=== PATIENT | female | born 1950 | race African-American/Black ===

== ENCOUNTER 2016-12-17 20:24 | Inpatient (IN) | payer OTHER ==
[~2016-12-17] VITALS: Ht 170.2 cm; Wt 88.1 kg
[~2016-12-17 20:24] MED LIST: AMIO200T PO; AMLO10 PO; CLON.2 PO; DILT120T PO; FURO1TAB60 PO; FURO40TA PO; IMDU60TA PO; LISI-515 PO; POTA-243 PO; PRIN20TA2 PO; SIMV40TA PO; XARE15TA PO
[2016-12-17 20:27] VITALS: BP 221/142; PULSE 130; RESP 42; TEMP 97.9; O2SAT 98
[2016-12-17 20:30] VITALS: O2SAT 89
[2016-12-17] MEDS ORDERED: RESP: ALBUTEROL 2.5 MG/IPRATROPIUM 0.5 MG NEB (SCH) INH (20:30)
[2016-12-17] MEDS ORDERED: methylPREDNISolone SOD SUCC 125 MG/2 ML VIAL IVP ONE (20:30)
[2016-12-17] MEDS ORDERED: FUROSEMIDE 40 MG/4 ML VIAL IV PUSH ONE (20:45)
[2016-12-17] MEDS ORDERED: NITROGLYCERIN 2% OINT 1 GM PACKET TOP ONE (20:45)
[2016-12-17] MEDS: SODIUM CHLORIDE 0.9% FLUSH 5 ML FLUSH IVF PRN ×2 (20:47→21:05)
--- NOTE | 2016-12-17 20:48 | PD ---
HPI Chief Complaint: Respiratory Symptoms Time Seen by Provider: 20:28 Travel History International Travel<30 days: No Contact w/Intl Traveler<30days: No Traveled to known affect area: No History of Present Illness HPI This report is in ERROR Please disregard this report and all prior copies ! This report is in ERROR Please disregard this report and all prior copies ! This report is in ERROR Please disregard this report and all prior copies ! History Past Medical History Tetanus Vaccination: Unknown Menopausal: Yes : 4 Para: 3 Social History Alcohol Use: No Tobacco Use: Yes (3 cigarettes a day) Allergies-Medications (Allergen,Severity, Reaction): Coded Allergies: No Known Allergies (Unverified , 12/17/16) Reported Meds & Prescriptions Reported Meds & Active Scripts Active Lasix (Furosemide) 40 Mg Tab 40 Mg PO DAILY Xarelto (Rivaroxaban) 15 Mg Tab 15 Mg PO DAILY 30 Days Klor-Con 10 (Potassium Chloride) 10 Meq Tab 10 Meq PO DAILY 30 Days Lisinopril 20 Mg Tab 40 Mg PO DAILY 30 Days Imdur (Isosorbide Mononitrate) 60 Mg Tab 60 Mg PO DAILY@07 30 Days Simvastatin 40 Mg Tab 40 Mg PO HS Norvasc (Amlodipine Besylate) 10 Mg Tab 10 Mg PO DAILY 30 Days Amiodarone (Amiodarone HCl) 200 Mg Tab 400 Mg PO DIRECTED 30 Days Pt to take amiodarone 400mg po q12 until 09/28/16 pm then take 200mg po daily starting 09/29/16 Reported Klor-Con 10 (Potassium Chloride) 10 Meq Tab 10 Meq PO DAILY Catapres (Clonidine) 0.2 Mg Tab 0.2 Mg PO BID Furosemide 40 Mg Tab 40 Mg PO DAILY Imdur (Isosorbide Mononitrate) 60 Mg Tab 60 Mg PO DAILY Prinivil (Lisinopril) 20 Mg Tab 20 Mg PO DAILY Diltiazem (Diltiazem HCl) 120 Mg Tab 120 Mg PO QID Xarelto (Rivaroxaban) 15 Mg Tab 15 Mg PO DAILY Physical Exam Narrative This report is in ERROR Please disregard this report and all prior copies ! This report is in ERROR Please disregard this report and all prior copies ! This report is in ERROR Please disregard this report and all prior copies ! Data Data Last Documented VS Vital Signs Date Time Temp Pulse Resp B/P Pulse Ox O2 Delivery O2 Flow Rate FiO2 12/17/16 20:27 97.9 130 42 221/142 98 Orders Complete Blood Count With Diff (12/17/16 20:28) Basic Metabolic Panel (Bmp) (12/17/16 20:28) B-Type Natriuretic Peptide (12/17/16 20:28) Act Partial Throm Time (Ptt) (12/17/16 20:28) Prothrombin Time / Inr (Pt) (12/17/16 20:28) Magnesium (Mg) (12/17/16 20:28) Troponin I (12/17/16 20:28) Iv Access Insert/Monitor (12/17/16 20:28) Electrocardiogram (12/17/16 20:28) Ecg Monitoring (12/17/16 20:28) Oximetry (12/17/16 20:28) Oxygen Administration (12/17/16 20:28) Chest, Single Ap (12/17/16 20:28) Sodium Chloride 0.9% Flush (Ns Flush) (12/17/16 20:30) Methylprednisolone So Succ Inj (Solumedr (12/17/16 20:30) Albuterol-Ipratropium Neb (Duoneb Neb) (12/17/16 20:30) Furosemide Inj (Lasix Inj) (12/17/16 20:45) Urinary Catheter Insert/Apply (12/17/16 20:42) Nitroglycerin 2% Oint (Nitroglycerin 2% (12/17/16 20:45) MDM Medical Decision Making Medical Screen Exam Complete: Yes Emergency Medical Condition: Yes Differential Diagnosis This report is in ERROR Please disregard this report and all prior copies ! This report is in ERROR Please disregard this report and all prior copies ! This report is in ERROR Please disregard this report and all prior copies ! Narrative Course This report is in ERROR Please disregard this report and all prior copies ! This report is in ERROR Please disregard this report and all prior copies ! This report is in ERROR Please disregard this report and all prior copies ! Vitor Wong MD Dec 17, 2016 20:48
--- NOTE | 2016-12-17 20:48 | PD ---
HPI Chief Complaint: Respiratory Symptoms Time Seen by Provider: 20:28 Travel History International Travel<30 days: No Contact w/Intl Traveler<30days: No Traveled to known affect area: No History of Present Illness HPI 66-year-old female arrives from home via EMS. She has a history of coronary artery disease, CHF, atrial fibrillation with AICD, hypertension and asthma arrives with shortness of breath. She reports noncompliance with all of her medications including Lasix and Xarelto for 3 weeks or so due to difficulty making her appointments via public transportation. She denies chest pain she has had a cough with white productive phlegm. EMS gave breathing treatments en route which seemed to help. no fever. PFSH Past Medical History Hx Anticoagulant Therapy: Yes Arthritis: Yes (r ankle) Asthma: Yes Blood Disorders: No Anxiety: No Depression: No Heart Rhythm Problems: Yes Cancer: No Cardiovascular Problems: Yes High Cholesterol: No Chemotherapy: No Chest Pain: No Congestive Heart Failure: No COPD: No Cerebrovascular Accident: Yes Coronary Artery Disease: Yes Diabetes: No Diminished Hearing: No Endocrine: No Genitourinary: No Headaches: Yes Hypertension: Yes Immune Disorder: No Kidney Stones: No Musculoskeletal: Yes Neurologic: Yes (stroke) Psychiatric: No Reproductive: No Respiratory: Yes Immunizations Current: Yes Migraines: No Radiation Therapy: No Renal Failure: No Seizures: No Sleep Apnea: No Thyroid Disease: No Ulcer: No Tetanus Vaccination: Unknown Menopausal: Yes : 4 Para: 3 Miscarriage: 1 Tubal Ligation: Yes Past Surgical History Abdominal Surgery: No AICD: No Arteriovenous Shunt: No Cardiac Surgery: No Ear Surgery: No Endocrine Surgery: No Eye Surgery: No Insulin Pump: No Joint Replacement: No Oral Surgery: No Pacemaker: Yes (with defibrillator ) Thoracic Surgery: No Other Surgery: Yes (R ankle surgery, tubal ligation, pacemaker placement) Social History Alcohol Use: No Tobacco Use: Yes (3 cigarettes a day) Substance Use: No Allergies-Medications (Allergen,Severity, Reaction): Coded Allergies: No Known Allergies (Unverified , 12/17/16) Reported Meds & Prescriptions Reported Meds & Active Scripts Active Lasix (Furosemide) 40 Mg Tab 40 Mg PO DAILY Klor-Con 10 (Potassium Chloride) 10 Meq Tab 10 Meq PO DAILY 30 Days Lisinopril 20 Mg Tab 40 Mg PO DAILY 30 Days Simvastatin 40 Mg Tab 40 Mg PO HS Norvasc (Amlodipine Besylate) 10 Mg Tab 10 Mg PO DAILY 30 Days Amiodarone (Amiodarone HCl) 200 Mg Tab 400 Mg PO DIRECTED 30 Days Pt to take amiodarone 400mg po q12 until 09/28/16 pm then take 200mg po daily starting 09/29/16 Reported Isosorbide Mononitrate ER (Isosorbide Mononitrate) 60 Mg Tab 60 Mg PO DAILY Klor-Con 10 (Potassium Chloride) 10 Meq Tab 10 Meq PO DAILY Catapres (Clonidine) 0.2 Mg Tab 0.2 Mg PO BID Furosemide 40 Mg Tab 40 Mg PO DAILY Prinivil (Lisinopril) 20 Mg Tab 20 Mg PO DAILY Diltiazem (Diltiazem HCl) 120 Mg Tab 120 Mg PO QID Xarelto (Rivaroxaban) 15 Mg Tab 15 Mg PO DAILY Review of Systems Except as stated in HPI: all other systems reviewed are Neg Physical Exam Narrative GENERAL: 66-year-old female pleasant, speaks 2-3 word sentences 2/2 dyspnea SKIN: Warm and dry. HEAD: Atraumatic. Normocephalic. EYES: Pupils equal and round. No scleral icterus. No injection or drainage. ENT: No nasal bleeding or discharge. Mucous membranes pink and moist. NECK: Trachea midline. No JVD. CARDIOVASCULAR: Tachycardia. Regular rhythm. RESPIRATORY: Rales. Tachypnea. GASTROINTESTINAL: Abdomen soft, non-tender, nondistended. Hepatic and splenic margins not palpable. MUSCULOSKELETAL: No edema. No gross deformity otherwise. NEUROLOGICAL: Awake and alert. No obvious cranial nerve deficits. Motor grossly within normal limits. Five out of 5 muscle strength in the arms and legs. Normal speech. PSYCHIATRIC: Appropriate mood and affect; insight and judgment normal. Data Data Last Documented VS Vital Signs Date Time Temp Pulse Resp B/P Pulse Ox O2 Delivery O2 Flow Rate FiO2 12/17/16 20:31 95 Nasal Cannula 4 12/17/16 20:27 97.9 130 42 221/142 Orders Complete Blood Count With Diff (12/17/16 20:28) Basic Metabolic Panel (Bmp) (12/17/16 20:28) B-Type Natriuretic Peptide (12/17/16 20:28) Act Partial Throm Time (Ptt) (12/17/16 20:28) Prothrombin Time / Inr (Pt) (12/17/16 20:28) Magnesium (Mg) (12/17/16 20:28) Troponin I (12/17/16 20:28) Iv Access Insert/Monitor (12/17/16 20:28) Electrocardiogram (12/17/16 20:28) Ecg Monitoring (12/17/16 20:28) Oximetry (12/17/16 20:28) Oxygen Administration (12/17/16 20:28) Chest, Single Ap (12/17/16 20:28) Sodium Chloride 0.9% Flush (Ns Flush) (12/17/16 20:30) Methylprednisolone So Succ Inj (Solumedr (12/17/16 20:30) Albuterol-Ipratropium Neb (Duoneb Neb) (12/17/16 20:30) Furosemide Inj (Lasix Inj) (12/17/16 20:45) Urinary Catheter Insert/Apply (12/17/16 20:42) Nitroglycerin 2% Oint (Nitroglycerin 2% (12/17/16 20:45) Admit Order (Ed Use Only) (12/17/16 22:33) Labs Laboratory Tests Test 12/17/16 20:40 White Blood Count 9.7 TH/MM3 Red Blood Count 4.33 MIL/MM3 Hemoglobin 11.5 GM/DL Hematocrit 34.7 % Mean Corpuscular Volume 80.3 FL Mean Corpuscular Hemoglobin 26.6 PG Mean Corpuscular Hemoglobin 33.2 % Concent Red Cell Distribution Width 16.0 % Platelet Count 338 TH/MM3 Mean Platelet Volume 10.3 FL Neutrophils (%) (Auto) 77.3 % Lymphocytes (%) (Auto) 15.1 % Monocytes (%) (Auto) 3.9 % Eosinophils (%) (Auto) 2.8 % Basophils (%) (Auto) 0.9 % Neutrophils # (Auto) 7.5 TH/MM3 Lymphocytes # (Auto) 1.5 TH/MM3 Monocytes # (Auto) 0.4 TH/MM3 Eosinophils # (Auto) 0.3 TH/MM3 Basophils # (Auto) 0.1 TH/MM3 CBC Comment DIFF FINAL Differential Comment Prothrombin Time 11.5 SEC Prothromb Time International 1.0 RATIO Ratio Activated Partial 29.8 SEC Thromboplast Time Sodium Level 136 MEQ/L Potassium Level 3.5 MEQ/L Chloride Level 102 MEQ/L Carbon Dioxide Level 21.1 MEQ/L Anion Gap 13 MEQ/L Blood Urea Nitrogen 17 MG/DL Creatinine 1.46 MG/DL Estimat Glomerular Filtration 44 ML/MIN Rate Random Glucose 133 MG/DL Calcium Level 8.6 MG/DL Magnesium Level 1.9 MG/DL Troponin I 0.43 NG/ML B-Type Natriuretic Peptide 1650 PG/ML MDM Medical Decision Making Medical Screen Exam Complete: Yes Emergency Medical Condition: Yes Medical Record Reviewed: Yes Differential Diagnosis CHF, anemia, pneumonia, COPD/asthma, flash pulmonary edema Narrative Course CBC & BMP Diagram 12/17/16 20:40 BNP 1650 Tn 0.43 Coags 11.5 / 1.0 / 29.8 CXR: Pulm edema Patient has received Nitropaste and Lasix. She's produced about 800 cc of urine. She reports feeling much better upon reassessment at 10:36 PM. Hypertension about 206/100 observed. Heart rate about 110. O2 sat 95% on NC. Admission for CHF exacerbation. Discussed with Dr. Presley. Diagnosis Primary Impression: Acute on chronic systolic CHF (congestive heart failure) Additional Impressions: Hypertension Qualified Code: I15.9 - Secondary hypertension Tachycardia Admitting Information Admitting Physician Requests: Admit Vitor Wong MD Dec 17, 2016 20:48
[2016-12-17] MEDS ORDERED: ISOS60TA PO (20:52)
[2016-12-17 21:14] LABS: AUTOMATED NEUTROPHIL # 7.5 TH/MM3 (1.8-7.7); BASOPHIL # 0.1 TH/MM3 (0-0.2); BASOPHIL % 0.9 % (0.0-2.0); EOSINOPHIL # 0.3 TH/MM3 (0-0.4); EOSINOPHIL % 2.8 % (0.0-4.0); HEMATOCRIT 34.7 % (35.0-46.0); HEMO FLAGS DIFF FINAL; LYMPH % 15.1 % (9.0-44.0); LYMPHOCYTE # 1.5 TH/MM3 (1.0-4.8); MEAN CELL VOLUME 80.3 FL (80.0-100.0); MEAN CORPUSCULAR HEMOGLOBIN 26.6 PG (27.0-34.0); MEAN CORPUSCULAR HGB CONC 33.2 % (32.0-36.0); MONO % 3.9 % (0.0-8.0); NEUT % 77.3 % (16.0-70.0); PLATELET COUNT 338 TH/MM3 (150-450); RED BLOOD COUNT 4.33 MIL/MM3 (4.00-5.30); WHITE BLOOD COUNT 9.7 TH/MM3 (4.0-11.0)
[2016-12-17 21:25] LABS: APTT (PATIENT) 29.8 SEC (24.3-30.1); PROTHROMBIN TIME - PATIENT 11.5 SEC (9.8-11.6)
[2016-12-17 21:42] LABS: BICARBONATE 21.1 MEQ/L (21.0-32.0); MAGNESIUM 1.9 MG/DL (1.5-2.5)
[2016-12-17 21:47] LABS: POTASSIUM 3.5 MEQ/L (3.5-5.1)
--- NOTE | 2016-12-17 22:39 | RADRPT ---
EXAM DATE/TIME: 12/17/2016 20:43 [facility] COMPARISON: CHEST SINGLE AP, September 23, 2016, 19:35. INDICATIONS : Short of breath. MEDICAL HISTORY : Hypertension. Cardiovascular disease. SURGICAL HISTORY : Pacemaker. ENCOUNTER: Initial ACUITY: 1 day PAIN SCORE: 0/10 LOCATION: Bilateral chest FINDINGS: A single view of the chest demonstrates cardiomegaly. Pacer lead overlies right ventricle. Bilateral airspace consolidation and an effusion. No pneumothorax. CONCLUSION: 1. Development of bilateral airspace disease most characteristic of mild pulmonary edema. Cardiomegal y. No pneumothorax. Odilon Lechuga MD on December 17, 2016 at 22:36 Board Certified Radiologist. This report was verified electronically.
[2016-12-17 23:30] VITALS: BP 205/113; PULSE 109; RESP 22
[2016-12-17] MEDS ORDERED: SODIUM CHLORIDE 0.9% FLUSH 5 ML FLUSH FLUSH PRN (23:30)
[2016-12-17] MEDS ORDERED: POTASSIUM CHLORIDE 25 MEQ EFFERVESCENT TAB PO ONE (23:30)
[2016-12-17] MEDS ORDERED: MORPHINE SULFATE 4 MG/ML INJ IV PRN (23:30)
[2016-12-17] MEDS ORDERED: ACETAMINOPHEN 325 MG TAB PO PRN (23:30)
[2016-12-17] MEDS ORDERED: SENNOSIDES 8.6 MG TAB PO PRN (23:30)
--- NOTE | 2016-12-17 23:40 | HHI.HP ---
[facility] Service [facility] Primary Care Physician Unknown Admission Diagnosis CHF exacerbation, Dyspnea, HTN Diagnoses: Chief Complaint: Lethargy Travel History International Travel<30 Days: No Contact w/Intl Traveler <30 Da: No Traveled to Known Affected Are: No Sepsis Criteria SIRS Criteria (2 or more): Heart rate over 90, RR > 20 or PaCO2 < 32 Criteria Outcome: Meets SIRS criteria History of Present Illness The patient is a 66-year-old female with a past medical history of cardiomyopathy status post AICD placement who is presenting to the hospital and found to be in respiratory distress. The patient says she is always short of breath. She says she is not on oxygen at home. She says she was in the hospital a few months ago for a similar presentation. She says she stopped taking her blood pressure medications a couple of days ago out of laziness. She says she has been drowsy recently. She says her blood pressure has been high. She says she lives alone but it is starting to get difficult to take care of herself. The emergency department she was found to be very hypertensive and with pulmonary edema. She was given a nitroglycerin patch and was diuresed with IV Lasix. The patient's blood pressure is still quite elevated but she feels better from a respiratory standpoint. She denies any chest pain. She says she follows up with several cardiologists but is not sure which ones. She is not sure which medication she actually takes on a regular basis. Review of Systems ROS Limitations: Poor Historian Respiratory: COMPLAINS OF: Shortness of breath Cardiovascular: COMPLAINS OF: Dyspnea on Exertion, DENIES: Chest pain Integumentary: COMPLAINS OF: Abnormal pigmentation Psychiatric: COMPLAINS OF: Confusion Past Family Social History Past Medical History Hypertension History of A fib/ A flutter Nonischemic cardiomyopathystatus post AICD CVA COPD Chronic kidney disease Past Surgical History ICD implantation Tubal ligation Right ankle with pin placement Allergies: Coded Allergies: No Known Allergies (Unverified , 12/17/16) Active Ordered Medications Current Medications Medications (Trade) Dose Ordered Sig/Dajuan Route Start Time Stop Time Status Last Admin (NS Flush) 2 ml UNSCH PRN IVF 12/17/16 20:30 12/17/16 21:05 (Cordarone) 200 mg DAILY PO 12/18/16 09:00 (Norvasc) 10 mg DAILY PO 12/18/16 09:00 (Catapres) 0.2 mg BID PO 12/18/16 09:00 (Imdur) 60 mg DAILY@07 PO 12/18/16 07:00 (Prinivil) 40 mg DAILY PO 12/17/16 23:00 Pravastatin Sodium 80 mg 80 mg HS PO 12/18/16 21:00 Nicardipine HCl 25 mg/Sodium Chloride 260 ml @ 0 mls/hr TITRATE IV 12/17/16 23:30 UNV (Heparin-D5W Inj) 250 ml @ 0 mls/hr TITRATE IV 12/17/16 23:30 UNV (NS Flush) 2 ml UNSCH PRN FLUSH 12/17/16 23:30 UNV (NS Flush) 2 ml BID FLUSH 12/18/16 09:00 UNV (Tylenol) 650 mg Q4H PRN PO 12/17/16 23:30 UNV (Colace) 100 mg Q12H PO 12/17/16 23:30 UNV (Senokot) 17.2 mg Q12H PRN PO 12/17/16 23:30 UNV (Tylenol) 650 mg Q6H PRN PO 12/17/16 23:30 UNV (Morphine Inj) 2 mg Q3H PRN IV 12/17/16 23:30 UNV Family History She says her father at home. Social History The patient smokes 4 cigarettes daily. She does not drink alcohol. Physical Exam Vital Signs Vital Signs Date Time Temp Pulse Resp B/P Pulse Ox O2 Delivery O2 Flow Rate FiO2 12/17/16 20:31 95 Nasal Cannula 4 12/17/16 20:30 89 Room Air 12/17/16 20:27 97.9 130 42 221/142 98 Physical Exam GENERAL: No apparent distress. SKIN: Warm and dry. HEAD: Atraumatic. Normocephalic. EYES: Pupils equal and round. No scleral icterus. No injection or drainage. ENT: No nasal bleeding or discharge. Mucous membranes pink and moist. NECK: Trachea midline. No JVD. CARDIOVASCULAR: Tachycardic. No murmur appreciated. RESPIRATORY: Rales and mild wheezing noted. GASTROINTESTINAL: Abdomen soft, non-tender, nondistended. Hepatic and splenic margins not palpable. MUSCULOSKELETAL: No edema. No gross deformity otherwise. NEUROLOGICAL: Awake and alert. No obvious cranial nerve deficits. Motor grossly within normal limits. Five out of 5 muscle strength in the arms and legs. Normal speech. PSYCHIATRIC: Appropriate mood and affect. Laboratory Laboratory Tests Test 12/17/16 20:40 White Blood Count 9.7 Red Blood Count 4.33 Hemoglobin 11.5 Hematocrit 34.7 Mean Corpuscular Volume 80.3 Mean Corpuscular Hemoglobin 26.6 Mean Corpuscular Hemoglobin 33.2 Concent Red Cell Distribution Width 16.0 Platelet Count 338 Mean Platelet Volume 10.3 Neutrophils (%) (Auto) 77.3 Lymphocytes (%) (Auto) 15.1 Monocytes (%) (Auto) 3.9 Eosinophils (%) (Auto) 2.8 Basophils (%) (Auto) 0.9 Neutrophils # (Auto) 7.5 Lymphocytes # (Auto) 1.5 Monocytes # (Auto) 0.4 Eosinophils # (Auto) 0.3 Basophils # (Auto) 0.1 CBC Comment DIFF FINAL Differential Comment Prothrombin Time 11.5 Prothromb Time International 1.0 Ratio Activated Partial 29.8 Thromboplast Time Sodium Level 136 Potassium Level 3.5 Chloride Level 102 Carbon Dioxide Level 21.1 Anion Gap 13 Blood Urea Nitrogen 17 Creatinine 1.46 Estimat Glomerular Filtration 44 Rate Random Glucose 133 Calcium Level 8.6 Magnesium Level 1.9 Troponin I 0.43 B-Type Natriuretic Peptide 1650 Result Diagram: 12/17/16203912/17/162039 Imaging Last Impressions Chest X-Ray 12/17/162027 Signed Impressions: Service Date/Time: Saturday, December 17, 2016 20:43 - CONCLUSION: 1. Development of bilateral airspace disease most characteristic of mild pulmonary edema. Cardiomegaly. No pneumothorax. Odilon Lechuga MD Assessment and Plan Assessment and Plan Acute on chronic heart failure exacerbation The patient has a history of cardiomyopathy. Chest x-ray consistent with pulmonary edema. Her BNP was 1650. Her symptoms improved with IV Lasix. - Continue diuresis with Lasix 40 mg IV twice a day. - Follow I's and O's. - Continue cardiac regimen. - Monitor on telemetry. NSTEMI Initial troponin was 0.43. She denies any chest pain. EKG with tachycardia but no obvious ischemia. Likely demand ischemia from CHF exacerbation and hypertensive emergency. - Controlled blood pressure. - Start a heparin drip. - Continue cardiac regimen. - Monitor on telemetry. - Cardiology consult pending. Hypertensive emergency The patient has not been taking her blood pressure medications for the past couple of days. She does endorse noncompliance in general. Systolic blood pressure well over 200 in the emergency department. - Start a Cardene drip. - Resume home anti-hypertensive regimen. - Cardiology consult. Atrial fibrillation The patient has a history of atrial fibrillation/flutter. Rate is elevated in the emergency department. - Continue home amiodarone. Unsure if she has been taking it on a regular basis. - Telemetry. - Heparin drip. Chronic kidney disease Creatinine is similar to baseline. - Monitor BMP while patient is being diuresed. - Avoid nephrotoxic agents. Lethargy The patient endorses drowsiness and laziness. She is noncompliant with her medications. She lives alone and says it is getting more difficult to take care of herself. - PT/OT. - Case management consult for potential placement. - Treat underlying conditions as above. PPx: Heparin. Code Status Full. Discussed Condition With Dr. Wong, pt. Physician Certification 2 Midnight Certification Type: Admission for Inpatient Services Order for Inpatient Services The services are ordered in accordance with Medicare regulations or non- Medicare payer requirements, as applicable. In the case of services not specified as inpatient-only, they are appropriately provided as inpatient services in accordance with the 2-midnight benchmark. Estimated LOS (days): 2 days is the estimated time the patient will need to remain in the hospital, assuming treatment plan goals are met and no additional complications. Post-Hospital Plan: Not yet determined Dwayne Presley DO Dec 17, 2016 23:39
[2016-12-17] MEDS: LISINOPRIL 20 MG TAB PO SCH (23:42)
[2016-12-17 23:59] LABS: APTT (PATIENT) 27.1 SEC (24.3-30.1)
[2016-12-18] VITALS (13 sets, daily range): BP systolic 125–184; BP diastolic 65–101; PULSE 80–106; RESP 16–26; TEMP 97.9; O2SAT 93–99
[2016-12-18] MEDS: HEPARIN-D5W INJ 250 ML IV SCH ×2 (00:04→21:15)
[2016-12-18] MEDS: niCARdipine INJ 25 MG in SODIUM CHLOR 0.9% 250 ML INJ 250 ML IV SCH ×3 (00:23→21:15)
[2016-12-18] MEDS: DOCUSATE SODIUM 100 MG CAP PO SCH ×2 (00:57→13:47)
[2016-12-18 05:35] LABS: AUTOMATED NEUTROPHIL # 5.4 TH/MM3 (1.8-7.7); BASOPHIL % 0.2 % (0.0-2.0); EOSINOPHIL % 0.1 % (0.0-4.0); HEMATOCRIT 33.7 % (35.0-46.0); HEMO FLAGS DIFF FINAL; LYMPH % 9.2 % (9.0-44.0); LYMPHOCYTE # 0.6 TH/MM3 (1.0-4.8); MEAN CELL VOLUME 80.2 FL (80.0-100.0); MEAN CORPUSCULAR HEMOGLOBIN 27.1 PG (27.0-34.0); MEAN CORPUSCULAR HGB CONC 33.8 % (32.0-36.0); MONO % 1.1 % (0.0-8.0); NEUT % 89.4 % (16.0-70.0); PLATELET COUNT 308 TH/MM3 (150-450); RED CELL DISTRIBUTION WIDTH 16.2 % (11.6-17.2)
--- NOTE | 2016-12-18 05:49 | RADRPT ---
EXAM DATE/TIME: 12/18/2016 05:17 [facility] COMPARISON: CHEST SINGLE AP, December 17, 2016, 20:43. INDICATIONS : Short of breath. MEDICAL HISTORY : Hypertension. Cardiovascular disease. SURGICAL HISTORY : Pacemaker. ENCOUNTER: Subsequent ACUITY: 2 days PAIN SCORE: Non-responsive. LOCATION: Bilateral chest FINDINGS: There continues to be bilateral interstitial infiltrates without significant change compared to the p rior exam. The heart size is enlarged but stable. No pleural effusions. No evidence of pneumothorax. Bony structures are stable. CONCLUSION: No significant interval change with bilateral interstitial pulmonary infiltrates. Tyson Bustamante MD on December 18, 2016 at 5:47 Board Certified Radiologist. This report was verified electronically.
[2016-12-18 06:20] LABS: BICARBONATE 23.3 MEQ/L (21.0-32.0); POTASSIUM 3.5 MEQ/L (3.5-5.1)
[2016-12-18] MEDS: SODIUM CHLORIDE 0.9% FLUSH 5 ML FLUSH FLUSH SCH ×2 (11:13→21:00)
[2016-12-18] MEDS: FUROSEMIDE 40 MG/4 ML VIAL IV PUSH SCH (11:13)
[2016-12-18] MEDS: cloNIDine HCL 0.2 MG TAB PO SCH ×2 (11:14→21:16)
[2016-12-18] MEDS: LISINOPRIL 20 MG TAB PO SCH (11:14)
[2016-12-18] MEDS: AMIODARONE 200 MG TAB PO SCH (11:14)
--- NOTE | 2016-12-18 12:37 | MB ---
cc: IZAIAH ARREDONDO DATE OF CONSULTATION 12/18/2016 DATE OF 1950 REASON FOR CONSULTATION Heart failure, elevated troponins. HISTORY OF PRESENT ILLNESS 66-year-old female with past medical history significant for nonischemic cardiomyopathy status post AICD, hypertension, COPD, chronic kidney disease and atrial fibrillation who presented to the emergency department because of respiratory distress. She stated that she stopped her home medications for a couple of days because she did not have any refills and the shortness of breath has progressed significantly over the last days. She denies fevers, chills, palpitations, chest pains, syncope, nausea, vomiting, or diarrhea. In the emergency department, she was found to have high blood pressure with sysytolic 200's and diastolic above 100 and with pulmonary edema. She was started on nitro, as well as on IV Lasix with resolution of symptoms. Blood work in the emergency department shows troponin marker trending up from 0.43-0.79, BNP of 1615. Cardiology has been consulted for further recommendations. REVIEW OF SYSTEMS Negative except for what is mentioned in the HPI. PAST MEDICAL HISTORY 1. Hypertension 2. A. Fib/A. Flutter 3. Nonischemic cardiomyopathy status post AICD 4. CVA 5. COPD 6. Chronic kidney disease PAST SURGICAL HISTORY 1. ICD implantation 2. Tubal ligation 3. Right ankle with pin placement ALLERGIES NO KNOWN DRUG ALLERGIES. HOME MEDICATIONS 1. Amiodarone 200 mg b.i.d. 2. Norvasc 10 mg p.o. daily 3. Clonidine 0.2 mg p.o. b.i.d. 4. Diltiazem 120 mg p.o. q.i.d. 5. Lasix 40 mg p.o. daily 6. Imdur 60 mg p.o. daily 7. Lisinopril 20 mg p.o. daily 8. Potassium chloride 10 mEq p.o. daily 9. Izaguirre 15 mg p.o. daily 10. Simvastatin 40 mg p.o. q.h.s. FAMILY HISTORY Noncontributory SOCIAL HISTORY The patient is a smoker. She smokes four cigarettes daily. No illicit drug use. No alcohol. PHYSICAL EXAMINATION VITAL SIGNS: Temperature 97.9, respiratory rate 18, heart rate 90, blood pressure on arrival 221/142, this morning is 154/91, O2 sats 99% into two liters nasal cannula. GENERAL: She is awake, alert, and oriented x3 in no acute distress. NECK: No JVD, no carotid bruits. HEART: Tachycardia. No murmurs, rubs or gallops appreciated. LUNGS: There are rales at the bases. No rhonchi or wheezes. ABDOMEN: Obese. Positive bowel sounds, soft, nontender, nondistended. EXTREMITIES: No cyanosis or edema. LABORATORY DATA CBC hemoglobin 11, hematocrit 33, platelets 308, INR 1. Chemistries sodium 139, potassium 3.5, BUN 17, creatinine 1.3, troponin 0.43 and 0.79. She had an echocardiogram done last year showing an EF of 30-35%. Left heart catheterization at that time revealed normal coronaries. She has a AICD. EKG shows sinus tachycardia with an interventricular conduction delay and nonspecific ST changes. ASSESSMENT/PLAN 66-year-old female with known nonischemic cardiomyopathy, EF of 30%, status post AICD, hypertension and active smoker who presents with acute onset of shortness of breath in the setting of noncompliance with medications and HTN urgency. She was found to be in hypertension urgency in the emergency department which resolved with medications. Currently she remains hemodynamically stable, denies shortness of breath, chest pain, palpitations, more compensated from heart failure standpoint. Troponins elevated however, last year [facility] shows normal coronaries. I think troponin elevation most likely it is due to the hypertensive urgency, as well as her chronic kidney disease. At this point, I would not pursue any invasive cardiac workup, rather would recommend to optimize her blood pressure medications, as well as IV diuresis for heart failure. The patient should have strict in and outputs recorded, weigh daily and low salt intake. Smoking cessation is advised. She should follow up with a primary software test developer when discharged from the hospital. Thank you for the opportunity to take part in the care of this patient. MD TWIN Olvera/TEDDY /9:19 AM /12:21 PM [place]
[2016-12-18] MEDS: ISOSORBIDE MONONITRATE 60 MG TAB PO SCH (13:47)
--- NOTE | 2016-12-18 15:59 | EKG ---
Date Performed: 12/18/2016 Time Performed: 12:14:26 PTAGE: 66 years EKG: Sinus rhythm POSSIBLE LEFT ATRIAL ENLARGEMENT LEFT VENTRICULAR HYPERTROPHY AND ST-T CHANGE ABNORMAL ECG COMPARED TO PRIOR ELECTROCARDIOGRAM, Rate has slowed and T-wave changes are slightly worse. PREVIOUS TRACING : 12/17/2016 20.34 DOCTOR: Harish Fowler Interpretating Date/Time 12/18/2016 15:58:13
--- NOTE | 2016-12-18 18:57 | HHI.PR ---
Subjective Remarks sob improving as per patient denies cp denies fevers/chills Objective Vitals Vital Signs Date Time Temp Pulse Resp B/P Pulse Ox O2 Delivery O2 Flow Rate FiO2 12/18/16 13:47 86 19 125/67 97 Nasal Cannula 3 12/18/16 11:00 96 26 146/75 99 Nasal Cannula 2 12/18/16 06:27 90 18 154/91 99 Nasal Cannula 2 12/18/16 04:46 90 18 142/86 99 Room Air 12/18/16 02:13 100 16 159/95 99 Nasal Cannula 2 12/18/16 01:11 101 18 184/81 95 Nasal Cannula 2 12/18/16 01:00 106 24 176/98 94 Nasal Cannula 3 12/18/16 00:50 96 24 181/101 93 Nasal Cannula 3 12/17/16 23:30 109 22 205/113 4 12/17/16 20:31 95 Nasal Cannula 4 12/17/16 20:30 89 Room Air 12/17/16 20:27 97.9 130 42 221/142 98 I/O 12/17/16 12/17/16 12/17/16 12/18/16 12/18/16 12/18/16 07:00 15:00 23:00 07:00 15:00 23:00 Output Total 1400 ml Balance -1400 ml Output Urine Total 1400 ml Result Diagram: 12/18/16 0455 12/18/16 0455 Imaging Last Impressions Chest X-Ray 12/18/16 0600 Signed Impressions: Service Date/Time: Sunday, December 18, 2016 05:17 - CONCLUSION: No significant interval change with bilateral interstitial pulmonary infiltrates. Tyson Bustamante MD Objective Remarks GENERAL: No apparent distress. SKIN: Warm and dry. HEAD: Atraumatic. Normocephalic. EYES: Pupils equal and round. No scleral icterus. No injection or drainage. ENT: No nasal bleeding or discharge. Mucous membranes pink and moist. NECK: Trachea midline. No JVD. CARDIOVASCULAR: Tachycardic. No murmur appreciated. RESPIRATORY: decreased air entry bilaterally with diffuse billateral expiratory wheezing GASTROINTESTINAL: Abdomen soft, non-tender, nondistended. Hepatic and splenic margins not palpable. MUSCULOSKELETAL: No edema. No gross deformity otherwise. NEUROLOGICAL: Awake and alert. No obvious cranial nerve deficits. Motor grossly within normal limits. Five out of 5 muscle strength in the arms and legs. Normal speech. PSYCHIATRIC: Appropriate mood and affect. Medications and IVs Current Medications Medications (Trade) Dose Ordered Sig/Dajuan Route Start Time Stop Time Status Last Admin (NS Flush) 2 ml UNSCH PRN IVF 12/17/16 20:30 12/17/16 21:05 (Cordarone) 200 mg DAILY PO 12/18/16 09:00 12/18/16 11:14 (Norvasc) 10 mg DAILY PO 12/18/16 09:00 12/18/16 11:14 (Catapres) 0.2 mg BID PO 12/18/16 09:00 12/18/16 21:16 (Imdur) 60 mg DAILY@07 PO 12/18/16 07:00 12/18/16 13:47 (Prinivil) 40 mg DAILY PO 12/17/16 23:00 12/18/16 11:14 Pravastatin Sodium 80 mg 80 mg HS PO 12/18/16 21:00 12/18/16 21:16 Nicardipine HCl 25 mg/Sodium Chloride 260 ml @ 0 mls/hr TITRATE IV 12/17/16 23:30 12/18/16 21:15 (Heparin-D5W Inj) 250 ml @ 0 mls/hr TITRATE IV 12/17/16 23:30 12/18/16 21:15 (NS Flush) 2 ml UNSCH PRN FLUSH 12/17/16 23:30 (NS Flush) 2 ml BID FLUSH 12/18/16 09:00 12/18/16 11:13 (Tylenol) 650 mg Q4H PRN PO 12/17/16 23:30 (Colace) 100 mg Q12H PO 12/17/16 23:30 12/18/16 13:47 (Senokot) 17.2 mg Q12H PRN PO 12/17/16 23:30 (Tylenol) 650 mg Q6H PRN PO 12/17/16 23:30 (Morphine Inj) 2 mg Q3H PRN IV 12/17/16 23:30 (Roxicodone) 5 mg Q4H PRN PO 12/17/16 23:30 (Lasix Inj) 40 mg BID@,18 IV PUSH 12/18/16 09:00 12/18/16 11:13 Methylprednisolone Sodium Succinate 40 mg 40 mg Q6HR IV PUSH 12/19/16 00:00 (Levaquin 750 Mg Premix Inj) 150 ml @ 100 mls/hr Q48H IV 12/18/16 21:00 12/18/16 21:16 Urinary Catheter: No Vascular Central Line Catheter: No A/P Assessment and Plan Acute on chronic heart failure exacerbation The patient has a history of cardiomyopathy. Chest x-ray consistent with pulmonary edema. Her BNP was 1650. Her symptoms improved with IV Lasix. - Continue diuresis with Lasix 40 mg IV twice a day. - Follow I's and O's. - Continue cardiac regimen. - Monitor on telemetry. Elevated cardiac enzymes Initial troponin was 0.43 and repeat higher. She denies any chest pain. EKG with tachycardia but no obvious ischemia. Likely demand ischemia from CHF exacerbation and hypertensive emergency. - Control blood pressure - Monitor on telemetry. - Cardiology recommendations appreciated. Hypertensive emergency The patient has not been taking her blood pressure medications for the past couple of days. She does endorse noncompliance in general. Systolic blood pressure well over 200 in the emergency department. - Continue Cardene drip. - Resume home anti-hypertensive regimen. Atrial fibrillation The patient has a history of atrial fibrillation/flutter. Rate is elevated in the emergency department. - Continue home amiodarone. Unsure if she has been taking it on a regular basis. - Telemetry. - Heparin drip. Chronic kidney disease Creatinine is similar to baseline. - Monitor BMP while patient is being diuresed. - Avoid nephrotoxic agents. Lethargy The patient endorses drowsiness and laziness. She is noncompliant with her medications. She lives alone and says it is getting more difficult to take care of herself. - PT/OT. - Case management consult for potential placement. - Treat underlying conditions as above. COPD Exacerbation Start patient on IV solumedrol, IV levaquin and bronchodilators. PPx: Heparin. Gideon Hill MD Dec 18, 2016 18:57 Gideon Hill MD Dec 18, 2016 18:57
[2016-12-18] MEDS ORDERED: methylPREDNISolone SOD SUCC 125 MG/2 ML VIAL IV PUSH ONE (20:15)
[2016-12-18] MEDS ORDERED: RESP: IPRATROPIUM 0.5 MG/2.5 ML NEB NEB PRN (20:15)
[2016-12-18] MEDS: LEVOFLOXACIN 750 MG PREMIX INJ 150 ML IV SCH (21:16)
[2016-12-18] MEDS: PRAVASTATIN SOD 80 MG TAB PO SCH (21:16)
[2016-12-18] MEDS: RESP: IPRATROPIUM 0.5 MG/2.5 ML NEB NEB SCH (23:59)
[2016-12-19] VITALS (13 sets, daily range): BP systolic 120–152; BP diastolic 62–91; PULSE 62–88; RESP 15–26; TEMP 97.8–98.6; O2SAT 98–100
[2016-12-19] MEDS: methylPREDNISolone SOD SUCC 40 MG/1 ML VIAL IV PUSH SCH ×5 (00:07→22:56)
[2016-12-19] MEDS: DOCUSATE SODIUM 100 MG CAP PO SCH ×3 (00:07→22:56)
[2016-12-19] MEDS ORDERED: CHLORHEXIDINE GLUCONATE 2 % 1 PACK (2 CLOTHS)(extra cloths) TOP PRN (00:30)
[2016-12-19] MEDS: RESP: IPRATROPIUM 0.5 MG/2.5 ML NEB NEB SCH ×6 (03:22→23:32)
[2016-12-19] MEDS: CHLORHEXIDINE GLUCONATE 2 % 1 PACK (2 CLOTHS)(taper/protocol) TOP SCH (04:00)
[2016-12-19 05:28] LABS: AUTOMATED NEUTROPHIL # 8.4 TH/MM3 (1.8-7.7); BASOPHIL % 0.2 % (0.0-2.0); EOSINOPHIL % 0.3 % (0.0-4.0); HEMO FLAGS DIFF FINAL; LYMPH % 4.4 % (9.0-44.0); LYMPHOCYTE # 0.4 TH/MM3 (1.0-4.8); MEAN CELL VOLUME 81.4 FL (80.0-100.0); MEAN CORPUSCULAR HEMOGLOBIN 27.1 PG (27.0-34.0); MEAN CORPUSCULAR HGB CONC 33.4 % (32.0-36.0); MONO % 1.8 % (0.0-8.0); NEUT % 93.3 % (16.0-70.0); PLATELET COUNT 310 TH/MM3 (150-450); RED CELL DISTRIBUTION WIDTH 16.1 % (11.6-17.2)
[2016-12-19 05:33] LABS: APTT (PATIENT) 32.2 SEC (24.3-30.1)
--- NOTE | 2016-12-19 05:50 | EKG ---
Date Performed: 12/17/2016 Time Performed: 20:34:22 PTAGE: 66 years EKG: BASELINE ARTIFACT PRESENT. Probable sinus tachycardia with premature atrial contractions IN TRAVENTRICULAR CONDUCTION DELAY LEFT ventricular hypertrophy with repolarization abnormalities ABNORM AL ECG COMPARED TO PRIOR ELECTROCARDIOGRAM, Rate has increased. PREVIOUS TRACING : 09/24/2016 02.33 DOCTOR: Harish Fowler Interpretating Date/Time 12/19/2016 05:48:34
[2016-12-19 05:55] LABS: ALKALINE PHOSPHATASE 86 U/L (45-117); ALT (GPT) 12 U/L (10-53); ANION GAP 11 MEQ/L (5-15); AST (GOT) 20 U/L (15-37); BICARBONATE 23.8 MEQ/L (21.0-32.0); BLOOD UREA NITROGEN 22 MG/DL (7-18); CHLORIDE 101 MEQ/L (98-107); GLOMERULAR FILTRATION RATE 44 ML/MIN (>89); MAGNESIUM 1.9 MG/DL (1.5-2.5); POTASSIUM 4.5 MEQ/L (3.5-5.1); SODIUM (NA) 136 MEQ/L (136-145); TOTAL BILIRUBIN ADULT 0.2 MG/DL (0.2-1.0)
[2016-12-19] MEDS: ISOSORBIDE MONONITRATE 60 MG TAB PO SCH (06:08)
[2016-12-19] MEDS: cloNIDine HCL 0.2 MG TAB PO SCH (09:18)
[2016-12-19] MEDS: LISINOPRIL 20 MG TAB PO SCH (09:19)
[2016-12-19] MEDS: AMIODARONE 200 MG TAB PO SCH (09:19)
[2016-12-19] MEDS: FUROSEMIDE 40 MG/4 ML VIAL IV PUSH SCH (09:38)
[2016-12-19] MEDS: SODIUM CHLORIDE 0.9% FLUSH 5 ML FLUSH FLUSH SCH ×2 (09:38→21:00)
--- NOTE | 2016-12-19 13:01 | PD.CARD.PN ---
Subjective Subjective Remarks no complaints " I feel better" Objective Medications Current Medications Medications (Trade) Dose Ordered Sig/Dajuan Route Start Time Stop Time Status Last Admin (NS Flush) 2 ml UNSCH PRN IVF 12/17/16 20:30 12/17/16 21:05 (Cordarone) 200 mg DAILY PO 12/18/16 09:00 12/19/16 09:19 (Norvasc) 10 mg DAILY PO 12/18/16 09:00 12/19/16 09:19 (Catapres) 0.2 mg BID PO 12/18/16 09:00 12/19/16 09:18 (Imdur) 60 mg DAILY@07 PO 12/18/16 07:00 12/19/16 06:08 (Prinivil) 40 mg DAILY PO 12/17/16 23:00 12/19/16 09:19 Pravastatin Sodium 80 mg 80 mg HS PO 12/18/16 21:00 12/18/16 21:16 Nicardipine HCl 25 mg/Sodium Chloride 260 ml @ 0 mls/hr TITRATE IV 12/17/16 23:30 12/18/16 21:15 (Heparin-D5W Inj) 250 ml @ 0 mls/hr TITRATE IV 12/17/16 23:30 12/18/16 21:15 (NS Flush) 2 ml UNSCH PRN FLUSH 12/17/16 23:30 (NS Flush) 2 ml BID FLUSH 12/18/16 09:00 12/19/16 09:38 (Tylenol) 650 mg Q4H PRN PO 12/17/16 23:30 (Colace) 100 mg Q12H PO 12/17/16 23:30 12/19/16 00:07 (Senokot) 17.2 mg Q12H PRN PO 12/17/16 23:30 (Tylenol) 650 mg Q6H PRN PO 12/17/16 23:30 (Morphine Inj) 2 mg Q3H PRN IV 12/17/16 23:30 (Roxicodone) 5 mg Q4H PRN PO 12/17/16 23:30 (Lasix Inj) 40 mg BID@09,18 IV PUSH 12/18/16 09:00 12/19/16 09:38 Methylprednisolone Sodium Succinate 40 mg 40 mg Q6HR IV PUSH 12/19/16 00:00 12/19/16 06:09 (Levaquin 750 Mg Premix Inj) 150 ml @ 100 mls/hr Q48H IV 12/18/16 21:00 12/18/16 21:16 Miscellaneous Information Patient in critical care unit? Ass... Q361D XX 12/19/16 00:30 12/19/16 00:30 (Chlorhexidine 2% Cloth) 3 pack DAILY@04 TOP 12/19/16 04:00 12/23/16 04:01 12/19/16 04:00 (Chlorhexidine 2% Cloth) 3 pack UNSCH PRN TOP 12/19/16 00:30 12/24/16 00:19 Vital Signs / I&O Vital Signs Date Time Temp Pulse Resp B/P Pulse Ox O2 Delivery O2 Flow Rate FiO2 12/19/16 10:00 66 12/19/16 08:00 97.8 84 26 152/83 100 12/19/16 08:00 84 12/19/16 07:30 98 Nasal Cannula 3.00 12/19/16 06:00 78 12/19/16 04:00 98.4 79 16 125/71 99 12/19/16 04:00 79 12/19/16 00:00 88 12/19/16 00:00 98.6 84 15 134/84 99 12/18/16 22:00 80 12/18/16 20:46 97.9 91 20 136/70 98 12/18/16 20:40 92 12/18/16 19:58 94 20 128/65 96 3 12/18/16 13:47 86 19 125/67 97 Nasal Cannula 3 12/18/16 13:47 97 Nasal Cannula 3.00 I/O 12/18/16 12/18/16 12/18/16 12/19/16 12/19/16 12/19/16 07:00 15:00 23:00 07:00 15:00 23:00 Intake Total 634 ml 650 ml Output Total 1400 ml 800 ml 700 ml Balance -1400 ml -166 ml -50 ml Intake Oral 240 ml 480 ml IV Total 394 ml 170 ml Output Urine Total 1400 ml 800 ml 700 ml # Bowel Movements 0 0 Physical Exam GENERAL: Well-nourished, well-developed patient. SKIN: Warm and dry. HEAD: Normocephalic. EYES: No scleral icterus. No injection or drainage. NECK: Supple, trachea midline. No JVD or lymphadenopathy. CARDIOVASCULAR: Regular rate and rhythm without murmurs, gallops, or rubs. RESPIRATORY: Bilateral rales. GASTROINTESTINAL: Abdomen soft, non-tender, nondistended. EXTREMITIES: No cyanosis, or edema. NEUROLOGICAL: Awake, alert, and oriented x 3. Non-focal. Laboratory Laboratory Tests Test 12/18/16 12/18/16 12/18/16 12/19/16 14:40 21:00 22:36 05:09 Activated Partial 35.0 SEC 29.0 SEC 32.2 SEC Thromboplast Time Nasal Screen MRSA (PCR) NEGATIVE White Blood Count 9.0 TH/MM3 Red Blood Count 3.80 MIL/MM3 Hemoglobin 10.3 GM/DL Hematocrit 31.0 % Mean Corpuscular Volume 81.4 FL Mean Corpuscular Hemoglobin 27.1 PG Mean Corpuscular Hemoglobin 33.4 % Concent Red Cell Distribution Width 16.1 % Platelet Count 310 TH/MM3 Mean Platelet Volume 9.9 FL Neutrophils (%) (Auto) 93.3 % Lymphocytes (%) (Auto) 4.4 % Monocytes (%) (Auto) 1.8 % Eosinophils (%) (Auto) 0.3 % Basophils (%) (Auto) 0.2 % Neutrophils # (Auto) 8.4 TH/MM3 Lymphocytes # (Auto) 0.4 TH/MM3 Monocytes # (Auto) 0.2 TH/MM3 Eosinophils # (Auto) 0.0 TH/MM3 Basophils # (Auto) 0.0 TH/MM3 CBC Comment DIFF FINAL Differential Comment Sodium Level 136 MEQ/L Potassium Level 4.5 MEQ/L Chloride Level 101 MEQ/L Carbon Dioxide Level 23.8 MEQ/L Anion Gap 11 MEQ/L Blood Urea Nitrogen 22 MG/DL Creatinine 1.46 MG/DL Estimat Glomerular Filtration 44 ML/MIN Rate Random Glucose 152 MG/DL Calcium Level 8.8 MG/DL Phosphorus Level 2.7 MG/DL Magnesium Level 1.9 MG/DL Total Bilirubin 0.2 MG/DL Aspartate Amino Transf 20 U/L (AST/SGOT) Alanine Aminotransferase 12 U/L (ALT/SGPT) Alkaline Phosphatase 86 U/L Total Protein 7.1 GM/DL Albumin 2.6 GM/DL Imaging Last Impressions Chest X-Ray 12/18/16 0600 Signed Impressions: Service Date/Time: Sunday, December 18, 2016 05:17 - CONCLUSION: No significant interval change with bilateral interstitial pulmonary infiltrates. Tyson Bustamante MD Assessment and Plan Problem List: (1) Acute on chronic systolic CHF (congestive heart failure) Assessment and Plan: Afebrile and hemodynamically stable, still with signs of CHF Cont IV diuresis D/C clonidine Start Coreg 3.125mg PO BID D/C heparin drip Strict I&O Daily weight (2) HTN (hypertension) (3) Cardiomyopathy (4) Atrial flutter Problem Qualifiers (1) HTN (hypertension): Qualified Code: I10 - Essential hypertension (2) Cardiomyopathy: Qualified Code: I42.0 - Dilated cardiomyopathy (3) Atrial flutter: Qualified Code: I48.92 - Atrial flutter, unspecified type Deacon Mills MD Dec 19, 2016 13:01
[2016-12-19 13:04] LABS: APTT (PATIENT) 40.2 SEC (24.3-30.1)
--- NOTE | 2016-12-19 13:56 | HHI.PR ---
Subjective Remarks patient states cough and sob is better denies cp/sob bp noted to be elevated Objective Vitals Vital Signs Date Time Temp Pulse Resp B/P Pulse Ox O2 Delivery O2 Flow Rate FiO2 12/19/16 12:00 62 12/19/16 12:00 98.0 62 17 120/62 100 12/19/16 10:00 66 12/19/16 08:00 97.8 84 26 152/83 100 12/19/16 08:00 84 12/19/16 07:30 98 Nasal Cannula 3.00 12/19/16 06:00 78 12/19/16 04:00 98.4 79 16 125/71 99 12/19/16 04:00 79 12/19/16 00:00 88 12/19/16 00:00 98.6 84 15 134/84 99 12/18/16 22:00 80 12/18/16 20:46 97.9 91 20 136/70 98 12/18/16 20:40 92 12/18/16 19:58 94 20 128/65 96 3 I/O 12/18/16 12/18/16 12/18/16 12/19/16 12/19/16 12/19/16 07:00 15:00 23:00 07:00 15:00 23:00 Intake Total 634 ml 650 ml Output Total 1400 ml 800 ml 700 ml Balance -1400 ml -166 ml -50 ml Intake Oral 240 ml 480 ml IV Total 394 ml 170 ml Output Urine Total 1400 ml 800 ml 700 ml # Bowel Movements 0 0 Result Diagram: 12/19/16 0509 12/19/16 0509 Imaging Last Impressions Chest X-Ray 12/18/16 0600 Signed Impressions: Service Date/Time: Sunday, December 18, 2016 05:17 - CONCLUSION: No significant interval change with bilateral interstitial pulmonary infiltrates. Tyson Bustamante MD Objective Remarks GENERAL: No apparent distress. SKIN: Warm and dry. HEAD: Atraumatic. Normocephalic. EYES: Pupils equal and round. No scleral icterus. No injection or drainage. ENT: No nasal bleeding or discharge. Mucous membranes pink and moist. NECK: Trachea midline. No JVD. CARDIOVASCULAR: Tachycardic. No murmur appreciated. RESPIRATORY: decreased air entry bilaterally with diffuse billateral expiratory wheezing GASTROINTESTINAL: Abdomen soft, non-tender, nondistended. Hepatic and splenic margins not palpable. MUSCULOSKELETAL: No edema. No gross deformity otherwise. NEUROLOGICAL: Awake and alert. No obvious cranial nerve deficits. Motor grossly within normal limits. Five out of 5 muscle strength in the arms and legs. Normal speech. PSYCHIATRIC: Appropriate mood and affect. Medications and IVs Current Medications Medications (Trade) Dose Ordered Sig/Dajuan Route Start Time Stop Time Status Last Admin (Cordarone) 200 mg DAILY PO 12/18/16 09:00 12/19/16 09:19 (Norvasc) 10 mg DAILY PO 12/18/16 09:00 12/19/16 09:19 (Imdur) 60 mg DAILY@07 PO 12/18/16 07:00 12/19/16 06:08 (Prinivil) 40 mg DAILY PO 12/17/16 23:00 12/19/16 09:19 (Pravachol) 80 mg HS PO 12/18/16 21:00 12/19/16 21:29 (NS Flush) 2 ml UNSCH PRN FLUSH 12/17/16 23:30 (NS Flush) 2 ml BID FLUSH 12/18/16 09:00 12/19/16 09:38 (Tylenol) 650 mg Q4H PRN PO 12/17/16 23:30 (Colace) 100 mg Q12H PO 12/17/16 23:30 12/19/16 22:56 (Senokot) 17.2 mg Q12H PRN PO 12/17/16 23:30 (Tylenol) 650 mg Q6H PRN PO 12/17/16 23:30 (Morphine Inj) 2 mg Q3H PRN IV 12/17/16 23:30 (Roxicodone) 5 mg Q4H PRN PO 12/17/16 23:30 Methylprednisolone Sodium Succinate 40 mg 40 mg Q6HR IV PUSH 12/19/16 00:00 12/19/16 22:56 (Levaquin 750 Mg Premix Inj) 150 ml @ 100 mls/hr Q48H IV 12/18/16 21:00 12/18/16 21:16 Miscellaneous Information Patient in critical care unit? Ass... Q361D XX 12/19/16 00:30 12/19/16 00:30 (Chlorhexidine 2% Cloth) 3 pack DAILY@04 TOP 12/19/16 04:00 12/23/16 04:01 12/19/16 04:00 (Chlorhexidine 2% Cloth) 3 pack UNSCH PRN TOP 12/19/16 00:30 12/24/16 00:19 (Coreg) 3.125 mg Q12HR PO 12/19/16 21:00 12/19/16 21:29 (Xarelto) 15 mg DAILY PO 12/20/16 09:00 (Lasix) 40 mg BID@09,18 PO 12/19/16 18:00 12/19/16 18:02 A/P Problem List: (1) Acute on chronic systolic CHF (congestive heart failure) ICD Code: I50.23 Status: Resolved (2) Cardiomyopathy ICD Code: I42.9 Status: Chronic (3) Atrial flutter ICD Code: I48.92 Status: Acute (4) Hypertensive emergency ICD Code: I16.1 Status: Resolved (5) COPD exacerbation ICD Code: J44.1 Status: Acute (6) Encephalopathy acute ICD Code: G93.40 Status: Resolved Assessment and Plan Acute on chronic heart failure exacerbation The patient has a history of cardiomyopathy. Chest x-ray consistent with pulmonary edema. Her BNP was 1650. Her symptoms improved with IV Lasix. - Change lasix to oral 40 mg po BID - Follow I's and O's. - Continue cardiac regimen. - Monitor on telemetry. Elevated cardiac enzymes Initial troponin was 0.43 and repeat higher. She denies any chest pain. EKG with tachycardia but no obvious ischemia. Likely demand ischemia from CHF exacerbation and hypertensive emergency. - Control blood pressure - Monitor on telemetry. - Cardiology recommendations appreciated. Hypertensive emergency The patient has not been taking her blood pressure medications for the past couple of days. She does endorse noncompliance in general. Systolic blood pressure well over 200 in the emergency department. - Initially treated with Cardizem drip. - Clonidine discontinued by Cardiology and started on beta gypsy. Atrial fibrillation The patient has a history of atrial fibrillation/flutter. Rate was elevated in the ED. Now controlled. - Continue home amiodarone. Unsure if she has been taking it on a regular basis. - Telemetry. Chronic kidney disease Creatinine is similar to baseline. - Monitor BMP while patient is being diuresed. - Avoid nephrotoxic agents. Encephalopathy The patient endorses drowsiness and laziness. She is noncompliant with her medications. She lives alone and says it is getting more difficult to take care of herself. - PT/OT. - Case management consult for potential placement. - Treat underlying conditions as above. COPD Exacerbation Continue patient on IV solumedrol, IV levaquin and bronchodilators. - start tapering steroids. Problem Qualifiers (1) Cardiomyopathy: Qualified Code: I42.0 - Dilated cardiomyopathy (2) Atrial flutter: Qualified Code: I48.92 - Atrial flutter, unspecified type Gideon Hill MD Dec 19, 2016 13:56
[2016-12-19] MEDS: FUROSEMIDE 40 MG TAB PO SCH (18:02)
[2016-12-19] MEDS: CARVEDILOL 3.125 MG TAB PO SCH (21:29)
[2016-12-19] MEDS: PRAVASTATIN SOD 80 MG TAB PO SCH (21:29)
[2016-12-20] VITALS (14 sets, daily range): BP systolic 113–167; BP diastolic 63–98; PULSE 54–77; RESP 18–22; TEMP 96.8–98.4; O2SAT 93–100
[2016-12-20] MEDS: RESP: IPRATROPIUM 0.5 MG/2.5 ML NEB NEB SCH ×6 (03:41→23:58)
[2016-12-20] MEDS: CHLORHEXIDINE GLUCONATE 2 % 1 PACK (2 CLOTHS)(taper/protocol) TOP SCH (04:00)
[2016-12-20] MEDS: methylPREDNISolone SOD SUCC 40 MG/1 ML VIAL IV PUSH SCH ×2 (06:00→17:48)
[2016-12-20] MEDS: ISOSORBIDE MONONITRATE 60 MG TAB PO SCH (06:41)
[2016-12-20] MEDS: FUROSEMIDE 40 MG TAB PO SCH ×2 (08:51→17:49)
[2016-12-20] MEDS: CARVEDILOL 3.125 MG TAB PO SCH ×2 (08:51→21:36)
[2016-12-20] MEDS: AMIODARONE 200 MG TAB PO SCH (08:51)
[2016-12-20] MEDS: LISINOPRIL 20 MG TAB PO SCH (08:52)
[2016-12-20] MEDS: RIVAROXABAN 15 MG TAB PO SCH (08:52)
[2016-12-20] MEDS ORDERED: FUROSEMIDE 40 MG TAB PO SCH (09:00)
--- NOTE | 2016-12-20 11:32 | HHI.PR ---
Subjective Remarks Patient feels better still has some cough denies cp/sob denies fevers/chills stable vital signs As per RN patient was having visual hallucinations Objective Vitals Vital Signs Date Time Temp Pulse Resp B/P Pulse Ox O2 Delivery O2 Flow Rate FiO2 12/20/16 08:00 97.7 54 22 134/98 100 12/20/16 08:00 54 12/20/16 07:33 99 Nasal Cannula 2.00 12/20/16 06:00 55 12/20/16 04:00 98.3 56 20 144/76 100 12/20/16 04:00 56 12/20/16 02:00 56 12/20/16 00:00 98.4 68 20 146/77 100 12/20/16 00:00 68 12/19/16 22:00 64 12/19/16 20:00 65 12/19/16 19:56 100 Nasal Cannula 3.00 12/19/16 18:00 80 12/19/16 16:00 98.0 75 26 128/91 100 12/19/16 16:00 78 12/19/16 14:00 79 12/19/16 12:00 62 12/19/16 12:00 98.0 62 17 120/62 100 I/O 12/19/16 12/19/16 12/19/16 12/20/16 12/20/16 12/20/16 07:00 15:00 23:00 07:00 15:00 23:00 Intake Total 650 ml 810 ml 240 ml 0 ml Output Total 700 ml 800 ml 400 ml 600 ml Balance -50 ml 10 ml -160 ml -600 ml Intake Oral 480 ml 700 ml 240 ml 0 ml IV Total 170 ml 110 ml Output Urine Total 700 ml 800 ml 400 ml 600 ml Stool Total 0 ml 0 ml 0 ml # Bowel Movements 0 0 Result Diagram: 12/19/16 0509 12/19/16 0509 Imaging Last Impressions Chest X-Ray 12/18/16 0600 Signed Impressions: Service Date/Time: Sunday, December 18, 2016 05:17 - CONCLUSION: No significant interval change with bilateral interstitial pulmonary infiltrates. Tyson Bustamante MD Objective Remarks GENERAL: No apparent distress. SKIN: Warm and dry. HEAD: Atraumatic. Normocephalic. EYES: Pupils equal and round. No scleral icterus. No injection or drainage. ENT: No nasal bleeding or discharge. Mucous membranes pink and moist. NECK: Trachea midline. No JVD. CARDIOVASCULAR: Tachycardic. No murmur appreciated. RESPIRATORY: Improved air entry in bilateral lungs, bilateral crackles, mild diffuse wheezing BL. GASTROINTESTINAL: Abdomen soft, non-tender, nondistended. Hepatic and splenic margins not palpable. MUSCULOSKELETAL: No edema. No gross deformity otherwise. NEUROLOGICAL: Awake and alert. No obvious cranial nerve deficits. Motor grossly within normal limits. Five out of 5 muscle strength in the arms and legs. Normal speech. PSYCHIATRIC: Appropriate mood and affect. Medications and IVs Current Medications Medications (Trade) Dose Ordered Sig/Dajuan Route Start Time Stop Time Status Last Admin (Cordarone) 200 mg DAILY PO 12/18/16 09:00 12/20/16 08:51 (Norvasc) 10 mg DAILY PO 12/18/16 09:00 12/20/16 08:51 (Imdur) 60 mg DAILY@07 PO 12/18/16 07:00 12/20/16 06:41 (Prinivil) 40 mg DAILY PO 12/17/16 23:00 12/20/16 08:52 (Pravachol) 80 mg HS PO 12/18/16 21:00 12/19/16 21:29 (NS Flush) 2 ml UNSCH PRN FLUSH 12/17/16 23:30 (NS Flush) 2 ml BID FLUSH 12/18/16 09:00 12/19/16 09:38 (Tylenol) 650 mg Q4H PRN PO 12/17/16 23:30 (Colace) 100 mg Q12H PO 12/17/16 23:30 12/19/16 22:56 (Senokot) 17.2 mg Q12H PRN PO 12/17/16 23:30 (Tylenol) 650 mg Q6H PRN PO 12/17/16 23:30 (Morphine Inj) 2 mg Q3H PRN IV 12/17/16 23:30 (Roxicodone) 5 mg Q4H PRN PO 12/17/16 23:30 Methylprednisolone Sodium Succinate 40 mg 40 mg Q6HR IV PUSH 12/19/16 00:00 12/20/16 06:00 (Levaquin 750 Mg Premix Inj) 150 ml @ 100 mls/hr Q48H IV 12/18/16 21:00 12/18/16 21:16 Miscellaneous Information Patient in critical care unit? Ass... Q361D XX 12/19/16 00:30 12/19/16 00:30 (Chlorhexidine 2% Cloth) 3 pack DAILY@04 TOP 12/19/16 04:00 12/23/16 04:01 12/19/16 04:00 (Chlorhexidine 2% Cloth) 3 pack UNSCH PRN TOP 12/19/16 00:30 12/24/16 00:19 (Coreg) 3.125 mg Q12HR PO 12/19/16 21:00 12/20/16 08:51 (Xarelto) 15 mg DAILY PO 12/20/16 09:00 12/20/16 08:52 (Lasix) 40 mg BID@09,18 PO 12/19/16 18:00 12/20/16 08:51 Urinary Catheter: Yes Assessment to: Continue Currie insert reason: Measure Accurate Output Vascular Central Line Catheter: No A/P Problem List: (1) Acute on chronic systolic CHF (congestive heart failure) ICD Code: I50.23 Status: Resolved (2) Cardiomyopathy ICD Code: I42.9 Status: Chronic (3) Atrial flutter ICD Code: I48.92 Status: Acute (4) Hypertensive emergency ICD Code: I16.1 Status: Resolved (5) COPD exacerbation ICD Code: J44.1 Status: Acute (6) Encephalopathy acute ICD Code: G93.40 Status: Resolved Assessment and Plan Acute on chronic heart failure exacerbation The patient has a history of cardiomyopathy. Chest x-ray consistent with pulmonary edema. Her BNP was 1650. Her symptoms improved with IV Lasix. - Continue lasix to oral 40 mg po BID - Follow I's and O's. - Continue cardiac regimen. - Monitor on telemetry. - repeat cxr on 12/18 did not show any significant interval bilateral interstitial change with infiltrates. Elevated cardiac enzymes Initial troponin was 0.43 and repeat higher. She denies any chest pain. EKG with tachycardia but no obvious ischemia. Likely demand ischemia from CHF exacerbation and hypertensive emergency. - Control blood pressure - Monitor on telemetry. - Cardiology recommendations appreciated. Hypertensive emergency The patient has not been taking her blood pressure medications for the past couple of days. She does endorse noncompliance in general. Systolic blood pressure well over 200 in the emergency department. - Initially treated with Cardizem drip. - Clonidine discontinued by Cardiology and started on beta gypsy. - Bp now stable. Atrial fibrillation The patient has a history of atrial fibrillation/flutter. Rate was elevated in the ED. Now controlled. - Continue home amiodarone. Unsure if she has been taking it on a regular basis. - Telemetry. Chronic kidney disease Creatinine is similar to baseline. - Monitor BMP while patient is being diuresed. - Avoid nephrotoxic agents. Encephalopathy The patient endorses drowsiness and laziness. She is noncompliant with her medications. She lives alone and says it is getting more difficult to take care of herself. - PT/OT. - Case management consult for potential placement. - Treat underlying conditions as above. - Encephalopathy resolved. COPD Exacerbation Continue patient on IV solumedrol, IV levaquin and bronchodilators. - Taper Solumedrol to 40 mg IV Q 12 hours. Discharge Planning Ok to tranfer to medical telemetry floor. Dc pending clearance by cardiology. Problem Qualifiers (1) Cardiomyopathy: Qualified Code: I42.0 - Dilated cardiomyopathy (2) Atrial flutter: Qualified Code: I48.92 - Atrial flutter, unspecified type Gideon Hill MD Dec 20, 2016 11:32
[2016-12-20] MEDS: DOCUSATE SODIUM 100 MG CAP PO SCH ×2 (11:40→21:45)
[2016-12-20] MEDS: SODIUM CHLORIDE 0.9% FLUSH 5 ML FLUSH FLUSH SCH ×2 (11:40→21:00)
[2016-12-20] MEDS: LEVOFLOXACIN 750 MG PREMIX INJ 150 ML IV SCH (21:36)
[2016-12-20] MEDS: PRAVASTATIN SOD 80 MG TAB PO SCH (21:36)
[2016-12-21] VITALS (9 sets, daily range): BP systolic 150–172; BP diastolic 88–99; PULSE 82–105; RESP 18–20; TEMP 97.2–98; O2SAT 92–96
[2016-12-21] MEDS: CHLORHEXIDINE GLUCONATE 2 % 1 PACK (2 CLOTHS)(taper/protocol) TOP SCH (04:00)
[2016-12-21] MEDS: RESP: IPRATROPIUM 0.5 MG/2.5 ML NEB NEB SCH ×6 (04:15→23:46)
[2016-12-21] MEDS: ISOSORBIDE MONONITRATE 60 MG TAB PO SCH (06:09)
[2016-12-21] MEDS: methylPREDNISolone SOD SUCC 40 MG/1 ML VIAL IV PUSH SCH (06:09)
[2016-12-21 08:02] LABS: AUTOMATED NEUTROPHIL # 4.4 TH/MM3 (1.8-7.7); BASOPHIL % 0.2 % (0.0-2.0); EOSINOPHIL # 0.1 TH/MM3 (0-0.4); EOSINOPHIL % 1.6 % (0.0-4.0); HEMATOCRIT 37.3 % (35.0-46.0); HEMO FLAGS DIFF FINAL; LYMPH % 30.7 % (9.0-44.0); LYMPHOCYTE # 2.2 TH/MM3 (1.0-4.8); MEAN CELL VOLUME 82.3 FL (80.0-100.0); MEAN CORPUSCULAR HEMOGLOBIN 27.1 PG (27.0-34.0); MEAN CORPUSCULAR HGB CONC 32.9 % (32.0-36.0); MONO % 7.2 % (0.0-8.0); NEUT % 60.3 % (16.0-70.0); PLATELET COUNT 283 TH/MM3 (150-450); RED BLOOD COUNT 4.53 MIL/MM3 (4.00-5.30); RED CELL DISTRIBUTION WIDTH 16.4 % (11.6-17.2); WHITE BLOOD COUNT 7.2 TH/MM3 (4.0-11.0)
[2016-12-21 08:28] LABS: ANION GAP 11 MEQ/L (5-15); BICARBONATE 25.4 MEQ/L (21.0-32.0); BLOOD UREA NITROGEN 24 MG/DL (7-18); CHLORIDE 103 MEQ/L (98-107); POTASSIUM 3.8 MEQ/L (3.5-5.1); SODIUM (NA) 139 MEQ/L (136-145)
[2016-12-21] MEDS: LISINOPRIL 20 MG TAB PO SCH (08:28)
[2016-12-21] MEDS: CARVEDILOL 3.125 MG TAB PO SCH (08:28)
[2016-12-21] MEDS: RIVAROXABAN 15 MG TAB PO SCH (08:28)
[2016-12-21] MEDS: AMIODARONE 200 MG TAB PO SCH (08:28)
[2016-12-21] MEDS: SODIUM CHLORIDE 0.9% FLUSH 5 ML FLUSH FLUSH SCH ×2 (08:29→20:17)
[2016-12-21] MEDS: FUROSEMIDE 40 MG TAB PO SCH (08:29)
[2016-12-21 08:32] LABS: ALKALINE PHOSPHATASE 72 U/L (45-117); ALT (GPT) 11 U/L (10-53); AST (GOT) 12 U/L (15-37); GLOMERULAR FILTRATION RATE 45 ML/MIN (>89); TOTAL BILIRUBIN ADULT 0.2 MG/DL (0.2-1.0)
[2016-12-21] MEDS: DOCUSATE SODIUM 100 MG CAP PO SCH ×2 (11:30→22:52)
--- NOTE | 2016-12-21 16:19 | HHI.PR ---
Subjective Remarks Patient is confused today. elevated bp no fevers patient denies cp/sob denies cough Objective Vitals Vital Signs Date Time Temp Pulse Resp B/P Pulse Ox O2 Delivery O2 Flow Rate FiO2 12/21/16 12:00 97.4 92 20 150/88 95 12/21/16 08:13 95 12/21/16 08:00 97.3 94 20 169/97 95 12/21/16 08:00 95 Nasal Cannula 1.00 12/21/16 08:00 105 12/21/16 05:20 97.5 88 18 172/99 95 12/20/16 23:20 97.9 74 18 167/88 93 12/20/16 21:00 94 12/20/16 20:30 Nasal Cannula 1.00 12/20/16 20:15 98.0 70 18 141/85 94 12/20/16 19:57 76 12/20/16 16:58 98.0 60 20 113/63 94 I/O 12/20/16 12/20/16 12/20/16 12/21/16 12/21/16 12/21/16 07:00 15:00 23:00 07:00 15:00 23:00 Intake Total 0 ml 240 ml 240 ml Output Total 600 ml 1000 ml 300 ml 350 ml Balance -600 ml -1000 ml -60 ml -110 ml Intake Oral 0 ml 240 ml 240 ml Output Urine Total 600 ml 1000 ml 300 ml 350 ml Stool Total 0 ml # Bowel Movements 0 0 Result Diagram: 12/21/16 0607 12/21/16 0657 Imaging Last Impressions Chest X-Ray 12/18/16 0600 Signed Impressions: Service Date/Time: Sunday, December 18, 2016 05:17 - CONCLUSION: No significant interval change with bilateral interstitial pulmonary infiltrates. Tyson Bustamante MD Objective Remarks GENERAL: No apparent distress. SKIN: Warm and dry. HEAD: Atraumatic. Normocephalic. EYES: Pupils equal and round. No scleral icterus. No injection or drainage. ENT: No nasal bleeding or discharge. Mucous membranes pink and moist. NECK: Trachea midline. No JVD. CARDIOVASCULAR: Tachycardic. No murmur appreciated. RESPIRATORY: Improved air entry in bilateral lungs, bilateral crackles, mild diffuse wheezing BL. GASTROINTESTINAL: Abdomen soft, non-tender, nondistended. Hepatic and splenic margins not palpable. MUSCULOSKELETAL: No edema. No gross deformity otherwise. NEUROLOGICAL: Awake and alert but seems confused. No obvious cranial nerve deficits. Motor grossly within normal limits. Five out of 5 muscle strength in the arms and legs. Normal speech. PSYCHIATRIC: Appropriate mood and affect. Medications and IVs Current Medications Medications (Trade) Dose Ordered Sig/Dajuan Route Start Time Stop Time Status Last Admin (Cordarone) 200 mg DAILY PO 12/18/16 09:00 12/21/16 08:28 (Norvasc) 10 mg DAILY PO 12/18/16 09:00 12/21/16 08:28 (Imdur) 60 mg DAILY@07 PO 12/18/16 07:00 12/21/16 06:09 (Prinivil) 40 mg DAILY PO 12/17/16 23:00 12/21/16 08:28 (Pravachol) 80 mg HS PO 12/18/16 21:00 12/20/16 21:36 (NS Flush) 2 ml UNSCH PRN FLUSH 12/17/16 23:30 (NS Flush) 2 ml BID FLUSH 12/18/16 09:00 12/21/16 08:29 (Tylenol) 650 mg Q4H PRN PO 12/17/16 23:30 (Colace) 100 mg Q12H PO 12/17/16 23:30 12/21/16 11:30 (Senokot) 17.2 mg Q12H PRN PO 12/17/16 23:30 (Tylenol) 650 mg Q6H PRN PO 12/17/16 23:30 (Morphine Inj) 2 mg Q3H PRN IV 12/17/16 23:30 (Roxicodone) 5 mg Q4H PRN PO 12/17/16 23:30 Miscellaneous Information Patient in critical care unit? Ass... Q361D XX 12/19/16 00:30 12/19/16 00:30 (Chlorhexidine 2% Cloth) 3 pack DAILY@04 TOP 12/19/16 04:00 12/23/16 04:01 12/21/16 04:00 (Chlorhexidine 2% Cloth) 3 pack UNSCH PRN TOP 12/19/16 00:30 12/24/16 00:19 (Coreg) 3.125 mg Q12HR PO 12/19/16 21:00 12/21/16 08:28 (Xarelto) 15 mg DAILY PO 12/20/16 09:00 12/21/16 08:28 (Lasix) 40 mg BID@09,18 PO 12/19/16 18:00 12/21/16 08:29 (Deltasone) 20 mg DAILY PO 12/22/16 09:00 UNV Urinary Catheter: No Vascular Central Line Catheter: No A/P Problem List: (1) Acute on chronic systolic CHF (congestive heart failure) ICD Code: I50.23 Status: Resolved (2) Cardiomyopathy ICD Code: I42.9 Status: Chronic (3) Atrial flutter ICD Code: I48.92 Status: Acute (4) Hypertensive emergency ICD Code: I16.1 Status: Resolved (5) COPD exacerbation ICD Code: J44.1 Status: Resolved (6) Encephalopathy acute ICD Code: G93.40 Status: Acute Assessment and Plan Acute on chronic heart failure exacerbation The patient has a history of cardiomyopathy. Chest x-ray consistent with pulmonary edema. Her BNP was 1650. Her symptoms improved with IV Lasix. - Change lasix to once a day - 40 mg po daily - Follow I's and O's. - Continue cardiac regimen. - Monitor on telemetry. - repeat cxr on 12/18 did not show any significant interval bilateral interstitial change with infiltrates. Elevated cardiac enzymes Initial troponin was 0.43 and repeat higher. She denies any chest pain. EKG with tachycardia but no obvious ischemia. Likely demand ischemia from CHF exacerbation and hypertensive emergency. - Control blood pressure - Monitor on telemetry. - Cardiology recommendations appreciated. - BP still uncontrolled - increase Carvedilol to 6.25 BID. Hypertensive emergency The patient has not been taking her blood pressure medications for the past couple of days. She does endorse noncompliance in general. Systolic blood pressure well over 200 in the emergency department. - Initially treated with Cardizem drip. - Clonidine discontinued by Cardiology and started on beta gypsy. - Bp now stable. Atrial fibrillation The patient has a history of atrial fibrillation/flutter. Rate was elevated in the ED. Now controlled. - Continue home amiodarone. Unsure if she has been taking it on a regular basis. - Telemetry. Chronic kidney disease Creatinine is similar to baseline. - Monitor BMP while patient is being diuresed. - Avoid nephrotoxic agents. Encephalopathy Patient confused today 12/21. Could be steroid induced or due to levaquin. I will DC levaquin and start Ceftin orally. DC IV Solumedrol and Start oral prednisone 20 mg daily. COPD Exacerbation Continue patient on IV solumedrol, IV levaquin and bronchodilators. - Dc IV solumedrol, start po prednisone Problem Qualifiers (1) Cardiomyopathy: Qualified Code: I42.0 - Dilated cardiomyopathy (2) Atrial flutter: Qualified Code: I48.92 - Atrial flutter, unspecified type Gideon Hill MD Dec 21, 2016 16:19
[2016-12-21] MEDS: ACETAMINOPHEN 325 MG TAB PO PRN ×2 (16:21→22:53)
[2016-12-21] MEDS: PRAVASTATIN SOD 80 MG TAB PO SCH (20:19)
[2016-12-21] MEDS: CEFUROXIME AXETIL 500 MG TAB PO SCH (20:19)
[2016-12-21] MEDS: CARVEDILOL 6.25 MG TAB PO SCH (20:19)
[2016-12-22] VITALS (9 sets, daily range): BP systolic 0–186; BP diastolic 60–112; PULSE 79–95; RESP 16–20; TEMP 97.3–98.4; O2SAT 91–95
[2016-12-22] MEDS: RESP: IPRATROPIUM 0.5 MG/2.5 ML NEB NEB SCH ×5 (03:35→19:55)
[2016-12-22] MEDS: CHLORHEXIDINE GLUCONATE 2 % 1 PACK (2 CLOTHS)(taper/protocol) TOP SCH (03:42)
[2016-12-22] MEDS ORDERED: hydrALAZINE HCL 10 MG TAB PO ONE (05:30)
[2016-12-22] MEDS: ISOSORBIDE MONONITRATE 60 MG TAB PO SCH (05:44)
[2016-12-22] MEDS: SODIUM CHLORIDE 0.9% FLUSH 5 ML FLUSH FLUSH SCH ×2 (08:21→21:00)
[2016-12-22] MEDS: RIVAROXABAN 15 MG TAB PO SCH (08:23)
[2016-12-22] MEDS: FUROSEMIDE 40 MG TAB PO SCH (08:23)
[2016-12-22] MEDS: predniSONE 20 MG TAB PO SCH (08:23)
[2016-12-22] MEDS: CARVEDILOL 6.25 MG TAB PO SCH ×2 (08:24→22:18)
[2016-12-22] MEDS: AMIODARONE 200 MG TAB PO SCH (08:24)
[2016-12-22] MEDS: CEFUROXIME AXETIL 500 MG TAB PO SCH ×2 (08:24→22:18)
[2016-12-22] MEDS: LISINOPRIL 20 MG TAB PO SCH (08:24)
[2016-12-22] MEDS: DOXAZOSIN MESYLATE 2 MG TAB PO SCH (11:29)
[2016-12-22] MEDS: DOCUSATE SODIUM 100 MG CAP PO SCH ×2 (11:29→22:18)
--- NOTE | 2016-12-22 14:06 | HHI.PR ---
Subjective Remarks Patient denies cp/sob denies fevers/chills stable vital signs seems more alert no diarrhea Objective Vitals Vital Signs Date Time Temp Pulse Resp B/P Pulse Ox O2 Delivery O2 Flow Rate FiO2 12/22/16 12:00 98.1 95 17 128/60 92 12/22/16 08:20 Room Air 12/22/16 08:07 89 12/22/16 08:00 98.4 79 20 155/84 93 12/22/16 07:28 91 21 12/22/16 04:27 98.1 82 16 186/106 94 12/22/16 04:27 0/ 184/112 12/21/16 23:25 98.0 82 18 169/92 95 12/21/16 20:35 92 12/21/16 20:33 87 12/21/16 20:00 Nasal Cannula 1.00 12/21/16 19:45 98.0 92 18 150/96 96 12/21/16 16:00 97.2 98 20 153/92 95 I/O 12/21/16 12/21/16 12/21/16 12/22/16 12/22/16 12/22/16 07:00 15:00 23:00 07:00 15:00 23:00 Intake Total 240 ml 380 ml 720 ml 0 ml Output Total 350 ml 700 ml 350 ml 800 ml Balance -110 ml -320 ml 370 ml -800 ml Intake Oral 240 ml 380 ml 720 ml 0 ml Output Urine Total 350 ml 700 ml 350 ml 800 ml # Bowel Movements 0 0 0 Result Diagram: 12/21/16 0607 12/21/16 0657 Imaging Last Impressions Chest X-Ray 12/18/16 0600 Signed Impressions: Service Date/Time: Sunday, December 18, 2016 05:17 - CONCLUSION: No significant interval change with bilateral interstitial pulmonary infiltrates. Tyson Bustamante MD Objective Remarks GENERAL: No apparent distress. SKIN: Warm and dry. HEAD: Atraumatic. Normocephalic. EYES: Pupils equal and round. No scleral icterus. No injection or drainage. ENT: No nasal bleeding or discharge. Mucous membranes pink and moist. NECK: Trachea midline. No JVD. CARDIOVASCULAR: Tachycardic. No murmur appreciated. RESPIRATORY: Improved air entry in bilateral lungs, bilateral crackles, mild diffuse wheezing BL. GASTROINTESTINAL: Abdomen soft, non-tender, nondistended. Hepatic and splenic margins not palpable. MUSCULOSKELETAL: No edema. No gross deformity otherwise. NEUROLOGICAL: AAOx3. No obvious cranial nerve deficits. Motor grossly within normal limits. Five out of 5 muscle strength in the arms and legs. Normal speech. PSYCHIATRIC: Appropriate mood and affect. Medications and IVs Current Medications Medications (Trade) Dose Ordered Sig/Dajuan Route Start Time Stop Time Status Last Admin (Cordarone) 200 mg DAILY PO 12/18/16 09:00 12/22/16 08:24 (Norvasc) 10 mg DAILY PO 12/18/16 09:00 12/22/16 08:24 (Imdur) 60 mg DAILY@07 PO 12/18/16 07:00 12/22/16 05:44 (Prinivil) 40 mg DAILY PO 12/17/16 23:00 12/22/16 08:24 (Pravachol) 80 mg HS PO 12/18/16 21:00 12/21/16 20:19 (NS Flush) 2 ml UNSCH PRN FLUSH 12/17/16 23:30 (NS Flush) 2 ml BID FLUSH 12/18/16 09:00 12/21/16 08:29 (Tylenol) 650 mg Q4H PRN PO 12/17/16 23:30 (Colace) 100 mg Q12H PO 12/17/16 23:30 12/22/16 11:29 (Senokot) 17.2 mg Q12H PRN PO 12/17/16 23:30 (Tylenol) 650 mg Q6H PRN PO 12/17/16 23:30 12/21/16 22:53 (Morphine Inj) 2 mg Q3H PRN IV 12/17/16 23:30 (Roxicodone) 5 mg Q4H PRN PO 12/17/16 23:30 Miscellaneous Information Patient in critical care unit? Ass... Q361D XX 12/19/16 00:30 12/19/16 00:30 (Chlorhexidine 2% Cloth) 3 pack DAILY@04 TOP 12/19/16 04:00 12/23/16 04:01 12/21/16 04:00 (Chlorhexidine 2% Cloth) 3 pack UNSCH PRN TOP 12/19/16 00:30 12/24/16 00:19 (Xarelto) 15 mg DAILY PO 12/20/16 09:00 12/22/16 08:23 (Deltasone) 20 mg DAILY PO 12/22/16 09:00 12/22/16 08:23 (Lasix) 40 mg DAILY PO 12/22/16 09:00 12/22/16 08:23 (Ceftin) 500 mg Q12HR PO 12/21/16 21:00 12/22/16 08:24 (Coreg) 6.25 mg Q12HR PO 12/21/16 21:00 12/22/16 08:24 (Cardura) 2 mg DAILY PO 12/22/16 11:00 12/22/16 11:29 Urinary Catheter: Yes Assessment to: Remove Vascular Central Line Catheter: No A/P Problem List: (1) Acute on chronic systolic CHF (congestive heart failure) ICD Code: I50.23 Status: Resolved (2) Cardiomyopathy ICD Code: I42.9 Status: Chronic (3) Atrial flutter ICD Code: I48.92 Status: Acute (4) Hypertensive emergency ICD Code: I16.1 Status: Resolved (5) COPD exacerbation ICD Code: J44.1 Status: Resolved (6) Encephalopathy acute ICD Code: G93.40 Status: Acute Assessment and Plan Acute on chronic heart failure exacerbation The patient has a history of cardiomyopathy. Chest x-ray consistent with pulmonary edema. Her BNP was 1650. Her symptoms improved with IV Lasix. - Continue lasix 40 mg po daily seems stable - Follow I's and O's. - Continue cardiac regimen. - Monitor on telemetry. - repeat cxr on 12/18 did not show any significant interval bilateral interstitial change with infiltrates. Elevated cardiac enzymes Initial troponin was 0.43 and repeat higher. She denies any chest pain. EKG with tachycardia but no obvious ischemia. Likely demand ischemia from CHF exacerbation. Cardiolgy consulted. hypertensive emergency. - Control blood pressure - Monitor on telemetry. - Cardiology recommendations appreciated. 12/21 BP still uncontrolled Dose of Carvedilol increased to 6.25 BID. Continue Amlodipine 10 mg po daily and lisinopril 40 mg po daily. Add cardura 2 mg po daily. Hypertensive emergency The patient has not been taking her blood pressure medications for the past couple of days. She does endorse noncompliance in general. Systolic blood pressure well over 200 in the emergency department. - Initially treated with Cardizem drip. - Clonidine discontinued by Cardiology and started on beta gypsy. 12/20 Increase carvedilol dose to 6.25 mg bid 12/21 BP still uncontrolled - I will Rx Cardura 2 mg po daily. Atrial fibrillation The patient has a history of atrial fibrillation/flutter. Rate was elevated in the ED. Now controlled. - Continue home amiodarone. Unsure if she has been taking it on a regular basis. - Telemetry. Chronic kidney disease Creatinine is similar to baseline. - Monitor BMP while patient is being diuresed. - Avoid nephrotoxic agents. Encephalopathy Patient confused today 12/21. Could be steroid induced or due to levaquin. I will DC levaquin and start Ceftin orally. DC IV Solumedrol and Start oral prednisone 20 mg daily. 12/21 Patient still has meyers catheter. remove. Encephalopathy improved. Check urinalysis r/o uti and metabolic encephalopathy. Continue prednisone taper. COPD Exacerbation Continue patient on IV solumedrol, IV levaquin and bronchodilators. - Dc IV solumedrol, start po prednisone - check oxygen walk test to determine if patient needs home oxygen. 12/21 Continue prednisone taper. Discharge Planning Patient agreed to be discharged to rehab once ready. Poss dc tomorrow pending urinalysis and improvement of bp. Problem Qualifiers (1) Cardiomyopathy: Qualified Code: I42.0 - Dilated cardiomyopathy (2) Atrial flutter: Qualified Code: I48.92 - Atrial flutter, unspecified type Gideon Hill MD Dec 22, 2016 14:05
[2016-12-22 16:48] LABS: BACTERIA, URINE RARE /hpf; BLOOD, URINE SMALL (NEG); GLUCOSE,URINE NEG (NEG); KETONE, URINE NEG (NEG); MUCUS URINE FEW /lpf (OCC); NITRITE,URINE NEG (NEG); PH, URINE 5.5 (5.0-8.5); SQUAMOUS EPITHELIAL CELL URINE <1 /hpf (0-5); URINE COLOR YELLOW (YELLW/STRAW)
[2016-12-22 16:53] LABS: COMMENT (UR) CATH-CULT NOT IND; CULTURE IF INDICATED CATH CULTURE NOT IND
[2016-12-22] MEDS: PRAVASTATIN SOD 80 MG TAB PO SCH (22:18)
[2016-12-23] VITALS (9 sets, daily range): BP systolic 123–168; BP diastolic 58–88; PULSE 75–90; RESP 16–20; TEMP 97.2–98.2; O2SAT 92–96
[2016-12-23] MEDS: RESP: IPRATROPIUM 0.5 MG/2.5 ML NEB NEB SCH ×7 (00:19→23:10)
[2016-12-23] MEDS: CHLORHEXIDINE GLUCONATE 2 % 1 PACK (2 CLOTHS)(taper/protocol) TOP SCH (04:00)
[2016-12-23] MEDS: ISOSORBIDE MONONITRATE 60 MG TAB PO SCH (06:08)
[2016-12-23 06:57] LABS: AUTOMATED NEUTROPHIL # 4.9 TH/MM3 (1.8-7.7); BASOPHIL % 0.3 % (0.0-2.0); EOSINOPHIL # 0.2 TH/MM3 (0-0.4); EOSINOPHIL % 2.3 % (0.0-4.0); HEMATOCRIT 34.5 % (35.0-46.0); HEMO FLAGS DIFF FINAL; LYMPH % 32.1 % (9.0-44.0); LYMPHOCYTE # 2.7 TH/MM3 (1.0-4.8); MEAN CELL VOLUME 81.3 FL (80.0-100.0); MEAN CORPUSCULAR HEMOGLOBIN 26.6 PG (27.0-34.0); MEAN CORPUSCULAR HGB CONC 32.7 % (32.0-36.0); MONO % 7.6 % (0.0-8.0); NEUT % 57.7 % (16.0-70.0); PLATELET COUNT 300 TH/MM3 (150-450); RED BLOOD COUNT 4.25 MIL/MM3 (4.00-5.30); RED CELL DISTRIBUTION WIDTH 16.3 % (11.6-17.2); WHITE BLOOD COUNT 8.6 TH/MM3 (4.0-11.0)
[2016-12-23 07:02] LABS: ALT (GPT) 13 U/L (10-53); ANION GAP 8 MEQ/L (5-15); AST (GOT) 10 U/L (15-37); BLOOD UREA NITROGEN 17 MG/DL (7-18); CHLORIDE 105 MEQ/L (98-107); GLOMERULAR FILTRATION RATE 50 ML/MIN (>89); POTASSIUM 3.5 MEQ/L (3.5-5.1); SODIUM (NA) 141 MEQ/L (136-145)
[2016-12-23 07:04] LABS: ALKALINE PHOSPHATASE 62 U/L (45-117); TOTAL BILIRUBIN ADULT 0.2 MG/DL (0.2-1.0)
[2016-12-23] MEDS: CEFUROXIME AXETIL 500 MG TAB PO SCH ×2 (08:50→21:27)
[2016-12-23] MEDS: LISINOPRIL 20 MG TAB PO SCH (08:51)
[2016-12-23] MEDS: FUROSEMIDE 40 MG TAB PO SCH (08:51)
[2016-12-23] MEDS: predniSONE 20 MG TAB PO SCH (08:51)
[2016-12-23] MEDS: RIVAROXABAN 15 MG TAB PO SCH (08:51)
[2016-12-23] MEDS: DOXAZOSIN MESYLATE 2 MG TAB PO SCH (08:52)
[2016-12-23] MEDS: AMIODARONE 200 MG TAB PO SCH (08:52)
[2016-12-23] MEDS: CARVEDILOL 6.25 MG TAB PO SCH ×2 (08:52→21:27)
[2016-12-23] MEDS: SODIUM CHLORIDE 0.9% FLUSH 5 ML FLUSH FLUSH SCH ×3 (08:53→21:00)
[2016-12-23] MEDS: DOCUSATE SODIUM 100 MG CAP PO SCH ×2 (08:59→21:27)
--- NOTE | 2016-12-23 18:28 | HHI.PR ---
Subjective Remarks that she is feeling well. Denies any chest pain or shortness of breath. Objective Vital Signs Date Time Temp Pulse Resp B/P Pulse Ox O2 Delivery O2 Flow Rate FiO2 12/23/16 16:00 97.2 77 20 149/74 96 12/23/16 12:55 85 12/23/16 12:00 97.4 84 16 123/72 95 12/23/16 09:01 Room Air 12/23/16 08:00 97.9 83 20 124/58 94 124/58 12/23/16 07:13 92 21 12/23/16 04:00 98.2 75 16 168/83 93 12/23/16 00:00 98.2 86 18 164/88 93 12/22/16 21:01 Room Air 12/22/16 20:00 98.4 87 18 129/75 94 12/22/16 19:57 90 12/22/16 19:55 93 I/O 12/22/16 12/22/16 12/22/16 12/23/16 12/23/16 12/23/16 07:00 15:00 23:00 07:00 15:00 23:00 Intake Total 0 ml 840 ml 120 ml 480 ml 320 ml Output Total 800 ml 1000 ml 650 ml Balance -800 ml -160 ml 120 ml 480 ml -330 ml Intake Oral 0 ml 840 ml 120 ml 480 ml 320 ml IV Total 0 ml Output Urine Total 800 ml 1000 ml 650 ml # Voids 1 2 # Bowel Movements 0 0 0 0 1 Result Diagram: 12/23/16 0540 12/23/16 0540 Objective Remarks GENERAL: sitting up in bed. Appears Toprol. Alert and oriented 3. SKIN: Warm and dry. HEAD: Normocephalic. EYES: No scleral icterus. No injection or drainage. NECK: Supple, trachea midline. No JVD. CARDIOVASCULAR: Regular rate and rhythm without murmurs, gallops, or rubs. RESPIRATORY: Breath sounds equal bilaterally. No accessory muscle use. GASTROINTESTINAL: Abdomen soft, non-tender, nondistended. MUSCULOSKELETAL: No cyanosis, or edema. BACK: Nontender without obvious deformity. No CVA tenderness. A/P Assessment and Plan //Acute on chronic heart failure exacerbation The patient has a history of cardiomyopathy. Chest x-ray consistent with pulmonary edema. Her BNP was 1650. Her symptoms improved with IV Lasix. - Continue lasix 40 mg po daily seems stable - Follow I's and O's. - Continue cardiac regimen. - Monitor on telemetry. - repeat cxr on 12/18 did not show any significant interval bilateral interstitial change with infiltrates. -12/23. Vital signs appear stable. Patient appears euvolemic. //Elevated cardiac enzymes Initial troponin was 0.43 and repeat higher. She denies any chest pain. EKG with tachycardia but no obvious ischemia. Likely demand ischemia from CHF exacerbation. Cardiolgy consulted. //Hypertensive emergency The patient has not been taking her blood pressure medications for the past couple of days. She does endorse noncompliance in general. Systolic blood pressure well over 200 in the emergency department. - Initially treated with Cardizem drip. - Clonidine discontinued by Cardiology and started on beta gypsy. 12/20 Increase carvedilol dose to 6.25 mg bid 12/21 BP still uncontrolled - I will Rx Cardura 2 mg po daily. -12/23. Blood pressure stable. Continue to monitor. //Atrial fibrillation The patient has a history of atrial fibrillation/flutter. Rate was elevated in the ED. Now controlled. - Continue home amiodarone. Unsure if she has been taking it on a regular basis. - Telemetry. //Chronic kidney disease Creatinine is similar to baseline. - Monitor BMP while patient is being diuresed. - Avoid nephrotoxic agents. //Encephalopathy Patient confused today 12/21. Could be steroid induced or due to levaquin. I will DC levaquin and start Ceftin orally. DC IV Solumedrol and Start oral prednisone 20 mg daily. 12/21 Patient still has meyers catheter. remove. Encephalopathy improved. Check urinalysis r/o uti and metabolic encephalopathy. Continue prednisone taper. //COPD Exacerbation Continue patient on IV solumedrol, IV levaquin and bronchodilators. - Dc IV solumedrol, start po prednisone - check oxygen walk test to determine if patient needs home oxygen. 12/21 Continue prednisone taper. -12/23. Continue prednisone 20 mg daily. Discharge Planning likely discharged tomorrow when facility available. Appreciate case management assistance. Tj Nicole MD Dec 23, 2016 18:28
[2016-12-23] MEDS: PRAVASTATIN SOD 80 MG TAB PO SCH (21:27)
[2016-12-24] VITALS: BP 145/73; PULSE 80; RESP 18; TEMP 98.1; O2SAT 97
[2016-12-24] MEDS: RESP: IPRATROPIUM 0.5 MG/2.5 ML NEB NEB SCH ×2 (03:52→07:48)
[2016-12-24 04:00] VITALS: BP 160/85; PULSE 76; RESP 18; TEMP 98.3; O2SAT 96
[2016-12-24] MEDS: ISOSORBIDE MONONITRATE 60 MG TAB PO SCH (06:29)
[2016-12-24 06:43] LABS: BASOPHIL % 0.3 % (0.0-2.0); EOSINOPHIL # 0.2 TH/MM3 (0-0.4); EOSINOPHIL % 2.2 % (0.0-4.0); HEMATOCRIT 34.1 % (35.0-46.0); HEMO FLAGS DIFF FINAL; LYMPH % 27.5 % (9.0-44.0); LYMPHOCYTE # 2.6 TH/MM3 (1.0-4.8); MEAN CELL VOLUME 80.6 FL (80.0-100.0); MEAN CORPUSCULAR HEMOGLOBIN 27.3 PG (27.0-34.0); MEAN CORPUSCULAR HGB CONC 33.8 % (32.0-36.0); MONO % 7.8 % (0.0-8.0); NEUT % 62.2 % (16.0-70.0); PLATELET COUNT 280 TH/MM3 (150-450); RED BLOOD COUNT 4.22 MIL/MM3 (4.00-5.30); RED CELL DISTRIBUTION WIDTH 16.2 % (11.6-17.2); WHITE BLOOD COUNT 9.6 TH/MM3 (4.0-11.0)
[2016-12-24 06:55] LABS: BICARBONATE 27.6 MEQ/L (21.0-32.0); POTASSIUM 3.6 MEQ/L (3.5-5.1)
[2016-12-24 07:49] VITALS: O2SAT 94
[2016-12-24 08:00] VITALS: BP 185/101; PULSE 78; PULSE 84; RESP 20; TEMP 98; O2SAT 95
[2016-12-24] MEDS: predniSONE 20 MG TAB PO SCH (08:29)
[2016-12-24] MEDS: FUROSEMIDE 40 MG TAB PO SCH (08:29)
[2016-12-24] MEDS: CEFUROXIME AXETIL 500 MG TAB PO SCH (08:29)
[2016-12-24] MEDS: LISINOPRIL 20 MG TAB PO SCH (08:29)
[2016-12-24] MEDS: CARVEDILOL 6.25 MG TAB PO SCH (08:29)
[2016-12-24] MEDS: AMIODARONE 200 MG TAB PO SCH (08:29)
[2016-12-24] MEDS: DOXAZOSIN MESYLATE 2 MG TAB PO SCH (08:29)
[2016-12-24] MEDS: SODIUM CHLORIDE 0.9% FLUSH 5 ML FLUSH FLUSH SCH (08:30)
[2016-12-24] MEDS: RIVAROXABAN 15 MG TAB PO SCH (08:30)
--- NOTE | 2016-12-24 10:50 | HHI.FF ---
Face to Face Verification Diagnosis: (1) COPD exacerbation (2) HTN (hypertension) (3) Cardiomyopathy (4) Physical deconditioning (5) Hypertensive emergency Physical Therapy Order: Evaluate and Treat Home Health Nursing Order: Medical education Signs/symptoms of disease process CHF education Nursing assessment with vital signs Instructions: home health nurse for med mgt. Book Publisher Order: To Evaluate: Living conditions/environment I have seen patient Mai Farmer on 12/24/16. My clinical findings support the need for the requested home health care services because: Deconditioned w/ increased weakness I certify that my clinical findings support that this patient is homebound because: Unsafe to leave home unassisted Tj Nicole MD Dec 24, 2016 10:50
[2016-12-24] MEDS ORDERED: CARV12.5 PO (10:59)
[2016-12-24] MEDS ORDERED: AMIO200T PO (10:59)
[2016-12-24] MEDS ORDERED: CARVEDILOL 6.25 MG TAB PO ONE (11:00)
[2016-12-24] MEDS ORDERED: MISC-274 (11:01)
[2016-12-24] MEDS ORDERED: CANEMIS18 (11:01)
[2016-12-24] MEDS: DOCUSATE SODIUM 100 MG CAP PO SCH (11:10)
[2016-12-24 12:00] VITALS: BP_SYST 143; BP_SYST 165; BP_DIAS 100; BP_DIAS 69; PULSE 75; PULSE 88; RESP 18; TEMP 97.7; TEMP 98; O2SAT 94; O2SAT 97
[2016-12-24] MEDS ORDERED: CARVEDILOL 12.5 MG TAB PO SCH (21:00)
--- NOTE | 2016-12-31 13:18 | HHI.DS ---
Discharge Summary Admission Date Dec 17, 2016 at 22:36 Discharge Date: Dec 24, 2016 Admitting Diagnosis CHF exacerbation, Dyspnea, HTN (1) Acute on chronic systolic CHF (congestive heart failure) ICD Code: I50.23 (2) Cardiomyopathy ICD Code: I42.9 (3) Atrial flutter ICD Code: I48.92 (4) Hypertensive emergency ICD Code: I16.1 (5) COPD exacerbation ICD Code: J44.1 (6) Encephalopathy acute ICD Code: G93.40 Procedures no invasive procedures. Brief History - From Admission The patient is a 66-year-old female with a past medical history of cardiomyopathy status post AICD placement who is presenting to the hospital and found to be in respiratory distress. The patient says she is always short of breath. She says she is not on oxygen at home. She says she was in the hospital a few months ago for a similar presentation. She says she stopped taking her blood pressure medications a couple of days ago out of laziness. She says she has been drowsy recently. She says her blood pressure has been high. She says she lives alone but it is starting to get difficult to take care of herself. The emergency department she was found to be very hypertensive and with pulmonary edema. She was given a nitroglycerin patch and was diuresed with IV Lasix. The patient's blood pressure is still quite elevated but she feels better from a respiratory standpoint. She denies any chest pain. She says she follows up with several cardiologists but is not sure which ones. She is not sure which medication she actually takes on a regular basis. Imaging Last Impressions Chest X-Ray 12/18/16 0600 Signed Impressions: Service Date/Time: Sunday, December 18, 2016 05:17 - CONCLUSION: No significant interval change with bilateral interstitial pulmonary infiltrates. Tyson Bustamante MD PE at Discharge GENERAL: sitting up in bed. Appears Toprol. Alert and oriented 3. no changes SKIN: Warm and dry. HEAD: Normocephalic. EYES: No scleral icterus. No injection or drainage. NECK: Supple, trachea midline. No JVD. CARDIOVASCULAR: Regular rate and rhythm without murmurs, gallops, or rubs. RESPIRATORY: Breath sounds equal bilaterally. No accessory muscle use. GASTROINTESTINAL: Abdomen soft, non-tender, nondistended. MUSCULOSKELETAL: No cyanosis, or edema. BACK: Nontender without obvious deformity. No CVA tenderness. Pt update on day of discharge pt says she feels well. no CP or SOB. feels like leaving hospital. Hospital Course Systolic blood pressure was found to be well over 200 in the emergency department, BNP 1650, chest x-ray with pulmonary edema. Respiratory status improved with blood pressure control, diuresis. Patient did have elevated troponins without chest pain, for which Cardiology was consulted and they felt that this was demand ischemia from CHF exacerbation, accelerated hypertension. Patient was also treated for possible COPD exacerbation with steroids, antibiotics, however this unlikely due to primary diagnosis of CHF exacerbation. For problem based summary from most recent progress note, please see below. //Acute on chronic heart failure exacerbation The patient has a history of cardiomyopathy. Chest x-ray consistent with pulmonary edema. Her BNP was 1650. Her symptoms improved with IV Lasix. - Continue lasix 40 mg po daily seems stable - Follow I's and O's. - Continue cardiac regimen. - Monitor on telemetry. - repeat cxr on 12/18 did not show any significant interval bilateral interstitial change with infiltrates. -12/23. Vital signs appear stable. Patient appears euvolemic. //Elevated cardiac enzymes Initial troponin was 0.43 and repeat higher. She denies any chest pain. EKG with tachycardia but no obvious ischemia. Likely demand ischemia from CHF exacerbation. Cardiolgy consulted. //Hypertensive emergency The patient has not been taking her blood pressure medications for the past couple of days. She does endorse noncompliance in general. Systolic blood pressure well over 200 in the emergency department. - Initially treated with Cardizem drip. - Clonidine discontinued by Cardiology and started on beta gypsy. 12/20 Increase carvedilol dose to 6.25 mg bid 12/21 BP still uncontrolled - I will Rx Cardura 2 mg po daily. -12/23. Blood pressure stable. Continue to monitor. //Atrial fibrillation The patient has a history of atrial fibrillation/flutter. Rate was elevated in the ED. Now controlled. - Continue home amiodarone. Unsure if she has been taking it on a regular basis. - Telemetry. //Chronic kidney disease Creatinine is similar to baseline. - Monitor BMP while patient is being diuresed. - Avoid nephrotoxic agents. //Encephalopathy Patient confused today 12/21. Could be steroid induced or due to levaquin. I will DC levaquin and start Ceftin orally. DC IV Solumedrol and Start oral prednisone 20 mg daily. 12/21 Patient still has meyers catheter. remove. Encephalopathy improved. Check urinalysis r/o uti and metabolic encephalopathy. Continue prednisone taper. //COPD Exacerbation Continue patient on IV solumedrol, IV levaquin and bronchodilators. - Dc IV solumedrol, start po prednisone - check oxygen walk test to determine if patient needs home oxygen. 12/21 Continue prednisone taper. -12/23. Continue prednisone 20 mg daily. Discharge Planning likely discharged tomorrow when facility available. Appreciate case management assistance. Pt Condition on Discharge: Good Discharge Disposition: Disch w/ Home Health Serv Discharge Time: <= 30 minutes Discharge Instructions DIET: Follow Instructions for: Heart Healthy Diet Fluid Restrictions: 2 liters Activities you can perform: Regular-No Restrictions Follow up Referrals: Cardiology - 1 Week with Carla Hogan MD PCP Follow-up - 1 Week SNF/[facility]/ with [facility] [phone] New Medications: Cane/Adjustable/Aluminum/ (Cane/Adjustable/Aluminum/) 1 Mis Mis 1 EA .ROUTE DIRECTED #1 EA Folding Walker/5" Wheels (Folding Walker/5" Wheels) 1 Mis Mis 1 EA .ROUTE DIRECTED #1 EA Amiodarone (Amiodarone) 200 Mg Tab 200 MG PO DAILY Heart Days 30 TAB Carvedilol (Coreg) 12.5 Mg Tab 12.5 MG PO Q12HR heart Days 30 TAB Continued Medications: Amlodipine (Norvasc) 10 Mg Tab 10 MG PO DAILY Days 30 TAB Furosemide (Furosemide) 40 Mg Tab 40 MG PO DAILY #30 Ref 0 TAB Isosorbide Mononitrate ER (Isosorbide Mononitrate ER) 60 Mg Tab 60 MG PO DAILY Prevent Chest Pain #30 Ref 0 TAB Lisinopril (Lisinopril) 20 Mg Tab 40 MG PO DAILY Days 30 TAB Potassium Chloride ER (Klor-Con 10) 10 Meq Tab 10 MEQ PO DAILY Days 30 TAB Rivaroxaban (Xarelto) 15 Mg Tab 15 MG PO DAILY Blood Clot Prevention Ref 0 TAB Simvastatin (Simvastatin) 40 Mg Tab 40 MG PO HS Cholesterol Management #30 Ref 0 TAB Discontinued Medications: Amiodarone (Amiodarone) 200 Mg Tab 400 MG PO DIRECTED Pt to take amiodarone 400mg po q12 until 09/28/16 pm then take 200mg po daily starting 09/29/16 Days 30 TAB Clonidine (Catapres) 0.2 Mg Tab 0.2 MG PO BID Blood Pressure Management #60 Ref 0 TAB Diltiazem (Diltiazem) 120 Mg Tab 120 MG PO QID Angina #120 Ref 0 TAB Furosemide (Lasix) 40 Mg Tab 40 MG PO DAILY #30 Ref 0 TAB Lisinopril (Prinivil) 20 Mg Tab 20 MG PO DAILY Blood Pressure Management #30 Ref 0 TAB Potassium Chloride ER (Klor-Con 10) 10 Meq Tab 10 MEQ PO DAILY Electrolyte Replacement #30 Ref 0 TAB Tj Nicole MD Dec 31, 2016 13:18
== END 2016-12-24 13:18 | disposition home health service (06) | DRG 291 ==
LOC: NEPE 20:24 → NEDA 22:36 → NEDH 12-18 02:43 → HIMW 12-18 20:25 → N04A 12-20 16:58
PROVIDERS: ADMIT Internal Medicine; ATTEND Internal Medicine
DX: I13.0 Hypertensive heart and chronic kidney disease with heart failure and stage 1 through stage 4 chronic kidney disease, or unspecified chronic kidney disease (principal); I50.23 Acute on chronic systolic (congestive) heart failure; G93.40 Encephalopathy, unspecified; I42.0 Dilated cardiomyopathy; I48.92 Unspecified atrial flutter; J44.1 Chronic obstructive pulmonary disease with (acute) exacerbation; I24.8 Other forms of acute ischemic heart disease; I16.1 Hypertensive emergency; I48.91 Unspecified atrial fibrillation; N18.9 Chronic kidney disease, unspecified; I16.0 Hypertensive urgency; R00.0 Tachycardia, unspecified; R44.1 Visual hallucinations; J45.909 Unspecified asthma, uncomplicated; I25.10 Atherosclerotic heart disease of native coronary artery without angina pectoris; M19.071 Primary osteoarthritis, right ankle and foot; F17.210 Nicotine dependence, cigarettes, uncomplicated; Z79.01 Long term (current) use of anticoagulants; Z86.73 Personal history of transient ischemic attack (TIA), and cerebral infarction without residual deficits; Z91.19 Patient's noncompliance with other medical treatment and regimen; Z95.810 Presence of automatic (implantable) cardiac defibrillator; Z91.14 Patient's other noncompliance with medication regimen
CPT/HCPCS: 51702; 71010; 80048; 80053; 81001; 83735; 83880; 84100; 84484; 85025; 85610; 85730; 87641; 93005; 94620; 94640; 94664; 96374; 96375; J1644; J1940; J1956; J2920; J2930; J7050; J7512; J7644

== ENCOUNTER 2017-01-27 12:01 | Inpatient (IN) | payer OTHER ==
[2017-01-27] VITALS (19 sets, daily range): BP systolic 152–257; BP diastolic 80–152; PULSE 75–141; RESP 16–30; TEMP 98–98.8; O2SAT 95–100
[~2017-01-27] VITALS: Ht 172.7 cm; Wt 79.9 kg
[~2017-01-27 12:01] MED LIST changes: +CANEMIS18; +CARV12.5 PO; -CLON.2 PO; -DILT120T PO; -FURO1TAB60 PO; -IMDU60TA PO; +ISOS60TA PO; +MISC-274; -PRIN20TA2 PO
[2017-01-27] MEDS ORDERED: NITROGLYCERIN-DEXTROSE INJ 250 ML ONE (12:05)
[2017-01-27] MEDS ORDERED: LORazepam 2 MG/ML VIAL ONE (12:08)
[2017-01-27] MEDS ORDERED: SODIUM CHLORIDE 0.9% FLUSH 5 ML FLUSH IVF PRN (12:15)
[2017-01-27] MEDS ORDERED: FUROSEMIDE 40 MG/4 ML VIAL IV PUSH ONE (12:30)
[2017-01-27] MEDS ORDERED: ENALAPRILAT 2.5 MG/2 ML VIAL IV PUSH ONE (12:30)
[2017-01-27 12:31] LABS: AUTOMATED NEUTROPHIL # 8.8 TH/MM3 (1.8-7.7); BASOPHIL # 0.1 TH/MM3 (0-0.2); BASOPHIL % 0.9 % (0.0-2.0); EOSINOPHIL # 0.1 TH/MM3 (0-0.4); EOSINOPHIL % 1.2 % (0.0-4.0); HEMATOCRIT 40.7 % (35.0-46.0); LYMPH % 22.3 % (9.0-44.0); LYMPHOCYTE # 2.7 TH/MM3 (1.0-4.8); MEAN CORPUSCULAR HGB CONC 32.5 % (32.0-36.0); MONO % 3.1 % (0.0-8.0); NEUT % 72.5 % (16.0-70.0); PLATELET COUNT 277 TH/MM3 (150-450); RED BLOOD COUNT 5.09 MIL/MM3 (4.00-5.30); RED CELL DISTRIBUTION WIDTH 16.2 % (11.6-17.2); WHITE BLOOD COUNT 12.1 TH/MM3 (4.0-11.0)
[2017-01-27 12:34] LABS: HEMO FLAGS AUTO DIFF
--- NOTE | 2017-01-27 12:40 | PD ---
HPI Chief Complaint: Respiratory Distress Time Seen by Provider: 12:06 Travel History International Travel<30 days: No Contact w/Intl Traveler<30days: No Traveled to known affect area: No History of Present Illness HPI 66 year-old woman with systolic congestive heart failure related to nonischemic cardiomyopathy as well as COPD presents to the emergency department in extremis via EMS with shortness of breath. She is unable to say single words. She is very labored in her breathing. EMS reports her cough or shortness of breath and that they gave her breathing treatment in route and she worsened in route with them. History Past Medical History Narrative Medical Hypertension History of A. fib/A flutter, nonischemic cardiomyopathy with systolic heart failure, status post AICD CVA COPD CJD Tetanus Vaccination: Unknown Menopausal: Yes : 4 Para: 3 Social History Alcohol Use: No Tobacco Use: Yes (3 cigarettes a day) Allergies-Medications (Allergen,Severity, Reaction): Coded Allergies: No Known Allergies (Unverified , 01/27/17) Reported Meds & Prescriptions Reported Meds & Active Scripts Active Cane/Adjustable/Aluminum/ (Device) 1 Mis Mis 1 Ea .ROUTE DIRECTED Folding Walker/5" Wheels (Device) 1 Mis Mis 1 Ea .ROUTE DIRECTED Coreg (Carvedilol) 12.5 Mg Tab 12.5 Mg PO Q12HR 30 Days Amiodarone (Amiodarone HCl) 200 Mg Tab 200 Mg PO DAILY 30 Days Klor-Con 10 (Potassium Chloride) 10 Meq Tab 10 Meq PO DAILY 30 Days Lisinopril 20 Mg Tab 40 Mg PO DAILY 30 Days Simvastatin 40 Mg Tab 40 Mg PO HS Norvasc (Amlodipine Besylate) 10 Mg Tab 10 Mg PO DAILY 30 Days Reported Isosorbide Mononitrate ER (Isosorbide Mononitrate) 60 Mg Tab 60 Mg PO DAILY Furosemide 40 Mg Tab 40 Mg PO DAILY Xarelto (Rivaroxaban) 15 Mg Tab 15 Mg PO DAILY Review of Systems ROS Limitations: Clinical Condition Physical Exam Narrative GENERAL: 66 year-old woman a marked respiratory distress, unable to speak simple words, extremely labored. SKIN: Cool, diaphoretic. HEAD: Atraumatic. Normocephalic. EYES: Pupils equal and round. No scleral icterus. No injection or drainage. ENT: No nasal bleeding or discharge. Mucous membranes pink and moist. NECK: Trachea midline. No JVD. CARDIOVASCULAR: Heart rates rate rapid, appears regular. Peripheral pulses are difficult to palpate. PULMONARY: Marked respiratory distress. Coarse breath sounds at posterior lung ni. GASTROINTESTINAL: Abdomen soft, non-tender, nondistended. Hepatic and splenic margins not palpable. MUSCULOSKELETAL: No obvious deformities. Mild Pitting edema in the lower extremities. NEUROLOGICAL: Awake with decreased alertness. Patient's labored, but somewhat listless. Moves all extremities. Data Data Last Documented VS Vital Signs Date Time Temp Pulse Resp B/P Pulse Ox O2 Delivery O2 Flow Rate FiO2 01/27/17 13:01 99 26 176/89 BiPAP 50 01/27/17 12:48 98 01/27/17 12:05 98.0 Orders Nitroglycerin-Dextrose Inj (Nitroglyceri (01/27/17 12:05) Complete Blood Count With Diff (01/27/17 12:06) Comprehensive Metabolic Panel (01/27/17 12:06) B-Type Natriuretic Peptide (01/27/17 12:06) Act Partial Throm Time (Ptt) (01/27/17 12:06) Prothrombin Time / Inr (Pt) (01/27/17 12:06) Magnesium (Mg) (01/27/17 12:06) Troponin I (01/27/17 12:06) Arterial Blood Gas (Abg) (01/27/17 12:06) Influenzae A/B Antigen (01/27/17 12:06) Iv Access Insert/Monitor (01/27/17 12:06) Electrocardiogram (01/27/17 12:06) Ecg Monitoring (01/27/17 12:06) Oximetry (01/27/17 12:06) Oxygen Administration (01/27/17 12:06) Chest, Single Ap (01/27/17 12:06) Sodium Chloride 0.9% Flush (Ns Flush) (01/27/17 12:15) Resp Bipap / Cpap Non Invas Vt (01/27/17 12:06) Lorazepam Inj (Ativan Inj) (01/27/17 12:08) Enalaprilat Inj (Vasotec Inj) (01/27/17 12:30) Furosemide Inj (Lasix Inj) (01/27/17 12:30) Lorazepam Inj (Ativan Inj) (01/27/17 12:45) Nitroglycerin-Dextrose Inj (Nitroglyceri (01/27/17 12:45) Urinary Catheter Insert/Apply (01/27/17 13:12) Ct Thorax/ Chest Wo Iv Contras (01/27/17 ) Oseltamivir (Tamiflu) (01/27/17 13:30) Admit Order (Ed Use Only) (01/27/17 ) Labs Laboratory Tests Test 01/27/17 01/27/17 12:18 12:40 White Blood Count 12.1 TH/MM3 Red Blood Count 5.09 MIL/MM3 Hemoglobin 13.2 GM/DL Hematocrit 40.7 % Mean Corpuscular Volume 80.0 FL Mean Corpuscular Hemoglobin 26.0 PG Mean Corpuscular Hemoglobin 32.5 % Concent Red Cell Distribution Width 16.2 % Platelet Count 277 TH/MM3 Mean Platelet Volume 11.1 FL Neutrophils (%) (Auto) 72.5 % Lymphocytes (%) (Auto) 22.3 % Monocytes (%) (Auto) 3.1 % Eosinophils (%) (Auto) 1.2 % Basophils (%) (Auto) 0.9 % Neutrophils # (Auto) 8.8 TH/MM3 Lymphocytes # (Auto) 2.7 TH/MM3 Monocytes # (Auto) 0.4 TH/MM3 Eosinophils # (Auto) 0.1 TH/MM3 Basophils # (Auto) 0.1 TH/MM3 CBC Comment AUTO DIFF Differential Comment AUTO DIFF CONFIRMED Platelet Estimate NORMAL Platelet Morphology Comment ENLARGED Prothrombin Time 10.9 SEC Prothromb Time International 1.0 RATIO Ratio Activated Partial 27.7 SEC Thromboplast Time Sodium Level 140 MEQ/L Potassium Level 4.2 MEQ/L Chloride Level 105 MEQ/L Carbon Dioxide Level 23.1 MEQ/L Anion Gap 12 MEQ/L Blood Urea Nitrogen 16 MG/DL Creatinine 1.33 MG/DL Estimat Glomerular Filtration 49 ML/MIN Rate Random Glucose 187 MG/DL Calcium Level 9.2 MG/DL Magnesium Level 2.1 MG/DL Total Bilirubin 0.6 MG/DL Aspartate Amino Transf 14 U/L (AST/SGOT) Alanine Aminotransferase 8 U/L (ALT/SGPT) Alkaline Phosphatase 89 U/L Troponin I 0.06 NG/ML B-Type Natriuretic Peptide 1413 PG/ML Total Protein 8.2 GM/DL Albumin 3.7 GM/DL Blood Gas Puncture Site RT RADIAL Blood Gas Patient Temperature 98.6 Blood Gas HCO3 22 mmol/L Blood Gas Base Excess -2.5 mmol/L Blood Gas Oxygen Saturation 95 % Arterial Blood pH 7.40 Arterial Blood Partial 36 mmHg Pressure CO2 Arterial Blood Partial 259 mmHG Pressure O2 Arterial Blood Oxygen Content 17.3 Vol % Arterial Blood 2.5 % Carboxyhemoglobin Arterial Blood Methemoglobin 1.9 % Blood Gas Hemoglobin 12.5 G/DL Oxygen Delivery Device BiPAP Blood Gas Ventilator Setting IPAP12/[id number] Blood Gas Inspired Oxygen 100 % [facility] Medical Decision Making Medical Screen Exam Complete: Yes Emergency Medical Condition: Yes Interpretation(s) My review of EKG: Sinus tachycardia with short NC interval 116, LVH, lateral ST depression with T-wave inversions suggestive of LVH. No change compared to 12/17 LABS: CBC remarkable for mild leukocytosis. CMP remarkable for elevated creatinine. Troponin 0.06 ABG 7.4/36/259/22, base excess -2.5 on BiPAP 12 over 5, 100% Coags unremarkable Chest x-ray: Bilateral pulmonary edema. Differential Diagnosis CHF, acute cardiogenic pulmonary edema, ACS, PE, pneumonia, COPD, other Narrative Course medical decision making INITIAL: 66 old woman presents with an marked respiratory distress, etiology seems most consistent with acute cardiogenic pulmonary edema. She is placed on BiPAP and given IM Ativan to establish IV access. IV access was difficult I was able to place an ultrasound-guided peripheral IV. She was given 400 g bolus of nitroglycerin and placed on nitroglycerin drip. X-ray was obtained. Patient was improving. We'll give her a dose of Lasix, enalapril, and off nitro drip, reassess. Critical Care Narrative Aggregate critical care time was 25 minutes. Time to perform other separately billable procedures was not included in the critical care time. My time did not include minutes spent treating any other patients simultaneously or on activities that did not directly contribute to the patient's treatment. The services I provided to this patient were to treat and/or prevent clinically significant deterioration that could result in: , disability, respiratory failure, hypoxic arrest. I provided critical care services requiring my management, as noted below: Chart data review, documentation time, medication orders and management, vital sign assessments/reviewing monitor data, ordering and reviewing lab tests, ordering and interpreting/reviewing x-rays and diagnostic studies, care of the patient and discussion of the patient with the admitting physicians. Procedures Procedure Narrative Peripheral ultrasound: Nursing staff unable to establish IV access. Under real-time guidance, 18- gauge IV was placed in the right forearm. Patient tolerated well. Diagnosis Primary Impression: Acute cardiogenic pulmonary edema Additional Impressions: Respiratory failure Qualified Code: J96.01 - Acute respiratory failure with hypoxia Influenza A Sorin Márquez MD Jan 27, 2017 12:40
[2017-01-27] MEDS ORDERED: LORazepam 2 MG/ML VIAL IV PUSH ONE (12:45)
[2017-01-27] MEDS ORDERED: NITROGLYCERIN-DEXTROSE INJ 250 ML IV SCH (12:45)
[2017-01-27 12:49] LABS: BLOOD GAS BASE EXCESS -2.5 mmol/L (-2-2); BLOOD GAS CARBOXYHEMOGLOBIN 2.5 % (0-4); BLOOD GAS HCO3 22 mmol/L (22-26); BLOOD GAS METHEMOGLOBIN 1.9 % (0-2); BLOOD GAS O2 HGB SATURATION 95 % (90-100); BLOOD GAS OXYGEN CONTENT 17.3 Vol % (12.0-20.0); BLOOD GAS PCO2 36 mmHg (38-42); BLOOD GAS PO2 259 mmHG (61-120); BLOOD GAS TOTAL HGB 12.5 G/DL (12.0-16.0); CRITICAL VALUE NO; DRAW SITE RT RADIAL; FIO2 100 %; NUMBER OF ARTERIAL PUNCTURES 3; OXYGEN DEVICE BiPAP; STAT YES; TEMP CORR TO 98.6; ULNAR PULSE PRESENT; VENT SETTINGS IPAP12/EPAP5
--- NOTE | 2017-01-27 13:00 | RADRPT ---
EXAM DATE/TIME: 01/27/2017 12:41 [facility] COMPARISON: CHEST SINGLE AP, December 18, 2016, 5:17. INDICATIONS : Short of breath. MEDICAL HISTORY : Hypertension. Cardiovascular disease. SURGICAL HISTORY : Pacemaker. ENCOUNTER: Initial ACUITY: 1 day PAIN SCORE: Non-responsive. LOCATION: Bilateral chest FINDINGS: Portable AP view of the chest demonstrates mildly enlarged cardiac silhouette. Single-lead chest wall cardiac pacing device has AICD is present. There is bilateral airspace consolidation that is most se enrique in the lower lung zones. Consolidation to right lung base has increased. No pneumothorax is visu alized. There is possible left pleural effusion. CONCLUSION: 1. Bilateral predominantly lower lung zone airspace consolidation could represent pulmonary edema in the appropriate clinical setting. Consolidation at the right lung base has increased since the prior study. 2. Possible small left pleural effusion. 3. Stable mildly enlarged heart. Nelson Huff MD on January 27, 2017 at 12:57 Board Certified Radiologist. This report was verified electronically.
[2017-01-27 13:03] LABS: ALKALINE PHOSPHATASE 89 U/L (45-117); ALT (GPT) 8 U/L (10-53); ANION GAP 12 MEQ/L (5-15); AST (GOT) 14 U/L (15-37); BICARBONATE 23.1 MEQ/L (21.0-32.0); BLOOD UREA NITROGEN 16 MG/DL (7-18); CHLORIDE 105 MEQ/L (98-107); GLOMERULAR FILTRATION RATE 49 ML/MIN (>89); MAGNESIUM 2.1 MG/DL (1.5-2.5); POTASSIUM 4.2 MEQ/L (3.5-5.1); SODIUM (NA) 140 MEQ/L (136-145); TOTAL BILIRUBIN ADULT 0.6 MG/DL (0.2-1.0)
[2017-01-27 13:04] LABS: PROTHROMBIN TIME - PATIENT 10.9 SEC (9.8-11.6)
[2017-01-27 13:11] LABS: APTT (PATIENT) 27.7 SEC (24.3-30.1)
[2017-01-27 13:24] LABS: PLATELET ESTIMATE SMEAR NORMAL (NORMAL); PLATELET MORPHOLOGY ENLARGED (NORMAL); SCAN/DIFF AUTO DIFF CONFIRMED
[2017-01-27] MEDS ORDERED: HEPARIN SODIUM - SQ 10,000 UNITS/ML VIAL SQ SCH (13:30)
[2017-01-27] MEDS ORDERED: MISCELLANEOUS NURSING INFORMATION XX SCH (13:30)
[2017-01-27] MEDS ORDERED: GLUCAGON 1 MG/ML VIAL OTHER PRN (13:30)
[2017-01-27] MEDS ORDERED: DEXTROSE 50% IN WATER 50 ML VIAL(D50) IV PUSH PRN (13:30)
[2017-01-27] MEDS ORDERED: OSELTAMIVIR PHOSPHATE 75 MG CAP PO ONE (13:30)
[2017-01-27] MEDS ORDERED: RESP: ALBUTEROL 2.5 MG/IPRATROPIUM 0.5 MG NEB (PRN) INH (13:30)
[2017-01-27] MEDS ORDERED: CHLORHEXIDINE GLUCONATE 2 % 1 PACK (2 CLOTHS) TOP PRN (13:30)
[2017-01-27] MEDS ORDERED: ISOSORBIDE MONONITRATE 60 MG TAB PO SCH (13:45)
[2017-01-27] MEDS: RIVAROXABAN 15 MG TAB PO SCH (14:00)
[2017-01-27] MEDS ORDERED: AMIODARONE 200 MG TAB PO SCH (14:00)
--- NOTE | 2017-01-27 14:13 | RADRPT ---
EXAM DATE/TIME: 01/27/2017 13:45 [facility] COMPARISON: CHEST SINGLE AP, December 18, 2016, 5:17. CHEST SINGLE AP, January 27, 2017, 12:41. INDICATIONS : Shortness of breath. RADIATION DOSE: 12.56 CTDIvol (mGy) MEDICAL HISTORY : Hypertension. CVA. SURGICAL HISTORY : Tubal ligation. ENCOUNTER: Initial ACUITY: 1 day PAIN SCALE: 3/10 LOCATION: Bilateral chest TECHNIQUE: Volumetric scanning of the chest was performed. Using automated exposure control and adjustment of t he mA and/or kV according to patient size, radiation dose was kept as low as reasonably achievable to obtain optimal diagnostic quality images. FINDINGS: There is severe respiratory motion artifact. LUNGS: There is severe airspace consolidation primarily involving the mid and lower lung zones bilaterally. No pneumothorax is present. PLEURAE: There are trace pleural effusions bilaterally. MEDIASTINUM: Cardiac size is upper limits for normal. Left chest wall pacing device is present with the tip in the right heart. There is mild atherosclerotic disease of the aorta. No lymphadenopathy is appreciated o n this noncontrast exam. AXILLAE: Within normal limits. No lymphadenopathy. MUSCULOSKELETAL: There are degenerative changes of the thoracic spine. No acute osseous abnormality is visualized. MISCELLANEOUS: The visualized upper abdominal organs demonstrate no acute abnormality. CONCLUSION: 1. Severe bilateral air space consolidation that is lower lung zone predominant. The imaging findings are nonspecific. Many etiologies could have this appearance including infection, pulmonary edema, or inflammatory processes. 2. Small bilateral pleural effusions. Nelson Huff MD on January 27, 2017 at 14:07 Board Certified Radiologist. This report was verified electronically.
[2017-01-27] MEDS: PANTOPRAZOLE SODIUM 40 MG VIAL IV SCH (14:18)
[2017-01-27] MEDS: INSULIN NovoLIN REGULAR SUPPLEMENTAL SCALE SQ SCH ×2 (14:19→20:00)
[2017-01-27] MEDS: CARVEDILOL 12.5 MG TAB PO SCH ×2 (14:21→20:31)
--- NOTE | 2017-01-27 14:57 | MB ---
cc: MIRELA BLANK MD DATE OF CONSULTATION: 01/27/2017 REASON FOR CONSULTATION CHF. HISTORY OF PRESENT ILLNESS Ms. Mai Farmer is a 66-year-old female who does have a history of a nonischemic cardiomyopathy by cardiac catheterization in August of 2015, at which time she had normal coronaries by cath and an EF of 30-35% by echo. She subsequently underwent a Biotronik ICD implantation. She does also have a history of atrial fibrillation status post ablation in February of 2016, at which time her EF was 45-50%. The patient presented today with shortness of breath. She is not really able to communicate at this time and thus, her history is per the record. PAST MEDICAL HISTORY Significant for: 1. COPD. 2. CVA. 3. Atrial fibrillation status post ablation. 4. Nonischemic cardiomyopathy status post Biotronik ICD. 5. Hypertension. 6. CVA. 7. COPD. 8. Chronic kidney disease. 9. Noncompliance. ALLERGIES No known drug allergies. FAMILY HISTORY/SOCIAL HISTORY/REVIEW OF SYSTEMS/CURRENT MEDICATIONS Not obtainable. PHYSICAL EXAMINATION VITAL SIGNS: Her initial heart rate was 141 with a blood pressure of 257/152. Currently her heart rate is 97 and blood pressure is 157/80. GENERAL: She is a lethargic female who is in no apparent distress on a non-rebreather. LUNGS: The lungs have rhonchi throughout. CARDIOVASCULAR: It is difficult to here her heart tones. She is mildly tachycardic. ABDOMEN: The abdomen is soft. EXTREMITIES: The extremities are free from edema. LABORATORY FINDINGS Significant for white count of 12.1, her creatinine is 1.33, troponin is 0.06 and BNP is 1413. IMAGING STUDIES Chest x-ray shows bilateral predominantly lower lung consolidation consistent with edema. IMPRESSION CHF - the patient certainly has a history of nonischemic cardiomyopathy with ICD placement. Her last EF is 45-50%. There is not really any peripheral edema and her lungs are quite congested. This would be a bit atypical for a predominantly heart failure presentation. Nonetheless, this could be contributing to her respiratory compromise. I would like to obtain an echocardiogram to reevaluate her EF as this has been nearly a year. Hypertension - this is being managed by the primary team. Respiratory insufficiency - this is being managed by critical care. Indeterminate troponin - the patient does have a history of the same with her heart failure presentations. Quentin Green/ISI /2:11 PM /2:34 PM
[2017-01-27] MEDS: PIPERACIL-TAZO 3.375 GM PREMIX 50 ML IV SCH ×2 (15:02→20:31)
--- NOTE | 2017-01-27 15:09 | MH ---
cc: MENDY JOY M.D. DATE OF ADMISSION: 01/27/2017 HISTORY OF PRESENT ILLNESS: The patient is a 66-year-old female with past medical history of atrial fibrillation / atrial flutter, nonischemic cardiomyopathy with an ejection fraction of 45% to 50%, AICD placement, history of COPD and CVA. She presented to the [facility] Emergency Department via EMS with respiratory distress. The patient had labored breathing and on arrival she was hypertensive with a blood pressure 257/152, tachycardiac and tachypneic. She was placed on a BiPAP 12/5 with 100% FIO2 and ABG showed pH of 7.40, CO2 36, pAO2 259, bicarb 22 and saturation of 95%. Her laboratory data is significant for elevated BNP at 1413 and mild leukocytosis with a WBC of 12.1. She is afebrile. Chest x-ray showed bilateral lower lung airspace consolidation. She also tested positive for flu A antigen. In the emergency department, the patient was given Lasix 40 mg IV push and Vasotec 2 mg IV x1. The patient had a CT scan of the chest as well which showed severe bilateral airspace consolidation within the lower lung zone and small bilateral pleural effusions. Due to her agitation, she received Ativan 1 mg IV push. When seen in the emergency room, she was on BiPAP with 50% FIO2 and saturation of 99% to 100%. Her current blood pressure is 157/80 and a pulse of 91. The patient was seen by Dr. Norris from the cardiology service. Her last echocardiogram from February of last year showed an ejection fraction of 45% to 50%. P PAST MEDICAL HISTORY: Past medical history significant for: 1. COPD. 2. CVA. 3. History of atrial flutter / atrial fibrillation. 4. Nonischemic cardiomyopathy. PAST SURGICAL HISTORY: 1. Previous AICD placement. 2. Previous tubal ligation. 3. Previous pin placement in the right ankle. ALLERGIES: NO KNOWN DRUG ALLERGIES. SOCIAL HISTORY: Occasional smoker. Nondrinker. MEDICATIONS: Her reported medications include: 1. Imdur. 2. Lasix. 3. Xarelto. 4. Lisinopril. 5. Simvastatin. 6. Amiodarone. 7. Coreg. REVIEW OF SYSTEMS: The review of systems is as per the history of present illness, and the rest of the review of systems is limited as the patient is a poor historian. PHYSICAL EXAMINATION: GENERAL: This is a 66-year-old female lying in bed in mild respiratory distress on a BiPAP. VITAL SIGNS: Afebrile with temperature 98.0, pulse of 91, blood pressure currently 157/80, saturations 100% on BiPAP. HEAD, EYES, EARS, NOSE, THROAT: Normocephalic and atraumatic. Pupils equal, round and reactive to light and accommodation. Extraocular muscles intact. Conjunctivae are pink. Nonicteric sclerae. Oral mucosa within normal limits. NECK: The neck is supple. No jugular venous distention, adenopathy or thyromegaly. Trachea in the midline. CARDIOVASCULAR: Tachycardic. Normal S1-S2. No murmurs, rubs or gallops noted. PULMONARY: Bilateral equal air entry with coarse breath sounds and a few scattered wheezing. ABDOMEN: The abdomen is soft, obese, nontender, no distention. Positive bowel sounds. EXTREMITIES: No cyanosis, clubbing or edema. NEUROLOGIC: No focal sensory deficit. LABORATORY DATA: White blood cell count 12.1, hemoglobin 13, hematocrit 40, platelet count 277,000. Sodium 140, potassium 4.2, chloride 105, carbon dioxide 23, BUN 16, creatinine 1.33, glucose 187. Troponin 0.06, BNP 1413. ABG: A pH of 7.40, carbon dioxide 36, pA02 259, bicarb 22, sats of 95%. RADIOGRAPHIC STUDIES: Chest x-ray showed bilateral lower lung zone airspace consolidation. CT chest without contrast showed similar findings with small bilateral pleural effusions. IMPRESSION: 1. Acute hypoxemic respiratory failure. 2. Congestive heart failure decompensation. 3. Bilateral pulmonary infiltrates. The differential diagnosis includes fluid overload versus infectious process. 4. Positive for influenza A antigen. 5. COPD. 6. Mild acute kidney injury. 7. Mild elevated troponin likely secondary to respiratory distress. 8. Nonischemic cardiomyopathy with emergency room of 45% to 50%. 9. History of atrial fibrillation / flutter. 10. History of CVA. RECOMMENDATIONS: 1. Monitor neuro status closely and avoid any sedatives. 2. Wean down oxygen as tolerated and maintain sats above 92%. 3. Bronchodilators in the form of DuoNeb q. 4+ q2 p.r.n. for shortness of breath. 4. Optimize blood pressure control. 5. Continue with Norvasc 10 milligrams p.o. daily. 6. Coreg 12.5 milligrams p.o. q. 12. 7. Hydralazine at 10 milligrams IV q. 6-hour p.r.n. for systolic blood pressure greater than 160. 8. Will obtain 2-D echo to evaluate left ventricular function. The patient was seen by Dr. Norris in the emergency department. 9. Continue with diuretics in the form of Lasix 40 milligrams IV daily. 10. Monitor renal function, intake and output and electrolyte replacement per protocol. 11. Continue with diuretics as stated above. 12. Monitor BNP. 13. Keep n.p.o. for now until respiratory status improves. 14. Place on Protonix 40 mg IV daily for GI prophylaxis. 15. Will continue with antibiotics in the form of Tamiflu 75 milligrams twice a day for her influenza in addition will place on Zosyn empirically for possible aspiration. 16. Monitor for signs of infections which include fever and WBCs. 17. I will obtain a sputum culture with gram stain and will check strep pneumonia and Legionella urinary antigen. 18. Monitor CBC. 19. Place on sliding scale insulin with Accu-Chek q. 6-hour for glycemic control. 20. GI prophylaxis with Protonix 40 milligrams daily. 21. DVT prophylaxis with SCDs. 22. Will resume her Eliquis 15 milligrams p.o. daily The case was discussed with Dr. Norris and the emergency department nursing staff. Further recommendations will be based on her hospital course. MD KHUSHI Pemberton/ADILENE /2:31 PM /2:51 PM
[2017-01-27 15:26] LABS: BACTERIA, URINE MANY /hpf; BLOOD, URINE TRACE (NEG); GLUCOSE,URINE TRACE mg/dL (NEG); HYALINE CAST, URINE 2 /lpf (RARE); KETONE, URINE NEG (NEG); NITRITE,URINE NEG (NEG); PH, URINE 6.5 (5.0-8.5); SQUAMOUS EPITHELIAL CELL URINE 1 /hpf (0-5); URINE COLOR YELLOW (YELLW/STRAW)
[2017-01-27 15:27] LABS: COMMENT (UR) CATH-CULTURE IND; CULTURE IF INDICATED CATH CULTURE IND
[2017-01-27] MEDS: RESP: ALBUTEROL 2.5 MG/IPRATROPIUM 0.5 MG NEB (SCH) INH ×3 (16:00→23:17)
[2017-01-27] MEDS: PRAVASTATIN SOD 80 MG TAB PO SCH (20:31)
[2017-01-27] MEDS: OSELTAMIVIR PHOSPHATE 75 MG CAP PO SCH (20:31)
[2017-01-28] VITALS (12 sets, daily range): BP systolic 109–190; BP diastolic 67–89; PULSE 65–104; RESP 20–25; TEMP 98.3–99.1; O2SAT 94–99
[2017-01-28] MEDS: INSULIN NovoLIN REGULAR SUPPLEMENTAL SCALE SQ SCH ×4 (02:00→20:00)
[2017-01-28] MEDS: PIPERACIL-TAZO 3.375 GM PREMIX 50 ML IV SCH ×4 (02:04→20:52)
[2017-01-28] MEDS: CHLORHEXIDINE GLUCONATE 2 % 1 PACK (2 CLOTHS) TOP SCH (02:05)
[2017-01-28] MEDS: RESP: ALBUTEROL 2.5 MG/IPRATROPIUM 0.5 MG NEB (SCH) INH ×6 (02:46→23:39)
[2017-01-28 05:18] LABS: AUTOMATED NEUTROPHIL # 3.5 TH/MM3 (1.8-7.7); BASOPHIL # 0.1 TH/MM3 (0-0.2); EOSINOPHIL # 0.2 TH/MM3 (0-0.4); EOSINOPHIL % 3.1 % (0.0-4.0); HEMATOCRIT 33.5 % (35.0-46.0); LYMPH % 25.9 % (9.0-44.0); LYMPHOCYTE # 1.4 TH/MM3 (1.0-4.8); MEAN CELL VOLUME 79.7 FL (80.0-100.0); MEAN CORPUSCULAR HEMOGLOBIN 26.2 PG (27.0-34.0); MEAN CORPUSCULAR HGB CONC 32.9 % (32.0-36.0); MONO % 7.5 % (0.0-8.0); NEUT % 62.5 % (16.0-70.0); PLATELET COUNT 179 TH/MM3 (150-450); RED BLOOD COUNT 4.21 MIL/MM3 (4.00-5.30); RED CELL DISTRIBUTION WIDTH 16.4 % (11.6-17.2); WHITE BLOOD COUNT 5.6 TH/MM3 (4.0-11.0)
[2017-01-28 05:28] LABS: HEMO FLAGS DIFF FINAL
[2017-01-28 05:48] LABS: POTASSIUM 3.3 MEQ/L (3.5-5.1)
--- NOTE | 2017-01-28 08:37 | HHI.CCPN ---
Subjective Remarks/Hospital Course The patient is a 66-year-old female with past medical history of atrial fibrillation / atrial flutter, nonischemic cardiomyopathy with an ejection fraction of 45% to 50%, AICD placement, history of COPD and CVA. She presented to the [facility] Emergency Department via EMS with respiratory distress. The patient had labored breathing and on arrival she was hypertensive with a blood pressure 257/152, tachycardiac and tachypneic. She was placed on a BiPAP 12/5 with 100% FIO2 and ABG showed pH of 7.40, CO2 36, pAO2 259, bicarb 22 and saturation of 95%. Her laboratory data is significant for elevated BNP at 1413 and mild leukocytosis with a WBC of 12.1. She is afebrile. Chest x-ray showed bilateral lower lung airspace consolidation. She also tested positive for flu A antigen. In the emergency department, the patient was given Lasix 40 mg IV push and Vasotec 2 mg IV x1. The patient had a CT scan of the chest as well which showed severe bilateral airspace consolidation within the lower lung zone and small bilateral pleural effusions. Due to her agitation, she received Ativan 1 mg IV push. When seen in the emergency room, she was on BiPAP with 50% FIO2 and saturation of 99% to 100%. Her current blood pressure is 157/80 and a pulse of 91. The patient was seen by Dr. Norris from the cardiology service. Her last echocardiogram from February of last year showed an ejection fraction of 45% to 50% . 01/28 Patient is on 2L oxygen with good sats. Afebrile. On Nitro drip. Objective Vital Signs Date Time Temp Pulse Resp B/P Pulse Ox O2 Delivery O2 Flow Rate FiO2 01/28/17 08:08 97 01/28/17 06:00 65 01/28/17 04:25 Nasal Cannula 2.00 01/28/17 04:20 30 01/28/17 04:00 98.8 25 109/67 Intake and Output 01/27/17 01/27/17 01/28/17 08:00 16:00 00:00 Intake Total 110 ml Output Total 175 ml Balance -65 ml Result Diagram: 01/28/17 0449 01/28/17 0449 Other Results Laboratory Tests Test 01/27/17 01/27/17 01/27/1717 12:18 12:40 14:50 18:40 White Blood Count 12.1 TH/MM3 Red Blood Count 5.09 MIL/MM3 Hemoglobin 13.2 GM/DL Hematocrit 40.7 % Mean Corpuscular Volume 80.0 FL Mean Corpuscular Hemoglobin 26.0 PG Mean Corpuscular Hemoglobin 32.5 % Concent Red Cell Distribution Width 16.2 % Platelet Count 277 TH/MM3 Mean Platelet Volume 11.1 FL Neutrophils (%) (Auto) 72.5 % Lymphocytes (%) (Auto) 22.3 % Monocytes (%) (Auto) 3.1 % Eosinophils (%) (Auto) 1.2 % Basophils (%) (Auto) 0.9 % Neutrophils # (Auto) 8.8 TH/MM3 Lymphocytes # (Auto) 2.7 TH/MM3 Monocytes # (Auto) 0.4 TH/MM3 Eosinophils # (Auto) 0.1 TH/MM3 Basophils # (Auto) 0.1 TH/MM3 CBC Comment AUTO DIFF Differential Comment AUTO DIFF CONFIRMED Platelet Estimate NORMAL Platelet Morphology Comment ENLARGED Prothrombin Time 10.9 SEC Prothromb Time International 1.0 RATIO Ratio Activated Partial 27.7 SEC Thromboplast Time Sodium Level 140 MEQ/L Potassium Level 4.2 MEQ/L Chloride Level 105 MEQ/L Carbon Dioxide Level 23.1 MEQ/L Anion Gap 12 MEQ/L Blood Urea Nitrogen 16 MG/DL Creatinine 1.33 MG/DL Estimat Glomerular Filtration 49 ML/MIN Rate Random Glucose 187 MG/DL Calcium Level 9.2 MG/DL Magnesium Level 2.1 MG/DL Total Bilirubin 0.6 MG/DL Aspartate Amino Transf 14 U/L (AST/SGOT) Alanine Aminotransferase 8 U/L (ALT/SGPT) Alkaline Phosphatase 89 U/L Troponin I 0.06 NG/ML B-Type Natriuretic Peptide 1413 PG/ML Total Protein 8.2 GM/DL Albumin 3.7 GM/DL Blood Gas Puncture Site RT RADIAL Blood Gas Patient Temperature 98.6 Blood Gas HCO3 22 mmol/L Blood Gas Base Excess -2.5 mmol/L Blood Gas Oxygen Saturation 95 % Arterial Blood pH 7.40 Arterial Blood Partial 36 mmHg Pressure CO2 Arterial Blood Partial 259 mmHG Pressure O2 Arterial Blood Oxygen Content 17.3 Vol % Arterial Blood 2.5 % Carboxyhemoglobin Arterial Blood Methemoglobin 1.9 % Blood Gas Hemoglobin 12.5 G/DL Oxygen Delivery Device BiPAP Blood Gas Ventilator Setting IPAP12/EPAP5 Blood Gas Inspired Oxygen 100 % Urine Color YELLOW Urine Turbidity HAZY Urine pH 6.5 Urine Specific [place] 1.016 Urine Protein 300 mg/dL Urine Glucose (UA) TRACE mg/dL Urine Ketones NEG mg/dL Urine Occult Blood TRACE Urine Nitrite NEG Urine Bilirubin NEG Urine Urobilinogen LESS THAN 2.0 MG/DL Urine Leukocyte Esterase NEG Urine RBC 1 /hpf Urine WBC 28 /hpf Urine WBC Clumps FEW Urine Squamous Epithelial 1 /hpf Cells Urine Amorphous Sediment RARE Urine Bacteria MANY /hpf Urine Hyaline Casts 2 /lpf Microscopic Urinalysis Comment CATH-CULTURE IND Nasal Screen MRSA (PCR) NEGATIVE Test 01/28/17 04:49 White Blood Count 5.6 TH/MM3 Red Blood Count 4.21 MIL/MM3 Hemoglobin 11.0 GM/DL Hematocrit 33.5 % Mean Corpuscular Volume 79.7 FL Mean Corpuscular Hemoglobin 26.2 PG Mean Corpuscular Hemoglobin 32.9 % Concent Red Cell Distribution Width 16.4 % Platelet Count 179 TH/MM3 Mean Platelet Volume 10.2 FL Neutrophils (%) (Auto) 62.5 % Lymphocytes (%) (Auto) 25.9 % Monocytes (%) (Auto) 7.5 % Eosinophils (%) (Auto) 3.1 % Basophils (%) (Auto) 1.0 % Neutrophils # (Auto) 3.5 TH/MM3 Lymphocytes # (Auto) 1.4 TH/MM3 Monocytes # (Auto) 0.4 TH/MM3 Eosinophils # (Auto) 0.2 TH/MM3 Basophils # (Auto) 0.1 TH/MM3 CBC Comment DIFF FINAL Differential Comment Sodium Level 141 MEQ/L Potassium Level 3.3 MEQ/L Chloride Level 106 MEQ/L Carbon Dioxide Level 27.0 MEQ/L Anion Gap 8 MEQ/L Blood Urea Nitrogen 19 MG/DL Creatinine 1.70 MG/DL Estimat Glomerular Filtration 37 ML/MIN Rate Random Glucose 77 MG/DL Calcium Level 8.5 MG/DL Magnesium Level 2.0 MG/DL Imaging Last Impressions Chest X-Ray 01/27/17 1206 Signed Impressions: Service Date/Time: Friday, January 27, 2017 12:41 - CONCLUSION: 1. Bilateral predominantly lower lung zone airspace consolidation could represent pulmonary edema in the appropriate clinical setting. Consolidation at the right lung base has increased since the prior study. 2. Possible small left pleural effusion. 3. Stable mildly enlarged heart. Nelson Huff MD Chest CT 01/27/17 0000 Signed Impressions: Service Date/Time: Friday, January 27, 2017 13:45 - CONCLUSION: 1. Severe bilateral air space consolidation that is lower lung zone predominant. The imaging findings are nonspecific. Many etiologies could have this appearance including infection, pulmonary edema, or inflammatory processes. 2. Small bilateral pleural effusions. Nelson Huff MD Objective Remarks GENERAL: Patient is 66 yo lying in bed in NAD SKIN: Warm and dry. HEAD: Normocephalic. EYES: No scleral icterus. No injection or drainage. NECK: Supple, trachea midline. No JVD or lymphadenopathy. CARDIOVASCULAR: Regular rate and rhythm without murmurs, gallops, or rubs. RESPIRATORY: Breath sounds equal bilaterally. No accessory muscle use. GASTROINTESTINAL: Abdomen soft, non-tender, nondistended. MUSCULOSKELETAL: No cyanosis, or edema. Neuro: Awake and alert. A/P Assessment and Plan 1. Acute hypoxemic respiratory failure. 2. CHF decompensation. 3. Bilateral pulmonary infiltrates. Ddx fluid overload versus infectious process. 4. Positive for influenza A antigen. 5. COPD. 6. Acute kidney injury. 7. Mild elevated troponin likely secondary to respiratory distress. 8. Nonischemic cardiomyopathy with emergency room of 45% to 50%. 9. History of atrial fibrillation / flutter. 10. History of CVA. Plan: Neuro: Monitor neuro status and avoid any sedatives. Pulm: Continue with oxygen and maintain sats above 92%. Bronchodilators. Check CXR CV: Wean off Nitro drip. On Norvasc 10 mg p.o. daily. Coreg 12.5mg p.o. q. 12. Monitor HR and BP keep MAP>65mmHg Follow up on echo results, cards-Dr. Norris. : Monitor renal function, intake and output and electrolyte replacement per protocol. Cr: 1.71 from 1.33. On Lasix 40mg daily GI: Start PO heart healthy diet on Protonix 40 mg IV daily for GI prophylaxis. ID: Continue with abx(Tamiflu 75 mg BID,Zosyn ) Monitor for signs of infections ( Fever, WBC) Follow up on strep pneumonia and Legionella urinary antigen. Heme: Monitor CBC. Endo: SSI with Accu-Chek q. 6-hour for glycemic control. GI prophylaxis with Protonix 40 mg daily. DVT prophylaxis with SCDs. Eliquis 15 mg p.o. daily Will sign off and transfer care to [facility] Level 2 Elfego Tobias MD Jan 28, 2017 08:37
[2017-01-28] MEDS ORDERED: POTASSIUM CHLOR 20 MEQ PREMIX 100 ML IV ONE (08:45)
[2017-01-28] MEDS ORDERED: FUROSEMIDE 40 MG/4 ML VIAL IV PUSH SCH (09:00)
[2017-01-28] MEDS: OSELTAMIVIR PHOSPHATE 75 MG CAP PO SCH ×2 (09:00→20:52)
[2017-01-28] MEDS: PANTOPRAZOLE SODIUM 40 MG VIAL IV SCH (09:16)
[2017-01-28] MEDS: hydrALAZINE HCL 20 MG/ML VIAL IV PUSH PRN ×3 (09:16→22:56)
[2017-01-28] MEDS: RIVAROXABAN 15 MG TAB PO SCH (09:16)
[2017-01-28] MEDS: CARVEDILOL 12.5 MG TAB PO SCH ×2 (09:16→20:52)
--- NOTE | 2017-01-28 10:17 | PD.CARD.PN ---
Subjective Subjective Remarks Pt without complaints Objective Medications Current Medications Medications (Trade) Dose Ordered Sig/Dajuan Route Start Time Stop Time Status Last Admin (NS Flush) 2 ml UNSCH PRN IVF 01/27/17 12:15 (Protonix Inj) 40 mg DAILY IV 01/27/17 14:00 01/28/17 09:16 Miscellaneous Information 1 Q361D XX 01/27/17 13:30 (Chlorhexidine 2% Cloth) 3 pack Taper DAILY@04 TOP 01/28/17 04:00 01/24/18 03:59 01/28/17 02:05 (Chlorhexidine 2% Cloth) 3 pack UNSCH PRN TOP 01/27/17 13:30 (Lasix Inj) 40 mg DAILY IV PUSH 01/28/17 09:00 01/28/17 09:16 (D50w (Vial) Inj) 25 ml UNSCH PRN IV PUSH 01/27/17 13:30 (Glucagon Inj) 1 mg UNSCH PRN OTHER 01/27/17 13:30 (NovoLIN R SUPPLEMENTAL SCALE) 1 Q6H SQ 01/27/17 14:00 01/27/17 14:19 (Tamiflu) 75 mg BID PO 01/27/17 21:00 01/27/17 20:31 (Norvasc) 10 mg DAILY PO 01/27/17 14:00 01/28/17 09:16 (Coreg) 12.5 mg Q12HR PO 01/27/17 14:00 01/28/17 09:16 (Xarelto) 15 mg DAILY PO 01/27/17 14:00 01/28/17 09:16 (Pravachol) 80 mg HS PO 01/27/17 21:00 01/27/17 20:31 Hydralazine HCl 10 mg 10 mg Q6H PRN IV PUSH 01/27/17 14:30 01/28/17 09:16 Piperacillin Sod/ Tazobactam Sod 50 ml @ 100 mls/hr Q6H IV 01/27/17 15:00 01/28/17 09:15 (KCl 20 Meq Premix Inj) 100 ml @ 50 mls/hr BOLUS ONCE IV 01/28/17 08:45 01/28/17 10:44 01/28/17 09:15 Vital Signs / I&O Vital Signs Date Time Temp Pulse Resp B/P Pulse Ox O2 Delivery O2 Flow Rate FiO2 01/28/17 08:08 97 01/28/17 08:00 98.3 70 24 151/79 99 01/28/17 06:00 65 01/28/17 04:25 99 Nasal Cannula 2.00 01/28/17 04:20 99 30 01/28/17 04:00 98.8 81 25 109/67 94 01/28/17 04:00 73 01/28/17 02:00 69 01/28/17 01:10 97 30 01/28/17 00:00 98.6 65 20 146/80 98 01/28/17 00:00 65 01/27/17 22:13 100 BiPAP 30 01/27/17 22:13 100 30 01/27/17 22:00 75 01/27/17 20:19 100 40 01/27/17 20:00 98.8 78 16 175/98 100 01/27/17 20:00 78 01/27/17 18:39 98.5 88 28 168/101 100 01/27/17 18:36 97 50 01/27/17 18:06 98 94 154/87 100 BiPAP 50 01/27/17 17:06 83 22 152/89 100 BiPAP 50 01/27/17 15:00 100 50 01/27/17 14:51 91 16 157/80 100 01/27/17 13:32 96 24 157/80 99 BiPAP 50 01/27/17 13:01 99 26 176/89 BiPAP 50 01/27/17 12:48 98 BiPAP 50 01/27/17 12:30 112 28 195/111 100 BiPAP 01/27/17 12:26 99 01/27/17 12:21 116 26 212/130 100 BiPAP 100 01/27/17 12:14 100 BiPAP 100 01/27/17 12:14 100 100 01/27/17 12:12 257/152 01/27/17 12:09 98 BiPAP 100 01/27/17 12:05 98.0 141 30 95 I/O 01/27/17 01/27/17 01/27/17 01/28/17 01/28/17 01/28/17 07:00 15:00 23:00 07:00 15:00 23:00 Intake Total 110 ml 120 ml Output Total 175 ml 250 ml Balance -65 ml -130 ml Intake IV Total 110 ml 120 ml Output Urine Total 175 ml 250 ml Physical Exam GENERAL: Well developed, well nourished. No acute distress. HEENT: Jugular venous pressure is normal. CHEST: Lungs rhonchi to auscultation bilaterally. Unlabored respiratory effort. CARDIAC: Regular rate and rhythm without S3, S4, or murmur. ABDOMEN: Soft, nontender, no hepatosplenomegaly. Bowel sounds present. EXTREMITIES: No clubbing, cyanosis, or edema. Laboratory Laboratory Tests Test 01/27/17 01/27/17 01/27/17 01/27/17 12:18 12:40 14:50 18:40 White Blood Count 12.1 TH/MM3 Red Blood Count 5.09 MIL/MM3 Hemoglobin 13.2 GM/DL Hematocrit 40.7 % Mean Corpuscular Volume 80.0 FL Mean Corpuscular Hemoglobin 26.0 PG Mean Corpuscular Hemoglobin 32.5 % Concent Red Cell Distribution Width 16.2 % Platelet Count 277 TH/MM3 Mean Platelet Volume 11.1 FL Neutrophils (%) (Auto) 72.5 % Lymphocytes (%) (Auto) 22.3 % Monocytes (%) (Auto) 3.1 % Eosinophils (%) (Auto) 1.2 % Basophils (%) (Auto) 0.9 % Neutrophils # (Auto) 8.8 TH/MM3 Lymphocytes # (Auto) 2.7 TH/MM3 Monocytes # (Auto) 0.4 TH/MM3 Eosinophils # (Auto) 0.1 TH/MM3 Basophils # (Auto) 0.1 TH/MM3 CBC Comment AUTO DIFF Differential Comment AUTO DIFF CONFIRMED Platelet Estimate NORMAL Platelet Morphology Comment ENLARGED Prothrombin Time 10.9 SEC Prothromb Time International 1.0 RATIO Ratio Activated Partial 27.7 SEC Thromboplast Time Sodium Level 140 MEQ/L Potassium Level 4.2 MEQ/L Chloride Level 105 MEQ/L Carbon Dioxide Level 23.1 MEQ/L Anion Gap 12 MEQ/L Blood Urea Nitrogen 16 MG/DL Creatinine 1.33 MG/DL Estimat Glomerular Filtration 49 ML/MIN Rate Random Glucose 187 MG/DL Calcium Level 9.2 MG/DL Magnesium Level 2.1 MG/DL Total Bilirubin 0.6 MG/DL Aspartate Amino Transf 14 U/L (AST/SGOT) Alanine Aminotransferase 8 U/L (ALT/SGPT) Alkaline Phosphatase 89 U/L Troponin I 0.06 NG/ML B-Type Natriuretic Peptide 1413 PG/ML Total Protein 8.2 GM/DL Albumin 3.7 GM/DL Blood Gas Puncture Site RT RADIAL Blood Gas Patient Temperature 98.6 Blood Gas HCO3 22 mmol/L Blood Gas Base Excess -2.5 mmol/L Blood Gas Oxygen Saturation 95 % Arterial Blood pH 7.40 Arterial Blood Partial 36 mmHg Pressure CO2 Arterial Blood Partial 259 mmHG Pressure O2 Arterial Blood Oxygen Content 17.3 Vol % Arterial Blood 2.5 % Carboxyhemoglobin Arterial Blood Methemoglobin 1.9 % Blood Gas Hemoglobin 12.5 G/DL Oxygen Delivery Device BiPAP Blood Gas Ventilator Setting IPAP12/EPAP5 Blood Gas Inspired Oxygen 100 % Urine Color YELLOW Urine Turbidity HAZY Urine pH 6.5 Urine Specific [place] 1.016 Urine Protein 300 mg/dL Urine Glucose (UA) TRACE mg/dL Urine Ketones NEG mg/dL Urine Occult Blood TRACE Urine Nitrite NEG Urine Bilirubin NEG Urine Urobilinogen LESS THAN 2.0 MG/DL Urine Leukocyte Esterase NEG Urine RBC 1 /hpf Urine WBC 28 /hpf Urine WBC Clumps FEW Urine Squamous Epithelial 1 /hpf Cells Urine Amorphous Sediment RARE Urine Bacteria MANY /hpf Urine Hyaline Casts 2 /lpf Microscopic Urinalysis Comment CATH-CULTURE IND Nasal Screen MRSA (PCR) NEGATIVE Test 01/28/17 04:49 White Blood Count 5.6 TH/MM3 Red Blood Count 4.21 MIL/MM3 Hemoglobin 11.0 GM/DL Hematocrit 33.5 % Mean Corpuscular Volume 79.7 FL Mean Corpuscular Hemoglobin 26.2 PG Mean Corpuscular Hemoglobin 32.9 % Concent Red Cell Distribution Width 16.4 % Platelet Count 179 TH/MM3 Mean Platelet Volume 10.2 FL Neutrophils (%) (Auto) 62.5 % Lymphocytes (%) (Auto) 25.9 % Monocytes (%) (Auto) 7.5 % Eosinophils (%) (Auto) 3.1 % Basophils (%) (Auto) 1.0 % Neutrophils # (Auto) 3.5 TH/MM3 Lymphocytes # (Auto) 1.4 TH/MM3 Monocytes # (Auto) 0.4 TH/MM3 Eosinophils # (Auto) 0.2 TH/MM3 Basophils # (Auto) 0.1 TH/MM3 CBC Comment DIFF FINAL Differential Comment Sodium Level 141 MEQ/L Potassium Level 3.3 MEQ/L Chloride Level 106 MEQ/L Carbon Dioxide Level 27.0 MEQ/L Anion Gap 8 MEQ/L Blood Urea Nitrogen 19 MG/DL Creatinine 1.70 MG/DL Estimat Glomerular Filtration 37 ML/MIN Rate Random Glucose 77 MG/DL Calcium Level 8.5 MG/DL Magnesium Level 2.0 MG/DL Imaging Last 72 hours Impressions Chest X-Ray 01/27/17 1206 Signed Impressions: Service Date/Time: Friday, January 27, 2017 12:41 - CONCLUSION: 1. Bilateral predominantly lower lung zone airspace consolidation could represent pulmonary edema in the appropriate clinical setting. Consolidation at the right lung base has increased since the prior study. 2. Possible small left pleural effusion. 3. Stable mildly enlarged heart. Nelson Huff MD Chest CT 01/27/17 0000 Signed Impressions: Service Date/Time: Friday, January 27, 2017 13:45 - CONCLUSION: 1. Severe bilateral air space consolidation that is lower lung zone predominant. The imaging findings are nonspecific. Many etiologies could have this appearance including infection, pulmonary edema, or inflammatory processes. 2. Small bilateral pleural effusions. Nelson Huff MD Assessment and Plan Assessment and Plan CHF - Her last EF is 45-50%. ECHO pending. - BUN/Cr increased with lasix, I suspect she is dry and this is predominantly Flu -further management per [facility] Renal insufficiency- stop lasix for now and gentle hydration Hypertension - this is being managed by the primary team. Respiratory insufficiency - this is being managed by critical care. Indeterminate troponin - the patient does have a history of the same with her heart failure presentations. Nichol Norris MD Jan 28, 2017 10:17
--- NOTE | 2017-01-28 10:18 | EKG ---
Date Performed: 01/27/2017 Time Performed: 12:25:25 PTAGE: 66 years EKG: SINUS TACHYCARDIA WITH SHORT MS INTERVAL LEFT VENTRICULAR HYPERTROPHY AND ST-T CHANGE ABNOR MAL ECG Compared to prior tracing no significant change PREVIOUS TRACING : 12/18/2016 12.14 DOCTOR: Freddy Almanzar Interpretating Date/Time 01/28/2017 10:16:10
[2017-01-28] MEDS ORDERED: SODIUM CHLOR 0.9% 250 ML INJ 250 ML IV ONE (10:30)
--- NOTE | 2017-01-28 10:53 | RADRPT ---
EXAM DATE/TIME: 01/28/2017 09:20 [place] COMPARISON: CT THORAX W/O CONTRAST, January 27, 2017, 13:45. CHEST SINGLE AP, January 27, 2017, 12:41. INDICATIONS : Short of breath. MEDICAL HISTORY : Congestive heart failure. Hypertension flu SURGICAL HISTORY : Pacemaker. ENCOUNTER: Initial ACUITY: 1 day PAIN SCORE: 0/10 LOCATION: Bilateral chest FINDINGS: Portable AP view of the chest demonstrate stable enlargement of the cardiac silhouette. Cardiac pacin g device is present. Lungs are underinflated and there is hazy groundglass opacity bilaterally with m ild interstitial opacity. No pleural effusion or pneumothorax is appreciated. CONCLUSION: Marked interval improvement in the appearance of the lungs bilaterally. There is mild residual inters titial opacity bilaterally but the consolidation documented previously has resolved. Nelson Huff MD on January 28, 2017 at 10:51 Board Certified Radiologist. This report was verified electronically.
[2017-01-28] MEDS: PRAVASTATIN SOD 80 MG TAB PO SCH (20:52)
[2017-01-28] MEDS ORDERED: HYDROmorphone HCL PF 1 MG/ML VIAL IV PRN (21:00)
[2017-01-29] VITALS (13 sets, daily range): BP systolic 135–184; BP diastolic 67–94; PULSE 73–97; RESP 18–24; TEMP 98.3–99.3; O2SAT 92–98
[2017-01-29] MEDS: INSULIN NovoLIN REGULAR SUPPLEMENTAL SCALE SQ SCH ×4 (02:00→20:00)
[2017-01-29] MEDS: PIPERACIL-TAZO 3.375 GM PREMIX 50 ML IV SCH ×4 (03:11→20:38)
[2017-01-29] MEDS: RESP: ALBUTEROL 2.5 MG/IPRATROPIUM 0.5 MG NEB (SCH) INH ×5 (03:23→20:57)
[2017-01-29] MEDS: CHLORHEXIDINE GLUCONATE 2 % 1 PACK (2 CLOTHS) TOP SCH (04:00)
[2017-01-29] MEDS: hydrALAZINE HCL 20 MG/ML VIAL IV PUSH PRN ×2 (04:05→07:52)
[2017-01-29 06:45] LABS: AUTOMATED NEUTROPHIL # 4.5 TH/MM3 (1.8-7.7); BASOPHIL # 0.1 TH/MM3 (0-0.2); EOSINOPHIL # 0.2 TH/MM3 (0-0.4); HEMATOCRIT 35.3 % (35.0-46.0); HEMO FLAGS DIFF FINAL; LYMPH % 19.5 % (9.0-44.0); LYMPHOCYTE # 1.3 TH/MM3 (1.0-4.8); MEAN CELL VOLUME 79.7 FL (80.0-100.0); MEAN CORPUSCULAR HEMOGLOBIN 26.3 PG (27.0-34.0); MONO % 9.8 % (0.0-8.0); NEUT % 66.7 % (16.0-70.0); PLATELET COUNT 221 TH/MM3 (150-450); RED BLOOD COUNT 4.43 MIL/MM3 (4.00-5.30); RED CELL DISTRIBUTION WIDTH 16.3 % (11.6-17.2); WHITE BLOOD COUNT 6.7 TH/MM3 (4.0-11.0)
[2017-01-29 07:02] LABS: BICARBONATE 25.2 MEQ/L (21.0-32.0); POTASSIUM 3.1 MEQ/L (3.5-5.1)
[2017-01-29] MEDS: RIVAROXABAN 15 MG TAB PO SCH (07:51)
[2017-01-29] MEDS: OSELTAMIVIR PHOSPHATE 75 MG CAP PO SCH ×2 (07:51→20:39)
[2017-01-29] MEDS: CARVEDILOL 12.5 MG TAB PO SCH ×2 (07:51→20:39)
[2017-01-29] MEDS: PANTOPRAZOLE SODIUM 40 MG VIAL IV SCH (07:52)
--- NOTE | 2017-01-29 08:08 | PD.CARD.PN ---
Subjective Subjective Remarks Pt without complaints Objective Medications Current Medications Medications (Trade) Dose Ordered Sig/Dajuan Route Start Time Stop Time Status Last Admin (NS Flush) 2 ml UNSCH PRN IVF 01/27/17 12:15 01/29/17 07:52 (Protonix Inj) 40 mg DAILY IV 01/27/17 14:00 01/29/17 07:52 Miscellaneous Information 1 Q361D XX 01/27/17 13:30 (Chlorhexidine 2% Cloth) 3 pack Taper DAILY@04 TOP 01/28/17 04:00 01/24/18 03:59 01/29/17 04:00 (Chlorhexidine 2% Cloth) 3 pack UNSCH PRN TOP 01/27/17 13:30 (D50w (Vial) Inj) 25 ml UNSCH PRN IV PUSH 01/27/17 13:30 (Glucagon Inj) 1 mg UNSCH PRN OTHER 01/27/17 13:30 (NovoLIN R SUPPLEMENTAL SCALE) 1 Q6H SQ 01/27/17 14:00 01/27/17 14:19 (Tamiflu) 75 mg BID PO 01/27/17 21:00 01/29/17 07:51 (Norvasc) 10 mg DAILY PO 01/27/17 14:00 01/29/17 07:51 (Coreg) 12.5 mg Q12HR PO 01/27/17 14:00 01/29/17 07:51 (Xarelto) 15 mg DAILY PO 01/27/17 14:00 01/29/17 07:51 Pravastatin Sodium 80 mg 80 mg HS PO 01/27/17 21:00 01/28/17 20:52 (Zosyn 3.375 Gm Premix) 50 ml @ 100 mls/hr Q6H IV 01/27/17 15:00 01/29/17 07:52 (Apresoline Inj) 10 mg Q4H PRN IV PUSH 01/28/17 20:51 01/29/17 07:52 (Dilaudid Pf Inj) 0.5 mg Q3H PRN IV 01/28/17 21:00 01/28/17 21:11 Vital Signs / I&O Vital Signs Date Time Temp Pulse Resp B/P Pulse Ox O2 Delivery O2 Flow Rate FiO2 01/29/17 06:00 89 01/29/17 04:00 98.5 83 20 180/86 98 01/29/17 04:00 83 01/29/17 02:00 73 01/29/17 00:00 97 01/29/17 00:00 98.7 97 18 177/80 95 01/28/17 22:00 104 01/28/17 21:41 20 01/28/17 20:29 97 21 01/28/17 20:00 99.1 94 20 190/89 97 01/28/17 20:00 94 01/28/17 08:08 97 I/O 01/28/17 01/28/17 01/28/17 01/29/17 01/29/17 01/29/17 07:00 15:00 23:00 07:00 15:00 23:00 Intake Total 120 ml 1533 ml 263 ml Output Total 250 ml 4250 ml 300 ml Balance -130 ml -2717 ml -37 ml Intake Oral 540 ml 120 ml IV Total 120 ml 993 ml 143 ml Output Urine Total 250 ml 4250 ml 300 ml Stool Total 0 ml 0 ml Physical Exam GENERAL: Well developed, well nourished. No acute distress. HEENT: Jugular venous pressure is normal. CHEST: Lungs scattered rhonchi to auscultation bilaterally. Unlabored respiratory effort. CARDIAC: Regular rate and rhythm without S3, S4, or murmur. ABDOMEN: Soft, nontender, no hepatosplenomegaly. Bowel sounds present. EXTREMITIES: No clubbing, cyanosis, or edema. Laboratory Laboratory Tests Test 01/29/17 06:10 White Blood Count 6.7 TH/MM3 Red Blood Count 4.43 MIL/MM3 Hemoglobin 11.6 GM/DL Hematocrit 35.3 % Mean Corpuscular Volume 79.7 FL Mean Corpuscular Hemoglobin 26.3 PG Mean Corpuscular Hemoglobin 33.0 % Concent Red Cell Distribution Width 16.3 % Platelet Count 221 TH/MM3 Mean Platelet Volume 10.5 FL Neutrophils (%) (Auto) 66.7 % Lymphocytes (%) (Auto) 19.5 % Monocytes (%) (Auto) 9.8 % Eosinophils (%) (Auto) 3.0 % Basophils (%) (Auto) 1.0 % Neutrophils # (Auto) 4.5 TH/MM3 Lymphocytes # (Auto) 1.3 TH/MM3 Monocytes # (Auto) 0.7 TH/MM3 Eosinophils # (Auto) 0.2 TH/MM3 Basophils # (Auto) 0.1 TH/MM3 CBC Comment DIFF FINAL Differential Comment Sodium Level 142 MEQ/L Potassium Level 3.1 MEQ/L Chloride Level 107 MEQ/L Carbon Dioxide Level 25.2 MEQ/L Anion Gap 10 MEQ/L Blood Urea Nitrogen 15 MG/DL Creatinine 1.57 MG/DL Estimat Glomerular Filtration 40 ML/MIN Rate Random Glucose 105 MG/DL Calcium Level 8.9 MG/DL Phosphorus Level 3.1 MG/DL Magnesium Level 2.0 MG/DL Assessment and Plan Assessment and Plan CHF - Her last EF is 45-50%. ECHO pending. - BUN/Cr increased with lasix, I suspect she is dry and this is predominantly Flu Renal insufficiency- -improved, hold lasix Hypertension - add back lisinopril Respiratory insufficiency - this is being managed by critical care. Indeterminate troponin - secondary to hypoxia/resp insufficiency on presentation Nichol Norris MD Jan 29, 2017 08:08
--- NOTE | 2017-01-29 08:34 | EC ---
Study Study Date:01/28/2017 STUDY CONCLUSIONS SUMMARY - Left ventricle: The cavity size was mildly dilated. Wall thickness was increased in a pattern of mild LVH. Systolic function was moderately reduced. The estimated ejection fraction was in the range of 35% to 40%. Diffuse hypokinesis. - Aortic valve: Valve area: 1.94cm^2 (Vmax). - Mitral valve: Mildly calcified annulus. - Left atrium: The atrium was mildly dilated. - Tricuspid valve: Mild-moderate regurgitation. - Pulmonary arteries: Systolic pressure was mildly increased. PA peak pressure: 41mm Hg (S). If LV function is below 40, please consider prescribing an ACEI or ARB or document rationale for non-use. PROCEDURE DATA STUDY STATUS: Elective. Procedure: Transthoracic echocardiography. Image quality was suboptimal. Scanning was performed from the parasternal, apical, and subcostal acoustic windows. Study completion: The patient tolerated the procedure well. Transthoracic echocardiography. M-mode, complete 2D, complete spectral Doppler, and color Doppler. Height: Height: 64in. Weight: Weight: 223.5lb. Body mass index: BMI: 38.4kg/m^2. Body surface area: BSA: 2.05m^2. Patient status: Inpatient. CARDIAC ANATOMY LEFT VENTRICLE: The cavity size was mildly dilated. Wall thickness was increased in a pattern of mild LVH. Systolic function was moderately reduced. The estimated ejection fraction was in the range of 35% to 40%. Diffuse hypokinesis. AORTIC VALVE: Trileaflet; normal thickness leaflets. Doppler: Transvalvular velocity was within the normal range. There was no stenosis. No regurgitation. Valve area: 1.94cm^2 (Vmax). Indexed valve area: 0.95cm^2/m^2 (Vmax). Peak gradient: 11mm Hg (S). AORTA: Aortic root: The aortic root was normal in size. MITRAL VALVE: Mildly calcified annulus. Doppler: Transvalvular velocity was within the normal range. There was no evidence for stenosis. No regurgitation. Peak gradient: 7mm Hg (D). LEFT ATRIUM: The atrium was mildly dilated. RIGHT VENTRICLE: The cavity size was normal. Wall thickness was normal. PULMONIC VALVE: Doppler: Transvalvular velocity was within the normal range. There was no evidence for stenosis. No regurgitation. TRICUSPID VALVE: Structurally normal valve. Doppler: Transvalvular velocity was within the normal range. Mild-moderate regurgitation. PULMONARY ARTERY: The main pulmonary artery was normal-sized. Systolic pressure was mildly increased. RIGHT ATRIUM: The atrium was normal in size. PERICARDIUM: There was no pericardial effusion. SYSTEMIC VEINS: Inferior vena cava: The vessel was normal in size. Patient weight: 223.5lb _Ejection fraction:_ 65-75% _Fractional shortening:_ 32% up to 5Kg 5-11.5Kg 11.6-22.9Kg 23-45Kg 45-57Kg Aortic Root 7-13 <17 13-22 17-27 17-27 LA diam 6-13 <23 24-38 33-47 37-40 RVID 10-17 7-15 7-15 7-18 8-17 LVIDd 12-22 <32 24-38 33-47 37-40 LVPW 2-4 3-6 5-7 6-8 7-8 IVS 2-4 3-6 5-7 6-8 7-8 BASIC MEASUREMENTS ADULT NORMAL Left ventricle LV internal dimension, ED, chordal *60.6 mm 43-52 level, PLAX LV internal dimension, ES, chordal *50.7 mm 23-38 level, PLAX Fractional shortening, chordal level, *16 % >29 PLAX LV posterior wall thickness, ED 8.57 mm IVS/LVPW ratio, ED 1.02 <1.3 Ventricular septum Septal thickness, ED 8.77 mm Aortic valve Leaflet separation 21 mm 15-26 BASIC MEASUREMENTS ADULT NORMAL Aortic valve Leaflet separation 21 mm 15-26 Aorta Root diameter, ED 29 mm 20-37 Left atrium Anterior-posterior dimension, ES *46 mm 19-40 Anterior-posterior dimension index, ES *2.24 cm/m^2 <2.2 LA/aortic root ratio 1.59 DOPPLER MEASUREMENTS ADULT NORMAL Main pulmonary artery Pressure, S *41 mm Hg =30 Pressure, ED 20 mm Hg Aortic valve Peak velocity, S 168 cm/s Peak gradient, S 11 mm Hg Valve area, Vmax 1.94 cm^2 Valve area index, Vmax 0.95 cm^2/m^2 Mitral valve Peak E-wave velocity 130 cm/s Peak A-wave velocity 99.7 cm/s Deceleration time 151 ms 150-230 Peak gradient, D 7 mm Hg Peak E/A ratio 1.3 Maximal regurgitant velocity 278 cm/s Tricuspid valve Regurgitant peak velocity 250 cm/s Peak RV-RA gradient, S 25 mm Hg Maximal regurgitant velocity 250 cm/s Systemic veins Estimated CVP 10 mm Hg Right ventricle RV pressure, S *46 mm Hg <30 Pulmonic valve Peak velocity, S 114 cm/s Regurgitant velocity, ED 160 cm/s LEGEND: Mean values are shown as u=mean value. Asterisk (*) bryan values outside specified normal range. Amended Rodriguez Smith [id number]
[2017-01-29] MEDS ORDERED: POTASSIUM CHLORIDE 10 MEQ CONTROLLED RELEASE TAB PO ONE (09:45)
[2017-01-29] MEDS ORDERED: ONDANSETRON HCL 4 MG/2 ML VIAL IV PUSH PRN (10:00)
[2017-01-29] MEDS: LISINOPRIL 20 MG TAB PO SCH ×2 (10:20→20:39)
[2017-01-29] MEDS ORDERED: POTASSIUM CHLORIDE 20 MEQ CONTROLLED RELEASE TAB PO ONE (20:00)
[2017-01-29] MEDS: PRAVASTATIN SOD 80 MG TAB PO SCH (20:39)
[2017-01-30] VITALS (14 sets, daily range): BP systolic 142–158; BP diastolic 67–117; PULSE 8–93; RESP 18–28; TEMP 97.8–98.8; O2SAT 93–99
[2017-01-30] MEDS: RESP: ALBUTEROL 2.5 MG/IPRATROPIUM 0.5 MG NEB (SCH) INH ×7 (00:03→23:25)
--- NOTE | 2017-01-30 01:00 | HHI.PR ---
Subjective Remarks Late entry. Date of service 01/29/17. Patient seen the afternoon of 01/29/17. Follow-up for CHF, influenza. Patient says she feels well. Denies any chest pain or shortness of breath. She has had some nausea, however no vomiting. Discussed with nursing. No acute issues. Replace potassium. Objective Vital Signs Date Time Temp Pulse Resp B/P Pulse Ox O2 Delivery O2 Flow Rate FiO2 01/30/17 00:00 74 01/30/17 00:00 98.0 74 20 158/69 94 01/29/17 22:00 76 01/29/17 20:59 96 21 01/29/17 20:00 91 01/29/17 20:00 98.5 91 18 165/77 97 01/29/17 16:39 93 21 01/29/17 16:00 75 135/67 01/29/17 15:59 99.3 01/29/17 12:00 98.8 81 22 147/75 92 01/29/17 08:44 97 Nasal Cannula 21 01/29/17 08:00 98.3 90 24 184/94 98 01/29/17 06:00 89 01/29/17 04:00 98.5 83 20 180/86 98 01/29/17 04:00 83 01/29/17 02:00 73 I/O 01/29/17 01/29/17 01/29/17 01/30/17 01/30/17 01/30/17 07:00 15:00 23:00 07:00 15:00 23:00 Intake Total 263 ml 736 ml Output Total 300 ml 550 ml Balance -37 ml 186 ml Intake Oral 120 ml 440 ml IV Total 143 ml 296 ml Output Urine Total 300 ml 550 ml Stool Total 0 ml 0 ml Result Diagram: 01/29/17 0610 01/29/17 0610 Objective Remarks GENERAL: lying in bed. Appears comfortable.alert and oriented. SKIN: Warm and dry. HEAD: Normocephalic. EYES: No scleral icterus. No injection or drainage. NECK: Supple, trachea midline. No JVD. CARDIOVASCULAR: Regular rate and rhythm without murmurs, gallops, or rubs. RESPIRATORY: Breath sounds equal bilaterally. No accessory muscle use. GASTROINTESTINAL: Abdomen soft, non-tender, nondistended. MUSCULOSKELETAL: No cyanosis, or edema. BACK: Nontender without obvious deformity. No CVA tenderness. A/P Assessment and Plan //Acute hypoxemic respiratory failure. Acute. Much improved. Secondary to influenza. Continue to monitor. //CHF decompensation. Acute. BNP markedly elevated. //Bilateral pulmonary infiltrates. Ddx fluid overload versus infectious process. -Likely patient became over hydrated secondary to influenza, causing CHF exacerbation. -Much improved. //Influenza pneumonia //Community-acquired pneumonia Much improved. Continue Tamiflu. Continue Zosyn. Continue symptomatic treatment. //COPD. DuoNeb's. Oxygen as necessary. //Acute kidney injury. -Current and up to 1.7 this admission, however baseline around 1.3-1.4 -Improving. 1.5. Continue to monitor. //Mild elevated troponin likely secondary to respiratory distress. --Cardiology following. Appreciate assistance. // Nonischemic cardiomyopathy with ejection fraction of 45% to 50%--> now 35-40 % this admission. Diffuse hypokinesis.. Possibly tachycardia induced cardiomyopathy. -Continue medications as per cardiology. - //History of atrial fibrillation / flutter. Continue Helquist //History of CVA. Continue Eliquis //Hypokalemia. Replace. Monitor. GI prophylaxis with Protonix 40 mg daily. DVT prophylaxis with SCDs. Eliquis 15 mg p.o. daily Discharge Planning possible discharge to SNF. Tj Nicole MD Jan 30, 2017 01:00
[2017-01-30] MEDS: CHLORHEXIDINE GLUCONATE 2 % 1 PACK (2 CLOTHS) TOP SCH (04:00)
[2017-01-30] MEDS: PIPERACIL-TAZO 3.375 GM PREMIX 50 ML IV SCH ×4 (04:37→21:31)
[2017-01-30 05:32] LABS: AUTOMATED NEUTROPHIL # 3.4 TH/MM3 (1.8-7.7); BASOPHIL # 0.1 TH/MM3 (0-0.2); BASOPHIL % 0.9 % (0.0-2.0); EOSINOPHIL # 0.2 TH/MM3 (0-0.4); EOSINOPHIL % 3.9 % (0.0-4.0); HEMATOCRIT 33.3 % (35.0-46.0); HEMO FLAGS DIFF FINAL; LYMPH % 23.3 % (9.0-44.0); LYMPHOCYTE # 1.3 TH/MM3 (1.0-4.8); MEAN CELL VOLUME 80.8 FL (80.0-100.0); MEAN CORPUSCULAR HEMOGLOBIN 26.2 PG (27.0-34.0); MEAN CORPUSCULAR HGB CONC 32.5 % (32.0-36.0); MONO % 10.8 % (0.0-8.0); NEUT % 61.1 % (16.0-70.0); PLATELET COUNT 208 TH/MM3 (150-450); RED BLOOD COUNT 4.12 MIL/MM3 (4.00-5.30); RED CELL DISTRIBUTION WIDTH 16.2 % (11.6-17.2); WHITE BLOOD COUNT 5.5 TH/MM3 (4.0-11.0)
[2017-01-30 05:57] LABS: BICARBONATE 25.5 MEQ/L (21.0-32.0); MAGNESIUM 2.1 MG/DL (1.5-2.5); POTASSIUM 3.2 MEQ/L (3.5-5.1)
--- NOTE | 2017-01-30 07:19 | PD.CARD.PN ---
Subjective Subjective Remarks PT requests d/c home Objective Medications Current Medications Medications (Trade) Dose Ordered Sig/Dajuan Route Start Time Stop Time Status Last Admin (NS Flush) 2 ml UNSCH PRN IVF 01/27/17 12:15 01/29/17 07:52 (Protonix Inj) 40 mg DAILY IV 01/27/17 14:00 01/29/17 07:52 Miscellaneous Information 1 Q361D XX 01/27/17 13:30 (Chlorhexidine 2% Cloth) 3 pack Taper DAILY@04 TOP 01/28/17 04:00 01/24/18 03:59 01/30/17 04:00 (Chlorhexidine 2% Cloth) 3 pack UNSCH PRN TOP 01/27/17 13:30 (Tamiflu) 75 mg BID PO 01/27/17 21:00 01/29/17 20:39 (Norvasc) 10 mg DAILY PO 01/27/17 14:00 01/29/17 07:51 (Coreg) 12.5 mg Q12HR PO 01/27/17 14:00 01/29/17 20:39 (Xarelto) 15 mg DAILY PO 01/27/17 14:00 01/29/17 07:51 Pravastatin Sodium 80 mg 80 mg HS PO 01/27/17 21:00 01/29/17 20:39 (Zosyn 3.375 Gm Premix) 50 ml @ 100 mls/hr Q6H IV 01/27/17 15:00 01/30/17 04:37 (Apresoline Inj) 10 mg Q4H PRN IV PUSH 01/28/17 20:51 01/29/17 07:52 (Dilaudid Pf Inj) 0.5 mg Q3H PRN IV 01/28/17 21:00 01/28/17 21:11 (Prinivil) 20 mg Q12HR PO 01/29/17 09:00 01/29/17 20:39 (Zofran Inj) 4 mg Q6H PRN IV PUSH 01/29/17 10:00 01/29/17 10:20 Vital Signs / I&O Vital Signs Date Time Temp Pulse Resp B/P Pulse Ox O2 Delivery O2 Flow Rate FiO2 01/30/17 06:00 93 01/30/17 04:00 70 01/30/17 04:00 98.3 70 18 142/67 99 3/8/17 02:00 72 01/30/17 00:00 74 01/30/17 00:00 98.0 74 20 158/69 94 01/29/17 22:00 76 01/29/17 20:59 96 21 01/29/17 20:00 91 01/29/17 20:00 98.5 91 18 165/77 97 01/29/17 16:39 93 21 01/29/17 16:00 75 135/67 01/29/17 15:59 99.3 01/29/17 12:00 98.8 81 22 147/75 92 01/29/17 08:44 97 Nasal Cannula 21 01/29/17 08:00 98.3 90 24 184/94 98 I/O 01/29/17 01/29/17 01/29/17 01/30/17 01/30/17 01/30/17 07:00 15:00 23:00 07:00 15:00 23:00 Intake Total 263 ml 736 ml 213 ml Output Total 300 ml 550 ml 250 ml Balance -37 ml 186 ml -37 ml Intake Oral 120 ml 440 ml 120 ml IV Total 143 ml 296 ml 93 ml Output Urine Total 300 ml 550 ml 250 ml Stool Total 0 ml 0 ml 0 ml Physical Exam GENERAL: Well developed, well nourished. No acute distress. HEENT: Jugular venous pressure is normal. CHEST: Lungs clear to auscultation bilaterally. Unlabored respiratory effort. CARDIAC: Regular rate and rhythm without S3, S4, or murmur. ABDOMEN: Soft, nontender, no hepatosplenomegaly. Bowel sounds present. EXTREMITIES: No clubbing, cyanosis, or edema. Laboratory Laboratory Tests Test 01/30/17 04:37 White Blood Count 5.5 TH/MM3 Red Blood Count 4.12 MIL/MM3 Hemoglobin 10.8 GM/DL Hematocrit 33.3 % Mean Corpuscular Volume 80.8 FL Mean Corpuscular Hemoglobin 26.2 PG Mean Corpuscular Hemoglobin 32.5 % Concent Red Cell Distribution Width 16.2 % Platelet Count 208 TH/MM3 Mean Platelet Volume 10.4 FL Neutrophils (%) (Auto) 61.1 % Lymphocytes (%) (Auto) 23.3 % Monocytes (%) (Auto) 10.8 % Eosinophils (%) (Auto) 3.9 % Basophils (%) (Auto) 0.9 % Neutrophils # (Auto) 3.4 TH/MM3 Lymphocytes # (Auto) 1.3 TH/MM3 Monocytes # (Auto) 0.6 TH/MM3 Eosinophils # (Auto) 0.2 TH/MM3 Basophils # (Auto) 0.1 TH/MM3 CBC Comment DIFF FINAL Differential Comment Sodium Level 141 MEQ/L Potassium Level 3.2 MEQ/L Chloride Level 105 MEQ/L Carbon Dioxide Level 25.5 MEQ/L Anion Gap 11 MEQ/L Blood Urea Nitrogen 14 MG/DL Creatinine 1.55 MG/DL Estimat Glomerular Filtration 41 ML/MIN Rate Random Glucose 95 MG/DL Calcium Level 9.1 MG/DL Phosphorus Level 2.8 MG/DL Magnesium Level 2.1 MG/DL Albumin 3.2 GM/DL Assessment and Plan Assessment and Plan CHF - Her last EF is 45-50%. ECHO 35-40% - stable, restart lasix Renal insufficiency- -improved, Hypertension - reasonable on present meds Respiratory insufficiency -resolved Indeterminate troponin - secondary to hypoxia/resp insufficiency on presentation AF- leave off amilo Available Nichol Figueroa MD Jan 30, 2017 07:18
[2017-01-30] MEDS ORDERED: POTASSIUM CHLORIDE 25 MEQ EFFERVESCENT TAB PO ONE (07:30)
[2017-01-30] MEDS ORDERED: FUROSEMIDE 40 MG TAB PO SCH (09:00)
[2017-01-30] MEDS: OSELTAMIVIR PHOSPHATE 75 MG CAP PO SCH ×2 (09:33→21:31)
[2017-01-30] MEDS: PANTOPRAZOLE SODIUM 40 MG VIAL IV SCH (09:33)
[2017-01-30] MEDS: RIVAROXABAN 15 MG TAB PO SCH (09:33)
[2017-01-30] MEDS: LISINOPRIL 20 MG TAB PO SCH (09:33)
[2017-01-30] MEDS: POTASSIUM CHLORIDE 10 MEQ CONTROLLED RELEASE TAB PO SCH (09:33)
[2017-01-30] MEDS: CARVEDILOL 12.5 MG TAB PO SCH ×2 (09:34→21:31)
[2017-01-30] MEDS ORDERED: ALBUAER3 INH (10:29)
[2017-01-30] MEDS ORDERED: LEVA750T PO (10:29)
[2017-01-30] MEDS ORDERED: SYMB80AE INH (10:29)
[2017-01-30] MEDS ORDERED: OSEL75 PO (10:29)
[2017-01-30] MEDS ORDERED: POTA-243 PO (10:29)
--- NOTE | 2017-01-30 10:36 | HHI.FF ---
Face to Face Verification Diagnosis: (1) Influenza A (2) Cardiomyopathy (3) Physical deconditioning (4) CHF (congestive heart failure) Physical Therapy Order: Evaluate and Treat Home Health Nursing Order: CHF education Nursing assessment with vital signs Instructions: Home health nurse for medication management. I have seen patient Mai Farmer on 01/30/17. My clinical findings support the need for the requested home health care services because: Deconditioned w/ increased weakness I certify that my clinical findings support that this patient is homebound because: Unsafe to leave home unassisted Tj Nicole MD Jan 30, 2017 10:36
[2017-01-30] MEDS ORDERED: SODIUM CHLOR 0.9% 250 ML INJ 250 ML IV ONE (11:45)
[2017-01-30] MEDS ORDERED: NS + KCL 20 MEQ INJ 1,000 ML IV SCH (11:45)
--- NOTE | 2017-01-30 11:47 | HHI.PR ---
Subjective Remarks pt says she feels well , feels like going home. no cp or sob. she reports left hand/arm, leftleg weakness since last night. Objective Vital Signs Date Time Temp Pulse Resp B/P Pulse Ox O2 Delivery O2 Flow Rate FiO2 01/30/17 10:00 82 01/30/17 09:21 97 21 01/30/17 08:00 97.8 76 25 145/71 93 01/30/17 08:00 76 01/30/17 06:00 93 01/30/17 04:00 70 01/30/17 04:00 98.3 70 18 142/67 99 01/30/17 02:00 72 01/30/17 00:00 74 01/30/17 00:00 98.0 74 20 158/69 94 01/29/17 22:00 76 01/29/17 20:59 96 21 01/29/17 20:00 91 01/29/17 20:00 98.5 91 18 165/77 97 01/29/17 16:39 93 21 01/29/17 16:00 75 135/67 01/29/17 15:59 99.3 01/29/17 12:00 98.8 81 22 147/75 92 I/O 01/29/17 01/29/17 01/29/17 01/30/17 01/30/17 01/30/17 07:00 15:00 23:00 07:00 15:00 23:00 Intake Total 263 ml 736 ml 213 ml Output Total 300 ml 550 ml 250 ml Balance -37 ml 186 ml -37 ml Intake Oral 120 ml 440 ml 120 ml IV Total 143 ml 296 ml 93 ml Output Urine Total 300 ml 550 ml 250 ml Stool Total 0 ml 0 ml 0 ml Result Diagram: 01/30/17 0437 01/30/17436 Objective Remarks GENERAL: lying in bed. Appears comfortable.alert and oriented. Neuro: on exam unable to move right hand, although sensation intact. is picking up right hand using her left hand. 4/5 strength right leg, 5/5 left extremities. speech is slow but intelligble, no facial droop. -placed HOB flat, and within 1 minute, patient able to squeeze right hand, although with 4/5 strength. CN2-12 intact. no facial droop SKIN: Warm and dry. HEAD: Normocephalic. EYES: No scleral icterus. No injection or drainage. NECK: Supple, trachea midline. No JVD. CARDIOVASCULAR: Regular rate and rhythm without murmurs, gallops, or rubs. RESPIRATORY: Breath sounds equal bilaterally. No accessory muscle use. GASTROINTESTINAL: Abdomen soft, non-tender, nondistended. MUSCULOSKELETAL: No cyanosis, or edema. BACK: Nontender without obvious deformity. No CVA tenderness. A/P Assessment and Plan //Acute right [facility]. [facility]. -since last night per pt. partially resolved with HOB flat -Stat CT head, neuro consult. -permissive hypertension. decr amlodipine to 2.5. neuro checks. //Acute hypoxemic respiratory failure. Acute. Much improved. Secondary to influenza. Continue to monitor. -stable for DC from this standpoint. //CHF decompensation. Acute. BNP markedly elevated. //Bilateral pulmonary infiltrates. Ddx fluid overload versus infectious process. -Likely patient became over hydrated secondary to influenza, causing CHF exacerbation. -Much improved. //Influenza pneumonia //Community-acquired pneumonia Much improved. Continue Tamiflu. Continue Zosyn. Continue symptomatic treatment. stable. //COPD. DuoNeb's. Oxygen as necessary. //Acute kidney injury. -Current and up to 1.7 this admission, however baseline around 1.3-1.4 -Improving. 1.5. Continue to monitor. //Mild elevated troponin likely secondary to respiratory distress. --Cardiology following. Appreciate assistance. // Nonischemic cardiomyopathy with ejection fraction of 45% to 50%--> now 35-40 % this admission. Diffuse hypokinesis.. Possibly tachycardia induced cardiomyopathy. -Continue medications as per cardiology. - //History of atrial fibrillation / flutter. Continue eliquis //History of CVA. Continue Eliquis //Hypokalemia. Replace again. Monitor. GI prophylaxis with Protonix 40 mg daily. DVT prophylaxis with SCDs. Eliquis 15 mg p.o. daily Discharge Planning acute right hemiparesis. neuro workup Tj Nicole MD Jan 30, 2017 11:47
[2017-01-30] MEDS ORDERED: ASPIRIN 81 MG CHEW TAB CHEW ONE (12:00)
[2017-01-30] MEDS ORDERED: PILL SPLITTER OTHER PRN (12:00)
--- NOTE | 2017-01-30 13:41 | RADRPT ---
EXAM DATE/TIME: 01/30/2017 13:11 [facility] COMPARISON: No previous studies available for comparison. INDICATIONS : Hemiparesis. RADIATION DOSE: 49.98 CTDIvol (mGy) MEDICAL HISTORY : Cerebrovascular disease. Hypertension. SURGICAL HISTORY : None. ENCOUNTER: Initial ACUITY: 1 day PAIN SCALE: 0/10 LOCATION: cranial TECHNIQUE: Multiple contiguous axial images were obtained of the head. Using automated exposure control and adj ustment of the mA and/or kV according to patient size, radiation dose was kept as low as reasonably a chievable to obtain optimal diagnostic quality images. FINDINGS: CEREBRUM: The ventricles are normal for age. No evidence of midline shift, mass lesion, hemorrhage or acute in farction. No extra-axial fluid collections are seen. Chronic-appearing low attenuation in the perive ntricular white matter. POSTERIOR FOSSA: The cerebellum and brainstem are intact. The 4th ventricle is midline. The cerebellopontine angle i s unremarkable. EXTRACRANIAL: The visualized portion of the orbits is intact. SKULL: The calvaria is intact. No evidence of skull fracture. CONCLUSION: No acute intracranial abnormality demonstrated. Chronic white matter changes. Nelson Garcia MD on January 30, 2017 at 13:39 Board Certified Radiologist. This report was verified electronically.
--- NOTE | 2017-01-30 15:41 | MB ---
cc: ELIZABETH TRINIDAD M.D. DATE OF CONSULTATION: 01/30/2017 DATE OF : 1950 REASON FOR CONSULTATION Right-sided weakness, possible stroke. HISTORY OF PRESENT ILLNESS The patient is a 66-year-old woman admitted to the hospital on 01/27/2017 with a known history of atrial fibrillation/flutter, nonischemic cardiomyopathy, EF 45-50%, AICD, COPD and a stroke in the past. She was placed on BiPAP. She also apparently was hypertensive, tachycardic and tachypneic with an elevated BNP and some mild leukocytosis, some airspace consolidation in both lower lung ni on chest x-ray. Tested positive for flu A antigen. Apparently it was noted today that she started having some right-sided weakness, trouble picking things up with her right hand, using her left hand to assist. It waxed and waned, time of onset is really unknown. She has the ability to lift her right arm and right leg up currently but it does look weaker than the left. She was placed with the head of bed flat and initially when that was done her symptoms had improved. Currently she is still head of the bed flat. She had a stat. CT done and it did not show anything acute. We are allowing for permissible hypertension. Her pulmonary issues are stable. PHYSICAL EXAMINATION VITAL SIGNS: Temperature 97.8, pulse 72, respiratory rate 25, blood pressure 145/71, satting 97% on room air. NEUROLOGIC: She is awake and alert. Speech is normal. She is not dysarthric. She is not aphasic. Pupils are reactive. Face is symmetrical. She does appear to have some mild weakness with mild drift and leg lag. She also has her right leg externally deviated. Toes withdraws. DTRs are 2+. She can feel light touch and pain. Gait cannot be assessed at this time. LABORATORY DATA Her labs are reviewed. Hemoglobin is 10.8. Coag panel unremarkable. Chemistries: Potassium 3.2, BUN 14, creatinine 1.55, GFR 41, albumin 3.2. Urine was done on 01/27/2017, culture was done. Nasal screen was negative. Her urine culture did not grow anything in [address] of the head did not show any acute abnormality, just chronic white matter changes. IMPRESSION Right hemiparesis, likely due to a stroke. RECOMMENDATIONS At this point recommend permissible hypertension. If not done so get her on antiplatelet therapy. She is already on Xarelto 15 mg daily, continue that and consideration would be adding a baby aspirin to her regimen. Check a lipid panel. Physical therapy and occupational therapy tomorrow. Permissible hypertension today. I believe she has a defibrillator that is not MRI compatible and MRI cannot be done unfortunately. Likely have to repeat a CT in 24 hours. If not done so will check a carotid ultrasound as well. Elizabeth Trinidad MD DF/ALO /2:46 PM /3:31 PM
--- NOTE | 2017-01-30 15:51 | RADRPT ---
EXAM DATE/TIME: 01/30/2017 13:45 [facility] COMPARISON: No previous studies available for comparison. INDICATIONS : Cerebrovascular accident. MEDICAL HISTORY : Myocardial infarction. Hypertension. CAD. SURGICAL HISTORY : Tubal ligation. Pacemaker. Right ankle surgery. ENCOUNTER: Initial ACUITY: 1 day PAIN SCORE: 0/10 LOCATION: Right neck PEAK SYSTOLIC VELOCITIES (cm/sec): ICA/CCA RATIO: Right: 1.9 Left: 1.0 ICA: Right: 105 Left: 66 CCA: Right: 55 Left: 65 ECA: Right: 78 Left: 108 VERTEBRAL: Right: 45 antegrade Left: 64 antegrade Elevated flow velocities and ICA/CCA ratios have been found to correlate with increased degrees of vessel stenosis, calculated as percentage of diameter relative to a normal segment of distal ICA/CCA FINDINGS: RIGHT CAROTID: There is focal moderate size calcified plaque in the carotid bulb. Spectral broadening is present wit hin the waveforms in this area. LEFT CAROTID: There is mild noncalcified plaque throughout the common carotid artery and mild calcified and noncalc ified plaque in the carotid bulb. VERTEBRAL ARTERIES: Antegrade flow is seen in both vertebral arteries. MISCELLANEOUS: None. CONCLUSION: 1. Mild atherosclerotic plaque in the left carotid bulb and moderate sized focal calcified plaque in the right carotid bulb. However, velocity measurements suggest less than 50% stenosis. 2. There is antegrade flow within both vertebral arteries. Nelson Huff MD on January 30, 2017 at 15:47 Board Certified Radiologist. This report was verified electronically.
[2017-01-30] MEDS: PRAVASTATIN SOD 80 MG TAB PO SCH (21:31)
[2017-01-31] VITALS (12 sets, daily range): BP systolic 104–197; BP diastolic 51–105; PULSE 74–92; RESP 18–33; TEMP 98–98.6; O2SAT 93–100
[2017-01-31] MEDS: PIPERACIL-TAZO 3.375 GM PREMIX 50 ML IV SCH ×2 (02:11→09:29)
[2017-01-31] MEDS: hydrALAZINE HCL 20 MG/ML VIAL IV PUSH PRN ×2 (02:12→23:04)
[2017-01-31] MEDS: RESP: ALBUTEROL 2.5 MG/IPRATROPIUM 0.5 MG NEB (SCH) INH ×4 (03:25→15:21)
[2017-01-31] MEDS: CHLORHEXIDINE GLUCONATE 2 % 1 PACK (2 CLOTHS) TOP SCH ×2 (04:00→22:14)
[2017-01-31 04:23] LABS: BASOPHIL # 0.1 TH/MM3 (0-0.2); BASOPHIL % 1.7 % (0.0-2.0); EOSINOPHIL # 0.4 TH/MM3 (0-0.4); EOSINOPHIL % 7.9 % (0.0-4.0); HEMATOCRIT 35.5 % (35.0-46.0); HEMO FLAGS DIFF FINAL; LYMPH % 27.1 % (9.0-44.0); LYMPHOCYTE # 1.5 TH/MM3 (1.0-4.8); MEAN CELL VOLUME 79.4 FL (80.0-100.0); MEAN CORPUSCULAR HEMOGLOBIN 25.9 PG (27.0-34.0); MEAN CORPUSCULAR HGB CONC 32.6 % (32.0-36.0); MONO % 8.5 % (0.0-8.0); NEUT % 54.8 % (16.0-70.0); PLATELET COUNT 224 TH/MM3 (150-450); RED BLOOD COUNT 4.47 MIL/MM3 (4.00-5.30); RED CELL DISTRIBUTION WIDTH 16.2 % (11.6-17.2); WHITE BLOOD COUNT 5.4 TH/MM3 (4.0-11.0)
[2017-01-31 04:46] LABS: BICARBONATE 23.1 MEQ/L (21.0-32.0); POTASSIUM 3.7 MEQ/L (3.5-5.1)
[2017-01-31] MEDS ORDERED: hydrALAZINE HCL 20 MG/ML VIAL IV PUSH ONE (05:30)
[2017-01-31] MEDS ORDERED: ACETAMINOPHEN 325 MG TAB PO ONE (05:30)
[2017-01-31] MEDS ORDERED: amLODIPine BESYLATE 5 MG TAB PO SCH (09:00)
[2017-01-31] MEDS: RIVAROXABAN 15 MG TAB PO SCH (09:29)
[2017-01-31] MEDS: OSELTAMIVIR PHOSPHATE 75 MG CAP PO SCH ×2 (09:29→20:30)
[2017-01-31] MEDS: CARVEDILOL 12.5 MG TAB PO SCH (09:29)
[2017-01-31] MEDS: ASPIRIN EC 81 MG TABEC PO SCH (09:29)
[2017-01-31] MEDS: POTASSIUM CHLORIDE 10 MEQ CONTROLLED RELEASE TAB PO SCH (09:29)
[2017-01-31] MEDS: PANTOPRAZOLE SODIUM 40 MG VIAL IV SCH (09:29)
[2017-01-31] MEDS ORDERED: LEVOFLOXACIN 750 MG TAB PO ONE (10:00)
--- NOTE | 2017-01-31 11:39 | HHI.PR ---
Subjective Remarks Patient again says she feels well. Denies any chest pain or shortness of breath. Denies any nausea or vomiting. Denies any acute vision changes. Still with right-sided weakness. Objective Vital Signs Date Time Temp Pulse Resp B/P Pulse Ox O2 Delivery O2 Flow Rate FiO2 01/31/17 06:00 83 01/31/17 05:35 196/92 01/31/17 04:00 84 01/31/17 04:00 98.1 84 22 189/91 100 01/31/17 02:00 195/95 01/31/17 02:00 87 01/31/17 00:00 79 01/31/17 00:00 98.1 79 28 177/88 95 01/30/17 22:00 84 01/30/17 21:06 98 01/30/17 20:00 83 01/30/17 20:00 98.8 8 28 152/117 96 01/30/17 18:00 83 01/30/17 16:00 78 01/30/17 16:00 98.6 78 22 144/92 93 01/30/17 14:00 78 01/30/17 12:00 79 01/30/17 12:00 98.1 79 25 150/69 95 I/O 01/30/17 01/30/17 01/30/17 01/31/17 01/31/17 01/31/17 07:00 15:00 23:00 07:00 15:00 23:00 Intake Total 213 ml 556 ml 1444 ml 596 ml Output Total 250 ml 450 ml 550 ml 1225 ml Balance -37 ml 106 ml 894 ml -629 ml Intake Oral 120 ml 100 ml 840 ml 240 ml IV Total 93 ml 456 ml 604 ml 356 ml Output Urine Total 250 ml 450 ml 550 ml 1225 ml Stool Total 0 ml 0 ml # Voids 1 # Bowel Movements 0 0 Result Diagram: 01/31/1735101/31/17351 Objective Remarks GENERAL: lying in bed. Appears comfortable. alert and oriented to place, person , year, not date. Neuro: Patient continues with 4 out of 5 strength on the right upper and right lower extremity. 5 out of 5 strength on the left. CN2-12 intact. no facial droop SKIN: Warm and dry. HEAD: Normocephalic. EYES: No scleral icterus. No injection or drainage. NECK: Supple, trachea midline. No JVD. CARDIOVASCULAR: Regular rate and rhythm without murmurs, gallops, or rubs. RESPIRATORY: Breath sounds equal bilaterally. No accessory muscle use. GASTROINTESTINAL: Abdomen soft, non-tender, nondistended. MUSCULOSKELETAL: No cyanosis, or edema. BACK: Nontender without obvious deformity. No CVA tenderness. A/P Assessment and Plan //Acute right sided hemiparesis. alexandraley perfusion dependent. -She says started the night of 01/29. -01/30 complete right upper extremity paralysispartially resolved with HOB flat - Stat CT head NAF, carotid Doppler without significant stenosis. 50%. -Neurology following. -permissive hypertension. -01/31. Blood pressure elevated overnight. Will add back low-dose blood pressure meds. Although right-sided hemiparesis has improved, still not back to baseline. Repeat CT head today. //Acute hypoxemic respiratory failure. Resolved. -Secondary to influenza. Continue to monitor. -Continues with stable respiratory status. //CHF decompensation. Acute. BNP markedly elevated. //Bilateral pulmonary infiltrates. Ddx fluid overload versus infectious process. -Likely patient became over hydrated secondary to influenza, causing CHF exacerbation. -Much improved. //Influenza pneumonia //Community-acquired pneumonia Much improved. Continue Tamiflu. Continue Zosyn. Continue symptomatic treatment. stable. //COPD. DuoNeb's. Oxygen as necessary. //Acute kidney injury. -Current and up to 1.7 this admission, however baseline around 1.3-1.4 -Improving. 1.3. Follow as necessary. //Mild elevated troponin likely secondary to respiratory distress. --Cardiology following. Appreciate assistance. // Nonischemic cardiomyopathy with ejection fraction of 45% to 50%--> now 35-40 % this admission. Diffuse hypokinesis.. Possibly tachycardia induced cardiomyopathy. -01/30. Held amlodipine, lisinopril for acute right-sided hemiparesis -01/31. Blood pressure had been elevated overnight. We'll plan to start low- dose lisinopril, amlodipine back. //History of atrial fibrillation / flutter. Continue eliquis //History of CVA. Continue xarelto //Hypokalemia. Replace again. Monitor. Attempted to call contact number, not accepting calls. GI prophylaxis with Protonix 40 mg daily. DVT prophylaxis with SCDs. xarelto 15 mg p.o. daily Discharge Planning acute right hemiparesis. -Would benefit from rehabilitation placement. Tj Nicole MD Jan 31, 2017 11:39
[2017-01-31] MEDS: PRAVASTATIN SOD 80 MG TAB PO SCH (20:30)
[2017-01-31] MEDS: CARVEDILOL 6.25 MG TAB PO SCH (20:30)
--- NOTE | 2017-01-31 21:49 | RADRPT ---
EXAM DATE/TIME: 01/31/2017 21:34 [facility] COMPARISON: CT BRAIN W/O CONTRAST, January 30, 2017, 13:11. INDICATIONS : Right sided hemiparesis RADIATION DOSE: 51.96 CTDIvol (mGy) MEDICAL HISTORY : Cerebrovascular disease. Cardiovascular disease Hypertension. SURGICAL HISTORY : Tubal ligation. Pacemaker. ENCOUNTER: Initial ACUITY: 1 day PAIN SCALE: 0/10 LOCATION: Bilateral cranial TECHNIQUE: Multiple contiguous axial images were obtained of the head. Using automated exposure control and adj ustment of the mA and/or kV according to patient size, radiation dose was kept as low as reasonably a chievable to obtain optimal diagnostic quality images. FINDINGS: CEREBRUM: The ventricles are normal for age. No evidence of midline shift, mass lesion, hemorrhage or acute in farction. No extra-axial fluid collections are seen. Chronic, symmetric-appearing low attenuation ag ain seen in the periventricular white matter. POSTERIOR FOSSA: The cerebellum and brainstem are intact. The 4th ventricle is midline. The cerebellopontine angle i s unremarkable. EXTRACRANIAL: The visualized portion of the orbits is intact. SKULL: The calvaria is intact. No evidence of skull fracture. CONCLUSION: Unchanged. Still no convincing evidence of an acute ischemic event. Chronic white matter changes. No bleed. Nelson Garcia MD on January 31, 2017 at 21:46 Board Certified Radiologist. This report was verified electronically.
[2017-02-01] VITALS (10 sets, daily range): BP systolic 169–197; BP diastolic 88–99; PULSE 81–95; RESP 18–25; TEMP 97.5–98.9; O2SAT 90–99
[2017-02-01] MEDS: PANTOPRAZOLE SODIUM 40 MG VIAL IV SCH (09:32)
[2017-02-01] MEDS: amLODIPine BESYLATE 5 MG TAB PO SCH (09:33)
[2017-02-01] MEDS: CARVEDILOL 6.25 MG TAB PO SCH ×2 (09:33→19:41)
[2017-02-01] MEDS: POTASSIUM CHLORIDE 10 MEQ CONTROLLED RELEASE TAB PO SCH (09:33)
[2017-02-01] MEDS: ASPIRIN EC 81 MG TABEC PO SCH (09:33)
[2017-02-01] MEDS: LEVOFLOXACIN 750 MG TAB PO SCH (09:33)
[2017-02-01] MEDS: LISINOPRIL 5 MG TAB PO SCH (09:33)
[2017-02-01] MEDS: RIVAROXABAN 15 MG TAB PO SCH (09:33)
[2017-02-01] MEDS: FUROSEMIDE 20 MG TAB PO SCH (09:33)
[2017-02-01] MEDS: PRAVASTATIN SOD 80 MG TAB PO SCH (19:41)
--- NOTE | 2017-02-01 19:41 | HHI.PR ---
Subjective Remarks patient seen this morning around 11:30 AM. She says she feels well. Denies any chest pain or shortness of breath. Objective Vital Signs Date Time Temp Pulse Resp B/P Pulse Ox O2 Delivery O2 Flow Rate FiO2 02/01/17 16:00 98.0 86 21 173/99 02/01/17 12:00 98.4 84 20 181/88 90 02/01/17 08:00 98.9 89 18 191/94 02/01/17 06:00 86 02/01/17 04:00 95 02/01/17 04:00 98.3 95 18 179/88 99 02/01/17 02:00 92 02/01/17 00:00 98.2 95 25 197/93 96 02/01/17 00:00 93 01/31/17 22:00 92 01/31/17 20:44 99 01/31/17 20:00 98.6 92 33 189/105 93 01/31/17 20:00 92 I/O 01/31/17 01/31/17 01/31/17 02/01/17 02/01/17 02/01/17 07:00 15:00 23:00 07:00 15:00 23:00 Intake Total 596 ml 406 ml 480 ml 240 ml 240 ml Output Total 1225 ml 1000 ml 500 ml 400 ml 600 ml Balance -629 ml -594 ml -20 ml -160 ml -360 ml Intake Oral 240 ml 240 ml 480 ml 240 ml 240 ml IV Total 356 ml 166 ml Output Urine Total 1225 ml 1000 ml 500 ml 400 ml 600 ml Stool Total 0 ml # Bowel Movements 0 0 0 1 Result Diagram: 01/31/17 0352 01/31/17 0352 Objective Remarks GENERAL: lying in bed. Appears comfortable. alert and oriented to place, person , year, not date, as before. Neuro: Patient continues with 4 out of 5 strength on the right upper and right lower extremity. 5 out of 5 strength on the left.unchanged today. CN2-12 intact. no facial droop SKIN: Warm and dry. HEAD: Normocephalic. EYES: No scleral icterus. No injection or drainage. NECK: Supple, trachea midline. No JVD. CARDIOVASCULAR: Regular rate and rhythm without murmurs, gallops, or rubs. RESPIRATORY: Breath sounds equal bilaterally. No accessory muscle use. GASTROINTESTINAL: Abdomen soft, non-tender, nondistended. MUSCULOSKELETAL: No cyanosis, or edema. BACK: Nontender without obvious deformity. No CVA tenderness. A/P Assessment and Plan Patient was admitted with accelerated hypertension, fluid overload, influenza pneumonia. Blood pressure was controlled, however patient developed right- sided weakness //Acute right sided hemiparesis. likley perfusion dependent. -She says started the night of 01/29. -01/30 complete right upper extremity paralysispartially resolved with HOB flat - Stat CT head NAF, carotid Doppler without significant stenosis. 50%. -Neurology following. -permissive hypertension. -Less than 50% carotid stenosis bilaterally. -01/31. Blood pressure elevated overnight. Will add back low-dose blood pressure meds. Although right-sided hemiparesis has improved, still not back to baseline. -02/01. Repeat CT head negative for acute change. Chronic white matter changes. //Acute hypoxemic respiratory failure. Resolved. -Secondary to influenza. Continue to monitor. -Continues with stable respiratory status. //CHF decompensation. Acute. BNP markedly elevated. //Bilateral pulmonary infiltrates. Ddx fluid overload versus infectious process. -Likely patient became over hydrated secondary to influenza, causing CHF exacerbation. -Much improved. //Influenza pneumonia //Community-acquired pneumonia Much improved. Status post Tamiflu. Continue Levaquin. Stop date 02/03. Continue symptomatic treatment. stable. //COPD. DuoNeb's. Oxygen as necessary. //Acute kidney injury. -Current and up to 1.7 this admission, however baseline around 1.3-1.4 -Improving. 1.3. Follow as necessary. //Mild elevated troponin likely secondary to respiratory distress. --Cardiology following. Appreciate assistance. // Nonischemic cardiomyopathy with ejection fraction of 45% to 50%--> now 35-40 % this admission. Diffuse hypokinesis.. Possibly tachycardia induced cardiomyopathy. -01/30. Held amlodipine, lisinopril for acute right-sided hemiparesis -01/31. Blood pressure had been elevated overnight. We'll plan to start low- dose lisinopril, amlodipine back. //History of atrial fibrillation / flutter. Continue eliquis //History of CVA. Continue xarelto //Hypokalemia. Replace again. Monitor. Attempted to call contact number, not accepting calls. GI prophylaxis with Protonix 40 mg daily. DVT prophylaxis with SCDs. xarelto 15 mg p.o. daily Discharge Planning difficult discharge. Patient had planned to go home. Physical therapy recommends rehabilitation.case management assistance appreciated. Tj Nicole MD Feb 01, 2017 19:40
[2017-02-02] VITALS (8 sets, daily range): BP systolic 112–181; BP diastolic 56–101; PULSE 81–89; RESP 18–32; TEMP 97.9–98.5; O2SAT 93–99
[2017-02-02] MEDS: CHLORHEXIDINE GLUCONATE 2 % 1 PACK (2 CLOTHS) TOP SCH (03:59)
[2017-02-02 06:48] LABS: BICARBONATE 21.3 MEQ/L (21.0-32.0)
[2017-02-02 07:00] LABS: POTASSIUM 4.3 MEQ/L (3.5-5.1)
[2017-02-02 07:48] LABS: AUTOMATED NEUTROPHIL # 2.3 TH/MM3 (1.8-7.7); BASOPHIL # 0.1 TH/MM3 (0-0.2); BASOPHIL % 1.1 % (0.0-2.0); EOSINOPHIL # 0.3 TH/MM3 (0-0.4); EOSINOPHIL % 6.5 % (0.0-4.0); HEMATOCRIT 38.2 % (35.0-46.0); HEMO FLAGS DIFF FINAL; LYMPH % 33.1 % (9.0-44.0); LYMPHOCYTE # 1.7 TH/MM3 (1.0-4.8); MEAN CELL VOLUME 82.7 FL (80.0-100.0); MEAN CORPUSCULAR HEMOGLOBIN 26.8 PG (27.0-34.0); MEAN CORPUSCULAR HGB CONC 32.5 % (32.0-36.0); MONO % 13.4 % (0.0-8.0); NEUT % 45.9 % (16.0-70.0); PLATELET COUNT 227 TH/MM3 (150-450); RED BLOOD COUNT 4.62 MIL/MM3 (4.00-5.30)
[2017-02-02] MEDS: ASPIRIN EC 81 MG TABEC PO SCH (09:34)
[2017-02-02] MEDS: LEVOFLOXACIN 750 MG TAB PO SCH (09:35)
[2017-02-02] MEDS: amLODIPine BESYLATE 5 MG TAB PO SCH (09:35)
[2017-02-02] MEDS: LISINOPRIL 5 MG TAB PO SCH (09:35)
[2017-02-02] MEDS: POTASSIUM CHLORIDE 10 MEQ CONTROLLED RELEASE TAB PO SCH (09:35)
[2017-02-02] MEDS: FUROSEMIDE 20 MG TAB PO SCH (09:35)
[2017-02-02] MEDS: RIVAROXABAN 15 MG TAB PO SCH (09:35)
[2017-02-02] MEDS: CARVEDILOL 6.25 MG TAB PO SCH ×2 (09:35→20:51)
--- NOTE | 2017-02-02 10:53 | HHI.PR ---
Subjective Remarks Patient seen and examined this am. Complaining of some hip pain this am. She overall feels well, still with right sided weakness that is concerning to her. She lives with her son, his , and his roommate. Prior to her hospitalization she was pretty independent in the home. She strongly desires to return home. After lengthy discussion the patient is open to rehab. She is denying any new complaints or neurological deficits. She denies CP or SOB. ( Breanne Peña MD R3) Objective Vital Signs Date Time Temp Pulse Resp B/P Pulse Ox O2 Delivery O2 Flow Rate FiO2 02/02/17 08:00 98.2 84 32 167/98 95 02/02/17 04:00 98.1 81 18 93 02/02/17 00:00 98.0 85 18 178/95 96 02/01/17 23:00 81 02/01/17 22:15 98.3 84 20 187/95 96 02/01/17 20:00 86 02/01/17 20:00 97.5 86 25 169/92 98 02/01/17 16:00 98.0 86 21 173/99 02/01/17 12:00 98.4 84 20 181/88 90 I/O 02/01/17 02/01/17 02/01/17 02/02/17 02/02/17 02/02/17 07:00 15:00 23:00 07:00 15:00 23:00 Intake Total 240 ml 240 ml 720 ml Output Total 400 ml 600 ml 200 ml 150 ml Balance -160 ml -360 ml 520 ml -150 ml Intake Oral 240 ml 240 ml 720 ml Output Urine Total 400 ml 600 ml 200 ml 150 ml Stool Total 0 ml # Bowel Movements 1 0 (Breanne Peña MD R3) Result Diagram: 02/02/17 0508 02/02/17 0508 Imaging Last Impressions Head CT 01/31/17 0000 Signed Impressions: Service Date/Time: January 21:34 - CONCLUSION: Unchanged. Still no convincing evidence of an acute ischemic event. Chronic white matter changes. No bleed. Nelson Garcia MD Carotid Artery Ultrasound 01/30/17 0000 Signed Impressions: Service Date/Time: Monday, January 30, 2017 13:45 - CONCLUSION: 1. Mild atherosclerotic plaque in the left carotid bulb and moderate sized focal calcified plaque in the right carotid bulb. However, velocity measurements suggest less than 50%% stenosis. 2. There is antegrade flow within both vertebral arteries. Nelson Huff MD Chest X-Ray 01/28/17 0000 Signed Impressions: Service Date/Time: Saturday, January 28, 2017 09:20 - CONCLUSION: Marked interval improvement in the appearance of the lungs bilaterally. There is mild residual interstitial opacity bilaterally but the consolidation documented previously has resolved. Nelson Huff MD Chest CT 01/27/17 0000 Signed Impressions: Service Date/Time: Friday, January 27, 2017 13:45 - CONCLUSION: 1. Severe bilateral air space consolidation that is lower lung zone predominant. The imaging findings are nonspecific. Many etiologies could have this appearance including infection, pulmonary edema, or inflammatory processes. 2. Small bilateral pleural effusions. Nelson Huff MD Objective Remarks GENERAL:sitting up in bed. Appears comfortable Neuro: The patient is with obvious RUE deficit. Her sensation is intact. But she cannot lift the right arm past the shoulder. She has flexion and extension at the elbow. She has a +romberg on the right. Her left upper extremity is in tact with full ROM. She is able to lift both lower extremities against gravity . Per review of EMR, this exam seems essentially unchanged. SKIN: Warm and dry. HEAD: Normocephalic. EYES: No scleral icterus. No injection or drainage. NECK: Supple, trachea midline. No JVD. CARDIOVASCULAR: Regular rate and rhythm without murmurs, gallops, or rubs. RESPIRATORY: Breath sounds equal bilaterally. No accessory muscle use. GASTROINTESTINAL: Abdomen soft, non-tender, nondistended. MUSCULOSKELETAL: No cyanosis, or edema. BACK: Nontender without obvious deformity. No CVA tenderness. (Breanne Peña MD R3) A/P Problem List: (1) COPD (chronic obstructive pulmonary disease) ICD Code: J44.9 (2) HTN (hypertension) ICD Code: I10 (3) CHF (congestive heart failure) ICD Code: I50.9 (4) Influenza A ICD Code: J10.1 (5) Hypertension ICD Code: I10 (6) History of CVA (cerebrovascular accident) ICD Code: Z86.73 Assessment and Plan 66yo female patient with medical hx of a-fib, nonischemic cardiomyopathy s/p ICD placement presented to [place] with acute respiratory distress. Pat initially presented with elevated BP, this was controlled then the patient subsequently developed ride sided hemiparesis on 01/29. Acute right sided hemiparesis - stroke work up: carotid US nega, CT head negative for acute change. With permissive HTN and HOB flat weakness apparently showed some improvement. - neuro following: likely had a stroke, unable to do MRI due to her ICD. Xarelto & ASA. - optimize her medical treatment, obtain A1C and lipid profil for the am - currently on statin (pravastatin ) based on lipid profile may need to increase her to a high intensity statin. Acute hypoxemic respiratory failure: - Resolved - CXR significant for bilat pulmonary infiltrates - likely secondary to influenza. - Continue to monitor Pneumonia and flu - Influenza A positive - Status post treatment with Tamiflu - Currently being treated with Levaquin for pneumonia - Status post treatment with Zosyn 01/27-01/31 - Levaquin 01/31- 02/02 - Chest x-ray on 01/28 shows resolution of consolidation CHF: hx non ischemic cardiomyopathy. previous EF 45-50% 1 year ago. - ECHO during this admission: EF 35-40%, diffuse hypokinesis - troponin minimally elevated, also present when patient previously presented for CHF exacerbation - lasix 20 mg pO daily HTN: continue home amlodipine, lisinopril A-Fib: rate controlled, continue carvedilol, continue xarelto Hx CVA: Continue aspirin and pravastatin 80 mg FEN: HLIV, replete electrolytes as needed currently wnl, nutrition heart healthy diet Discharge Planning PT continues recommend rehabilitation. Challenge with current insurance. Case management is assisting. (Breanne Peña MD R3) Breanne Peña MD R3 Feb 02, 2017 10:53 Twyla Hawthorne MD Feb 02, 2017 18:14
[2017-02-02] MEDS ORDERED: IBUPROFEN 400 MG TAB PO PRN (14:45)
[2017-02-02] MEDS: hydrALAZINE HCL 20 MG/ML VIAL IV PUSH PRN (15:48)
[2017-02-02] MEDS: PANTOPRAZOLE SOD 40 MG DELAYED RELEASE TAB PO SCH (15:48)
[2017-02-02] MEDS: PRAVASTATIN SOD 80 MG TAB PO SCH (20:51)
[2017-02-03] VITALS (7 sets, daily range): BP systolic 144–168; BP diastolic 74–103; PULSE 73–81; RESP 18–20; TEMP 98–98.6; O2SAT 95–98
[2017-02-03] MEDS: CHLORHEXIDINE GLUCONATE 2 % 1 PACK (2 CLOTHS) TOP SCH (01:05)
[2017-02-03] MEDS: POTASSIUM CHLORIDE 10 MEQ CONTROLLED RELEASE TAB PO SCH (08:27)
[2017-02-03] MEDS: FUROSEMIDE 20 MG TAB PO SCH (08:27)
[2017-02-03] MEDS: CARVEDILOL 6.25 MG TAB PO SCH ×2 (08:27→21:40)
[2017-02-03] MEDS: LISINOPRIL 5 MG TAB PO SCH (08:27)
[2017-02-03] MEDS: ASPIRIN EC 81 MG TABEC PO SCH (08:27)
[2017-02-03] MEDS: RIVAROXABAN 15 MG TAB PO SCH (08:27)
[2017-02-03 08:47] LABS: HDL CHOLESTEROL 29.7 MG/DL (40.0-60.0); LDL CHOLESTEROL 119 MG/DL (0-99)
--- NOTE | 2017-02-03 09:28 | HHI.PR ---
Subjective Remarks Patient seen and examined this am. Vitals stable, BP slightly elevated this am. She denies CP or SOB. She is resting comfortably. No events overnight. (Breanne Peña MD R3) Objective Vital Signs Date Time Temp Pulse Resp B/P Pulse Ox O2 Delivery O2 Flow Rate FiO2 02/03/17 08:00 98.2 74 20 168/103 97 02/03/17 04:00 98.3 81 18 144/85 95 02/03/17 00:00 98.4 81 18 159/77 95 02/02/17 20:00 97.9 89 18 164/85 93 02/02/17 19:34 85 02/02/17 17:10 165/84 02/02/17 16:00 98.0 85 28 181/101 99 02/02/17 12:00 98.5 88 28 147/85 96 I/O 02/02/17 02/02/17 02/02/17 02/03/17 02/03/17 02/03/17 07:00 15:00 23:00 07:00 15:00 23:00 Intake Total 480 ml 242 ml 240 ml Output Total 150 ml 600 ml 1000 ml 150 ml Balance -150 ml -120 ml -758 ml 90 ml Intake Oral 480 ml 240 ml 240 ml IV Total 2 ml Output Urine Total 150 ml 600 ml 1000 ml 150 ml # Bowel Movements 0 0 0 0 (Breanne Peña MD R3) Result Diagram: 02/02/17 0508 02/02/17 0508 Imaging Last Impressions Head CT 01/31/17 0000 Signed Impressions: Service Date/Time: January 21:34 - CONCLUSION: Unchanged. Still no convincing evidence of an acute ischemic event. Chronic white matter changes. No bleed. Nelson Garcia MD Carotid Artery Ultrasound 01/30/17 0000 Signed Impressions: Service Date/Time: Monday, January 30, 2017 13:45 - CONCLUSION: 1. Mild atherosclerotic plaque in the left carotid bulb and moderate sized focal calcified plaque in the right carotid bulb. However, velocity measurements suggest less than 50%% stenosis. 2. There is antegrade flow within both vertebral arteries. Nelson Huff MD Chest X-Ray 01/28/17 0000 Signed Impressions: Service Date/Time: Saturday, January 28, 2017 09:20 - CONCLUSION: Marked interval improvement in the appearance of the lungs bilaterally. There is mild residual interstitial opacity bilaterally but the consolidation documented previously has resolved. Nelson Huff MD Chest CT 01/27/17 0000 Signed Impressions: Service Date/Time: Friday, January 27, 2017 13:45 - CONCLUSION: 1. Severe bilateral air space consolidation that is lower lung zone predominant. The imaging findings are nonspecific. Many etiologies could have this appearance including infection, pulmonary edema, or inflammatory processes. 2. Small bilateral pleural effusions. Nelson Huff MD Objective Remarks GENERAL:sitting up in bed. Appears comfortable Neuro: The patient is with obvious RUE deficit. Her sensation is intact. But she cannot lift the right arm past the shoulder. She has flexion and extension at the elbow. She has a +romberg on the right. Her left upper extremity is in tact with full ROM. She is able to lift both lower extremities against gravity . Per review of EMR, this exam seems essentially unchanged. SKIN: Warm and dry. HEAD: Normocephalic. EYES: No scleral icterus. No injection or drainage. NECK: Supple, trachea midline. No JVD. CARDIOVASCULAR: Regular rate and rhythm without murmurs, gallops, or rubs. RESPIRATORY: Breath sounds equal bilaterally. No accessory muscle use. GASTROINTESTINAL: Abdomen soft, non-tender, nondistended. : meyers in place MUSCULOSKELETAL: No cyanosis, or edema. SCDs in place bilat. BACK: Nontender without obvious deformity. (Breanne Peña MD R3) A/P Problem List: (1) COPD (chronic obstructive pulmonary disease) ICD Code: J44.9 (2) HTN (hypertension) ICD Code: I10 (3) CHF (congestive heart failure) ICD Code: I50.9 (4) Influenza A ICD Code: J10.1 (5) Hypertension ICD Code: I10 (6) History of CVA (cerebrovascular accident) ICD Code: Z86.73 Assessment and Plan 66yo female patient with medical hx of a-fib, nonischemic cardiomyopathy s/p ICD placement presented to [facility] with acute respiratory distress. Pat initially presented with elevated BP, this was controlled then the patient subsequently developed ride sided hemiparesis on 01/29. Acute right sided hemiparesis - stroke work up: carotid US nega, CT head negative for acute change. With permissive HTN and HOB flat weakness apparently showed some improvement. - neuro following: likely had a stroke, unable to do MRI due to her ICD. Xarelto & ASA. - optimize her medical treatment, obtain A1C and lipid profil for the am - currently on statin (pravastatin ) Acute hypoxemic respiratory failure: - Resolved - CXR significant for bilat pulmonary infiltrates - likely secondary to influenza. - Continue to monitor Pneumonia and flu - Influenza A positive - Status post treatment with Tamiflu - Currently being treated with Levaquin for pneumonia - Status post treatment with Zosyn 01/27-01/31 - Levaquin 01/31- 02/02 - Chest x-ray on 01/28 shows resolution of consolidation CHF: hx non ischemic cardiomyopathy. previous EF 45-50% 1 year ago. - ECHO during this admission: EF 35-40%, diffuse hypokinesis - troponin minimally elevated, also present when patient previously presented for CHF exacerbation - lasix 20 mg pO daily HTN: continue home amlodipine, lisinopril A-Fib: rate controlled, continue carvedilol, continue xarelto Hx CVA: Continue aspirin and pravastatin 80 mg FEN: HLIV, replete electrolytes as needed currently wnl, nutrition heart healthy diet d/c meyers bedside commode patient up with assistance Discharge Planning PT continues recommend rehabilitation. She is medically clear to go to SNF once placement can be found. (Breanne Peña MD R3) Breanne Peña MD R3 Feb 03, 2017 09:28 Twyla Hawthorne MD Feb 03, 2017 15:50
[2017-02-03 10:28] LABS: HEMOGLOBIN A1a 0.7 %; HEMOGLOBIN A1b 1.8 %; HEMOGLOBIN Ao 84.7 %; HEMOGLOBIN LA1C 2.2 %; HEMOGLOBIN P3 5.8 %
[2017-02-03] MEDS ORDERED: ACETAMINOPHEN 325 MG TAB PO PRN (14:30)
[2017-02-03] MEDS: PANTOPRAZOLE SOD 40 MG DELAYED RELEASE TAB PO SCH (14:39)
[2017-02-03] MEDS: PRAVASTATIN SOD 80 MG TAB PO SCH (21:40)
[2017-02-04] VITALS (7 sets, daily range): BP systolic 148–163; BP diastolic 78–89; PULSE 62–78; RESP 12–22; TEMP 97.5–98.2; O2SAT 96–97
[2017-02-04] MEDS: CHLORHEXIDINE GLUCONATE 2 % 1 PACK (2 CLOTHS) TOP SCH (00:31)
[2017-02-04] MEDS: FUROSEMIDE 20 MG TAB PO SCH (09:54)
[2017-02-04] MEDS: ASPIRIN EC 81 MG TABEC PO SCH (09:54)
[2017-02-04] MEDS: POTASSIUM CHLORIDE 10 MEQ CONTROLLED RELEASE TAB PO SCH (09:54)
[2017-02-04] MEDS: CARVEDILOL 6.25 MG TAB PO SCH ×2 (09:54→22:10)
[2017-02-04] MEDS: LISINOPRIL 5 MG TAB PO SCH (09:55)
[2017-02-04] MEDS: RIVAROXABAN 15 MG TAB PO SCH (09:55)
--- NOTE | 2017-02-04 10:10 | HHI.PR ---
Subjective Remarks resting comfortably with no distress. no chest pain, sob. still with some right-sided weakness. d/w the RN and no acute issues over night. Objective Vitals Vital Signs Date Time Temp Pulse Resp B/P Pulse Ox O2 Delivery O2 Flow Rate FiO2 02/04/17 08:00 97.9 62 14 163/78 96 02/04/17 08:00 65 02/04/17 04:00 98.2 65 16 148/86 97 02/04/17 00:00 98.1 71 18 162/89 96 02/03/17 20:00 98.6 74 18 149/89 98 02/03/17 19:59 73 02/03/17 16:00 98.5 75 20 158/74 95 02/03/17 12:00 98.0 75 20 147/86 97 I/O 02/03/17 02/03/17 02/03/17 02/04/17 02/04/17 02/04/17 07:00 15:00 23:00 07:00 15:00 23:00 Intake Total 240 ml 482 ml 122 ml 240 ml Output Total 150 ml 500 ml Balance 90 ml -18 ml 122 ml 240 ml Intake Oral 240 ml 480 ml 120 ml 240 ml IV Total 2 ml 2 ml Output Urine Total 150 ml 500 ml # Voids 1 2 # Bowel Movements 0 1 0 0 Result Diagram: 02/02/17 0508 02/02/17 0508 Imaging Last Impressions Head CT 01/31/17 0000 Signed Impressions: Service Date/Time: January 21:34 - CONCLUSION: Unchanged. Still no convincing evidence of an acute ischemic event. Chronic white matter changes. No bleed. Nelson Garcia MD Carotid Artery Ultrasound 01/30/17 0000 Signed Impressions: Service Date/Time: Monday, January 30, 2017 13:45 - CONCLUSION: 1. Mild atherosclerotic plaque in the left carotid bulb and moderate sized focal calcified plaque in the right carotid bulb. However, velocity measurements suggest less than 50%% stenosis. 2. There is antegrade flow within both vertebral arteries. Nelson Huff MD Chest X-Ray 01/28/17 0000 Signed Impressions: Service Date/Time: Saturday, January 28, 2017 09:20 - CONCLUSION: Marked interval improvement in the appearance of the lungs bilaterally. There is mild residual interstitial opacity bilaterally but the consolidation documented previously has resolved. Nelson Huff MD Chest CT 01/27/17 0000 Signed Impressions: Service Date/Time: Friday, January 27, 2017 13:45 - CONCLUSION: 1. Severe bilateral air space consolidation that is lower lung zone predominant. The imaging findings are nonspecific. Many etiologies could have this appearance including infection, pulmonary edema, or inflammatory processes. 2. Small bilateral pleural effusions. Nelson Huff MD Objective Remarks GENERAL: This is a well-nourished, well-developed patient, in no apparent distress. CARDIOVASCULAR: Regular rate and regular rhythm without murmurs, gallops, or rubs. RESPIRATORY: Clear to auscultation. Breath sounds equal bilaterally. No wheezes , rales, or rhonchi. GASTROINTESTINAL: Abdomen soft, non-tender, nondistended. Normal, active bowel sounds MUSCULOSKELETAL: Extremities without clubbing, cyanosis, or edema. NEURO: Alert & Oriented x4 to person, place, time, situation. Moves all ext x4 - with right-sided weakness Procedures none Medications and IVs Current Medications Nitroglycerin/ Dextrose (Nitroglycerin-Dextrose Inj) 250 ml @ As Directed STK- MED ONCE .ROUTE ; Start 01/27/17 at 12:05; Stop 01/27/17 at 12:06; Status DC IV Flush (NS Flush) 2 ml UNSCH PRN IVF FLUSH AFTER USING IV ACCESS Last administered on 01/29/17 07:52; Start 01/27/17 at 12:15 Lorazepam (Ativan Inj) 2 mg STK-MED ONCE .ROUTE ; Start 01/27/17 at 12:08; Stop 01/27/17 at 12:09; Status DC Enalaprilat (Vasotec Inj) 2.5 mg ONCE ONCE IV PUSH Last administered on 12:53; Start 01/27/17 at 12:30; Stop 01/27/17 at 12:31; Status DC Furosemide (Lasix Inj) 40 mg ONCE ONCE IV PUSH Last administered on 01/27/17 12:52; Start 01/27/17 at 12:30; Stop 01/27/17 at 12:31; Status DC Lorazepam 1 mg 1 mg ONCE ONCE IV PUSH Last administered on 3/5/17at 12:55; Start 01/27/17 at 12:45; Stop 01/27/17 at 12:46; Status DC Nitroglycerin/ Dextrose (Nitroglycerin-Dextrose Inj) 250 ml @ 0 mls/hr TITRATE IV Last administered on 01/27/17 12:55; Start 01/27/17 at 12:45; Stop 01/28/17 at 10:07; Status DC Oseltamivir Phosphate (Tamiflu) 75 mg ONCE ONCE PO Last administered on 13:58; Start 01/27/17 at 13:30; Stop 01/27/17 at 13:31; Status DC Pantoprazole Sodium (Protonix Inj) 40 mg DAILY IV Last administered on 09:32; Start 01/27/17 at 14:00; Stop 02/02/17 at 09:24; Status DC Albuterol/ Ipratropium (Duoneb Neb) 1 ampule Q4HR NEB INH Last administered on 01/31/17 12:31; Start 01/27/17 at 16:00; Stop 01/31/17 at 16:00; Status DC Albuterol/ Ipratropium (Duoneb Neb) 1 ampule Q2HR NEB PRN INH WHEEZING; Start 01/27/17 at 13:30 Heparin Sodium (Porcine) (Heparin Inj) 5,000 units Q12H SQ ; Start 01/27/17 at 13 :30; Stop 01/27/17 at 13:39; Status DC Miscellaneous Information 1 Q361D XX ; Start 01/27/17 at 13:30 Chlorhexidine Gluconate (Chlorhexidine 2% Cloth) Taper DAILY@04 TOP Last administered on 01/31/17 22:14; Start 01/28/17 at 04:00; Stop 01/24/18 at 03:59 Chlorhexidine Gluconate (Chlorhexidine 2% Cloth) 3 pack UNSCH PRN TOP HYGIENIC CARE; Start 01/27/17 at 13:30 Furosemide (Lasix Inj) 40 mg DAILY IV PUSH Last administered on 01/28/17 09:16 ; Start 01/28/17 at 09:00; Stop 01/28/17 at 10:22; Status DC Dextrose (D50w (Vial) Inj) 25 ml UNSCH PRN IV PUSH HYPOGLYCEMIA-SEE COMMENTS; Start 01/27/17 at 13:30; Stop 01/30/17 at 01:00; Status DC Glucagon (Glucagon Inj) 1 mg UNSCH PRN OTHER HYPOGLYCEMIA-SEE COMMENTS; Start 01/27/17 at 13:30; Stop 01/30/17 at 01:00; Status DC Insulin Human Regular (NovoLIN R SUPPLEMENTAL SCALE) 1 Q6H SQ Last administered on 01/27/17 14:19; Start 01/27/17 at 14:00; Stop 01/30/17 at 01:00; Status DC Oseltamivir Phosphate (Tamiflu) 75 mg BID PO Last administered on 01/31/17 20: 30; Start 01/27/17 at 21:00; Stop 01/31/17 at 21:01; Status DC Amiodarone HCl (Cordarone) 200 mg DAILY PO ; Start 01/27/17 at 14:00; Stop at 14:18; Status DC Amlodipine Besylate (Norvasc) 10 mg DAILY PO Last administered on 01/30/17 09: 33; Start 01/27/17 at 14:00; Stop 01/30/17 at 11:37; Status DC Carvedilol (Coreg) 12.5 mg Q12HR PO Last administered on 01/31/17 09:29; Start 01/27/17 at 14:00; Stop 01/31/17 at 11:42; Status DC Isosorbide Mononitrate (Imdur) 60 mg DAILY PO ; Start 01/27/17 at 13:45; Stop 01/27/17 at 14:18; Status DC Rivaroxaban (Xarelto) 15 mg DAILY PO Last administered on 02/03/17 08:27; Start 01/27/17 at 14:00 Pravastatin Sodium (Pravachol) 80 mg HS PO Last administered on 02/03/17 21:40 ; Start 01/27/17 at 21:00 Hydralazine HCl 10 mg 10 mg Q6H PRN IV PUSH SYS BP GREATER THAN 160 MMHG Last administered on 01/28/17 18:30; Start 01/27/17 at 14:30; Stop 01/28/17 at 20:51; Status DC Piperacillin Sod/ Tazobactam Sod 50 ml @ 100 mls/hr Q6H IV Last administered on 01/31/17 09:29; Start 01/27/17 at 15:00; Stop 01/31/17 at 09:30; Status DC Potassium Chloride 100 ml @ 50 mls/hr BOLUS ONCE IV Last administered on 09:15; Start 01/28/17 at 08:45; Stop 01/28/17 at 10:44; Status DC Sodium Chloride (NS 250 ml Inj) 250 ml @ 250 mls/hr BOLUS ONCE IV Last administered on 01/27/17 10:45; Start 01/28/17 at 10:30; Stop 01/28/17 at 11:29; Status DC Hydralazine HCl (Apresoline Inj) 10 mg Q4H PRN IV PUSH SYS BP GREATER THAN 180 MMHG Last administered on 02/02/17 15:48; Start 01/28/17 at 20:51 Hydromorphone HCl (Dilaudid Pf Inj) 0.5 mg Q3H PRN IV PAIN GREATER THAN 5 Last administered on 01/28/17 21:11; Start 01/28/17 at 21:00; Stop 01/30/17 at 11:37; Status DC Lisinopril (Prinivil) 20 mg Q12HR PO Last administered on 01/30/17 09:33; Start 01/29/17 at 09:00; Stop 01/31/17 at 11:30; Status DC Potassium Chloride (KCl) 30 meq ONCE ONCE PO Last administered on 01/29/17 10: 20; Start 01/29/17 at 09:45; Stop 01/29/17 at 09:46; Status DC Ondansetron HCl (Zofran Inj) 4 mg Q6H PRN IV PUSH NAUSEA Last administered on 10:20; Start 01/29/17 at 10:00 Potassium Chloride (KCl) 20 meq ONCE ONCE PO Last administered on 01/29/17 20: 39; Start 01/29/17 at 20:00; Stop 01/29/17 at 20:02; Status DC Furosemide (Lasix) 40 mg DAILY PO Last administered on 01/30/17 09:34; Start at 09:00; Stop 01/31/17 at 09:29; Status DC Potassium Bicarb/ Potassium Chloride (K-Lyte Cl Eff) 50 meq ONCE ONCE PO Last administered on 01/30/17 09:44; Start 01/30/17 at 07:30; Stop 01/30/17 at 07: 57; Status DC Potassium Chloride (KCl) 10 meq DAILY PO Last administered on 02/03/17 08:27; Start 01/30/17 at 09:00 Amlodipine Besylate (Norvasc) 2.5 mg DAILY PO ; Start 01/31/17 at 09:00; Stop 01/31/17 at 09:28; Status DC Miscellaneous 1 ea 1 ea UNSCH PRN OTHER SEE LABEL COMMENTS; Start 01/30/17 at 12 :00 Sodium Chloride 250 ml @ 250 mls/hr BOLUS ONCE IV Last administered on 12:13; Start 01/30/17 at 11:45; Stop 01/30/17 at 12:44; Status DC Potassium Chloride/Sodium Chloride (NS + KCl 20 Meq Inj) 1,000 ml @ 84 mls/hr [id number] IV Last administered on 01/30/17 12:14; Start 01/30/17 at 11:45; Stop at 23:47; Status DC Aspirin (Aspirin Chew) 324 mg ONCE ONCE CHEW Last administered on 01/30/17 12: 13; Start 01/30/17 at 12:00; Stop 01/30/17 at 12:03; Status DC Aspirin (Ecotrin Ec) 81 mg DAILY PO Last administered on 02/03/17 08:27; Start 01/31/17 at 09:00 Hydralazine HCl (Apresoline Inj) 10 mg ONCE ONCE IV PUSH Last administered on 01/31/17 05:37; Start 01/31/17 at 05:30; Stop 01/31/17 at 05:31; Status DC Acetaminophen (Tylenol) 650 mg ONCE ONCE PO Last administered on 01/31/17 05: 36; Start 01/31/17 at 05:30; Stop 01/31/17 at 05:31; Status DC Amlodipine Besylate (Norvasc) 5 mg DAILY PO Last administered on 02/02/17 09: 35; Start 02/01/17 at 09:00; Stop 02/02/17 at 15:43; Status DC Furosemide (Lasix) 20 mg DAILY PO Last administered on 02/03/17 08:27; Start 02/01/17 at 09:00 Levofloxacin (Levaquin) 750 mg DAILY PO Last administered on 02/02/17 09:35; Start 02/01/17 at 09:00; Stop 02/02/17 at 14:59; Status DC Levofloxacin (Levaquin) 750 mg ONCE ONCE PO Last administered on 01/31/17 12: 54; Start 01/31/17 at 10:00; Stop 01/31/17 at 10:01; Status DC Lisinopril (Prinivil) 5 mg DAILY PO Last administered on 02/03/17 08:27; Start 02/01/17 at 09:00 Carvedilol (Coreg) 6.25 mg Q12HR PO Last administered on 02/03/17 21:40; Start 01/31/17 at 21:00 Pantoprazole Sodium (Protonix) 40 mg Q24H PO Last administered on 02/03/17 14: 39; Start 02/02/17 at 14:00 Ibuprofen (Motrin) 400 mg Q8H PRN PO PAIN Last administered on 02/02/17 15:48 ; Start 02/02/17 at 14:45 Amlodipine Besylate (Norvasc) 10 mg DAILY PO Last administered on 02/03/17 08: 27; Start 02/03/17 at 09:00 Acetaminophen (Tylenol) 325 mg Q6H PRN PO HEADACHE Last administered on 14:39; Start 02/03/17 at 14:30 A/P Assessment and Plan 66yo female patient with medical hx of a-fib, nonischemic cardiomyopathy s/p ICD placement presented to [facility] with acute respiratory distress. Pat initially presented with elevated BP, this was controlled then the patient subsequently developed ride sided hemiparesis on 01/29. Acute right sided hemiparesis - stroke work up: carotid US nega, CT head negative for acute change. With permissive HTN and HOB flat weakness apparently showed some improvement. - neuro following: likely had a stroke, unable to do MRI due to her ICD. Xarelto & ASA. - optimize her medical treatment. - currently on statin (pravastatin ) -consulted PT Acute hypoxemic respiratory failure: - Resolved Pneumonia and flu - Influenza A positive - Status post treatment with Tamiflu and Levaquin - Chest x-ray on 01/28 shows resolution of consolidation CHF: hx non ischemic cardiomyopathy. previous EF 45-50% 1 year ago. - ECHO during this admission: EF 35-40%, diffuse hypokinesis - troponin minimally elevated, also present when patient previously presented for CHF exacerbation - lasix 20 mg pO daily -evaluated by cardiology - continue BB and lisinopril HTN: continue home amlodipine, lisinopril A-Fib: rate controlled, continue carvedilol, continue xarelto Hx CVA: Continue aspirin,xarelto and pravastatin 80 mg Discharge Planning dc to SNF when arrangements made. see med list. f/u; pcp, neurology and cardiology. d/w the patient, RN and case management. time spent 35 min. Indra Mari MD Feb 04, 2017 10:10
[2017-02-04] MEDS ORDERED: FURO20TA PO (10:13)
[2017-02-04] MEDS ORDERED: LISI10TA3 PO (10:13)
[2017-02-04] MEDS ORDERED: ASPI81TA11 PO (10:13)
[2017-02-04] MEDS ORDERED: CARV6.25 PO (10:13)
--- NOTE | 2017-02-04 10:14 | HHI.DS ---
Discharge Summary Admission Date Jan 27, 2017 at 13:26 Discharge Date: Feb 04, 2017 Admitting Diagnosis acute cardiogenic pulmonary edema (1) Respiratory failure ICD Code: J96.90 Diagnosis: Principal (2) Influenza A ICD Code: J10.1 Diagnosis: Principal (3) Cardiomyopathy ICD Code: I42.9 Diagnosis: Secondary (4) CVA (cerebral vascular accident) ICD Code: I63.9 Diagnosis: Principal Procedures none Brief History - From Admission The patient is a 66-year-old female with past medical history of atrial fibrillation / atrial flutter, nonischemic cardiomyopathy with an ejection fraction of 45% to 50%, AICD placement, history of COPD and CVA. She presented to the [facility] Emergency Department via EMS with respiratory distress. CBC/BMP: 02/02/17 0508 02/02/17 0508 Significant Findings Laboratory Tests Test 02/02/17 02/03/17 05:08 06:58 Mean Corpuscular Hemoglobin 26.8 PG (27.0-34.0) Monocytes (%) (Auto) 13.4 % (0.0-8.0) Eosinophils (%) (Auto) 6.5 % (0.0-4.0) Creatinine 1.40 MG/DL (0.50-1.00) Estimat Glomerular Filtration 46 ML/MIN (>89) Rate LDL Cholesterol 119 MG/DL (0-99) HDL Cholesterol 29.7 MG/DL (40.0-60.0) PE at Discharge GENERAL: This is a well-nourished, well-developed patient, in no apparent distress. CARDIOVASCULAR: Regular rate and regular rhythm without murmurs, gallops, or rubs. RESPIRATORY: Clear to auscultation. Breath sounds equal bilaterally. No wheezes , rales, or rhonchi. GASTROINTESTINAL: Abdomen soft, non-tender, nondistended. Normal, active bowel sounds MUSCULOSKELETAL: Extremities without clubbing, cyanosis, or edema. NEURO: Alert & Oriented x4 to person, place, time, situation. Moves all ext x4 - with right-sided weakness Hospital Course Acute right sided hemiparesis - stroke work up: carotid US nega, CT head negative for acute change. With permissive HTN and HOB flat weakness apparently showed some improvement. - neuro following: likely had a stroke, unable to do MRI due to her ICD. Xarelto & ASA. - optimize her medical treatment. - currently on statin (pravastatin ) -consulted PT Acute hypoxemic respiratory failure: - Resolved Pneumonia and flu - Influenza A positive - Status post treatment with Tamiflu and Levaquin - Chest x-ray on 01/28 shows resolution of consolidation CHF: hx non ischemic cardiomyopathy. previous EF 45-50% 1 year ago. - ECHO during this admission: EF 35-40%, diffuse hypokinesis - troponin minimally elevated, also present when patient previously presented for CHF exacerbation - lasix 20 mg pO daily -evaluated by cardiology - continue BB and lisinopril HTN: continue home amlodipine, lisinopril A-Fib: rate controlled, continue carvedilol, continue xarelto Hx CVA: Continue aspirin,xarelto and pravastatin 80 mg Pt Condition on Discharge: Good Discharge Disposition: Discharge to SNF Discharge Time: > 30 minutes Discharge Instructions DIET: Follow Instructions for: Heart Healthy Diet Activities you can perform: Regular-No Restrictions Follow up Referrals: Cardiology - 2 Weeks with Nichol Norris MD Neurology PCP Follow-up - 1 Week with Alex Mata MD New Medications: Albuterol 8.5 GM Inh (Proair Hfa 8.5 GM Inh) 90 Mcg/Act Aer 1 PUFF INH Q4H 108 mcg/actuation PRN SHORTNESS OF BREATH #1 Ref 0 INHALER Budesonide-Formoterol Inh (Symbicort Inh) 80-4.5 Mcg/Act Aero 2 PUFF INH Q12HR Asthma Management #1 Ref 0 INHALER Lisinopril (Lisinopril) 10 Mg Tab 10 MG PO DAILY #30 Ref [address] (Aspirin EC) 81 Mg Tabdr 81 MG PO DAILY cva Days 30 Ref 0 TAB Carvedilol (Coreg) 6.25 Mg Tab 6.25 MG PO Q12HR a-fib Days 30 Ref 0 TAB Furosemide (Furosemide) 20 Mg Tab 20 MG PO DAILY chf Days 30 Ref 0 TAB Continued Medications: Amlodipine (Norvasc) 10 Mg Tab 10 MG PO DAILY Days 30 TAB Potassium Chloride ER (Klor-Con 10) 10 Meq Tab 10 MEQ PO DAILY low potassium #30 TAB (This prescription has been renewed) Rivaroxaban (Xarelto) 15 Mg Tab 15 MG PO DAILY Blood Clot Prevention Ref 0 TAB Simvastatin (Simvastatin) 40 Mg Tab 40 MG PO HS Cholesterol Management #30 Ref 0 TAB Indra Mari MD Feb 04, 2017 10:14 Indra Mari MD Feb 04, 2017 10:14
--- NOTE | 2017-02-04 10:31 | HHI.FF ---
Face to Face Verification Diagnosis: (1) CVA (cerebral vascular accident) (2) Physical deconditioning Physical Therapy Order: Evaluate and Treat Home Health Nursing Order: Medical education Signs/symptoms of disease process Medication education-adverse effect Nursing assessment with vital signs I have seen patient Mai Farmer on 02/04/17. My clinical findings support the need for the requested home health care services because: Ltd mobility - disease progression I certify that my clinical findings support that this patient is homebound because: Unsteady gait/balance Indra Mari MD Feb 04, 2017 10:31
[2017-02-04] MEDS: PANTOPRAZOLE SOD 40 MG DELAYED RELEASE TAB PO SCH (14:32)
[2017-02-04] MEDS: PRAVASTATIN SOD 80 MG TAB PO SCH (22:10)
[2017-02-05 00:54] VITALS: BP 147/74; PULSE 72; RESP 20; TEMP 98.2; O2SAT 96
[2017-02-05] MEDS: CHLORHEXIDINE GLUCONATE 2 % 1 PACK (2 CLOTHS) TOP SCH (01:49)
[2017-02-05 05:46] VITALS: BP 148/74; PULSE 68; RESP 22; TEMP 97.8; O2SAT 94
[2017-02-05 08:00] VITALS: BP 160/84; PULSE 68; RESP 24; TEMP 97.7; O2SAT 95
[2017-02-05 09:37] VITALS: PULSE 68
[2017-02-05] MEDS: RIVAROXABAN 15 MG TAB PO SCH (09:50)
[2017-02-05] MEDS: POTASSIUM CHLORIDE 10 MEQ CONTROLLED RELEASE TAB PO SCH (09:50)
[2017-02-05] MEDS: FUROSEMIDE 20 MG TAB PO SCH (09:50)
[2017-02-05] MEDS: CARVEDILOL 6.25 MG TAB PO SCH (09:50)
[2017-02-05] MEDS: ASPIRIN EC 81 MG TABEC PO SCH (09:50)
[2017-02-05] MEDS: LISINOPRIL 5 MG TAB PO SCH (09:50)
--- NOTE | 2017-02-05 11:46 | HHI.PR ---
Subjective Remarks in no acute distress. no new complaints. awaiting transfer to rehab. Objective Vitals Vital Signs Date Time Temp Pulse Resp B/P Pulse Ox O2 Delivery O2 Flow Rate FiO2 02/05/17 09:37 68 02/05/17 08:00 97.7 68 24 160/84 95 02/05/17 05:46 97.8 68 22 148/74 94 02/05/17 00:54 98.2 72 20 147/74 96 02/04/17 23:09 97.9 70 22 160/81 96 02/04/17 20:22 73 02/04/17 16:00 97.9 78 16 162/83 96 02/04/17 12:00 97.5 76 12 151/84 97 I/O 02/04/17 02/04/17 02/04/17 02/05/17 02/05/17 02/05/17 07:00 15:00 23:00 07:00 15:00 23:00 Intake Total 240 ml 240 ml 2 ml 660 ml Balance 240 ml 240 ml 2 ml 660 ml Intake Oral 240 ml 240 ml 660 ml IV Total 2 ml # Voids 2 2 9 # Bowel Movements 0 0 0 Result Diagram: 02/02/17 0508 02/02/17 0508 Imaging Last Impressions Head CT 01/31/17 0000 Signed Impressions: Service Date/Time: January 21:34 - CONCLUSION: Unchanged. Still no convincing evidence of an acute ischemic event. Chronic white matter changes. No bleed. Nelson Garcia MD Carotid Artery Ultrasound 01/30/17 0000 Signed Impressions: Service Date/Time: Monday, January 30, 2017 13:45 - CONCLUSION: 1. Mild atherosclerotic plaque in the left carotid bulb and moderate sized focal calcified plaque in the right carotid bulb. However, velocity measurements suggest less than 50%% stenosis. 2. There is antegrade flow within both vertebral arteries. Nelson Huff MD Chest X-Ray 01/28/17 0000 Signed Impressions: Service Date/Time: Saturday, January 28, 2017 09:20 - CONCLUSION: Marked interval improvement in the appearance of the lungs bilaterally. There is mild residual interstitial opacity bilaterally but the consolidation documented previously has resolved. Nelson Huff MD Chest CT 01/27/17 0000 Signed Impressions: Service Date/Time: Friday, January 27, 2017 13:45 - CONCLUSION: 1. Severe bilateral air space consolidation that is lower lung zone predominant. The imaging findings are nonspecific. Many etiologies could have this appearance including infection, pulmonary edema, or inflammatory processes. 2. Small bilateral pleural effusions. Nelson Huff MD Objective Remarks GENERAL: This is a well-nourished, well-developed patient, in no apparent distress. CARDIOVASCULAR: Regular rate and regular rhythm without murmurs, gallops, or rubs. RESPIRATORY: Clear to auscultation. Breath sounds equal bilaterally. No wheezes , rales, or rhonchi. GASTROINTESTINAL: Abdomen soft, non-tender, nondistended. Normal, active bowel sounds MUSCULOSKELETAL: Extremities without clubbing, cyanosis, or edema. NEURO: Alert & Oriented x4 to person, place, time, situation. Moves all ext x4 - with right-sided weakness Procedures none Medications and IVs Current Medications Nitroglycerin/ Dextrose (Nitroglycerin-Dextrose Inj) 250 ml @ As Directed STK- MED ONCE .ROUTE ; Start 01/27/17 at 12:05; Stop 01/27/17 at 12:06; Status DC IV Flush (NS Flush) 2 ml UNSCH PRN IVF FLUSH AFTER USING IV ACCESS Last administered on 01/29/17 07:52; Start 01/27/17 at 12:15 Lorazepam (Ativan Inj) 2 mg STK-MED ONCE .ROUTE ; Start 01/27/17 at 12:08; Stop 01/27/17 at 12:09; Status DC Enalaprilat (Vasotec Inj) 2.5 mg ONCE ONCE IV PUSH Last administered on 12:53; Start 01/27/17 at 12:30; Stop 01/27/17 at 12:31; Status DC Furosemide (Lasix Inj) 40 mg ONCE ONCE IV PUSH Last administered on 01/27/17 12:52; Start 01/27/17 at 12:30; Stop 01/27/17 at 12:31; Status DC Lorazepam 1 mg 1 mg ONCE ONCE IV PUSH Last administered on 01/27/17 12:55; Start 01/27/17 at 12:45; Stop 01/27/17 at 12:46; Status DC Nitroglycerin/ Dextrose (Nitroglycerin-Dextrose Inj) 250 ml @ 0 mls/hr TITRATE IV Last administered on 01/27/17 12:55; Start 01/27/17 at 12:45; Stop 01/28/17 at 10:07; Status DC Oseltamivir Phosphate (Tamiflu) 75 mg ONCE ONCE PO Last administered on 13:58; Start 01/27/17 at 13:30; Stop 01/27/17 at 13:31; Status DC Pantoprazole Sodium (Protonix Inj) 40 mg DAILY IV Last administered on 09:32; Start 01/27/17 at 14:00; Stop 02/02/17 at 09:24; Status DC Albuterol/ Ipratropium (Duoneb Neb) 1 ampule Q4HR NEB INH Last administered on 01/31/17 12:31; Start 01/27/17 at 16:00; Stop 01/31/17 at 16:00; Status DC Albuterol/ Ipratropium (Duoneb Neb) 1 ampule Q2HR NEB PRN INH WHEEZING; Start 01/27/17 at 13:30 Heparin Sodium (Porcine) (Heparin Inj) 5,000 units Q12H SQ ; Start 01/27/17 at 13 :30; Stop 01/27/17 at 13:39; Status DC Miscellaneous Information 1 Q361D XX ; Start 01/27/17 at 13:30 Chlorhexidine Gluconate (Chlorhexidine 2% Cloth) Taper DAILY@04 TOP Last administered on 01/31/17 22:14; Start 01/28/17 at 04:00; Stop 01/24/18 at 03:59 Chlorhexidine Gluconate (Chlorhexidine 2% Cloth) 3 pack UNSCH PRN TOP HYGIENIC CARE; Start 01/27/17 at 13:30 Furosemide (Lasix Inj) 40 mg DAILY IV PUSH Last administered on 01/28/17 09:16 ; Start 01/28/17 at 09:00; Stop 01/28/17 at 10:22; Status DC Dextrose (D50w (Vial) Inj) 25 ml UNSCH PRN IV PUSH HYPOGLYCEMIA-SEE COMMENTS; Start 01/27/17 at 13:30; Stop 01/30/17 at 01:00; Status DC Glucagon (Glucagon Inj) 1 mg UNSCH PRN OTHER HYPOGLYCEMIA-SEE COMMENTS; Start 01/27/17 at 13:30; Stop 01/30/17 at 01:00; Status DC Insulin Human Regular (NovoLIN R SUPPLEMENTAL SCALE) 1 Q6H SQ Last administered on 01/27/17 14:19; Start 01/27/17 at 14:00; Stop 01/30/17 at 01:00; Status DC Oseltamivir Phosphate (Tamiflu) 75 mg BID PO Last administered on 01/31/17 20: 30; Start 01/27/17 at 21:00; Stop 01/31/17 at 21:01; Status DC Amiodarone HCl (Cordarone) 200 mg DAILY PO ; Start 01/27/17 at 14:00; Stop at 14:18; Status DC Amlodipine Besylate (Norvasc) 10 mg DAILY PO Last administered on 01/30/17 09: 33; Start 01/27/17 at 14:00; Stop 01/30/17 at 11:37; Status DC Carvedilol (Coreg) 12.5 mg Q12HR PO Last administered on 01/31/17 09:29; Start 01/27/17 at 14:00; Stop 01/31/17 at 11:42; Status DC Isosorbide Mononitrate (Imdur) 60 mg DAILY PO ; Start 01/27/17 at 13:45; Stop 01/27/17 at 14:18; Status DC Rivaroxaban (Xarelto) 15 mg DAILY PO Last administered on 02/05/17 09:50; Start 01/27/17 at 14:00 Pravastatin Sodium (Pravachol) 80 mg HS PO Last administered on 02/04/17 22:10 ; Start 01/27/17 at 21:00 Hydralazine HCl 10 mg 10 mg Q6H PRN IV PUSH SYS BP GREATER THAN 160 MMHG Last administered on 01/28/17 18:30; Start 01/27/17 at 14:30; Stop 01/28/17 at 20:51; Status DC Piperacillin Sod/ Tazobactam Sod 50 ml @ 100 mls/hr Q6H IV Last administered on 01/31/17 09:29; Start 01/27/17 at 15:00; Stop 01/31/17 at 09:30; Status DC Potassium Chloride 100 ml @ 50 mls/hr BOLUS ONCE IV Last administered on 09:15; Start 01/28/17 at 08:45; Stop 01/28/17 at 10:44; Status DC Sodium Chloride (NS 250 ml Inj) 250 ml @ 250 mls/hr BOLUS ONCE IV Last administered on 01/27/17 10:45; Start 01/28/17 at 10:30; Stop 01/28/17 at 11:29; Status DC Hydralazine HCl (Apresoline Inj) 10 mg Q4H PRN IV PUSH SYS BP GREATER THAN 180 MMHG Last administered on 02/02/17 15:48; Start 01/28/17 at 20:51 Hydromorphone HCl (Dilaudid Pf Inj) 0.5 mg Q3H PRN IV PAIN GREATER THAN 5 Last administered on 01/28/17 21:11; Start 01/28/17 at 21:00; Stop 01/30/17 at 11:37; Status DC Lisinopril (Prinivil) 20 mg Q12HR PO Last administered on 01/30/17 09:33; Start 01/29/17 at 09:00; Stop 01/31/17 at 11:30; Status DC Potassium Chloride (KCl) 30 meq ONCE ONCE PO Last administered on 01/29/17 10: 20; Start 01/29/17 at 09:45; Stop 01/29/17 at 09:46; Status DC Ondansetron HCl (Zofran Inj) 4 mg Q6H PRN IV PUSH NAUSEA Last administered on 10:20; Start 01/29/17 at 10:00 Potassium Chloride (KCl) 20 meq ONCE ONCE PO Last administered on 01/29/17 20: 39; Start 01/29/17 at 20:00; Stop 01/29/17 at 20:02; Status DC Furosemide (Lasix) 40 mg DAILY PO Last administered on 01/30/17 09:34; Start at 09:00; Stop 01/31/17 at 09:29; Status DC Potassium Bicarb/ Potassium Chloride (K-Lyte Cl Eff) 50 meq ONCE ONCE PO Last administered on 01/30/17 09:44; Start 01/30/17 at 07:30; Stop 01/30/17 at 07: 57; Status DC Potassium Chloride (KCl) 10 meq DAILY PO Last administered on 02/05/17 09:50; Start 01/30/17 at 09:00 Amlodipine Besylate (Norvasc) 2.5 mg DAILY PO ; Start 01/31/17 at 09:00; Stop 01/31/17 at 09:28; Status DC Miscellaneous 1 ea 1 ea UNSCH PRN OTHER SEE LABEL COMMENTS; Start 01/30/17 at 12 :00 Sodium Chloride 250 ml @ 250 mls/hr BOLUS ONCE IV Last administered on 12:13; Start 01/30/17 at 11:45; Stop 01/30/17 at 12:44; Status DC Potassium Chloride/Sodium Chloride (NS + KCl 20 Meq Inj) 1,000 ml @ 84 mls/hr [id number] IV Last administered on 01/30/17 12:14; Start 01/30/17 at 11:45; Stop at 23:47; Status DC Aspirin (Aspirin Chew) 324 mg ONCE ONCE CHEW Last administered on 01/30/17 12: 13; Start 01/30/17 at 12:00; Stop 01/30/17 at 12:03; Status DC Aspirin (Ecotrin Ec) 81 mg DAILY PO Last administered on 02/05/17 09:50; Start 01/31/17 at 09:00 Hydralazine HCl (Apresoline Inj) 10 mg ONCE ONCE IV PUSH Last administered on 01/31/17 05:37; Start 01/31/17 at 05:30; Stop 01/31/17 at 05:31; Status DC Acetaminophen (Tylenol) 650 mg ONCE ONCE PO Last administered on 01/31/17 05: 36; Start 01/31/17 at 05:30; Stop 01/31/17 at 05:31; Status DC Amlodipine Besylate (Norvasc) 5 mg DAILY PO Last administered on 02/02/17 09: 35; Start 02/01/17 at 09:00; Stop 02/02/17 at 15:43; Status DC Furosemide (Lasix) 20 mg DAILY PO Last administered on 02/05/17 09:50; Start 02/01/17 at 09:00 Levofloxacin (Levaquin) 750 mg DAILY PO Last administered on 02/02/17 09:35; Start 02/01/17 at 09:00; Stop 02/02/17 at 14:59; Status DC Levofloxacin (Levaquin) 750 mg ONCE ONCE PO Last administered on 01/31/17 12: 54; Start 01/31/17 at 10:00; Stop 01/31/17 at 10:01; Status DC Lisinopril (Prinivil) 5 mg DAILY PO Last administered on 02/05/17 09:50; Start 02/01/17 at 09:00 Carvedilol (Coreg) 6.25 mg Q12HR PO Last administered on 02/05/17 09:50; Start 01/31/17 at 21:00 Pantoprazole Sodium (Protonix) 40 mg Q24H PO Last administered on 02/04/17 14: 32; Start 02/02/17 at 14:00 Ibuprofen (Motrin) 400 mg Q8H PRN PO PAIN Last administered on 02/02/17 15:48 ; Start 02/02/17 at 14:45 Amlodipine Besylate (Norvasc) 10 mg DAILY PO Last administered on 02/05/17 09: 50; Start 02/03/17 at 09:00 Acetaminophen (Tylenol) 325 mg Q6H PRN PO HEADACHE Last administered on 14:39; Start 02/03/17 at 14:30 A/P Assessment and Plan 66yo female patient with medical hx of a-fib, nonischemic cardiomyopathy s/p ICD placement presented to [employer] with acute respiratory distress. Pat initially presented with elevated BP, this was controlled then the patient subsequently developed ride sided hemiparesis on 01/29. Acute right sided hemiparesis - stroke work up: carotid US nega, CT head negative for acute change. With permissive HTN and HOB flat weakness apparently showed some improvement. - neuro following: likely had a stroke, unable to do MRI due to her ICD. Xarelto & ASA. - currently on statin (pravastatin ) -consulted PT Acute hypoxemic respiratory failure: - Resolved Pneumonia and flu - Influenza A positive - Status post treatment with Tamiflu and Levaquin - Chest x-ray on 01/28 shows resolution of consolidation CHF: hx non ischemic cardiomyopathy. previous EF 45-50% 1 year ago. - ECHO during this admission: EF 35-40%, diffuse hypokinesis - troponin minimally elevated, also present when patient previously presented for CHF exacerbation - lasix 20 mg pO daily -evaluated by cardiology - continue BB and lisinopril HTN: continue home amlodipine, lisinopril A-Fib: rate controlled, continue carvedilol, continue xarelto Hx CVA: Continue aspirin,xarelto and pravastatin 80 mg Discharge Planning dc to SNF when arrangements made. see med list. f/u; pcp, neurology and cardiology. d/w the patient, RN and case management. time spent 35 min. Indra Mari MD Feb 05, 2017 11:46
[2017-02-05 12:00] VITALS: BP 144/73; PULSE 66; RESP 24; TEMP 97.8; O2SAT 94
== END 2017-02-05 13:15 | DRG 291 ==
LOC: NEPC 12:01 → NEDA 13:26 → HIME 18:32 → N04A 02-01 22:23
PROVIDERS: ADMIT Internal Medicine; ATTEND Internal Medicine
PROC: 5A09357 Assistance with Respiratory Ventilation, Less than 24 Consecutive Hours, Continuous Positive Airway Pressure (ICD-10-PCS; principal; 2017-01-27)
DX: I50.9 Heart failure, unspecified (principal); J96.01 Acute respiratory failure with hypoxia; I63.9 Cerebral infarction, unspecified; N17.9 Acute kidney failure, unspecified; J18.9 Pneumonia, unspecified organism; I42.9 Cardiomyopathy, unspecified; I48.91 Unspecified atrial fibrillation; J44.0 Chronic obstructive pulmonary disease with (acute) lower respiratory infection; G81.91 Hemiplegia, unspecified affecting right dominant side; J10.1 Influenza due to other identified influenza virus with other respiratory manifestations; Z86.73 Personal history of transient ischemic attack (TIA), and cerebral infarction without residual deficits; Z95.810 Presence of automatic (implantable) cardiac defibrillator; Z79.02 Long term (current) use of antithrombotics/antiplatelets; E87.6 Hypokalemia; I10 Essential (primary) hypertension; F17.210 Nicotine dependence, cigarettes, uncomplicated
CPT/HCPCS: 36600; 51702; 70450; 71010; 71250; 80048; 80053; 80061; 80069; 81001; 82805; 83036; 83735; 83880; 84100; 84484; 85025; 85610; 85730; 87086; 87449; 87641; 87804; 93005; 93306; 93880; 94002; 94003; 94640; 94664; 96374; 96375; C9113; J0360; J1170; J1940; J2060; J2405; J2543; J3480; J7050

== ENCOUNTER 2017-03-04 15:05 | Emergency (ER) | payer OTHER ==
[~2017-03-04 15:05] MED LIST changes: +ALBUAER3 INH; -AMIO200T PO; +ASPI81TA11 PO; -CARV12.5 PO; +CARV6.25 PO; +FURO20TA PO; -FURO40TA PO; -ISOS60TA PO; -LISI-515 PO; +LISI10TA3 PO; +SYMB80AE INH
[2017-03-04 15:45] VITALS: BP 130/79; PULSE 122; RESP 13; TEMP 98.1; O2SAT 100
[2017-03-04] MEDS ORDERED: ACETAMINOPHEN/HYDROcodone 325 MG/5 MG TAB PO ONE (16:15)
[2017-03-04 16:18] VITALS: BP 165/88; PULSE 78; RESP 18; O2SAT 97
--- NOTE | 2017-03-04 16:38 | RADRPT ---
EXAM DATE/TIME: 03/04/2017 16:25 [facility] COMPARISON: No previous studies available for comparison. INDICATIONS : Lower back pain after fall over dog. MEDICAL HISTORY : None. SURGICAL HISTORY : None. ENCOUNTER: Initial ACUITY: 1 day PAIN SCORE: 10/10 LOCATION: Bilateral lower back. FINDINGS: The bone density is decreased. No spondylolysis is seen. Grade 1 anterolisthesis of L4 on L5 with mod erate facet hypertrophic changes are identified. There are no compression deformities. Mild disc spac e narrowing and multilevel osteophyte formation is seen. Aortic and iliac artery calcifications are n oted. There are 2 calcified masses in the pelvis, on the right measuring 8.7 cm, and on the left 4 cm . Calcified uterine fibroids are suspected. CONCLUSION: Degenerative changes are noted without evidence for fracture. Calcified pelvic masses likely represen t fibroids. Juan Carlos Fernandez MD on March 04, 2017 at 16:36 Board Certified Radiologist. This report was verified electronically.
--- NOTE | 2017-03-04 16:44 | PD ---
HPI Chief Complaint: Headache Time Seen by Provider: 16:05 Travel History International Travel<30 days: No Contact w/Intl Traveler<30days: No History of Present Illness HPI 66-year-old female arrives to the ER after she tripped over her dog at home. No loss of consciousness or head trauma reported. After the fall she had acute on chronic low back pain. Acute on chronic difficulty ambulating was observed. EMS noted a blood pressure of 240/113. PFSH Past Medical History Hx Anticoagulant Therapy: Yes Arthritis: Yes Asthma: Yes Blood Disorders: No Anxiety: No Depression: No Heart Rhythm Problems: Yes Cancer: No Cardiovascular Problems: Yes High Cholesterol: No Chemotherapy: No Chest Pain: No Congestive Heart Failure: No COPD: No Cerebrovascular Accident: Yes Coronary Artery Disease: Yes Diabetes: No Diminished Hearing: No Endocrine: No Genitourinary: No Headaches: Yes Hypertension: Yes Immune Disorder: No Kidney Stones: No Musculoskeletal: Yes Neurologic: Yes (stroke) Psychiatric: No Reproductive: No Respiratory: Yes Immunizations Current: Yes Migraines: No Radiation Therapy: No Renal Failure: No Seizures: No Sleep Apnea: No Thyroid Disease: No Ulcer: No Menopausal: Yes : 4 Para: 3 Miscarriage: 1 Tubal Ligation: Yes Past Surgical History Abdominal Surgery: No AICD: No Arteriovenous Shunt: No Cardiac Surgery: No Ear Surgery: No Endocrine Surgery: No Eye Surgery: No Insulin Pump: No Joint Replacement: No Oral Surgery: No Pacemaker: Yes (with defibrillator ) Thoracic Surgery: No Other Surgery: Yes (R ankle surgery, tubal ligation, pacemaker placement) Social History Alcohol Use: No Tobacco Use: Yes (3 cigarettes a day) Substance Use: No Allergies-Medications (Allergen,Severity, Reaction): Coded Allergies: MRI PRECAUTION (Verified Adverse Reaction, Severe, NONCOMPATIBLE PACER BIOTRONIX ITREVIA [id number] 01/30/17 LRS, 01/30/17) MODEL [id number] Reported Meds & Prescriptions Reported Meds & Active Scripts Active Lisinopril 10 Mg Tab 10 Mg PO DAILY Furosemide 20 Mg Tab 20 Mg PO DAILY 30 Days Coreg (Carvedilol) 6.25 Mg Tab 6.25 Mg PO Q12HR 30 Days Aspirin EC (Aspirin) 81 Mg Tabdr 81 Mg PO DAILY 30 Days Proair Hfa 8.5 GM Inh (Albuterol Sulfate) 90 Mcg/Act Aer 1 Puff INH Q4H PRN 108 mcg/actuation Symbicort Inh (Budesonide/Formoterol Fumarate) 80-4.5 Mcg/Act Aero 2 Puff INH Q12HR Klor-Con 10 (Potassium Chloride) 10 Meq Tab 10 Meq PO DAILY Cane/Adjustable/Aluminum/ (Device) 1 Mis Mis 1 Ea .ROUTE DIRECTED Folding Walker/5" Wheels (Device) 1 Mis Mis 1 Ea .ROUTE DIRECTED Simvastatin 40 Mg Tab 40 Mg PO HS Norvasc (Amlodipine Besylate) 10 Mg Tab 10 Mg PO DAILY 30 Days Reported Xarelto (Rivaroxaban) 15 Mg Tab 15 Mg PO DAILY Review of Systems Except as stated in HPI: all other systems reviewed are Neg General / Constitutional: No: Fever Physical Exam Narrative GENERAL: 66 F, WNWD, NAD SKIN: Warm and dry. HEAD: Atraumatic. Normocephalic. EYES: Pupils equal and round. No scleral icterus. No injection or drainage. ENT: No nasal bleeding or discharge. Mucous membranes pink and moist. NECK: Trachea midline. No JVD. CARDIOVASCULAR: Regular rate and rhythm. RESPIRATORY: No accessory muscle use. Clear to auscultation. Breath sounds equal bilaterally. GASTROINTESTINAL: Abdomen soft, non-tender, nondistended. Hepatic and splenic margins not palpable. MUSCULOSKELETAL: No focal TTP along lumbar spine or paralumbar musculature. NEUROLOGICAL: Awake and alert. No obvious cranial nerve deficits. Motor grossly within normal limits. Five out of 5 muscle strength in the arms and legs. Normal speech. PSYCHIATRIC: Appropriate mood and affect; insight and judgment normal. Data Data Last Documented VS Vital Signs Date Time Temp Pulse Resp B/P Pulse Ox O2 Delivery O2 Flow Rate FiO2 03/04/17 17:47 80 18 166/88 96 Orders Spine, Lumbar Comp W/Obliq (03/04/17 16:11) Acetamin-Hydrocod 325-5 Mg ([place] 5-325 (03/04/17 16:15) MDM Medical Decision Making Medical Screen Exam Complete: Yes Emergency Medical Condition: Yes Medical Record Reviewed: Yes Differential Diagnosis Acute on chronic pain, contusion, lumbar fracture Narrative Course Last 24 hours Impressions Lumbar Spine X-Ray 03/04/17 1611 Signed Impressions: Service Date/Time: Saturday, March 04, 2017 16:25 - CONCLUSION: Degenerative changes are noted without evidence for fracture. Calcified pelvic masses likely represent fibroids. Juan Carlos Fernandez MD The patient is resting comfortably and feels better, is alert and in no distress. The patients results and examination findings were discussed. The repeat examination is unremarkable and benign. The history, exam, diagnostic testing, and current condition do not suggest any significant pathology to warrant further testing, continued ED treatment, admission, or surgical evaluation at this point. The vital signs have been stable. The patient does not have uncontrollable pain, intractable vomiting, or other significant symptoms. The patient's condition is stable and appropriate for discharge. The patient will pursue further outpatient evaluation with a primary care physician or other designated or consulting physician as indicated in the discharge instructions. The patient expressed understanding and was agreeable with this plan. Diagnosis Primary Impression: Fall Qualified Code: W19.XXXA - Fall, initial encounter Additional Impression: Low back pain Qualified Code: M54.5 - Chronic bilateral low back pain without sciatica Referrals: Alex Mata MD 2 days Additional Instructions: You have a choice when it comes to health care, and we are glad that you chose [facility]. Hopefully, we have met your expectations on today's visit. You are welcome to return to [facility] at any time, as we are committed to meeting the health care needs of our community. Med/Other Pt SpecificInfo: No Change to Meds Disposition: 01 DISCHARGE HOME Condition: Stable Vitor Wong MD Mar 04, 2017 16:44
[2017-03-04 17:47] VITALS: BP 166/88
== END 2017-03-04 17:57 | disposition home or self-care (01) ==
LOC: NEPE 15:05
DX: M54.5 Low back pain (principal); G89.29 Other chronic pain; F17.210 Nicotine dependence, cigarettes, uncomplicated; W18.31XA Fall on same level due to stepping on an object, initial encounter; Y92.009 Unspecified place in unspecified non-institutional (private) residence as the place of occurrence of the external cause
CPT/HCPCS: 72110; 99284

== ENCOUNTER 2017-05-05 09:12 | Inpatient (IN) | payer SELFPAY ==
[2017-05-05] VITALS (11 sets, daily range): BP systolic 133–232; BP diastolic 80–128; PULSE 72–114; RESP 15–22; TEMP 98.2–99.2; O2SAT 91–98
[2017-05-05] MEDS ORDERED: hydrALAZINE HCL 20 MG/ML VIAL IV PUSH ONE (09:45)
[2017-05-05] MEDS ORDERED: FUROSEMIDE 40 MG/4 ML VIAL IV PUSH ONE (09:45)
[2017-05-05] MEDS ORDERED: SODIUM CHLORIDE 0.9% FLUSH 10 ML FLUSH IVF PRN (09:45)
--- NOTE | 2017-05-05 09:47 | PD ---
HPI Chief Complaint: Neuro Symptoms/ Deficits Time Seen by Provider: 09:31 Travel History International Travel<30 days: No Contact w/Intl Traveler<30days: No Traveled to known affect area: No History of Present Illness HPI 66-year-old female with history of hypertension, previous CVA, CHF, diabetes mellitus, resents today with report that she was altered. Family members state that she had slurred speech and was a little more confused than normal. Patient denies being confused. She knows where she is she knows what day it is. She reports that she's had swelling in her legs which is worse than normal. She denies any shortness of breath or cough. She denies any dysuria but does say she has urinary frequency. There is no reported fevers, chills. PFSH Past Medical History Hx Anticoagulant Therapy: Yes Arthritis: Yes Asthma: Yes Blood Disorders: No Anxiety: No Depression: No Heart Rhythm Problems: Yes Cancer: No Cardiovascular Problems: Yes High Cholesterol: No Chemotherapy: No Chest Pain: No Congestive Heart Failure: No COPD: No Cerebrovascular Accident: Yes Coronary Artery Disease: Yes Diabetes: No Diminished Hearing: No Endocrine: No Genitourinary: No Headaches: Yes Hypertension: Yes Immune Disorder: No Kidney Stones: No Musculoskeletal: Yes Neurologic: Yes (stroke) Psychiatric: No Reproductive: No Respiratory: Yes Immunizations Current: Yes Migraines: No Radiation Therapy: No Renal Failure: No Seizures: No Sleep Apnea: No Thyroid Disease: No Ulcer: No Menopausal: Yes : 4 Para: 3 Miscarriage: 1 Tubal Ligation: Yes Past Surgical History Abdominal Surgery: No AICD: No Arteriovenous Shunt: No Cardiac Surgery: Yes (PACEMAKER PLACEMENT) Ear Surgery: No Endocrine Surgery: No Eye Surgery: No Gynecologic Surgery: Yes (tubal ligation) Insulin Pump: No Joint Replacement: No Oral Surgery: No Pacemaker: Yes (with defibrillator ) Thoracic Surgery: No Other Surgery: Yes (R ankle surgery, tubal ligation) Social History Alcohol Use: No Tobacco Use: Yes (3 cigarettes a day) Substance Use: No Allergies-Medications (Allergen,Severity, Reaction): Coded Allergies: MRI PRECAUTION (Verified Adverse Reaction, Severe, NONCOMPATIBLE PACER BIOTRONIX ITREVIA 7VR-TDX 01/30/17 LRS, 05/05/17) MODEL [id number] Reported Meds & Prescriptions Reported Meds & Active Scripts Active Lisinopril 10 Mg Tab 10 Mg PO DAILY Furosemide 20 Mg Tab 20 Mg PO DAILY 30 Days Coreg (Carvedilol) 6.25 Mg Tab 6.25 Mg PO Q12HR 30 Days Aspirin EC (Aspirin) 81 Mg Tabdr 81 Mg PO DAILY 30 Days Proair Hfa 8.5 GM Inh (Albuterol Sulfate) 90 Mcg/Act Aer 1 Puff INH Q4H PRN 108 mcg/actuation Symbicort Inh (Budesonide/Formoterol Fumarate) 80-4.5 Mcg/Act Aero 2 Puff INH Q12HR Klor-Con 10 (Potassium Chloride) 10 Meq Tab 10 Meq PO DAILY Simvastatin 40 Mg Tab 40 Mg PO HS Norvasc (Amlodipine Besylate) 10 Mg Tab 10 Mg PO DAILY 30 Days Reported Xarelto (Rivaroxaban) 15 Mg Tab 15 Mg PO DAILY Review of Systems Except as stated in HPI: all other systems reviewed are Neg General / Constitutional: No: Fever, Chills Eyes: No: Diploplia, Blurred Vision HENT: No: Headaches, Lightheadedness, Neck Pain Cardiovascular: Positive: Palpitations, No: Chest Pain or Discomfort, Irregular Rhythm Respiratory: No: Cough, Shortness of Breath Gastrointestinal: No: Nausea, Vomiting, Abdominal Pain Genitourinary: Positive: Frequency, No: Dysuria Musculoskeletal: Positive: Edema (worse than normal.), No: Pain Neurologic: Positive: Slurred Speech (family reported more than normal), No: Weakness, Dizziness, Headache Physical Exam Narrative GENERAL: Well-developed well-nourished female in no obvious distress. SKIN: Focused skin assessment warm/dry. HEAD: Atraumatic. Normocephalic. EYES:No scleral icterus. No injection or drainage. ENT: No nasal bleeding or discharge. Mucous membranes pink and moist. NECK: Trachea midline. Supple. CARDIOVASCULAR: Tachycardic with a rate in the low 100s. It was 110 on my examination. Normal rhythm. No obvious murmurs appreciated. RESPIRATORY: Bilateral lower lobe Rales. No rhonchi appreciated. GASTROINTESTINAL: Abdomen soft, non-tender, nondistended. MUSCULOSKELETAL: No obvious deformities. No clubbing. No cyanosis. Trace pretibial edema bilaterally. NEUROLOGICAL: Awake and alert. No obvious cranial nerve deficits. Motor grossly within normal limits. Slight slurred speech PSYCHIATRIC: Appropriate mood and affect; insight and judgment normal. Data Data Last Documented VS Vital Signs Date Time Temp Pulse Resp B/P Pulse Ox O2 Delivery O2 Flow Rate FiO2 05/05/17 10:48 114 20 214/105 95 Room Air 05/05/17 09:39 2 05/05/17 09:25 98.2 Orders Complete Blood Count With Diff (05/05/17 09:31) Comprehensive Metabolic Panel (05/05/17 09:31) B-Type Natriuretic Peptide (05/05/17 09:31) Ckmb (Isoenzyme) Profile (05/05/17 09:31) Troponin I (05/05/17 09:31) Arterial Blood Gas (Abg) (05/05/17 09:31) Urinalysis - C+S If Indicated (05/05/17 09:31) Iv Access Insert/Monitor (05/05/17 09:31) Ecg Monitoring (05/05/17 09:31) Oximetry (05/05/17 09:31) Oxygen Administration (05/05/17 09:31) Chest, Single Ap (05/05/17 09:31) Sodium Chloride 0.9% Flush (Ns Flush) (05/05/17 09:45) Lactic Acid Sepsis Protocol (05/05/17 09:31) Hydralazine Inj (Apresoline Inj) (05/05/17 09:45) Furosemide Inj (Lasix Inj) (05/05/17 09:45) Ct Brain W/O Iv Contrast(Rout) (05/05/17 09:31) Metoprolol Tartrate Inj (Lopressor Inj) (05/05/17 11:00) Admit Order (Ed Use Only) (05/05/17 12:07) Labs Laboratory Tests Test 05/05/17 05/05/17 05/05/17 09:40 10:15 10:30 White Blood Count 7.6 TH/MM3 Red Blood Count 4.81 MIL/MM3 Hemoglobin 12.9 GM/DL Hematocrit 38.7 % Mean Corpuscular Volume 80.6 FL Mean Corpuscular Hemoglobin 26.9 PG Mean Corpuscular Hemoglobin 33.3 % Concent Red Cell Distribution Width 17.0 % Platelet Count 177 TH/MM3 Mean Platelet Volume 10.5 FL Neutrophils (%) (Auto) 72.0 % Lymphocytes (%) (Auto) 18.1 % Monocytes (%) (Auto) 5.3 % Eosinophils (%) (Auto) 3.7 % Basophils (%) (Auto) 0.9 % Neutrophils # (Auto) 5.4 TH/MM3 Lymphocytes # (Auto) 1.4 TH/MM3 Monocytes # (Auto) 0.4 TH/MM3 Eosinophils # (Auto) 0.3 TH/MM3 Basophils # (Auto) 0.1 TH/MM3 CBC Comment DIFF FINAL Differential Comment Sodium Level 142 MEQ/L Potassium Level 2.9 MEQ/L Chloride Level 107 MEQ/L Carbon Dioxide Level 26.7 MEQ/L Anion Gap 8 MEQ/L Blood Urea Nitrogen 11 MG/DL Creatinine 1.29 MG/DL Estimat Glomerular Filtration 50 ML/MIN Rate Random Glucose 101 MG/DL Lactic Acid Level 1.3 mmol/L Calcium Level 9.4 MG/DL Total Bilirubin 0.6 MG/DL Aspartate Amino Transf 11 U/L (AST/SGOT) Alanine Aminotransferase 9 U/L (ALT/SGPT) Alkaline Phosphatase 83 U/L Total Creatine Kinase 61 U/L Troponin I 0.04 NG/ML B-Type Natriuretic Peptide 984 PG/ML Total Protein 8.3 GM/DL Albumin 3.9 GM/DL Urine Color LIGHT-YELLOW Urine Turbidity CLEAR Urine pH 7.5 Urine Specific [place] 1.005 Urine Protein 100 mg/dL Urine Glucose (UA) NEG mg/dL Urine Ketones NEG mg/dL Urine Occult Blood NEG Urine Nitrite NEG Urine Bilirubin NEG Urine Urobilinogen LESS THAN 2.0 MG/DL Urine Leukocyte Esterase NEG Urine RBC LESS THAN 1 /hpf Urine WBC 1 /hpf Urine Squamous Epithelial 1 /hpf Cells Urine Bacteria RARE /hpf Urine Mucus FEW /lpf Microscopic Urinalysis Comment CULT NOT INDICATED Blood Gas Puncture Site RT BRACHIAL Blood Gas Patient Temperature 98.6 Blood Gas HCO3 23 mmol/L Blood Gas Base Excess 1.1 mmol/L Blood Gas Oxygen Saturation 92 % Arterial Blood pH 7.56 Arterial Blood Partial 26 mmHg Pressure CO2 Arterial Blood Partial 66 mmHG Pressure O2 Arterial Blood Oxygen Content 16.9 Vol % Arterial Blood 1.5 % Carboxyhemoglobin Arterial Blood Methemoglobin 0.6 % Blood Gas Hemoglobin 13.0 G/DL Blood Gas Inspired Oxygen 21 % [facility] Medical Decision Making Medical Screen Exam Complete: Yes Emergency Medical Condition: Yes Differential Diagnosis CHF exacerbation versus pneumonia versus UTI versus metabolic arrangement. Narrative Course This is a 66-year-old female with a history of hypertension, coronary artery disease, CHF, previous CVA, who presents at the request of family members for decreased mental status and slurred speech. The patient is awake and appropriate when she arrived. She knows where she is who she has. She has no complaints at the time of my examination. The patient was found to be in congestive heart failure. She also had uncontrolled hypertension. She was given hydralazine and Lopressor IV. Despite this, her blood pressure still remains elevated. She'll be placed on a Cardene drip. Her potassium was also noted to be 2.9. She's been given a dose of oral potassium of 20 mEq. The case was discussed with Dr. Holliday, [facility] hospitalist, who will admit the patient his service. She'll need to go to the CICU given the Cardene drip. Diagnosis Primary Impression: Hypertensive emergency Additional Impressions: Hypokalemia Hypoxemia Cardiomyopathy History of CVA (cerebrovascular accident) Admitting Information Admitting Physician Requests: Admit Kofi tSaton MD May 05, 2017 09:47
[2017-05-05 10:03] LABS: AUTOMATED NEUTROPHIL # 5.4 TH/MM3 (1.8-7.7); BASOPHIL # 0.1 TH/MM3 (0-0.2); BASOPHIL % 0.9 % (0.0-2.0); EOSINOPHIL # 0.3 TH/MM3 (0-0.4); EOSINOPHIL % 3.7 % (0.0-4.0); HEMATOCRIT 38.7 % (35.0-46.0); HEMO FLAGS DIFF FINAL; LYMPH % 18.1 % (9.0-44.0); LYMPHOCYTE # 1.4 TH/MM3 (1.0-4.8); MEAN CELL VOLUME 80.6 FL (80.0-100.0); MEAN CORPUSCULAR HEMOGLOBIN 26.9 PG (27.0-34.0); MEAN CORPUSCULAR HGB CONC 33.3 % (32.0-36.0); MONO % 5.3 % (0.0-8.0); PLATELET COUNT 177 TH/MM3 (150-450); RED BLOOD COUNT 4.81 MIL/MM3 (4.00-5.30); WHITE BLOOD COUNT 7.6 TH/MM3 (4.0-11.0)
[2017-05-05 10:29] LABS: ALKALINE PHOSPHATASE 83 U/L (45-117); ALT (GPT) 9 U/L (10-53); ANION GAP 8 MEQ/L (5-15); AST (GOT) 11 U/L (15-37); BICARBONATE 26.7 MEQ/L (21.0-32.0); BLOOD UREA NITROGEN 11 MG/DL (7-18); CHLORIDE 107 MEQ/L (98-107); GLOMERULAR FILTRATION RATE 50 ML/MIN (>89); SODIUM (NA) 142 MEQ/L (136-145); TOTAL BILIRUBIN ADULT 0.6 MG/DL (0.2-1.0)
[2017-05-05 10:30] LABS: CREATINE KINASE 61 U/L (26-192)
[2017-05-05 10:32] LABS: POTASSIUM 2.9 MEQ/L (3.5-5.1)
--- NOTE | 2017-05-05 10:37 | RADRPT ---
EXAM DATE/TIME: 05/05/2017 10:00 [facility] COMPARISON: CT BRAIN W/O CONTRAST, January 31, 2017, 21:34. INDICATIONS : Confusion. RADIATION DOSE: 40.21 CTDIvol (mGy) MEDICAL HISTORY : Stroke. Cardiovascular disease SURGICAL HISTORY : None. ENCOUNTER: Initial ACUITY: 1 day PAIN SCALE: 0/10 LOCATION: cranial TECHNIQUE: Multiple contiguous axial images were obtained of the head. Using automated exposure control and adj ustment of the mA and/or kV according to patient size, radiation dose was kept as low as reasonably a chievable to obtain optimal diagnostic quality images. FINDINGS: CEREBRUM: The ventricles are normal for age. No evidence of midline shift, mass lesion, hemorrhage or acute in farction. No extra-axial fluid collections are seen. POSTERIOR FOSSA: The cerebellum and brainstem are intact. The 4th ventricle is midline. The cerebellopontine angle i s unremarkable. EXTRACRANIAL: The visualized portion of the orbits is intact. SKULL: The calvaria is intact. No evidence of skull fracture. CONCLUSION: Negative for an acute process.. En Powell MD FACR on May 05, 2017 at 10:35 Board Certified Radiologist. This report was verified electronically.
--- NOTE | 2017-05-05 10:39 | RADRPT ---
EXAM DATE/TIME: 05/05/2017 09:56 [facility] COMPARISON: CHEST SINGLE AP, January 28, 2017, 9:20. INDICATIONS : Short of breath MEDICAL HISTORY : Hypertension. Cardiovascular disease. SURGICAL HISTORY : Pacemaker. ENCOUNTER: Initial ACUITY: 1 day PAIN SCORE: 0/10 LOCATION: Bilateral chest FINDINGS: Pacemaker an implant on the left. There is cardiomegaly with moderate interstitial edema. Minimal a lveolar opacity is present in the right base. The portion of the bony skeleton visualized is unremark able. CONCLUSION: Moderate congestive failure. Early right basal infiltrate cannot be excluded. En Powell MD FACR on May 05, 2017 at 10:36 Board Certified Radiologist. This report was verified electronically.
[2017-05-05 10:42] LABS: BLOOD GAS BASE EXCESS 1.1 mmol/L (-2-2); BLOOD GAS CARBOXYHEMOGLOBIN 1.5 % (0-4); BLOOD GAS HCO3 23 mmol/L (22-26); BLOOD GAS METHEMOGLOBIN 0.6 % (0-2); BLOOD GAS O2 HGB SATURATION 92 % (90-100); BLOOD GAS OXYGEN CONTENT 16.9 Vol % (12.0-20.0); BLOOD GAS PCO2 26 mmHg (38-42); BLOOD GAS PO2 66 mmHG (61-120); CRITICAL VALUE YES; DRAW SITE RT BRACHIAL; FIO2 21 %; NUMBER OF ARTERIAL PUNCTURES 1; STAT YES; TEMP CORR TO 98.6
[2017-05-05 10:43] LABS: BACTERIA, URINE RARE /hpf; BLOOD, URINE NEG (NEG); COMMENT (UR) CULT NOT INDICATED; CULTURE IF INDICATED CULT NOT INDICATED; GLUCOSE,URINE NEG (NEG); KETONE, URINE NEG (NEG); MUCUS URINE FEW /lpf (OCC); NITRITE,URINE NEG (NEG); PH, URINE 7.5 (5.0-8.5); SQUAMOUS EPITHELIAL CELL URINE 1 /hpf (0-5); URINE COLOR LIGHT-YELLOW (YELLW/STRAW)
[2017-05-05] MEDS ORDERED: METOPROLOL TARTRATE 5 MG/5 ML VIAL IV PUSH ONE ×2 (11:00→13:15)
[2017-05-05] MEDS ORDERED: POTASSIUM CHLORIDE 20 MEQ PWD PACKET PO ONE (12:30)
[2017-05-05] MEDS ORDERED: CARVEDILOL 6.25 MG TAB PO SCH (13:00)
[2017-05-05] MEDS ORDERED: ALBUTEROL SULFATE 90 MCG/ACT HFA 8 GM INHALER INH PRN (13:00)
[2017-05-05] MEDS ORDERED: POTASSIUM CHLORIDE 8 MEQ CONTROLLED RELEASE TAB PO ONE (13:00)
[2017-05-05] MEDS: niCARdipine INJ 25 MG in SODIUM CHLOR 0.9% 250 ML INJ 250 ML IV SCH ×3 (14:10→22:30)
[2017-05-05] MEDS: LISINOPRIL 10 MG TAB PO SCH (14:10)
--- NOTE | 2017-05-05 15:49 | HHI.HP ---
HPI Service [facility] Primary Care Physician Alex Mata MD Admission Diagnosis hypertensive emergency , chf, hypokalemia Diagnoses: Chief Complaint: altered mental status (Frieda Sam) Travel History International Travel<30 Days: No Contact w/Intl Traveler <30 Da: No Traveled to Known Affected Are: No (Frieda Sam) History of Present Illness This is a 66-year-old black female with significant past history hypertension, previous CVA, CHF, nonischemic cardiomyopathy. Patient recently admitted in January 2017 with acute respiratory failure requiring BiPAP, acute CHF and CVA with right-sided weakness. This time, patient presents to emergency room with slurred speech and appeared more confused than normal. Patient is unable to provide any information, she knows she is in the hospital but other than that she doesn't know why she is in the hospital and is having difficulty with word finding. Patient was evaluated in the emergency room, laboratory workup was completed. BMP significant for hypokalemia, potassium 2.9. BMP remarkable for mildly elevated creatinine which is actually improved from January admission. Urinalysis did not reveal any infection. Chest x-ray significant for moderate congestive heart failure, early right basal infiltrate cannot be excluded. No reported fever, no chills. Blood pressure was noted significantly elevated, 220 /128. Patient is on amlodipine, lisinopril, carvedilol, Lasix. It is unclear if patient has been compliant with medications. She did complain of increased leg swelling in the emergency room. She was given Lopressor 5 mg IV push, Lasix 40 mg IV 1 and hydralazine 20 mg IV. Potassium was replaced. Because of uncontrolled hypertension, patient was put on Cardene drip. Patient is now evaluated in the CVICU. Blood pressure is down to 150s. She remains confused, she know she is in the hospital but other than that she is having some difficulty with word finding. She has right upper extremity and right lower extremity weakness which is residual from previous CVA. Patient is admitted for further evaluation and treatment. (Frieda Sam) Review of Systems ROS Limitations: Altered Mental Status, Poor Historian (Frieda Sam) Past Family Social History Past Medical History 1. COPD. 2. CVA. 3. History of atrial flutter / atrial fibrillation and previous ablation 4. Nonischemic cardiomyopathy, last echo in January 2017 -EF 35-40%, diffuse hypokinesis 5. HTN 6. CKD 7. Non compliance 8. Admitted in January to ICU for janelle. failure requiring BIPAP, CVA with right sided weakness, CHF Past Surgical History 1. Previous AICD placement. 2. Previous tubal ligation. 3. Previous pin placement in the right ankle. Reported Medications Reported Meds & Active Scripts Active Lisinopril 10 Mg Tab 10 Mg PO DAILY Furosemide 20 Mg Tab 20 Mg PO DAILY 30 Days Coreg (Carvedilol) 6.25 Mg Tab 6.25 Mg PO Q12HR 30 Days Aspirin EC (Aspirin) 81 Mg Tabdr 81 Mg PO DAILY 30 Days Proair Hfa 8.5 GM Inh (Albuterol Sulfate) 90 Mcg/Act Aer 1 Puff INH Q4H PRN 108 mcg/actuation Symbicort Inh (Budesonide/Formoterol Fumarate) 80-4.5 Mcg/Act Aero 2 Puff INH Q12HR Klor-Con 10 (Potassium Chloride) 10 Meq Tab 10 Meq PO DAILY Simvastatin 40 Mg Tab 40 Mg PO HS Norvasc (Amlodipine Besylate) 10 Mg Tab 10 Mg PO DAILY 30 Days Reported Xarelto (Rivaroxaban) 15 Mg Tab 15 Mg PO DAILY (Frieda Sam) Allergies: Coded Allergies: MRI PRECAUTION (Verified Adverse Reaction, Severe, NONCOMPATIBLE PACER BIOTRONIX ITREVIA 7VR-TDX 01/30/17 LRS, 05/05/17) MODEL [id number] Active Ordered Medications Inpatient Medications Albuterol Sulfate (Proair Hfa Inh) 1 puff Q4HR PRN INH SHORTNESS OF BREATH; Start 05/05/17 at 13:00 Amlodipine Besylate (Norvasc) 10 mg DAILY PO ; Start 05/06/17 at 09:00 Aspirin (Ecotrin Ec) 81 mg DAILY PO ; Start 05/06/17 at 09:00 Budesonide/ Formoterol Fumarate (Symbicort 80-4.5 Mcg Inh) 2 puff Q12HR INH ; Start 05/05/17 at 21:00 Carvedilol (Coreg) 6.25 mg Q12HR PO Last administered on 05/05/17t 14:10; Start 05/05/17 at 13:00 Furosemide (Lasix Inj) 40 mg ONCE ONCE IV PUSH Last administered on 05/05/17 09:48; Start 05/05/17 at 09:45; Stop 05/05/17 at 09:46; Status DC Furosemide (Lasix) 20 mg DAILY PO ; Start 05/06/17 at 09:00 Hydralazine HCl (Apresoline Inj) 20 mg ONCE ONCE IV PUSH Last administered on 05/05/17 09:48; Start 05/05/17 at 09:45; Stop 05/05/17 at 09:46; Status DC Lisinopril (Prinivil) 10 mg DAILY PO Last administered on 05/05/17 14:10; Start 05/05/17 at 13:00 Metoprolol Tartrate (Lopressor Inj) 5 mg ONCE ONCE IV PUSH Last administered on 05/05/17 13:08; Start 05/05/17 at 13:15; Stop 05/05/17 at 13:16; Status DC Metoprolol Tartrate 5 mg 5 mg ONCE ONCE IV PUSH Last administered on 11:00; Start 05/05/17 at 11:00; Stop 05/05/17 at 11:01; Status DC Nicardipine HCl/ Sodium Chloride (Cardene Inj/NS 250 ml Inj) 260 ml @ 0 mls/hr TITRATE IV Last administered on 05/05/17 14:10; Start 05/05/17 at 12:30 Potassium Chloride (KCl Powder) 20 meq ONCE ONCE PO Last administered on 14:11; Start 05/05/17 at 12:30; Stop 05/05/17 at 12:31; Status DC Potassium Chloride (KCl) 40 meq ONCE ONCE PO Last administered on 05/05/17 14 :11; Start 05/05/17 at 13:00; Stop 05/05/17 at 13:01; Status DC Pravastatin Sodium (Pravachol) 80 mg HS PO ; Start 05/05/17 at 21:00 Sodium Chloride (NS Flush) 2 ml UNSCH PRN IVF FLUSH AFTER USING IV ACCESS; Start 05/05/17 at 09:45 Family History unable to obtain Social History Lives with son and his family, denies ETOH, substance abuse, smoking. Uses walker for ambulation (Frieda Sam) Physical Exam Vital Signs Vital Signs Date Time Temp Pulse Resp B/P Pulse Ox O2 Delivery O2 Flow Rate FiO2 05/05/17 15:00 95 05/05/17 14:50 92 Nasal Cannula 2.00 05/05/17 14:16 91 18 202/104 97 Room Air 05/05/17 13:08 88 20 232/108 93 Room Air 05/05/17 10:48 114 20 214/105 95 Room Air 05/05/17 09:39 110 20 98 Nasal Cannula 2 05/05/17 09:38 20 98 Nasal Cannula 2 05/05/17 09:38 98 Nasal Cannula 2 05/05/17 09:25 98.2 103 22 220/128 91 Physical Exam GENERAL: This is a well-nourished, well-developed patient, in no apparent distress. SKIN: No rashes, ecchymoses or lesions. Cool and dry. HEAD: Atraumatic. Normocephalic. No temporal or scalp tenderness. EYES: Pupils equal round and reactive. Extraocular motions intact. No scleral icterus. No injection or drainage. ENT: Nose without bleeding, purulent drainage or septal hematoma. Throat without erythema, tonsillar hypertrophy or exudate. Uvula midline. Airway patent. NECK: Trachea midline. No JVD or lymphadenopathy. Supple, nontender, no meningeal signs. CARDIOVASCULAR: Regular rate and rhythm without murmurs, gallops, or rubs. RESPIRATORY: Poor inspiratory effort, diminished at bases. GASTROINTESTINAL: Abdomen soft, non-tender, nondistended. No hepato-splenomegaly , or palpable masses. No guarding. MUSCULOSKELETAL: Extremities without clubbing, cyanosis. Bilateral lower extremities with trace pretibial edema, pedal pulses 2+ bilaterally. No joint tenderness, effusion, or edema noted. No calf tenderness. Negative Homans sign bilaterally. NEUROLOGICAL: Awake, alert, oriented to self and place. Slow to respond, having difficulty with word finding. Follows simple commands. Right upper and right lower extremity weakness. Laboratory Laboratory Tests Test 05/05/17 05/05/17 05/05/17 09:40 10:15 10:30 White Blood Count 7.6 Red Blood Count 4.81 Hemoglobin 12.9 Hematocrit 38.7 Mean Corpuscular Volume 80.6 Mean Corpuscular Hemoglobin 26.9 Mean Corpuscular Hemoglobin 33.3 Concent Red Cell Distribution Width 17.0 Platelet Count 177 Mean Platelet Volume 10.5 Neutrophils (%) (Auto) 72.0 Lymphocytes (%) (Auto) 18.1 Monocytes (%) (Auto) 5.3 Eosinophils (%) (Auto) 3.7 Basophils (%) (Auto) 0.9 Neutrophils # (Auto) 5.4 Lymphocytes # (Auto) 1.4 Monocytes # (Auto) 0.4 Eosinophils # (Auto) 0.3 Basophils # (Auto) 0.1 CBC Comment DIFF FINAL Differential Comment Sodium Level 142 Potassium Level 2.9 Chloride Level 107 Carbon Dioxide Level 26.7 Anion Gap 8 Blood Urea Nitrogen 11 Creatinine 1.29 Estimat Glomerular Filtration 50 Rate Random Glucose 101 Lactic Acid Level 1.3 Calcium Level 9.4 Total Bilirubin 0.6 Aspartate Amino Transf 11 (AST/SGOT) Alanine Aminotransferase 9 (ALT/SGPT) Alkaline Phosphatase 83 Total Creatine Kinase 61 Troponin I 0.04 B-Type Natriuretic Peptide 984 Total Protein 8.3 Albumin 3.9 Urine Color LIGHT-YELLOW Urine Turbidity CLEAR Urine pH 7.5 Urine Specific [place] 1.005 Urine Protein 100 Urine Glucose (UA) NEG Urine Ketones NEG Urine Occult Blood NEG Urine Nitrite NEG Urine Bilirubin NEG Urine Urobilinogen LESS THAN 2.0 Urine Leukocyte Esterase NEG Urine RBC LESS THAN 1 Urine WBC 1 Urine Squamous Epithelial 1 Cells Urine Bacteria RARE Urine Mucus FEW Microscopic Urinalysis Comment CULT NOT INDICATED Blood Gas Puncture Site RT BRACHIAL Blood Gas Patient Temperature 98.6 Blood Gas HCO3 23 Blood Gas Base Excess 1.1 Blood Gas Oxygen Saturation 92 Arterial Blood pH 7.56 Arterial Blood Partial 26 Pressure CO2 Arterial Blood Partial 66 Pressure O2 Arterial Blood Oxygen Content 16.9 Arterial Blood 1.5 Carboxyhemoglobin Arterial Blood Methemoglobin 0.6 Blood Gas Hemoglobin 13.0 Blood Gas Inspired Oxygen 21 (Frieda Sam [facility]) Result Diagram: 05/05/1740 05/05/17939 Imaging Last Impressions Head CT 05/05/17930 Signed Impressions: Service Date/Time: Friday, May 05, 2017 10:00 - CONCLUSION: Negative for an acute process.. En Powell MD FACR Chest X-Ray 05/05/17930 Signed Impressions: Service Date/Time: Friday, May 05, 2017 09:56 - CONCLUSION: Moderate congestive failure. Early right basal infiltrate cannot be excluded. En Powell MD FACR (Frieda Sam) Assessment and Plan Problem List: (1) Altered mental status (2) Hypertensive emergency (3) CHF (congestive heart failure) (4) COPD (chronic obstructive pulmonary disease) (5) History of CVA (cerebrovascular accident) (6) Cardiomyopathy (7) History of CVA with residual deficit (8) AICD (automatic cardioverter/defibrillator) present (9) CKD (chronic kidney disease) stage 3, GFR 30-59 ml/min (10) Atrial fibrillation Assessment and Plan Admit to Dr. Holliday 66-year-old elderly black female with history of nonischemic cardiomyopathy, hypertension, recent CVA. Presented to the emergency room with increased confusion. Evaluated in emergency room and found with hypertensive urgency. -Continue with Cardene drip We will consult nephrology for assistance with blood pressure management We will increase Coreg to 12.5 mg by mouth twice a day We will add hydralazine 20 mg IV push every 4 when necessary for systolic rhythm 170 and diastolic greater than 90 We'll resume lisinopril and Lasix We will start Norvasc 10 mg by mouth daily Altered mental status, possibly secondary to malignant hypertension.CT of the head negative. History recent CVA with residual right-sided weakness. Continue with neuro checks Continue with aspirin -Hold Xarelto for today due to uncontrolled BP, will resume in the morning Acute CHF, history Nonischemic cardiomyopathy has AICD. Echocardiogram from January with EF of 35-40% Continue with Lasix 20 mg by mouth daily CKD stage III Stable renal function Continue to monitor BMP History of A. fib, currently sinus rhythm We will resume Xarelto in the morning Continue with Coreg Home medications reviewed, initiated as indicated PT for evaluation and treatment in the morning. SCDs for DVT prophylaxis Keep in ICU for now, condition guarded Plan of care discussed with the patient, attending and registered nurse. Further management of the patient will be dependent on the hospital course This patient was seen by myself and Dr. Holliday, this H&P is written on his behalf (Frieda Sam) Assessment and Plan pt is seen & Examined d/w PT d/w Frieda agree w above see Orders will f/u (Syed Holliday MD) Physician Certification 2 Midnight Certification Type: Admission for Inpatient Services Order for Inpatient Services The services are ordered in accordance with Medicare regulations or non- Medicare payer requirements, as applicable. In the case of services not specified as inpatient-only, they are appropriately provided as inpatient services in accordance with the 2-midnight benchmark. Estimated LOS (days): 2 2 days is the estimated time the patient will need to remain in the hospital, assuming treatment plan goals are met and no additional complications. Post-Hospital Plan: Not yet determined (Frieda Sam) Problem Qualifiers (1) Altered mental status: Qualified Code: R41.0 - Disorientation (2) CHF (congestive heart failure): Qualified Code: I50.23 - Acute on chronic systolic congestive heart failure (3) COPD (chronic obstructive pulmonary disease): Qualified Code: J44.9 - Chronic obstructive pulmonary disease, unspecified COPD type (4) Cardiomyopathy: Qualified Code: I42.9 - Cardiomyopathy, unspecified type (5) Atrial fibrillation: Qualified Code: I48.91 - Atrial fibrillation, unspecified type Frieda Sam May 05, 2017 15:49 Syed Holliday MD May 05, 2017 18:37
--- NOTE | 2017-05-05 19:50 | MB ---
cc: JACOBO MELENDREZ MD DATE OF CONSULTATION 05/05/2017 REASON FOR CONSULTATION Uncontrolled hypertension and elevated BUN and creatinine. HISTORY OF PRESENT ILLNESS This is a 66-year-old female with past medical history of hypertension, history of chronic kidney disease, cerebrovascular accident, congestive heart failure, chronic obstructive pulmonary disease, history of noncompliance came to the hospital because of generalized weakness and feeling tired. I was called to see the patient because of very high blood pressure and elevated BUN and creatinine The patient does have a history of chronic kidney disease. Her creatinine has been the range of 1.2-1.4 most of the time and now she came with a creatinine of 1.29. She also has low potassium of 2.9 and she came with very high blood pressure. The blood pressure on presentation was as high as 220/128. The patient has been started on nicardipine and her blood pressure seems to be improving. On asking the patient she told me that she ran out of her medications for two days and she was not taking it. She denies any headache, dizziness or blurring of vision but she is not fully oriented. She denies any chest pain. No shortness of breath. Occasionally she has palpitation. There is no history of weight loss. In the ER she was given also Lasix, hydralazine and Lopressor. PAST MEDICAL HISTORY 1. Hypertension. 2. Chronic kidney disease. 3. Chronic obstructive pulmonary disease. 4. Cerebrovascular accident. 5. History of atrial fibrillation. 6. Congestive heart failure. PAST SURGICAL HISTORY 1. AICD placement. 2. Tubal ligation. 3. Right ankle surgery. REVIEW OF SYSTEMS Denies any history of fever. No sore throat. No headache, dizziness or blurring of vision. She has mild shortness of breath on exertion. No chest pain. Occasionally has palpitations. No history of weight loss and no excessive sweating. No dysuria, hematuria. No history of nausea or vomiting or diarrhea. SOCIAL HISTORY The patient lives with her son. There is no history of smoking or alcoholism. FAMILY HISTORY Noncontributory. ALLERGIES SHE IS NOT ALLERGIC TO ANY MEDICATIONS. MEDICATIONS Currently she is on following medications: 1. Amlodipine 10 mg once a day. 2. Aspirin 81 mg daily. 3. Lasix 20 milligrams daily. 4. Lisinopril 10 mg once a day. 5. KCL 10 mEq daily. 6. Pravachol 80 mg q.h.s. 7. Symbicort 2 puffs q.12h. 8. Carvedilol 12.5 mg q.12 h. 9. Nicardipine infusion with titration. 10. Hydralazine 20 mg p.r.n. 11. ProAir inhalation p.r.n. PHYSICAL EXAMINATION GENERAL: On examination the patient is awake and alert. She is oriented times two. Not in acute distress. VITAL SIGNS: Her last blood pressure now is 144/90 but when she came in here it was 220/128. Temperature is 99.2, oxygen saturation 92-93%. HEENT: Pupils equally reactive to light. Nonicteric sclera. Conjunctivae normal. NECK: Supple. JVD is not elevated. LUNGS: The patient has bilateral good air entry with occasional wheezing. HEART: S1-S2. Regular rhythm. ABDOMEN: Distended, soft, lax. There is no tenderness. Bowel sounds positive. EXTREMITIES: There is mild edema. LABORATORY DATA Investigation, WBC count 7.6, hemoglobin 12.9, platelet count of 177. Sodium is 142. Potassium is 2.9, chloride 107, bicarb 26.7. BUN is 11, creatinine 1.29. AST is 11, ALT is 9. Creatine kinase 61. Total protein 8.3. Albumin 3.9. BNP is 984. Urinalysis showing protein of 100. Toxicology screen was not done. IMAGING STUDIES The patient had a chest x-ray done which shows increased vascular marking, possible early right basilar infiltrate cannot be excluded. CT scan of the brain was done without IV contrast and it was negative for any acute process. ASSESSMENT/PLAN 1. Uncontrolled hypertension. 2. Chronic kidney disease. 3. History of congestive heart failure. 4. History of cerebrovascular accident. 5. Chronic obstructive pulmonary disease. 6. Atrial fibrillation. 7. Noncompliance. The patient has uncontrolled hypertension. Need to workup for secondary hypertension. I will send the renin, aldosterone level and once the blood pressure is stable to get MRA of the kidneys for evaluation of renal arteries. 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 I will also get ultrasound of the kidneys. Right now to stabilize the blood pressure which seems to be improving, we will continue the oral medication and taper off the nicardipine as tolerated. Thank you for the consultation. I will follow the patient while she is in the hospital. MD VAUGHN Torrez/THERESE /5:55 PM /7:23 PM
[2017-05-05] MEDS: BUDESONIDE-FORMOTEROL 80/4.5 MCG INHALER INH SCH (20:27)
[2017-05-05] MEDS: PRAVASTATIN SOD 80 MG TAB PO SCH (20:27)
[2017-05-05] MEDS: CARVEDILOL 6.25 MG TAB PO SCH (20:27)
[2017-05-06] VITALS (15 sets, daily range): BP systolic 128–168; BP diastolic 79–104; PULSE 63–88; RESP 15–20; TEMP 97.7–98.6; O2SAT 93–98
--- NOTE | 2017-05-06 00:23 | RADRPT ---
EXAM DATE/TIME: 05/05/2017 23:45 [facility] COMPARISON: No previous studies available for comparison. INDICATIONS : Increased BUN/ Creatinine. MEDICAL HISTORY : Myocardial infarction. Hypertension. . Cerebrovascular accident. Chronic renal disease. COPD . Afib. Congestive heart failure. Coronary artery disease. Anticoagulant therapy. Asthma. Arthritis. Measles. SURGICAL HISTORY : Tubal ligation. Pacemaker. Right ankle surgery. ENCOUNTER: Initial ACUITY: 1 day PAIN SCORE: 4/10 LOCATION: Bilateral flank MEASUREMENTS: RIGHT KIDNEY: 11.1 x 5.7 x 4.7 cm LEFT KIDNEY: 8.8 x 3.4 x 3.9 cm FINDINGS: There is no hydronephrosis. No definite solid mass is identified. No definite stone is identified f or technique. The bladder is grossly intact for technique and not being completely distended during t he exam. There is a tiny 5 mm cyst in the right kidney. The gallbladder demonstrates multiple stones without gallbladder wall thickening, or pericholecystic fluid. CONCLUSION: The kidneys are asymmetrical size and left side appears smaller. Cholelithiasis. KAlanis Hobson MD on May 06, 2017 at 0:20 Board Certified Radiologist. This report was verified electronically.
[2017-05-06 04:26] LABS: HEMATOCRIT 36.4 % (35.0-46.0); MEAN CELL VOLUME 79.8 FL (80.0-100.0); MEAN CORPUSCULAR HEMOGLOBIN 26.6 PG (27.0-34.0); MEAN CORPUSCULAR HGB CONC 33.3 % (32.0-36.0); PLATELET COUNT 178 TH/MM3 (150-450); RED BLOOD COUNT 4.56 MIL/MM3 (4.00-5.30); RED CELL DISTRIBUTION WIDTH 17.4 % (11.6-17.2); REVIEW FLAG FINAL; WHITE BLOOD COUNT 5.6 TH/MM3 (4.0-11.0)
[2017-05-06 05:01] LABS: BICARBONATE 26.3 MEQ/L (21.0-32.0); POTASSIUM 3.1 MEQ/L (3.5-5.1)
[2017-05-06] MEDS ORDERED: POTASSIUM CHLORIDE 25 MEQ EFFERVESCENT TAB PO ONE (07:30)
[2017-05-06] MEDS ORDERED: POTASSIUM CHLORIDE 20 MEQ CONTROLLED RELEASE TAB PO ONE ×2 (08:30→16:45)
[2017-05-06] MEDS: CARVEDILOL 6.25 MG TAB PO SCH ×2 (08:54→20:37)
[2017-05-06] MEDS: BUDESONIDE-FORMOTEROL 80/4.5 MCG INHALER INH SCH ×2 (08:54→20:37)
[2017-05-06] MEDS: LISINOPRIL 10 MG TAB PO SCH (08:54)
[2017-05-06] MEDS: FUROSEMIDE 20 MG TAB PO SCH (08:54)
[2017-05-06] MEDS: POTASSIUM CHLORIDE 10 MEQ CONTROLLED RELEASE TAB PO SCH (08:54)
[2017-05-06] MEDS: ASPIRIN EC 81 MG TABEC PO SCH (08:54)
--- NOTE | 2017-05-06 11:30 | EKG ---
Date Performed: 05/05/2017 Time Performed: 09:34:18 PTAGE: 66 years EKG: SINUS TACHYCARDIA POSSIBLE LEFT ATRIAL ENLARGEMENT LEFT VENTRICULAR HYPERTROPHY AND ST-T CH JOEL Since previous tracing, no significant change noted ABNORMAL ECG PREVIOUS TRACING : 01/27/2017 12.25 DOCTOR: Rodriguez Smith Interpretating Date/Time 05/06/2017 11:28:53
--- NOTE | 2017-05-06 13:15 | HHI.PR ---
Subjective Remarks more awake, oriented to self and place poor historian states she felt poorly yesterday unable to specify no cp no sob eating okay tx out of ICU off Cardene gtt BP down to 120s, Objective Objective Results - Vital Signs Date Time Temp Pulse Resp B/P Pulse Ox O2 Delivery O2 Flow Rate FiO2 05/06/17 13:00 63 05/06/17 11:30 67 05/06/17 11:30 97.9 75 18 128/79 98 05/06/17 07:34 94 21 05/06/17 07:00 75 05/06/17 07:00 98.3 75 20 149/88 94 05/06/17 03:14 98.6 86 15 128/86 93 05/06/17 03:14 76 05/05/17 23:10 72 05/05/17 23:10 98.6 78 15 133/80 93 05/05/17 20:46 98 Nasal Cannula 2.00 05/05/17 19:24 98.8 85 17 150/84 92 05/05/17 19:00 76 05/05/17 15:00 95 05/05/17 15:00 99.2 93 16 144/90 96 05/05/17 14:50 92 Nasal Cannula 2.00 05/05/17 14:16 91 18 202/104 97 Room Air I/O 05/05/17 05/05/17 05/05/17 05/06/17 05/06/17 05/06/17 07:00 15:00 23:00 07:00 15:00 23:00 Intake Total 370 ml 1000 ml Balance 370 ml 1000 ml Intake Oral 120 ml 480 ml IV Total 250 ml 520 ml # Voids 3 1 # Bowel Movements 0 Result Diagram: 05/06/17 0418 05/06/17 0418 Imaging Last Impressions Head CT 05/05/17930 Signed Impressions: Service Date/Time: Friday, May 05, 2017 10:00 - CONCLUSION: Negative for an acute process.. En Powell MD FACR Chest X-Ray 05/05/17930 Signed Impressions: Service Date/Time: Friday, May 05, 2017 09:56 - CONCLUSION: Moderate congestive failure. Early right basal infiltrate cannot be excluded. En Powell MD FACR Other Results Laboratory Tests Test 05/06/17 04:18 White Blood Count 5.6 Red Blood Count 4.56 Hemoglobin 12.1 Hematocrit 36.4 Mean Corpuscular Volume 79.8 Mean Corpuscular Hemoglobin 26.6 Mean Corpuscular Hemoglobin 33.3 Concent Red Cell Distribution Width 17.4 Platelet Count 178 Mean Platelet Volume 9.8 Sodium Level 143 Potassium Level 3.1 Chloride Level 108 Carbon Dioxide Level 26.3 Anion Gap 9 Blood Urea Nitrogen 13 Creatinine 1.27 Estimat Glomerular Filtration 51 Rate Random Glucose 92 Calcium Level 9.3 Phosphorus Level 3.1 ROS General: Weakness, Other (12 point ROS difficult to complete) Physical Exam Physical Exam GENERAL: This is a well-nourished, well-developed patient, in no apparent distress. SKIN: No rashes, ecchymoses or lesions. Cool and dry. HEAD: Atraumatic. Normocephalic. No temporal or scalp tenderness. EYES: Pupils equal round and reactive. Extraocular motions intact. No scleral icterus. No injection or drainage. ENT: Nose without bleeding, purulent drainage or septal hematoma. Throat without erythema, tonsillar hypertrophy or exudate. Uvula midline. Airway patent. NECK: Trachea midline. No JVD or lymphadenopathy. Supple, nontender, no meningeal signs. CARDIOVASCULAR: Regular rate and rhythm without murmurs, gallops, or rubs. RESPIRATORY: Poor inspiratory effort, diminished at bases. GASTROINTESTINAL: Abdomen soft, non-tender, nondistended. No hepato-splenomegaly , or palpable masses. No guarding. MUSCULOSKELETAL: Extremities without clubbing, cyanosis. Bilateral lower extremities with trace pretibial edema, pedal pulses 2+ bilaterally. No joint tenderness, effusion, or edema noted. No calf tenderness. Negative Homans sign bilaterally. NEUROLOGICAL: Awake, alert, oriented to self and place. Slow to respond, having difficulty with word finding. Follows simple commands. Right upper and right lower extremity weakness, improved from yesterday Urinary Catheter: No Vascular Central Line Catheter: No A/P Diagnosis: (1) Altered mental status (2) Hypertensive emergency (3) CHF (congestive heart failure) (4) COPD (chronic obstructive pulmonary disease) (5) History of CVA (cerebrovascular accident) (6) Cardiomyopathy (7) History of CVA with residual deficit (8) AICD (automatic cardioverter/defibrillator) present (9) CKD (chronic kidney disease) stage 3, GFR 30-59 ml/min (10) Atrial fibrillation Assessment and Plan 66-year-old elderly black female with history of nonischemic cardiomyopathy, hypertension, recent CVA. Presented to the emergency room with increased confusion. Evaluated in emergency room and found with hypertensive urgency. -off Cardene gtt, BP improved, down to 120's appreciate nephro input, work up in progress. Aldosterone and renin level pending, MRA kidney to be ordered per nephro. continue Coreg to 12.5 mg by mouth twice a day Continue hydralazine 20 mg IV push every 4 when necessary for systolic rhythm 170 and diastolic greater than 90 Continue lisinopril and Lasix and Norvasc 10 mg by mouth daily Altered mental status, possibly secondary to malignant hypertension.CT of the head negative. History recent CVA with residual right-sided weakness. More alert, oriented to self and place. Slow to respond Continue with neuro checks Continue with aspirin -resume Xarelto, BP stable now -PT eval, they recommend rehab Acute CHF, history Nonischemic cardiomyopathy has AICD. Echocardiogram from January with EF of 35-40% Continue with Lasix 20 mg by mouth daily CKD stage III Stable renal function Continue to monitor BMP History of A. fib, currently sinus rhythm continue Xarelto Continue with Coreg PT for evaluation and treatment in the morning. SCDs for DVT prophylaxis tx to [facility], BP stable. Off Cardene drip CM consult for SNF placement, poss dc tomorrow if BP continues to improve D/W RN D/W Dr. Holliday D/W pt This patient was seen by myself and Dr. Holliday, this note is written on his behalf Problem Qualifiers (1) Altered mental status: Qualified Code: R41.0 - Disorientation (2) CHF (congestive heart failure): Qualified Code: I50.23 - Acute on chronic systolic congestive heart failure (3) COPD (chronic obstructive pulmonary disease): Qualified Code: J44.9 - Chronic obstructive pulmonary disease, unspecified COPD type (4) Cardiomyopathy: Qualified Code: I42.9 - Cardiomyopathy, unspecified type (5) Atrial fibrillation: Qualified Code: I48.91 - Atrial fibrillation, unspecified type Frieda Sam May 06, 2017 13:15
[2017-05-06] MEDS: RIVAROXABAN 15 MG TAB PO SCH (14:34)
--- NOTE | 2017-05-06 15:43 | HHI.NPPN ---
Subjective History of Present Illness 66-year-old female with past medical history of hypertension, history of chronic kidney disease, cerebrovascular accident, congestive heart failure, chronic obstructive pulmonary disease, history of noncompliance came to the hospital because of generalized weakness and feeling tired. I was called to see the patient because of very high blood pressure and elevated BUN and creatinine The patient does have a history of chronic kidney disease. Her creatinine has been the range of 1.2-1.4 most of the time and now she came with a creatinine of 1.29. She also has low potassium of 2.9. Additional Remarks Patient is alert, still not fully oriented, oriented times 2, no SOB, not in distress. Review of Systems General Constitutional: Fatigue Respiratory Lungs: SOB Cardiovascular Cardiac: TRACEY Objective Data Data 05/05/17 05/06/17 18:59 06:59 Intake Total 370 ml 1000 ml Balance 370 ml 1000 ml Intake Oral 120 ml 480 ml IV Total 250 ml 520 ml # Voids 3 1 # Bowel Movements 0 Vital Signs Date Time Temp Pulse Resp B/P Pulse Ox O2 Delivery O2 Flow Rate FiO2 05/06/17 15:24 75 05/06/17 15:24 97.7 77 16 140/84 98 05/06/17 14:22 77 05/06/17 13:00 63 05/06/17 11:30 67 05/06/17 11:30 97.9 75 18 128/79 98 05/06/17 07:34 94 21 05/06/17 07:00 75 05/06/17 07:00 98.3 75 20 149/88 94 05/06/17 03:14 98.6 86 15 128/86 93 05/06/17 03:14 76 05/05/17 23:10 72 05/05/17 23:10 98.6 78 15 133/80 93 05/05/17 20:46 98 Nasal Cannula 2.00 05/05/17 19:24 98.8 85 17 150/84 92 05/05/17 19:00 76 -: 05/06/17 0418 05/06/17417 Physical Exam General Appearance: No Acute Distress, Comfortable Eyes Eye Exam: Pupils Equal Throat Throat Exam: Oral Mucosa [place] & Moist Neck Neck Exam: Neck Supple Pulmonary Resp Exam: Breath Sounds Equal, No Distress, Decreased Bases Cardiology CV Exam: Regular, Normal Sinus Rhythm Gastrointestinal/Abdomen GI Exam: Soft, Non-Tender, Bowel Sounds Present Extremeties Extremities Exam: Trace Edema Neurologic Neuro Exam: Alert, Awake Psychiatric Psych Exam: Appropriate Responses Assessment/Plan Assessment Summary: Hypertension, CKD Stage III Electrolyte Assessment: Hypokalemia Problem List: (1) Hypertensive urgency (2) Hypokalemia (3) Hypoxemia (4) CHF (congestive heart failure) (5) COPD (chronic obstructive pulmonary disease) (6) History of CVA (cerebrovascular accident) (7) CKD (chronic kidney disease) stage 3, GFR 30-59 ml/min Plan Patient has improvement in the BP, now off Nicardipine. BP is better. Renin/Edin done and PND. Renal U/S showing left kidney small. Cannot have MRA due to AICD. Will consider angiogram once Creatinine is better. Problem Qualifiers (1) CHF (congestive heart failure): Qualified Code: I50.23 - Acute on chronic systolic congestive heart failure (2) COPD (chronic obstructive pulmonary disease): Qualified Code: J44.9 - Chronic obstructive pulmonary disease, unspecified COPD type Michael Katz MD May 06, 2017 15:43
[2017-05-06] MEDS ORDERED: POTASSIUM CHLORIDE 8 MEQ CONTROLLED RELEASE TAB PO ONE (16:00)
[2017-05-06] MEDS: PRAVASTATIN SOD 80 MG TAB PO SCH (20:36)
[2017-05-07] VITALS (29 sets, daily range): BP systolic 154–190; BP diastolic 84–111; PULSE 61–97; RESP 16–22; TEMP 98.4–99.1; O2SAT 95–100
[2017-05-07] MEDS: hydrALAZINE HCL 20 MG/ML VIAL IV PUSH PRN ×4 (00:26→23:05)
[2017-05-07 04:57] LABS: POTASSIUM 3.7 MEQ/L (3.5-5.1)
[2017-05-07] MEDS: LISINOPRIL 10 MG TAB PO SCH (09:05)
[2017-05-07] MEDS: FUROSEMIDE 20 MG TAB PO SCH (09:05)
[2017-05-07] MEDS: BUDESONIDE-FORMOTEROL 80/4.5 MCG INHALER INH SCH ×2 (09:05→22:59)
[2017-05-07] MEDS: ASPIRIN EC 81 MG TABEC PO SCH (09:05)
[2017-05-07] MEDS: RIVAROXABAN 15 MG TAB PO SCH (09:05)
[2017-05-07] MEDS: CARVEDILOL 6.25 MG TAB PO SCH ×2 (09:05→20:52)
[2017-05-07] MEDS: POTASSIUM CHLORIDE 10 MEQ CONTROLLED RELEASE TAB PO SCH (09:05)
--- NOTE | 2017-05-07 13:20 | HHI.PR ---
Subjective Remarks awake, oriented to self and place poor historian slow to respond has no complaints BP has been up consistently overnight, 170s no cp no sob Objective Objective Results - Vital Signs Date Time Temp Pulse Resp B/P Pulse Ox O2 Delivery O2 Flow Rate FiO2 05/07/17 08:00 99.1 96 22 175/95 95 05/07/17 06:32 165/84 05/07/17 06:00 170/100 05/07/17 06:00 84 05/07/17 05:00 82 05/07/17 04:00 98.8 97 20 183/106 97 05/07/17 04:00 75 05/07/17 03:00 80 05/07/17 02:00 78 05/07/17 01:10 170/94 05/07/17 01:00 78 05/07/17 00:00 98.4 78 16 170/110 100 05/07/17 00:00 73 05/06/17 23:00 70 05/06/17 22:00 88 05/06/17 21:00 74 05/06/17 20:00 65 05/06/17 20:00 97.7 79 16 168/104 97 05/06/17 19:00 76 05/06/17 18:37 63 05/06/17 17:33 66 05/06/17 16:02 70 05/06/17 15:24 75 05/06/17 15:24 97.7 77 16 140/84 98 05/06/17 14:22 77 I/O 05/06/17 05/06/17 05/06/17 05/07/17 05/07/17 05/07/17 07:00 15:00 23:00 07:00 15:00 23:00 Intake Total 1000 ml 240 ml 480 ml Output Total 300 ml 500 ml Balance 1000 ml -60 ml -20 ml Intake Oral 480 ml 240 ml 480 ml IV Total 520 ml Output Urine Total 300 ml 500 ml # Voids 1 # Bowel Movements 0 1 Result Diagram: 05/06/17 0418 05/07/17 0425 Imaging Last Impressions Head CT 05/05/17930 Signed Impressions: Service Date/Time: Friday, May 05, 2017 10:00 - CONCLUSION: Negative for an acute process.. En Powell MD FACR Chest X-Ray 05/05/17930 Signed Impressions: Service Date/Time: Friday, May 05, 2017 09:56 - CONCLUSION: Moderate congestive failure. Early right basal infiltrate cannot be excluded. En Powell MD FACR Other Results Laboratory Tests Test 05/07/17 04:25 Sodium Level 141 Potassium Level 3.7 Chloride Level 109 Carbon Dioxide Level 22.0 Anion Gap 10 Blood Urea Nitrogen 13 Creatinine 1.07 Estimat Glomerular Filtration 62 Rate Random Glucose 102 Calcium Level 8.9 ROS General: Other (poor historian, difficult to obtain ROS) Physical Exam Physical Exam GENERAL: This is a well-nourished, well-developed patient, in no apparent distress. SKIN: No rashes, ecchymoses or lesions. Cool and dry. HEAD: Atraumatic. Normocephalic. No temporal or scalp tenderness. EYES: Pupils equal round and reactive. Extraocular motions intact. No scleral icterus. No injection or drainage. ENT: Nose without bleeding, purulent drainage or septal hematoma. Throat without erythema, tonsillar hypertrophy or exudate. Uvula midline. Airway patent. NECK: Trachea midline. No JVD or lymphadenopathy. Supple, nontender, no meningeal signs. CARDIOVASCULAR: Regular rate and rhythm without murmurs, gallops, or rubs. RESPIRATORY: Poor inspiratory effort, diminished at bases. GASTROINTESTINAL: Abdomen soft, non-tender, nondistended. No hepato-splenomegaly , or palpable masses. No guarding. MUSCULOSKELETAL: Extremities without clubbing, cyanosis. Bilateral lower extremities with trace pretibial edema, pedal pulses 2+ bilaterally. No joint tenderness, effusion, or edema noted. No calf tenderness. Negative Homans sign bilaterally. NEUROLOGICAL: Awake, alert, oriented to self and place. Slow to respond, having difficulty with word finding. Follows simple commands. Right upper and right lower extremity weakness, improved from yesterday Urinary Catheter: No Vascular Central Line Catheter: No A/P Diagnosis: (1) Altered mental status (2) Hypertensive emergency (3) CHF (congestive heart failure) (4) COPD (chronic obstructive pulmonary disease) (5) History of CVA (cerebrovascular accident) (6) Cardiomyopathy (7) History of CVA with residual deficit (8) AICD (automatic cardioverter/defibrillator) present (9) CKD (chronic kidney disease) stage 3, GFR 30-59 ml/min (10) Atrial fibrillation Assessment and Plan 66-year-old elderly black female with history of nonischemic cardiomyopathy, hypertension, recent CVA. Presented to the emergency room with increased confusion. Evaluated in emergency room and found with hypertensive urgency. -off Cardene gtt, BP improved, down to 120's appreciate nephro input, work up in progress. Aldosterone and renin level pending, can't have MRA kidneys due to AICD continue Coreg to 12.5 mg by mouth twice a day Continue hydralazine 20 mg IV push every 4 when necessary for systolic rhythm 170 and diastolic greater than 90 Continue lisinopril and Lasix -BP up, dc Norvasc, start Procardia XL 60 mg po daily -d/w pt's grandson, pt. was without meds for approx 2 weeks Altered mental status, possibly secondary to malignant hypertension.CT of the head negative. History recent CVA with residual right-sided weakness. More alert, oriented to self and place. Slow to respond Continue with neuro checks Continue with aspirin -continue Xarelto -PT eval, they recommend rehab Acute CHF, history Nonischemic cardiomyopathy has AICD. Echocardiogram from January with EF of 35-40% Continue with Lasix 20 mg by mouth daily CKD stage III Stable renal function Continue to monitor BMP History of A. fib, currently sinus rhythm continue Xarelto Continue with Coreg PT for evaluation and treatment in the morning. SCDs/Xarelto for DVT prophylaxis DC planning, SNF placement D/W RN D/W Dr. Holliday D/W pt D/W pt's grandson , he stays with her. Apparently pt. had been out of meds for 2 weeks or more. He's agreeable with SNF placement. This patient was seen by myself and Dr. Holliday, this note is written on his behalf Problem Qualifiers (1) Altered mental status: Qualified Code: R41.0 - Disorientation (2) CHF (congestive heart failure): Qualified Code: I50.23 - Acute on chronic systolic congestive heart failure (3) COPD (chronic obstructive pulmonary disease): Qualified Code: J44.9 - Chronic obstructive pulmonary disease, unspecified COPD type (4) Cardiomyopathy: Qualified Code: I42.9 - Cardiomyopathy, unspecified type (5) Atrial fibrillation: Qualified Code: I48.91 - Atrial fibrillation, unspecified type Frieda Sam May 07, 2017 13:20
[2017-05-07] MEDS: DEXT 5%-NACL 0.45% 1000 ML INJ 1,000 ML IV SCH ×2 (15:40→22:59)
--- NOTE | 2017-05-07 16:33 | HHI.NPPN ---
Subjective History of Present Illness 66-year-old female with past medical history of hypertension, history of chronic kidney disease, cerebrovascular accident, congestive heart failure, chronic obstructive pulmonary disease, history of noncompliance came to the hospital because of generalized weakness and feeling tired. I was called to see the patient because of very high blood pressure and elevated BUN and creatinine The patient does have a history of chronic kidney disease. Her creatinine has been the range of 1.2-1.4 most of the time and now she came with a creatinine of 1.29. She also has low potassium of 2.9. Additional Remarks Patient is alert, not in distress, feeling better. Review of Systems General Constitutional: Fatigue Respiratory Lungs: SOB Cardiovascular Cardiac: TRACEY Objective Data Data 05/06/17 05/07/17 19:00 07:00 Intake Total 240 ml 480 ml Output Total 300 ml 500 ml Balance -60 ml -20 ml Intake Oral 240 ml 480 ml Output Urine Total 300 ml 500 ml # Bowel Movements 1 Vital Signs Date Time Temp Pulse Resp B/P Pulse Ox O2 Delivery O2 Flow Rate FiO2 05/07/17 13:00 69 05/07/17 12:00 72 05/07/17 12:00 98.8 96 22 156/97 96 05/07/17 11:00 78 05/07/17 10:00 76 05/07/17 09:00 86 05/07/17 08:00 82 05/07/17 08:00 99.1 96 22 175/95 95 05/07/17 07:00 78 05/07/17 06:32 165/84 05/07/17 06:00 170/100 05/07/17 06:00 84 05/07/17 05:00 82 05/07/17 04:00 98.8 97 20 183/106 97 05/07/17 04:00 75 05/07/17 03:00 80 05/07/17 02:00 78 05/07/17 01:10 170/94 05/07/17 01:00 78 05/07/17 00:00 98.4 78 16 170/110 100 05/07/17 00:00 73 05/06/17 23:00 70 05/06/17 22:00 88 05/06/17 21:00 74 05/06/17 20:00 65 05/06/17 20:00 97.7 79 16 168/104 97 05/06/17 19:00 76 05/06/17 18:37 63 05/06/17 17:33 66 -: 05/06/17 0418 05/07/17 0425 Physical Exam General Appearance: No Acute Distress, Comfortable Eyes Eye Exam: Pupils Equal Throat Throat Exam: Oral Mucosa [place] & Moist Neck Neck Exam: Neck Supple Pulmonary Resp Exam: Breath Sounds Equal, No Distress, Decreased Bases Cardiology CV Exam: Regular, Normal Sinus Rhythm Gastrointestinal/Abdomen GI Exam: Soft, Non-Tender, Bowel Sounds Present Extremeties Extremities Exam: Trace Edema Neurologic Neuro Exam: Alert, Awake Psychiatric Psych Exam: Appropriate Responses Assessment/Plan Assessment Summary: Hypertension, CKD Stage III Electrolyte Assessment: Hypokalemia Problem List: (1) Hypertensive urgency (2) Hypokalemia (3) Hypoxemia (4) CHF (congestive heart failure) (5) COPD (chronic obstructive pulmonary disease) (6) History of CVA (cerebrovascular accident) (7) CKD (chronic kidney disease) stage 3, GFR 30-59 ml/min Plan Patient has improvement in the BP, now off Nicardipine. BP is better. Renin/Edin done and PND. Renal U/S showing left kidney small. Cannot have MRA due to AICD. CTA now as Creatinine improved. Follow the BP and Creatinine level. Problem Qualifiers (1) CHF (congestive heart failure): Qualified Code: I50.23 - Acute on chronic systolic congestive heart failure (2) COPD (chronic obstructive pulmonary disease): Qualified Code: J44.9 - Chronic obstructive pulmonary disease, unspecified COPD type Michael Katz MD May 07, 2017 16:33
[2017-05-07] MEDS: PRAVASTATIN SOD 80 MG TAB PO SCH (20:52)
[2017-05-08] VITALS (20 sets, daily range): BP systolic 116–173; BP diastolic 68–102; PULSE 60–85; RESP 18–22; TEMP 97.4–98.7; O2SAT 96–99
[2017-05-08 07:20] LABS: BICARBONATE 21.9 MEQ/L (21.0-32.0); POTASSIUM 3.3 MEQ/L (3.5-5.1)
[2017-05-08] MEDS ORDERED: POTASSIUM CHLORIDE 25 MEQ EFFERVESCENT TAB PO ONE (07:45)
[2017-05-08] MEDS: BUDESONIDE-FORMOTEROL 80/4.5 MCG INHALER INH SCH ×2 (09:00→21:03)
[2017-05-08] MEDS: LISINOPRIL 10 MG TAB PO SCH (10:09)
[2017-05-08] MEDS: FUROSEMIDE 20 MG TAB PO SCH (10:09)
[2017-05-08] MEDS: ASPIRIN EC 81 MG TABEC PO SCH (10:09)
[2017-05-08] MEDS: POTASSIUM CHLORIDE 10 MEQ CONTROLLED RELEASE TAB PO SCH (10:10)
[2017-05-08] MEDS: RIVAROXABAN 15 MG TAB PO SCH (10:10)
[2017-05-08] MEDS: NIFEdipine 60 MG SUSTAINED RELEASE TAB PO SCH (10:10)
[2017-05-08] MEDS: CARVEDILOL 6.25 MG TAB PO SCH ×2 (10:10→21:01)
[2017-05-08] MEDS: hydrALAZINE HCL 20 MG/ML VIAL IV PUSH PRN (11:49)
--- NOTE | 2017-05-08 13:01 | HHI.PR ---
Subjective Remarks awake, oriented to self and place poor historian slow to respond has no complaints BP up, received Apresoline no cp no sob Objective Objective Results - Vital Signs Date Time Temp Pulse Resp B/P Pulse Ox O2 Delivery O2 Flow Rate FiO2 05/08/17 12:00 71 05/08/17 12:00 147/93 05/08/17 11:00 97.5 77 22 173/102 98 05/08/17 11:00 76 05/08/17 10:00 78 05/08/17 09:00 82 05/08/17 08:00 74 05/08/17 08:00 97.4 76 22 150/94 99 05/08/17 07:00 69 05/08/17 06:00 62 05/08/17 05:00 66 05/08/17 04:00 75 05/08/17 04:00 98.7 75 18 132/84 97 05/08/17 03:00 68 05/08/17 02:00 80 05/08/17 01:00 60 05/08/17 00:00 98.4 80 20 116/68 96 05/08/17 00:00 60 05/07/17 23:30 166/96 05/07/17 23:00 64 05/07/17 22:30 154/93 05/07/17 22:00 74 05/07/17 21:00 84 05/07/17 20:30 98.6 72 18 190/111 100 05/07/17 20:00 90 05/07/17 19:00 61 05/07/17 18:00 81 05/07/17 17:00 62 05/07/17 16:00 70 05/07/17 15:00 82 05/07/17 15:00 98.5 64 22 161/88 95 05/07/17 14:00 74 I/O 05/07/17 05/07/17 05/07/17 05/08/17 05/08/17 05/08/17 07:00 15:00 23:00 07:00 15:00 23:00 Intake Total 480 ml 685 ml 1129 ml Output Total 500 ml 650 ml 360 ml Balance -20 ml 35 ml 769 ml Intake Oral 480 ml 480 ml 240 ml IV Total 205 ml 889 ml Output Urine Total 500 ml 650 ml 360 ml # Bowel Movements 0 0 Result Diagram: 05/06/17 0418 05/08/17 0455 Imaging Last Impressions Head CT 05/05/17930 Signed Impressions: Service Date/Time: Friday, May 05, 2017 10:00 - CONCLUSION: Negative for an acute process.. En Powell MD FACR Chest X-Ray 05/05/17930 Signed Impressions: Service Date/Time: Friday, May 05, 2017 09:56 - CONCLUSION: Moderate congestive failure. Early right basal infiltrate cannot be excluded. En Powell MD FACR Other Results Laboratory Tests Test 05/08/17 04:55 Sodium Level 137 Potassium Level 3.3 Chloride Level 104 Carbon Dioxide Level 21.9 Anion Gap 11 Blood Urea Nitrogen 10 Creatinine 1.10 Estimat Glomerular Filtration 61 Rate Random Glucose 105 Calcium Level 9.4 ROS General: Other (12 point ROS difficult obtain ) Physical Exam Physical Exam GENERAL: This is a well-nourished, well-developed patient, in no apparent distress. SKIN: No rashes, ecchymoses or lesions. Cool and dry. HEAD: Atraumatic. Normocephalic. No temporal or scalp tenderness. EYES: Pupils equal round and reactive. Extraocular motions intact. No scleral icterus. No injection or drainage. ENT: Nose without bleeding, purulent drainage or septal hematoma. Throat without erythema, tonsillar hypertrophy or exudate. Uvula midline. Airway patent. NECK: Trachea midline. No JVD or lymphadenopathy. Supple, nontender, no meningeal signs. CARDIOVASCULAR: Regular rate and rhythm without murmurs, gallops, or rubs. RESPIRATORY: Poor inspiratory effort, diminished at bases. GASTROINTESTINAL: Abdomen soft, non-tender, nondistended. No hepato-splenomegaly , or palpable masses. No guarding. MUSCULOSKELETAL: Extremities without clubbing, cyanosis. Bilateral lower extremities with trace pretibial edema, pedal pulses 2+ bilaterally. No joint tenderness, effusion, or edema noted. No calf tenderness. Negative Homans sign bilaterally. NEUROLOGICAL: Awake, alert, oriented to self and place. Slow to respond, having difficulty with word finding. Follows simple commands. Right upper and right lower extremity weakness, improved from yesterday Urinary Catheter: No Vascular Central Line Catheter: No A/P Diagnosis: (1) Altered mental status (2) Hypertensive emergency (3) CHF (congestive heart failure) (4) COPD (chronic obstructive pulmonary disease) (5) History of CVA (cerebrovascular accident) (6) Cardiomyopathy (7) History of CVA with residual deficit (8) AICD (automatic cardioverter/defibrillator) present (9) CKD (chronic kidney disease) stage 3, GFR 30-59 ml/min (10) Atrial fibrillation Assessment and Plan 66-year-old elderly black female with history of nonischemic cardiomyopathy, hypertension, recent CVA. Presented to the emergency room with increased confusion. Evaluated in emergency room and found with hypertensive urgency. Pt was without meds for 2 weeks according to family. -off Cardene gtt, BP improved, down to 120's appreciate nephro input, work up in progress. Aldosterone (p), renin 15. Can't have MRA kidneys due to AICD Continue hydralazine 20 mg IV push every 4 when necessary for systolic rhythm 170 and diastolic greater than 90 Continue lisinopril,Lasix, Procardia XL 60 mg po daily, Coreg -Renal US shows left kideny small. For CTA abd and pelvis today to evaluate renal arteries-f/u results Altered mental status, possibly secondary to malignant hypertension.CT of the head negative. History recent CVA with residual right-sided weakness. More alert, oriented to self and place. Slow to respond Continue with neuro checks Continue with aspirin -continue Xarelto -PT eval, they recommend rehab Acute CHF, history Nonischemic cardiomyopathy has AICD. Echocardiogram from January with EF of 35-40% Continue with Lasix 20 mg by mouth daily CKD stage III Stable renal function Continue to monitor BMP History of A. fib, currently sinus rhythm continue Xarelto Continue with Coreg PT for evaluation and treatment in the morning. SCDs/Xarelto for DVT prophylaxis DC planning, SNF placement Replace K f/u CTA abd results D/W RN D/W Dr. Holliday D/W pt D/W pt's grandson , he stays with her. Apparently pt. had been out of meds for 2 weeks or more. He's agreeable with SNF placement. This patient was seen by myself and Dr. Holliday, this note is written on his behalf Problem Qualifiers (1) Altered mental status: Qualified Code: R41.0 - Disorientation (2) CHF (congestive heart failure): Qualified Code: I50.23 - Acute on chronic systolic congestive heart failure (3) COPD (chronic obstructive pulmonary disease): Qualified Code: J44.9 - Chronic obstructive pulmonary disease, unspecified COPD type (4) Cardiomyopathy: Qualified Code: I42.9 - Cardiomyopathy, unspecified type (5) Atrial fibrillation: Qualified Code: I48.91 - Atrial fibrillation, unspecified type Frieda Sam May 08, 2017 13:01
[2017-05-08] MEDS: DEXT 5%-NACL 0.45% 1000 ML INJ 1,000 ML IV SCH (15:05)
[2017-05-08] MEDS ORDERED: IOHEXOL 350 MG/ML 10 ML VIAL (for RAD DIAG) IV ONE (15:30)
[2017-05-08] MEDS ORDERED: ACETAMINOPHEN/HYDROcodone 325 MG/5 MG TAB PO PRN (16:30)
--- NOTE | 2017-05-08 16:31 | HHI.NPPN ---
Subjective History of Present Illness 66-year-old female with past medical history of hypertension, history of chronic kidney disease, cerebrovascular accident, congestive heart failure, chronic obstructive pulmonary disease, history of noncompliance came to the hospital because of generalized weakness and feeling tired. I was called to see the patient because of very high blood pressure and elevated BUN and creatinine The patient does have a history of chronic kidney disease. Her creatinine has been the range of 1.2-1.4 most of the time and now she came with a creatinine of 1.29. She also has low potassium of 2.9. Additional Remarks Patient is alert, oriented times 2, not oriented in time. Review of Systems General Constitutional: Fatigue Respiratory Lungs: SOB Cardiovascular Cardiac: TRACEY Objective Data Data 05/07/17 05/08/17 19:00 07:00 Intake Total 685 ml 1129 ml Output Total 650 ml 360 ml Balance 35 ml 769 ml Intake Oral 480 ml 240 ml IV Total 205 ml 889 ml Output Urine Total 650 ml 360 ml # Bowel Movements 0 0 Vital Signs Date Time Temp Pulse Resp B/P Pulse Ox O2 Delivery O2 Flow Rate FiO2 05/08/17 16:00 74 05/08/17 15:00 77 05/08/17 15:00 97.5 74 22 135/79 97 05/08/17 14:00 85 05/08/17 13:00 75 05/08/17 12:00 71 05/08/17 12:00 147/93 05/08/17 11:00 97.5 77 22 173/102 98 05/08/17 11:00 76 05/08/17 10:00 78 05/08/17 09:00 82 05/08/17 08:00 74 05/08/17 08:00 97.4 76 22 150/94 99 05/08/17 07:00 69 05/08/17 06:00 62 05/08/17 05:00 66 05/08/17 04:00 75 05/08/17 04:00 98.7 75 18 132/84 97 05/08/17 03:00 68 05/08/17 02:00 80 05/08/17 01:00 60 05/08/17 00:00 98.4 80 20 116/68 96 05/08/17 00:00 60 05/07/17 23:30 166/96 05/07/17 23:00 64 05/07/17 22:30 154/93 05/07/17 22:00 74 05/07/17 21:00 84 05/07/17 20:30 98.6 72 18 190/111 100 05/07/17 20:00 90 05/07/17 19:00 61 05/07/17 18:00 81 05/07/17 17:00 62 -: 05/06/17 0418 05/08/17 0455 Physical Exam General Appearance: No Acute Distress, Comfortable Eyes Eye Exam: Pupils Equal Throat Throat Exam: Oral Mucosa [place] & Moist Neck Neck Exam: Neck Supple Pulmonary Resp Exam: Breath Sounds Equal, No Distress, Decreased Bases Cardiology CV Exam: Regular, Normal Sinus Rhythm Gastrointestinal/Abdomen GI Exam: Soft, Non-Tender, Bowel Sounds Present Extremeties Extremities Exam: Trace Edema Neurologic Neuro Exam: Alert, Awake Psychiatric Psych Exam: Appropriate Responses Assessment/Plan Assessment Summary: Hypertension, CKD Stage III Electrolyte Assessment: Hypokalemia Problem List: (1) Hypertensive urgency (2) Hypokalemia (3) Hypoxemia (4) CHF (congestive heart failure) (5) COPD (chronic obstructive pulmonary disease) (6) History of CVA (cerebrovascular accident) (7) CKD (chronic kidney disease) stage 3, GFR 30-59 ml/min Plan Patient has improvement in the BP, now off Nicardipine. BP is better now with occ. elevated readings. Renin/Edin done, Renin is elevated, could be from smaller kidney. Renal U/S showing left kidney small. Cannot have MRA due to AICD. CTA done, will follow the results. Problem Qualifiers (1) CHF (congestive heart failure): Qualified Code: I50.23 - Acute on chronic systolic congestive heart failure (2) COPD (chronic obstructive pulmonary disease): Qualified Code: J44.9 - Chronic obstructive pulmonary disease, unspecified COPD type Michael Katz MD May 08, 2017 16:31
--- NOTE | 2017-05-08 16:52 | RADRPT ---
EXAM DATE/TIME: 05/08/2017 15:24 [facility] COMPARISON: CT BRAIN W/O CONTRAST, May 05, 2017, 10:00. INDICATIONS : Malignant hypertension; rule out renal artery stenosis. IV CONTRAST: 96 cc Omnipaque 350 (iohexol) IV RADIATION DOSE: 14.84 CTDIvol (mGy) MEDICAL HISTORY : Myocardial infarction. Cerebrovascular disease. Cardiovascular disease SURGICAL HISTORY : Pacemaker. Tubal ligation. ENCOUNTER: Initial ACUITY: 1 day PAIN SCALE: 0/10 LOCATION: abdomen TECHNIQUE: Volumetric scanning was performed using a multi-row detector CT scanner. The data was post processed with a variety of visualization algorithms including full volume maximum intensity projection, multi -planar sliding thin slab reformation, curved planar reformation, and surface rendering techniques. Using automated exposure control and adjustment of the mA and/or kV according to patient size, radiat ion dose was kept as low as reasonably achievable to obtain optimal diagnostic quality images. FINDINGS: Abdominal aorta: The celiac and SMA origins are widely patent. There is a single renal artery on the right. There is very high grade ostial renal stenosis on the right. The proximal left renal artery is occluded. The left kidney is atrophic demonstrating only very minimal enhancement. The infrarenal aorta is moderately diseased but adequate in caliber. The EUGENIO is patent . The common iliac, internal iliac and external iliac circulation is diseased but no def inite high-grade lesions are evident CT source data: The liver, spleen, pancreas and adrenal glands are intact. The left kidney is atrophic demonstrating only minimal enhancement. The visualized loops of bowel are unremarkable. There are 2 calcified fibro ids within the uterus. CONCLUSION: 1. 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 2. Very high grade stenosis at the origin of the right renal artery. The lesion would be amenable to endovascular repair. 3. Atherosclerotic disease with patchy disease in the external iliac circulation bilaterally. This is more significant on the left than the right.. Vitor Powell MD on May 08, 2017 at 16:40 Board Certified Radiologist. This report was verified electronically.
[2017-05-08] MEDS: PRAVASTATIN SOD 80 MG TAB PO SCH (21:01)
[2017-05-09] VITALS (15 sets, daily range): BP systolic 134–179; BP diastolic 79–99; PULSE 55–91; RESP 18–20; TEMP 97.8–98.6; O2SAT 97–98
[2017-05-09] MEDS: DEXT 5%-NACL 0.45% 1000 ML INJ 1,000 ML IV SCH (03:00)
[2017-05-09] MEDS: hydrALAZINE HCL 20 MG/ML VIAL IV PUSH PRN (03:52)
[2017-05-09] MEDS: LISINOPRIL 10 MG TAB PO SCH (08:31)
[2017-05-09] MEDS: RIVAROXABAN 15 MG TAB PO SCH (08:31)
[2017-05-09] MEDS: POTASSIUM CHLORIDE 10 MEQ CONTROLLED RELEASE TAB PO SCH (08:31)
[2017-05-09] MEDS: CARVEDILOL 6.25 MG TAB PO SCH (08:31)
[2017-05-09] MEDS: NIFEdipine 60 MG SUSTAINED RELEASE TAB PO SCH (08:31)
[2017-05-09] MEDS: FUROSEMIDE 20 MG TAB PO SCH (08:32)
[2017-05-09] MEDS: ASPIRIN EC 81 MG TABEC PO SCH (08:32)
[2017-05-09] MEDS: BUDESONIDE-FORMOTEROL 80/4.5 MCG INHALER INH SCH (08:32)
--- NOTE | 2017-05-09 11:57 | HHI.NPPN ---
Subjective History of Present Illness 66-year-old female with past medical history of hypertension, history of chronic kidney disease, cerebrovascular accident, congestive heart failure, chronic obstructive pulmonary disease, history of noncompliance came to the hospital because of generalized weakness and feeling tired. I was called to see the patient because of very high blood pressure and elevated BUN and creatinine The patient does have a history of chronic kidney disease. Her creatinine has been the range of 1.2-1.4 most of the time and now she came with a creatinine of 1.29. She also has low potassium of 2.9. Additional Remarks Patient is alert, still clinically same, not fully oriented, no SOB. Review of Systems General Constitutional: Fatigue Respiratory Lungs: SOB Cardiovascular Cardiac: TRACEY Objective Data Data 05/08/17 05/09/17 18:59 06:59 Intake Total 1080 ml 996 ml Output Total 350 ml 500 ml Balance 730 ml 496 ml Intake Oral 480 ml 120 ml IV Total 600 ml 876 ml Output Urine Total 350 ml 500 ml # Voids 1 1 # Bowel Movements 1 0 Vital Signs Date Time Temp Pulse Resp B/P Pulse Ox O2 Delivery O2 Flow Rate FiO2 05/09/17 08:01 97.8 91 18 169/90 98 05/09/17 06:00 162/87 05/09/17 04:00 65 05/09/17 04:00 98.6 77 20 179/99 97 05/09/17 00:00 98.4 79 20 145/93 98 05/09/17 00:00 55 05/08/17 20:00 98.3 77 22 147/96 99 05/08/17 20:00 81 05/08/17 18:00 85 05/08/17 17:52 18 05/08/17 17:00 75 05/08/17 16:00 74 05/08/17 15:00 77 05/08/17 15:00 97.5 74 22 135/79 97 05/08/17 14:00 85 05/08/17 13:00 75 05/08/17 12:00 71 05/08/17 12:00 147/93 -: 05/06/17 0418 05/08/17 0455 Physical Exam General Appearance: No Acute Distress, Comfortable Eyes Eye Exam: Pupils Equal Throat Throat Exam: Oral Mucosa [place] & Moist Neck Neck Exam: Neck Supple Pulmonary Resp Exam: Breath Sounds Equal, No Distress, Decreased Bases Cardiology CV Exam: Regular, Normal Sinus Rhythm Gastrointestinal/Abdomen GI Exam: Soft, Non-Tender, Bowel Sounds Present Extremeties Extremities Exam: Trace Edema Neurologic Neuro Exam: Alert, Awake Psychiatric Psych Exam: Appropriate Responses Assessment/Plan Assessment Summary: Hypertension, CKD Stage III Electrolyte Assessment: Hypokalemia Problem List: (1) Hypertensive urgency (2) Hypokalemia (3) Hypoxemia (4) CHF (congestive heart failure) (5) COPD (chronic obstructive pulmonary disease) (6) History of CVA (cerebrovascular accident) (7) CKD (chronic kidney disease) stage 3, GFR 30-59 ml/min Plan Patient has improvement in the BP, now off Nicardipine. BP is better now with occ. elevated readings. Renin/Edin done, Renin is elevated, could be from smaller kidney. Renal U/S showing left kidney small. Cannot have MRA due to AICD. CTA done, has atrophic left kidney and occluded left renal artery. Will need angiogram and plasty for Rt. Renal artery. Can be done as out patient if D/C. Problem Qualifiers (1) CHF (congestive heart failure): Qualified Code: I50.23 - Acute on chronic systolic congestive heart failure (2) COPD (chronic obstructive pulmonary disease): Qualified Code: J44.9 - Chronic obstructive pulmonary disease, unspecified COPD type Michael Katz MD May 09, 2017 11:57
[2017-05-09] MEDS ORDERED: NIFE60TA8 PO (13:32)
[2017-05-09] MEDS ORDERED: CARV6.25 PO (13:32)
[2017-05-09] MEDS ORDERED: LISI10TA3 PO (13:32)
--- NOTE | 2017-05-09 13:33 | HHI.DCPOC ---
Discharge Care Plan Diagnosis: (1) Hypertensive urgency (2) Altered mental status Your Health Problems Are: Anxiety Difficulty with ADL Chest Pain Goals to Promote Your Health * To prevent worsening of your condition and complications * To maintain your health at the optimal level Directions to Meet Your Goals Take your medications as prescribed Follow your dietary instruction Follow activity as directed Keep your appointments as scheduled Take your immunizations and boosters as scheduled If your symptoms worsen call your PCP, if no PCP go to Urgent Care Center or Emergency Room Smoking is Dangerous to Your Health. Avoid second hand smoke Call the 24-hour hour crisis hotline for domestic abuse at [facility]. [facility] May 09, 2017 13:33
--- NOTE | 2017-05-09 13:34 | HHI.PR ---
Subjective Remarks smiling, more awake, oriented x 2 forgetful no complaints no cp no sob Objective Objective Results - Vital Signs Date Time Temp Pulse Resp B/P Pulse Ox O2 Delivery O2 Flow Rate FiO2 05/09/17 12:01 72 05/09/17 11:30 98.6 55 18 134/85 98 05/09/17 11:00 74 05/09/17 10:00 74 05/09/17 09:00 80 05/09/17 08:01 97.8 91 18 169/90 98 05/09/17 08:00 82 05/09/17 07:00 74 05/09/17 06:00 162/87 05/09/17 04:00 65 05/09/17 04:00 98.6 77 20 179/99 97 05/09/17 00:00 98.4 79 20 145/93 98 05/09/17 00:00 55 05/08/17 20:00 98.3 77 22 147/96 99 05/08/17 20:00 81 05/08/17 18:00 85 05/08/17 17:52 18 05/08/17 17:00 75 05/08/17 16:00 74 05/08/17 15:00 77 05/08/17 15:00 97.5 74 22 135/79 97 05/08/17 14:00 85 I/O 05/08/17 05/08/17 05/08/17 05/09/17 05/09/17 05/09/17 07:00 15:00 23:00 07:00 15:00 23:00 Intake Total 1129 ml 1080 ml 996 ml Output Total 360 ml 350 ml 500 ml Balance 769 ml 730 ml 496 ml Intake Oral 240 ml 480 ml 120 ml IV Total 889 ml 600 ml 876 ml Output Urine Total 360 ml 350 ml 500 ml # Voids 1 1 # Bowel Movements 0 1 0 Result Diagram: 05/06/17 0418 05/08/17 0455 Imaging Last Impressions Head CT 05/05/17930 Signed Impressions: Service Date/Time: Friday, May 05, 2017 10:00 - CONCLUSION: Negative for an acute process.. En Powell MD FACR Chest X-Ray 05/05/17930 Signed Impressions: Service Date/Time: Friday, May 05, 2017 09:56 - CONCLUSION: Moderate congestive failure. Early right basal infiltrate cannot be excluded. En Powell MD FACR ROS General: Other (12 point ros limited, poor historian ) Physical Exam Physical Exam GENERAL: This is a well-nourished, well-developed patient, in no apparent distress. SKIN: No rashes, ecchymoses or lesions. Cool and dry. HEAD: Atraumatic. Normocephalic. No temporal or scalp tenderness. EYES: Pupils equal round and reactive. Extraocular motions intact. No scleral icterus. No injection or drainage. ENT: Nose without bleeding, purulent drainage or septal hematoma. Throat without erythema, tonsillar hypertrophy or exudate. Uvula midline. Airway patent. NECK: Trachea midline. No JVD or lymphadenopathy. Supple, nontender, no meningeal signs. CARDIOVASCULAR: Regular rate and rhythm without murmurs, gallops, or rubs. RESPIRATORY: Poor inspiratory effort, diminished at bases. GASTROINTESTINAL: Abdomen soft, non-tender, nondistended. No hepato-splenomegaly , or palpable masses. No guarding. MUSCULOSKELETAL: Extremities without clubbing, cyanosis. Bilateral lower extremities with trace pretibial edema, pedal pulses 2+ bilaterally. No joint tenderness, effusion, or edema noted. No calf tenderness. Negative Homans sign bilaterally. NEUROLOGICAL: Awake, alert, oriented to self and place. Slow to respond, having difficulty with word finding. Follows simple commands. Right upper and right lower extremity weakness, improved from yesterday Urinary Catheter: No Vascular Central Line Catheter: No A/P Diagnosis: (1) Altered mental status (2) Hypertensive emergency (3) CHF (congestive heart failure) (4) COPD (chronic obstructive pulmonary disease) (5) History of CVA (cerebrovascular accident) (6) Cardiomyopathy (7) History of CVA with residual deficit (8) AICD (automatic cardioverter/defibrillator) present (9) CKD (chronic kidney disease) stage 3, GFR 30-59 ml/min (10) Atrial fibrillation Assessment and Plan 66-year-old elderly black female with history of nonischemic cardiomyopathy, hypertension, recent CVA. Presented to the emergency room with increased confusion. Evaluated in emergency room and found with hypertensive urgency. Pt was without meds for 2 weeks according to family. -off Cardene gtt, BP improved, down to 120's appreciate nephro input, work up in progress. Aldosterone (p), renin 15. Can't have MRA kidneys due to AICD Continue hydralazine 20 mg IV push every 4 when necessary for systolic rhythm 170 and diastolic greater than 90 Continue lisinopril,Lasix, Procardia XL 60 mg po daily, Coreg -Renal US shows left kideny small. For CTA abd and pelvis today to evaluate renal arteries-occlusion of left renal artery proximally. per renal. ---Will need angiogram and plasty for Rt. Renal artery.Can be done as OP BP stable, ok to dc and have pt. f/u with Dr. Katz and do as OP Altered mental status, possibly secondary to malignant hypertension.CT of the head negative. History recent CVA with residual right-sided weakness. More alert, oriented to self and place. Slow to respond Continue with neuro checks Continue with aspirin -continue Xarelto -PT eval, Acute CHF, history Nonischemic cardiomyopathy has AICD. Echocardiogram from January with EF of 35-40% Continue with Lasix 20 mg by mouth daily CKD stage III Stable renal function Continue to monitor BMP History of A. fib, currently sinus rhythm continue Xarelto Continue with Coreg PT for evaluation and treatment in the morning. SCDs/Xarelto for DVT prophylaxis Spoke to pt's daughter, Jaspal, discussed med compliance, f/u with nephrology, etc. States she will be in charge of pt's care now. Gave refills for all meds. Apparently pt. ran out of all meds BP improved on current regimen, ok for dc home with [facility] F/U Dr. Katz 2 weeks F/U PCP Diet-heart healthy Activity-as tolerated D/W RN D/W Dr. Holliday D/W pt and daughters D/W CM This patient was seen by myself and Dr. Holliday, this note is written on his behalf Discharge Planning 45 Problem Qualifiers (1) Altered mental status: Qualified Code: R41.0 - Disorientation (2) CHF (congestive heart failure): Qualified Code: I50.23 - Acute on chronic systolic congestive heart failure (3) COPD (chronic obstructive pulmonary disease): Qualified Code: J44.9 - Chronic obstructive pulmonary disease, unspecified COPD type (4) Cardiomyopathy: Qualified Code: I42.9 - Cardiomyopathy, unspecified type (5) Atrial fibrillation: Qualified Code: I48.91 - Atrial fibrillation, unspecified type Frieda Sam [employer] May 09, 2017 13:34
[2017-05-09] MEDS ORDERED: POTA-243 PO (13:44)
[2017-05-09] MEDS ORDERED: SYMB80AE INH (13:44)
[2017-05-09] MEDS ORDERED: SIMV40TA PO (13:44)
[2017-05-09] MEDS ORDERED: FURO20TA PO (13:44)
[2017-05-09] MEDS ORDERED: XARE15TA PO (13:44)
[2017-05-09] MEDS ORDERED: ASPI81TA11 PO (13:44)
[2017-05-09] MEDS ORDERED: ALBUAER3 INH (13:44)
[2017-05-09] MEDS ORDERED: HYDR-3516 PO (15:05)
--- NOTE | 2017-05-09 19:07 | HHI.DS ---
Discharge Summary Admission Date May 05, 2017 at 12:10 Discharge Date: May 09, 2017 Admitting Diagnosis hypertensive emergency , chf, hypokalemia (1) Altered mental status (2) Hypertensive emergency (3) CHF (congestive heart failure) (4) COPD (chronic obstructive pulmonary disease) (5) History of CVA (cerebrovascular accident) (6) Cardiomyopathy (7) History of CVA with residual deficit (8) AICD (automatic cardioverter/defibrillator) present (9) CKD (chronic kidney disease) stage 3, GFR 30-59 ml/min (10) Atrial fibrillation (11) Renal artery stenosis CBC/BMP: 05/06/17 0418 05/08/17 0455 Significant Findings Laboratory Tests Test 05/07/17 05/08/17 04:25 04:55 Chloride Level 109 MEQ/L (98-107) Creatinine 1.07 MG/DL 1.10 MG/DL (0.50-1.00) (0.50-1.00) Estimat Glomerular Filtration 62 ML/MIN (>89) 61 ML/MIN (>89) Rate Potassium Level 3.3 MEQ/L (3.5-5.1) Imaging Last Impressions Abdomen/Pelvis CT 05/07/17 0000 Signed Impressions: Service Date/Time: Monday, May 08, 2017 15:24 - CONCLUSION: 1. 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 2. Very high grade stenosis at the origin of the right renal artery. The lesion would be amenable to endovascular repair. 3. Atherosclerotic disease with patchy disease in the external iliac circulation bilaterally. This is more significant on the left than the right.. Vitor Powell MD Head CT 05/05/1731 Signed Impressions: Service Date/Time: Friday, May 05, 2017 10:00 - CONCLUSION: Negative for an acute process.. En Powell MD FACR Chest X-Ray 05/05/17930 Signed Impressions: Service Date/Time: Friday, May 05, 2017 09:56 - CONCLUSION: Moderate congestive failure. Early right basal infiltrate cannot be excluded. En Powell MD FACR Renal Ultrasound 05/05/17 0000 Signed Impressions: Service Date/Time: Friday, May 05, 2017 23:45 - CONCLUSION: The kidneys are asymmetrical size and left side appears smaller. Cholelithiasis. K. Casimiro Shamlou, MD Hospital Course This is a 66-year-old black female with significant past history hypertension, previous CVA, CHF, nonischemic cardiomyopathy. Patient recently admitted in January 2017 with acute respiratory failure requiring BiPAP, acute CHF and CVA with right-sided weakness. This time, patient presents to emergency room with slurred speech and appeared more confused than normal. Patient is unable to provide any information, she knows she is in the hospital but other than that she doesn't know why she is in the hospital and is having difficulty with word finding. Patient was evaluated in the emergency room, laboratory workup was completed. BMP significant for hypokalemia, potassium 2.9. BMP remarkable for mildly elevated creatinine which is actually improved from January admission. Urinalysis did not reveal any infection. Chest x-ray significant for moderate congestive heart failure, early right basal infiltrate cannot be excluded. No reported fever, no chills. Blood pressure was noted significantly elevated, 220 /128. Patient is on amlodipine, lisinopril, carvedilol, Lasix. It is unclear if patient has been compliant with medications. She did complain of increased leg swelling in the emergency room. She was given Lopressor 5 mg IV push, Lasix 40 mg IV 1 and hydralazine 20 mg IV. Potassium was replaced. Because of uncontrolled hypertension, patient was put on Cardene drip. Patient was evaluated in the CVICU. Blood pressure was down to 150s. She remained confused , she knew she was in the hospital but other than that she was having some difficulty with word finding. She has right upper extremity and right lower extremity weakness which is residual from previous CVA. Patient was admitted for further evaluation and treatment for: (1) Altered mental status (2) Hypertensive emergency (3) CHF (congestive heart failure) (4) COPD (chronic obstructive pulmonary disease) (5) History of CVA (cerebrovascular accident) (6) Cardiomyopathy (7) History of CVA with residual deficit (8) AICD (automatic cardioverter/defibrillator) present (9) CKD (chronic kidney disease) stage 3, GFR 30-59 ml/min (10) Atrial fibrillation During the course of the hospitalization, the following took place: 66-year-old elderly black female with history of nonischemic cardiomyopathy, hypertension, recent CVA. Presented to the emergency room with increased confusion. Evaluated in emergency room and found with hypertensive urgency. -Patient initially admitted to the CVICU. Require Cardene drip, blood pressure came down. She was downgraded to cardiac stepdown unit -Per patient's family, apparently she was without medications for approximately 2-3 weeks. Medications were adjusted. Continued lisinopril,Lasix, added Procardia XL 60 mg po daily, Coreg . Norvasc was discontinued Continue hydralazine 20 mg IV push every 4 when necessary for systolic rhythm 170 and diastolic greater than 90 -Nephrology was consulted. Appreciate nephro input, work up in progress. Aldosterone (p), renin 15. Can't have MRA kidneys due to AICD -Renal US shows left kidney small. CTA abd and pelvis done-occlusion of left renal artery proximally. PT probably will benefit from intervention/angioplasty , however as she just had CTA & had CKD angiogram now may push her into ARF, plus her BP is stable. Case discussed with nephrology, it was decided to bring her back in 2 to 3 wks for Renal A angio/intervention. This was discussed with patient's daughter. Altered mental status, possibly secondary to malignant hypertension.CT of the head negative. History recent CVA with residual right-sided weakness. Mental status did improve, she was slow to respond but this appeared to be her baseline. Continued with neuro checks Continued with aspirin -continued Xarelto -PT eval, done Acute CHF, history Nonischemic cardiomyopathy has AICD. Echocardiogram from January with EF of 35-40% Continuef with Lasix 20 mg by mouth daily CKD stage III Stable renal function Continued to monitor BMP History of A. fib, currently sinus rhythm continued Xarelto Continued with Coreg PT for evaluation and treatment in the morning. SCDs/Xarelto for DVT prophylaxis Spoke to pt's daughter, Jaspal, discussed med compliance, f/u with nephrology, etc. States she will be in charge of pt's care now. Gave refills for all meds. Apparently pt. ran out of all meds BP improved on current regimen, ok for dc home with [facility] Instructed to: F/U Dr. Daniel 2 weeks F/U PCP Diet-heart healthy Activity-as tolerated Pt Condition on Discharge: Stable Discharge Disposition: Disch w/ Home Health Serv Discharge Instructions DIET: Follow Instructions for: Heart Healthy Diet Activities you can perform: Weight Bearing as Christen Follow up Referrals: Nephrology with dejan daniel PCP Follow-up New Medications: Carvedilol (Coreg) 6.25 Mg Tab 12.5 MG PO Q12HR Blood Pressure Management #60 Ref 1 TAB Hydrocodone-Acetaminophen (Hydrocodone-Acetaminophen) 5-325 mg Tab 1 TAB PO Q6H PRN pain 5 to 10 #30 TAB Lisinopril (Lisinopril) 10 Mg Tab 20 MG PO DAILY Blood Pressure Management #30 Ref 1 TAB Nifedipine ER 24 HR (Nifedipine ER 24 HR) 60 Mg Tab 60 MG PO DAILY Blood Pressure Management #30 Ref 1 TAB Continued Medications: Albuterol 8.5 GM Inh (Proair Hfa 8.5 GM Inh) 90 Mcg/Act Aer 1 PUFF INH Q4H 108 mcg/actuation PRN SHORTNESS OF BREATH #1 Ref 1 INHALER (This prescription has been renewed) Aspirin DR (Aspirin EC) 81 Mg Tabdr 81 MG PO DAILY cva Days 30 Ref 0 TAB (This prescription has been renewed) Budesonide-Formoterol Inh (Symbicort Inh) 80-4.5 Mcg/Act Aero 2 PUFF INH Q12HR Asthma Management #1 Ref 1 INHALER (This prescription has been renewed) Furosemide (Furosemide) 20 Mg Tab 20 MG PO DAILY chf Days 30 Ref 1 TAB (This prescription has been renewed) Potassium Chloride ER (Klor-Con 10) 10 Meq Tab 10 MEQ PO DAILY low potassium #30 Ref 1 TAB (This prescription has been renewed) Rivaroxaban (Xarelto) 15 Mg Tab 15 MG PO DAILY Blood Clot Prevention #30 Ref 1 TAB (This prescription has been renewed) Simvastatin (Simvastatin) 40 Mg Tab 40 MG PO HS Cholesterol Management #30 Ref 1 TAB (This prescription has been renewed) Discontinued Medications: Amlodipine (Norvasc) 10 Mg Tab 10 MG PO DAILY Days 30 TAB Carvedilol (Coreg) 6.25 Mg Tab 6.25 MG PO Q12HR a-fib Days 30 Ref 0 TAB Lisinopril (Lisinopril) 10 Mg Tab 10 MG PO DAILY #30 Ref 0 TAB Frieda Sam May 09, 2017 19:06
== END 2017-05-09 16:52 | disposition home health service (06) | DRG 291 ==
LOC: NEPE 09:12 → NEDA 12:10 → HCVR 14:40 → HCIS 05-06 11:15
PROVIDERS: ADMIT Specialist; ATTEND Specialist
DX: I13.0 Hypertensive heart and chronic kidney disease with heart failure and stage 1 through stage 4 chronic kidney disease, or unspecified chronic kidney disease (principal); I50.23 Acute on chronic systolic (congestive) heart failure; I42.9 Cardiomyopathy, unspecified; I69.251 Hemiplegia and hemiparesis following other nontraumatic intracranial hemorrhage affecting right dominant side; N18.3 Chronic kidney disease, stage 3 (moderate); I16.1 Hypertensive emergency; I70.1 Atherosclerosis of renal artery; F17.210 Nicotine dependence, cigarettes, uncomplicated; E87.6 Hypokalemia; I48.91 Unspecified atrial fibrillation; J44.9 Chronic obstructive pulmonary disease, unspecified; Z91.19 Patient's noncompliance with other medical treatment and regimen; Z95.810 Presence of automatic (implantable) cardiac defibrillator; Z79.01 Long term (current) use of anticoagulants
CPT/HCPCS: 36600; 70450; 71010; 74174; 76775; 76937; 80048; 80053; 81001; 82088; 82550; 82805; 83605; 83880; 84100; 84244; 84484; 85025; 85027; 93005; 96374; 96375; J0360; J1940; J7050; Q9967

== ENCOUNTER 2017-06-08 15:14 | Observation (INO) | payer MEDICAID ==
[~2017-06-08] VITALS: Ht 162.6 cm; Wt 95.0 kg
[~2017-06-08 15:14] MED LIST changes: -AMLO10 PO; -CANEMIS18; +HYDR-3516 PO; -MISC-274; +NIFE60TA8 PO
[2017-06-08 15:17] VITALS: BP 178/99; PULSE 77; RESP 18; TEMP 98.9; O2SAT 98
--- NOTE | 2017-06-08 16:49 | PD ---
HPI Chief Complaint: Edema Time Seen by Provider: 16:45 Travel History International Travel<30 days: No Contact w/Intl Traveler<30days: No Traveled to known affect area: No History of Present Illness HPI 66-year-old female with history of hypertension, A. fib, previous stroke, AICD placement, presents to the ER today brought in by family because she has had a right ankle surgery many years ago, and family has noted that over last day or 2 she has had more difficulty with walking and using the right ankle, not able to weight-bear. They have also noted bilateral ankle swelling worse on the right than the left. Patient reports no injuries, pain, or other symptoms. Modifying Factors: None Associated Signs & Symptoms: Ankle swelling, right ankle difficulty with weightbearing Risk Factors: Previous right ankle injury PFSH Past Medical History Hx Anticoagulant Therapy: Yes (XERALTO) Arthritis: Yes Asthma: Yes Blood Disorders: No Anxiety: No Depression: No Heart Rhythm Problems: Yes Cancer: No Cardiovascular Problems: Yes (CHF) High Cholesterol: No Chemotherapy: No Chest Pain: No Congestive Heart Failure: No COPD: No Cerebrovascular Accident: Yes Coronary Artery Disease: Yes Diabetes: No Diminished Hearing: No Endocrine: No Genitourinary: No Headaches: Yes Hypertension: Yes Immune Disorder: No Kidney Stones: No Musculoskeletal: Yes Neurologic: Yes (stroke) Psychiatric: No Reproductive: No Respiratory: Yes Immunizations Current: Yes Migraines: No Radiation Therapy: No Renal Failure: No Seizures: No Sleep Apnea: No Thyroid Disease: No Ulcer: No Menopausal: Yes : 4 Para: 3 Miscarriage: 1 Tubal Ligation: Yes Past Surgical History Abdominal Surgery: No AICD: No Arteriovenous Shunt: No Cardiac Surgery: Yes (PACEMAKER PLACEMENT) Ear Surgery: No Endocrine Surgery: No Eye Surgery: No Gynecologic Surgery: Yes (tubal ligation) Insulin Pump: No Joint Replacement: No Oral Surgery: No Pacemaker: Yes (with defibrillator ) Thoracic Surgery: No Other Surgery: Yes (R ankle surgery, tubal ligation) Social History Alcohol Use: No Tobacco Use: Yes (3 cigarettes a day) Substance Use: No Allergies-Medications (Allergen,Severity, Reaction): Coded Allergies: MRI PRECAUTION (Verified Adverse Reaction, Severe, NONCOMPATIBLE PACER BIOTRONIX ITREVIA [id number] 01/30/17 LRS, 06/08/17) MODEL [id number] Reported Meds & Prescriptions Reported Meds & Active Scripts Active Hydrocodone-Acetaminophen 5-325 mg Tab 1 Tab PO Q6H PRN Furosemide 20 Mg Tab 20 Mg PO DAILY 30 Days Aspirin EC (Aspirin) 81 Mg Tabdr 81 Mg PO DAILY 30 Days Proair Hfa 8.5 GM Inh (Albuterol Sulfate) 90 Mcg/Act Aer 1 Puff INH Q4H PRN 108 mcg/actuation Symbicort Inh (Budesonide/Formoterol Fumarate) 80-4.5 Mcg/Act Aero 2 Puff INH Q12HR Klor-Con 10 (Potassium Chloride) 10 Meq Tab 10 Meq PO DAILY Simvastatin 40 Mg Tab 40 Mg PO HS Xarelto (Rivaroxaban) 15 Mg Tab 15 Mg PO DAILY Coreg (Carvedilol) 6.25 Mg Tab 12.5 Mg PO Q12HR Nifedipine ER 24 HR (Nifedipine) 60 Mg Tab 60 Mg PO DAILY Lisinopril 10 Mg Tab 20 Mg PO DAILY Review of Systems Except as stated in HPI: all other systems reviewed are Neg Physical Exam Narrative GENERAL: Well-developed elderly -Filipino female patient currently in mild distress. Awake and oriented 3. SKIN: Focused skin assessment warm/dry. HEAD: Atraumatic. Normocephalic. EYES: Pupils equal and round. No scleral icterus. No injection or drainage. ENT: No nasal bleeding or discharge. Mucous membranes pink and moist. NECK: Trachea midline. No JVD. CARDIOVASCULAR: Regular rate and rhythm. No murmur appreciated. RESPIRATORY: No accessory muscle use. Clear to auscultation. Breath sounds equal bilaterally. GASTROINTESTINAL: Abdomen soft, non-tender, nondistended. Hepatic and splenic margins not palpable. MUSCULOSKELETAL: No obvious deformities. No clubbing. No cyanosis. There is mild notable for right pedal edema. Neurovascularly intact. Nontender to palpation. NEUROLOGICAL: Awake and alert. No obvious cranial nerve deficits. Motor grossly within normal limits. Normal speech. PSYCHIATRIC: Appropriate mood and affect; insight and judgment normal. Data Data Last Documented VS Vital Signs Date Time Temp Pulse Resp B/P Pulse Ox O2 Delivery O2 Flow Rate FiO2 06/08/17 17:46 55 16 100 Room Air 06/08/17 17:00 158/83 06/08/17 15:17 98.9 Orders Ankle, Complete ([id number]) (06/08/17 16:45) Basic Metabolic Panel (Bmp) (06/08/17 16:46) B-Type Natriuretic Peptide (06/08/17 16:46) Prothrombin Time / Inr (Pt) (06/08/17 16:46) Act Partial Throm Time (Ptt) (06/08/17 16:46) Us Leg Venous Doppler Bilat (06/08/17 16:46) Labs Laboratory Tests Test 06/08/17 17:30 Prothrombin Time 14.6 SEC Prothromb Time International 1.3 RATIO Ratio Activated Partial 43.0 SEC Thromboplast Time Sodium Level 141 MEQ/L Potassium Level 3.2 MEQ/L Chloride Level 106 MEQ/L Carbon Dioxide Level 23.4 MEQ/L Anion Gap 12 MEQ/L Blood Urea Nitrogen 25 MG/DL Creatinine 1.41 MG/DL Estimat Glomerular Filtration 45 ML/MIN Rate Random Glucose 70 MG/DL Calcium Level 9.5 MG/DL B-Type Natriuretic Peptide 88 PG/ML MDM Medical Decision Making Medical Screen Exam Complete: Yes Emergency Medical Condition: Yes Medical Record Reviewed: Yes Interpretation(s) Laboratory Tests Test 06/08/17 17:30 Prothrombin Time 14.6 SEC (9.8-11.6) Activated Partial 43.0 SEC Thromboplast Time (24.3-30.1) Potassium Level 3.2 MEQ/L (3.5-5.1) Blood Urea Nitrogen 25 MG/DL (7-18) Creatinine 1.41 MG/DL (0.50-1.00) Estimat Glomerular Filtration 45 ML/MIN (>89) Rate Random Glucose 70 MG/DL (74-106) Last 24 hours Impressions Ankle X-Ray 06/08/17 8285 Signed Impressions: Service Date/Time: Thursday, June 08, 2017 16:51 - CONCLUSION: No definite fracture is seen for technique. K. Casimiro Hobson MD Differential Diagnosis Ankle swelling, right ankle difficulty weightbearingfractures versus strain versus dependent edema versus DVT Narrative Course X-rays did not show any signs of acute fractures. Ultrasound is ordered to rule out DVT. Physician Communication Physician Communication Case is signed out to Dr. Márquez at 7 PM pending ultrasound. Disposition based on ultrasound. Diagnosis Primary Impression: Ankle swelling Condition: Stable Max Sanchez MD Jun 08, 2017 16:49
[2017-06-08 17:00] VITALS: BP 158/83; PULSE 54; RESP 15; O2SAT 100
--- NOTE | 2017-06-08 17:19 | RADRPT ---
EXAM DATE/TIME: 06/08/2017 16:51 [facility] COMPARISON: No previous studies available for comparison. INDICATIONS : Swollen right ankle for one month. MEDICAL HISTORY : None. SURGICAL HISTORY : Surgery done 40 years ago. ENCOUNTER: Initial ACUITY: 1 month PAIN SCORE: Non-responsive. LOCATION: Right entire ankle FINDINGS: No definite fractures, or dislocations are identified. No definite lytic or sclerotic lesion is seen . There are 2 screws traversing the medial malleolus with side plate and screws traversing distal fib isela from old trauma without any evidence for fractures. CONCLUSION: No definite fracture is seen for technique. Sandrine Hobson MD on June 08, 2017 at 17:17 Board Certified Radiologist. This report was verified electronically.
[2017-06-08 18:24] LABS: BICARBONATE 23.4 MEQ/L (21.0-32.0); POTASSIUM 3.2 MEQ/L (3.5-5.1)
[2017-06-08 18:29] LABS: INTERNATIONAL NORMALIZED RATIO 1.3 RATIO; PROTHROMBIN TIME - PATIENT 14.6 SEC (9.8-11.6)
[2017-06-08 19:30] VITALS: BP 161/87; PULSE 66; RESP 18; O2SAT 99
[2017-06-08] MEDS ORDERED: ACETAMINOPHEN 500 MG CPLT PO ONE (20:00)
[2017-06-08] MEDS ORDERED: IBUPROFEN 400 MG TAB PO ONE (20:00)
--- NOTE | 2017-06-08 20:25 | RADRPT ---
EXAM DATE/TIME: 06/08/2017 19:43 [facility] COMPARISON: No previous studies available for comparison. INDICATIONS : Bilateral leg swelling. MEDICAL HISTORY : Hypertension. Cerebrovascular accident. Myocardial infarction. Congestive heart failure. Anticoa gulant therapy. Asthma. Arthritis. SURGICAL HISTORY : Tubal ligation. Pacemaker. Internal defibrillator. ENCOUNTER: Initial ACUITY: 4 - 6 days PAIN SCORE: 0/10 LOCATION: Bilateral legs. TECHNIQUE: Venous ultrasound of the left and right leg was performed from the inguinal ligament to the proximal calf. Real-time, color Doppler and spectral tracing, compression and augmentation techniques were us ed. FINDINGS: RIGHT LEG: There is normal compressibility of the deep venous system from the inguinal region to the proximal ca lf. No echogenic clot is seen in the lumen of the common femoral, femoral, popliteal, and posterior tibial veins. There is a normal response of the venous system to proximal and distal augmentation an d respiration. LEFT LEG: There is normal compressibility of the deep venous system from the inguinal region to the proximal ca lf. No echogenic clot is seen in the lumen of the common femoral, femoral, popliteal, and posterior tibial veins. There is a normal response of the venous system to proximal and distal augmentation an d respiration. CONCLUSION: Normal examination. Sandrine Hobson MD on June 08, 2017 at 20:23 Board Certified Radiologist. This report was verified electronically.
[2017-06-08 20:34] LABS: AUTOMATED NEUTROPHIL # 3.2 TH/MM3 (1.8-7.7); BASOPHIL # 0.1 TH/MM3 (0-0.2); EOSINOPHIL # 0.3 TH/MM3 (0-0.4); HEMATOCRIT 35.2 % (35.0-46.0); LYMPH % 35.7 % (9.0-44.0); LYMPHOCYTE # 2.4 TH/MM3 (1.0-4.8); MEAN CELL VOLUME 82.7 FL (80.0-100.0); MEAN CORPUSCULAR HEMOGLOBIN 26.5 PG (27.0-34.0); MONO % 10.4 % (0.0-8.0); NEUT % 47.9 % (16.0-70.0); PLATELET COUNT 121 TH/MM3 (150-450); RED BLOOD COUNT 4.26 MIL/MM3 (4.00-5.30); RED CELL DISTRIBUTION WIDTH 15.8 % (11.6-17.2); WHITE BLOOD COUNT 6.6 TH/MM3 (4.0-11.0)
[2017-06-08 20:35] LABS: HEMO FLAGS AUTO DIFF
[2017-06-08 21:03] LABS: PLATELET ESTIMATE SMEAR LOW (NORMAL); PLATELET MORPHOLOGY NORMAL (NORMAL); SCAN/DIFF AUTO DIFF CONFIRMED
--- NOTE | 2017-06-08 21:32 | PD ---
Data Data Last Documented VS Vital Signs Date Time Temp Pulse Resp B/P Pulse Ox O2 Delivery O2 Flow Rate FiO2 06/08/17 19:30 66 18 161/87 99 Room Air 06/08/17 15:17 98.9 Orders Ankle, Complete ([id number]) (06/08/17 16:45) Basic Metabolic Panel (Bmp) (06/08/17 16:46) B-Type Natriuretic Peptide (06/08/17 16:46) Prothrombin Time / Inr (Pt) (06/08/17 16:46) Act Partial Throm Time (Ptt) (06/08/17 16:46) Us Leg Venous Doppler Bilat (06/08/17 16:46) Complete Blood Count With Diff (06/08/17 18:58) Westergren Sedimentation Rate (06/08/17 18:58) C-Reactive Protein (Crp) (06/08/17 18:58) Acetaminophen (Tylenol) (06/08/17 20:00) Ibuprofen (Motrin) (06/08/17 20:00) Admit Order (Ed Use Only) (06/08/17 ) Labs Laboratory Tests Test 06/08/17 06/08/17 17:30 19:35 Prothrombin Time 14.6 SEC Prothromb Time International 1.3 RATIO Ratio Activated Partial 43.0 SEC Thromboplast Time Sodium Level 141 MEQ/L Potassium Level 3.2 MEQ/L Chloride Level 106 MEQ/L Carbon Dioxide Level 23.4 MEQ/L Anion Gap 12 MEQ/L Blood Urea Nitrogen 25 MG/DL Creatinine 1.41 MG/DL Estimat Glomerular Filtration 45 ML/MIN Rate Random Glucose 70 MG/DL Calcium Level 9.5 MG/DL C-Reactive Protein 1.70 MG/DL B-Type Natriuretic Peptide 88 PG/ML White Blood Count 6.6 TH/MM3 Red Blood Count 4.26 MIL/MM3 Hemoglobin 11.3 GM/DL Hematocrit 35.2 % Mean Corpuscular Volume 82.7 FL Mean Corpuscular Hemoglobin 26.5 PG Mean Corpuscular Hemoglobin 32.0 % Concent Red Cell Distribution Width 15.8 % Platelet Count 121 TH/MM3 Mean Platelet Volume 10.6 FL Neutrophils (%) (Auto) 47.9 % Lymphocytes (%) (Auto) 35.7 % Monocytes (%) (Auto) 10.4 % Eosinophils (%) (Auto) 5.0 % Basophils (%) (Auto) 1.0 % Neutrophils # (Auto) 3.2 TH/MM3 Lymphocytes # (Auto) 2.4 TH/MM3 Monocytes # (Auto) 0.7 TH/MM3 Eosinophils # (Auto) 0.3 TH/MM3 Basophils # (Auto) 0.1 TH/MM3 CBC Comment AUTO DIFF Differential Comment AUTO DIFF CONFIRMED Platelet Estimate LOW Platelet Morphology Comment NORMAL Red Cell Morphology Comment NORMAL Erythrocyte Sedimentation Rate 24 mm/hr MDM Supervised Visit with JENNIFFER: Yes Narrative Course 66 year-old woman, multiple medical problems here with right ankle swelling and right ankle pain, difficulty ambulating. She is previous injury to the ankle. According her does not really bother her at all. Over the past couple days is been more painful, swollen, with difficulty walking. There is no significant erythema or warmth that I can appreciate. Foot is seems to be well perfused. She is able to walk a little but with a lot of support, and with a lot of discomfort. X-rays don't show any obvious abnormality, ultrasound was negative for DVT. She is on blood thinners already. Could question some subacute infection or osteomyelitis but patient is not a candidate for MRI. I did add inflammatory markers. I think she may just be having more arthritis pain from the ankle, although this is unclear. Gout possibility as well. We'll plan on admission for observation, physical therapy evaluation, and repeat assessment as needed. Diagnosis Primary Impression: Ankle swelling Condition: Stable Sorin Márquez MD Jun 08, 2017 21:32
[2017-06-08] MEDS ORDERED: ENOXAPARIN SODIUM 40 MG/0.4 ML SYRINGE SQ SCH (22:00)
[2017-06-08] MEDS ORDERED: ONDANSETRON HCL 4 MG/2 ML VIAL IVP PRN (22:15)
[2017-06-08] MEDS ORDERED: BISACODYL 10 MG SUPP RECTAL PRN (22:15)
[2017-06-08] MEDS ORDERED: ACETAMINOPHEN 325 MG TAB PO PRN (22:15)
[2017-06-08] MEDS ORDERED: NALOXONE HCL 0.4 MG/ML AMP IV PRN (22:15)
[2017-06-08] MEDS ORDERED: SODIUM CHLORIDE 0.9% FLUSH 10 ML FLUSH IV FLUSH PRN (22:15)
[2017-06-08] MEDS ORDERED: MAGNESIUM HYDROXIDE SUSP 30 ML CUP PO PRN (22:15)
[2017-06-08] MEDS ORDERED: SENNOSIDES 8.6 MG TAB PO PRN (22:15)
[2017-06-08] MEDS ORDERED: LACTULOSE SYRUP 20 GM/30 ML CUP PO PRN (22:15)
[2017-06-08 23:30] VITALS: BP 172/84; PULSE 63; RESP 18; O2SAT 100
[2017-06-08] MEDS: CARVEDILOL 12.5 MG TAB PO SCH (23:52)
[2017-06-08] MEDS: PRAVASTATIN SOD 80 MG TAB PO SCH (23:52)
[2017-06-09] VITALS (11 sets, daily range): BP systolic 138–177; BP diastolic 75–105; PULSE 55–67; RESP 16–18; TEMP 96.2–98.1; O2SAT 96–100
[2017-06-09] MEDS: POTASSIUM CHLORIDE 10 MEQ CONTROLLED RELEASE TAB PO SCH ×3 (09:19→21:23)
[2017-06-09] MEDS: SODIUM CHLORIDE 0.9% FLUSH 10 ML FLUSH IV FLUSH SCH ×2 (09:19→21:00)
[2017-06-09] MEDS: DOCUSATE SODIUM 50 MG/SENNA 8.6 MG TAB PO SCH ×3 (09:19→21:22)
[2017-06-09] MEDS: BUDESONIDE-FORMOTEROL 80/4.5 MCG INHALER INH SCH ×2 (09:19→21:21)
[2017-06-09] MEDS: FUROSEMIDE 20 MG TAB PO SCH (09:19)
[2017-06-09] MEDS: ASPIRIN EC 81 MG TABEC PO SCH (09:19)
[2017-06-09] MEDS: CARVEDILOL 12.5 MG TAB PO SCH ×2 (09:19→21:22)
[2017-06-09] MEDS: RIVAROXABAN 15 MG TAB PO SCH (09:20)
[2017-06-09] MEDS: NIFEdipine 60 MG SUSTAINED RELEASE TAB PO SCH (09:20)
[2017-06-09] MEDS: LISINOPRIL 20 MG TAB PO SCH (09:20)
[2017-06-09 12:01] LABS: AUTOMATED NEUTROPHIL # 2.1 TH/MM3 (1.8-7.7); BASOPHIL # 0.1 TH/MM3 (0-0.2); BASOPHIL % 1.5 % (0.0-2.0); EOSINOPHIL # 0.3 TH/MM3 (0-0.4); EOSINOPHIL % 6.6 % (0.0-4.0); HEMATOCRIT 36.1 % (35.0-46.0); HEMO FLAGS DIFF FINAL; LYMPH % 29.5 % (9.0-44.0); LYMPHOCYTE # 1.2 TH/MM3 (1.0-4.8); MEAN CORPUSCULAR HGB CONC 33.4 % (32.0-36.0); MONO % 9.4 % (0.0-8.0); PLATELET COUNT 130 TH/MM3 (150-450); RED BLOOD COUNT 4.45 MIL/MM3 (4.00-5.30); RED CELL DISTRIBUTION WIDTH 15.6 % (11.6-17.2)
[2017-06-09 12:02] LABS: BICARBONATE 24.7 MEQ/L (21.0-32.0); MAGNESIUM 2.1 MG/DL (1.5-2.5); POTASSIUM 3.1 MEQ/L (3.5-5.1)
--- NOTE | 2017-06-09 13:08 | HHI.HP ---
HPI Service [facility] Primary Care Physician Alex Mata MD Admission Diagnosis right foot pain and swelling, gait difficulty Diagnoses: Travel History International Travel<30 Days: No Contact w/Intl Traveler <30 Da: No Traveled to Known Affected Are: No History of Present Illness This is a 66-year-old female patient of Dr. MATA. The patient presented to the emergency department at [facility] with pain and swelling in the right ankle. She had surgery here at [facility] many years ago on the same ankle. The current problem has been going on for about 2 days with difficulty walking and weightbearing, she is not able to weight-bear at all on her right foot, she does also has minor swelling in the left ankle, x- ray of the right ankle was negative. No recent injury. She has a very old injury of the right ankle for which she had the surgery. She was seen by the undersigned this morning in room at 68. She is alert and oriented. She has some trouble with his speech which is secondary to prior history of stroke. She had 2 strokes in the past. This affected her speech and her right upper extremity strength, she is however able to walk until 2 days ago. She did say that she has some fever a few days back however no fever recorded or documented during this admission, Review of Systems Other As detailed above, 10 systems reviewed and otherwise negative. Past Family Social History Past Medical History Hypertension Atrial fibrillation 2 strokes, with resulting aphasia and right upper extremity weakness Right ankle injury Heart failure Tobacco abuse Hyperlipidemia Hypertension Possible COPD Past Surgical History ICD placement Right ankle ORIF Tubal ligation Reported Medications Reported Meds & Active Scripts Active Hydrocodone-Acetaminophen 5-325 mg Tab 1 Tab PO Q6H PRN Furosemide 20 Mg Tab 20 Mg PO DAILY 30 Days Aspirin EC (Aspirin) 81 Mg Tabdr 81 Mg PO DAILY 30 Days Proair Hfa 8.5 GM Inh (Albuterol Sulfate) 90 Mcg/Act Aer 1 Puff INH Q4H PRN 108 mcg/actuation Symbicort Inh (Budesonide/Formoterol Fumarate) 80-4.5 Mcg/Act Aero 2 Puff INH Q12HR Klor-Con 10 (Potassium Chloride) 10 Meq Tab 10 Meq PO DAILY Simvastatin 40 Mg Tab 40 Mg PO HS Xarelto (Rivaroxaban) 15 Mg Tab 15 Mg PO DAILY Coreg (Carvedilol) 6.25 Mg Tab 12.5 Mg PO Q12HR Nifedipine ER 24 HR (Nifedipine) 60 Mg Tab 60 Mg PO DAILY Lisinopril 10 Mg Tab 20 Mg PO DAILY Allergies: Coded Allergies: MRI PRECAUTION (Verified Adverse Reaction, Severe, NONCOMPATIBLE PACER BIOTRONIX ITREVIA [id number] 01/30/17 LRS, 06/08/17) MODEL [id number] Family History Reviewed but not contributory Social History She currently smokes 3 cigarettes a day, no excessive alcohol, lives with grandson, denies any illicit drug use Physical Exam Vital Signs Vital Signs Date Time Temp Pulse Resp B/P Pulse Ox O2 Delivery O2 Flow Rate FiO2 06/09/17 12:40 166/78 06/09/17 12:20 97.6 55 18 96 06/09/17 08:00 97.6 67 18 160/92 100 06/09/17 03:58 166/88 06/09/17 03:50 98.1 66 18 177/105 98 06/08/17 23:30 63 18 172/84 100 Room Air 06/08/17 19:30 66 18 161/87 99 Room Air 06/08/17 17:46 55 16 100 Room Air 06/08/17 17:00 54 15 158/83 100 Room Air 06/08/17 15:17 98.9 77 18 178/99 98 Physical Exam GENERAL: This is a pleasant well-nourished, well-developed patient, in no apparent distress. SKIN: No rashes, ecchymoses or lesions. Cool and dry. HEAD: Atraumatic. Normocephalic. No temporal or scalp tenderness. EYES: Pupils equal round and reactive. Extraocular motions intact. No scleral icterus. No injection or drainage. ENT: Nose without bleeding, purulent drainage or septal hematoma. Throat without erythema, tonsillar hypertrophy or exudate. Uvula midline. Airway patent. NECK: Trachea midline. No JVD or lymphadenopathy. Supple, nontender, no meningeal signs. CARDIOVASCULAR: Regular rate and rhythm without murmurs, gallops, or rubs. RESPIRATORY: Clear to auscultation. Breath sounds equal bilaterally. No wheezes , rales, or rhonchi. GASTROINTESTINAL: Abdomen soft, non-tender, nondistended. No hepato-splenomegaly , or palpable masses. No guarding. MUSCULOSKELETAL: Swelling and local heat involving the right foot, right ankle up to the distal right lower leg, positive peripheral pulses present She has a well-healed surgical scar over the medial aspect of her right ankle. NEUROLOGICAL: Awake and alert. Cranial nerves II through XII intact. 4 over 5 weakness involving right upper extremity, poor articulation of speech, however her speech content is normal. Laboratory Laboratory Tests Test 06/08/17 06/08/17 06/09/17 17:30 19:35 11:29 Prothrombin Time 14.6 Prothromb Time International 1.3 Ratio Activated Partial 43.0 Thromboplast Time Sodium Level 141 142 Potassium Level 3.2 3.1 Chloride Level 106 107 Carbon Dioxide Level 23.4 24.7 Anion Gap 12 10 Blood Urea Nitrogen 25 24 Creatinine 1.41 1.43 Estimat Glomerular Filtration 45 45 Rate Random Glucose 70 111 Calcium Level 9.5 9.1 C-Reactive Protein 1.70 B-Type Natriuretic Peptide 88 White Blood Count 6.6 4.0 Red Blood Count 4.26 4.45 Hemoglobin 11.3 12.0 Hematocrit 35.2 36.1 Mean Corpuscular Volume 82.7 81.0 Mean Corpuscular Hemoglobin 26.5 27.0 Mean Corpuscular Hemoglobin 32.0 33.4 Concent Red Cell Distribution Width 15.8 15.6 Platelet Count 121 130 Mean Platelet Volume 10.6 11.7 Neutrophils (%) (Auto) 47.9 53.0 Lymphocytes (%) (Auto) 35.7 29.5 Monocytes (%) (Auto) 10.4 9.4 Eosinophils (%) (Auto) 5.0 6.6 Basophils (%) (Auto) 1.0 1.5 Neutrophils # (Auto) 3.2 2.1 Lymphocytes # (Auto) 2.4 1.2 Monocytes # (Auto) 0.7 0.4 Eosinophils # (Auto) 0.3 0.3 Basophils # (Auto) 0.1 0.1 CBC Comment AUTO DIFF DIFF FINAL Differential Comment AUTO DIFF CONFIRMED Platelet Estimate LOW Platelet Morphology Comment NORMAL Red Cell Morphology Comment NORMAL Erythrocyte Sedimentation Rate 24 Magnesium Level 2.1 Result Diagram: 06/09/17 1129 06/09/17 1129 Imaging Last 24 hours Impressions Lower Extremity Ultrasound 06/08/17 4096 Signed Impressions: Service Date/Time: Thursday, June 08, 2017 19:43 - CONCLUSION: Normal examination. Sandrine Hobson MD Ankle X-Ray 06/08/17 1916 Signed Impressions: Service Date/Time: Thursday, June 08, 2017 16:51 - CONCLUSION: No definite fracture is seen for technique. Sandrine Hobson MD Assessment and Plan Assessment and Plan Assessment Acute right ankle pain/swelling/8 Possible acute gout attack Could not entirely rule out right ankle septic joint Hypoglycemia on arrival Hypokalemia Tobacco abuse Management Patient has been laced on observation She was started on colchicine 0.6 mg by mouth twice a day Sodium is being replaced She is started on D5 half-normal saline at 75 cc an hour The recommended to discontinue smoking Home medications otherwise continued Three-phase bone scan is ordered to rule out joint infection Empiric antibiotics may need to be given if no relief from colchicine Follow sodium level follow sugar level Follow potassium level Discussed with patient Discussed with nurse 40 minutes spent Discussed With: Nurse Concha Hopkins MD Jun 09, 2017 13:07
[2017-06-09] MEDS: COLCHICINE 0.6 MG TAB PO SCH ×2 (15:06→22:28)
[2017-06-09] MEDS ORDERED: SODIUM CHLORIDE 0.9% FLUSH 10 ML FLUSH IV FLUSH PRN (15:45)
[2017-06-09] MEDS ORDERED: SODIUM CHLORIDE 0.9% FLUSH 10 ML FLUSH IV FLUSH SCH (21:00)
[2017-06-09] MEDS: PRAVASTATIN SOD 80 MG TAB PO SCH (21:22)
[2017-06-10] VITALS (10 sets, daily range): BP systolic 155–172; BP diastolic 81–99; PULSE 53–78; RESP 15–17; TEMP 97.8–98.6; O2SAT 95–100
[2017-06-10] MEDS: COLCHICINE 0.6 MG TAB PO SCH (09:00)
[2017-06-10] MEDS: DOCUSATE SODIUM 50 MG/SENNA 8.6 MG TAB PO SCH ×2 (10:11)
[2017-06-10] MEDS: RIVAROXABAN 15 MG TAB PO SCH (10:12)
[2017-06-10] MEDS: ASPIRIN EC 81 MG TABEC PO SCH (10:12)
[2017-06-10] MEDS: FUROSEMIDE 20 MG TAB PO SCH (10:12)
[2017-06-10] MEDS: NIFEdipine 60 MG SUSTAINED RELEASE TAB PO SCH (10:12)
[2017-06-10] MEDS: CARVEDILOL 12.5 MG TAB PO SCH (10:12)
[2017-06-10] MEDS: POTASSIUM CHLORIDE 10 MEQ CONTROLLED RELEASE TAB PO SCH ×2 (10:13)
[2017-06-10] MEDS: BUDESONIDE-FORMOTEROL 80/4.5 MCG INHALER INH SCH (10:13)
[2017-06-10] MEDS: SODIUM CHLORIDE 0.9% FLUSH 10 ML FLUSH IV FLUSH SCH (10:13)
[2017-06-10] MEDS: LISINOPRIL 20 MG TAB PO SCH (10:13)
--- NOTE | 2017-06-10 10:16 | HHI.PR ---
Subjective Interval History Alert, oriented, back to baseline, denies any pain at this time, right ankle no longer swollen, Review of Systems Constitutional Constitutional Remarks 10 systems reviewed and otherwise negative except for the above Vitals/Results Intake & Output 06/09/17 06/09/17 06/10/17 15:00 23:00 07:00 Intake Total 240 ml Balance 240 ml Intake Oral 240 ml # Voids 1 Vital Signs Vital Signs Date Time Temp Pulse Resp B/P Pulse Ox O2 Delivery O2 Flow Rate FiO2 06/10/17 07:45 97.8 64 16 162/82 95 06/10/17 04:00 98.4 56 17 168/88 98 06/10/17 03:03 66 06/10/17 00:00 98.6 69 16 155/81 97 06/09/17 23:53 60 06/09/17 20:04 60 06/09/17 20:00 96.2 62 16 139/75 97 06/09/17 15:37 97.8 63 18 97 06/09/17 15:27 138/80 06/09/17 15:16 64 06/09/17 12:40 166/78 06/09/17 12:20 97.6 55 18 96 CBC/BMP: 06/09/17 1129 06/09/17 1129 Lab Results Laboratory Tests Test 06/09/17 06/10/17 11:29 04:40 White Blood Count 4.0 TH/MM3 Red Blood Count 4.45 MIL/MM3 Hemoglobin 12.0 GM/DL Hematocrit 36.1 % Mean Corpuscular Volume 81.0 FL Mean Corpuscular Hemoglobin 27.0 PG Mean Corpuscular Hemoglobin 33.4 % Concent Red Cell Distribution Width 15.6 % Platelet Count 130 TH/MM3 Mean Platelet Volume 11.7 FL Neutrophils (%) (Auto) 53.0 % Lymphocytes (%) (Auto) 29.5 % Monocytes (%) (Auto) 9.4 % Eosinophils (%) (Auto) 6.6 % Basophils (%) (Auto) 1.5 % Neutrophils # (Auto) 2.1 TH/MM3 Lymphocytes # (Auto) 1.2 TH/MM3 Monocytes # (Auto) 0.4 TH/MM3 Eosinophils # (Auto) 0.3 TH/MM3 Basophils # (Auto) 0.1 TH/MM3 CBC Comment DIFF FINAL Differential Comment Sodium Level 142 MEQ/L Potassium Level 3.1 MEQ/L Chloride Level 107 MEQ/L Carbon Dioxide Level 24.7 MEQ/L Anion Gap 10 MEQ/L Blood Urea Nitrogen 24 MG/DL Creatinine 1.43 MG/DL Estimat Glomerular Filtration 45 ML/MIN Rate Random Glucose 111 MG/DL Uric Acid 9.0 MG/DL Calcium Level 9.1 MG/DL Magnesium Level 2.1 MG/DL Random Cortisol 7.4 MCG/DL Physical Exam General General Appearance: Well Developed, Comfortable Eyes Eye Exam: Pupils Reactive Ears & Nose Ears & Nose Exam: Nasal Mucosa Thebes Throat Throat Exam: Oral Mucosa Thebes & Moist Neck Neck Exam: Trachea Midline Pulmonary Resp Exam: Breath Sounds Equal Cardiology CV Exam: Normal Sinus Rhythm Gastrointestinal/Abdomen GI Exam: Non-Tender, Bowel Sounds Present Musculoskeletal MS Exam: Normal Tone MS Remarks Walks with a walker Integumentary Skin Exam: Warm, Dry Neurologic Neuro Exam: Alert, Awake, Oriented, Speech Clear, Moving All Extremities Psychiatric Psych Exam: Appropriate Responses VTE Prophylaxis VTE Prophylaxis Meds: Heparin Assessment/Plan Assessment/Plan Assessment Acute right ankle pain/swelling/flush improved today acute gout attack Could not entirely rule out right ankle septic joint Hypoglycemia on arrival Hypokalemia, on replacement Tobacco abuse Management Discharge home today She was started on colchicine 0.6 mg by mouth twice a day 1 week then daily Needs to follow with PCP regarding possible placement on allopurinol Potassium is being replaced The recommended to discontinue smoking Three-phase bone scan canceled as clinically she is much improved after colchicine Discussed with patient Discussed with nurse Discharge Minutes: 40 Concha Hopkins MD Jun 10, 2017 10:16
[2017-06-10] MEDS ORDERED: COLC1TAB15 PO (10:20)
--- NOTE | 2017-06-10 11:14 | RADRPT ---
EXAM DATE/TIME: 06/10/2017 08:58 [facility] COMPARISON: No previous studies available for comparison. PRIOR BONE SCANS: No correlative bone scan available for comparison. INDICATIONS : Infection, swelling. DOSE: 30.2 mCi Tc99m MDP IV TECHNIQUE: Three phase bone scan of the Ankle was performed. MEDICAL HISTORY : Hypertension. Congestive heart failure. Chronic obstructive pulmonary disease. SURGICAL HISTORY : Tubal ligation. Defibrillator. Right ankle. ENCOUNTER: Initial ACUITY: 1 day PAIN SCALE: 3/10 LOCATION: Right Ankle. FINDINGS: After injection radioisotope, flow meters were performed. There is some hyperemia to the right ankle . Static images demonstrate clear diffuse increased activity throughout the entire right lower leg a nd ankle compared to the left. On the delayed image there is some mild uptake in the mid foot of the right foot. There is some upta ke I suspect in the naviculocuneiform joint space. No other focal areas of bony activity identified. The knees are unremarkable. CONCLUSION: There is certainly some hyperemia to the right ankle compared to the left. There is some uptake in t he naviculocuneiform joint space, could be arthritis. No other additional abnormal areas of focal ac tivity identified. Sorin Jason MD on June 10, 2017 at 10:54 Board Certified Radiologist. This report was verified electronically.
[2017-06-10 15:03] LABS: BICARBONATE 18.3 MEQ/L (21.0-32.0); POTASSIUM 4.7 MEQ/L (3.5-5.1)
--- NOTE | 2017-06-10 15:15 | HHI.PR ---
Vitals/Results Intake & Output 06/09/17 06/09/17 06/10/17 15:00 23:00 07:00 Intake Total 240 ml Balance 240 ml Intake Oral 240 ml # Voids 1 Vital Signs Vital Signs Date Time Temp Pulse Resp B/P Pulse Ox O2 Delivery O2 Flow Rate FiO2 06/10/17 12:09 97.8 53 15 156/99 100 06/10/17 07:45 97.8 64 16 162/82 95 06/10/17 04:00 98.4 56 17 168/88 98 06/10/17 03:03 66 06/10/17 00:00 98.6 69 16 155/81 97 06/09/17 23:53 60 06/09/17 20:04 60 06/09/17 20:00 96.2 62 16 139/75 97 06/09/17 15:37 97.8 63 18 97 06/09/17 15:27 138/80 06/09/17 15:16 64 CBC/BMP: 06/09/17 1129 06/10/17 0440 Lab Results Laboratory Tests Test 06/10/17 04:40 Sodium Level 143 MEQ/L Potassium Level 4.7 MEQ/L Chloride Level 111 MEQ/L Carbon Dioxide Level 18.3 MEQ/L Anion Gap 14 MEQ/L Blood Urea Nitrogen 17 MG/DL Creatinine 1.14 MG/DL Estimat Glomerular Filtration 58 ML/MIN Rate Random Glucose 86 MG/DL Calcium Level 9.3 MG/DL Random Cortisol 7.4 MCG/DL Assessment/Plan Assessment/Plan Assessment Acute right ankle pain/swelling/8 Possible acute gout attack Could not entirely rule out right ankle septic joint Hypoglycemia on arrival Hypokalemia Tobacco abuse Management Patient has been laced on observation She was started on colchicine 0.6 mg by mouth twice a day Sodium is being replaced She is started on D5 half-normal saline at 75 cc an hour The recommended to discontinue smoking Home medications otherwise continued Three-phase bone scan is ordered to rule out joint infection Empiric antibiotics may need to be given if no relief from colchicine Follow sodium level follow sugar level Follow potassium level Discussed with patient Discussed with nurse Concha Hopkins MD Jun 10, 2017 15:15
[2017-06-10] MEDS ORDERED: POTA-243 PO (15:19)
== END 2017-06-10 18:59 | disposition home or self-care (01) ==
LOC: NEPC 15:14 → NEDA 20:57 → NEPFCDU 06-09 01:01
PROVIDERS: ADMIT Specialist; ATTEND Specialist
DX: M25.571 Pain in right ankle and joints of right foot (principal); M10.9 Gout, unspecified; E16.2 Hypoglycemia, unspecified; E87.6 Hypokalemia; M79.671 Pain in right foot; M79.89 Other specified soft tissue disorders; M25.471 Effusion, right ankle; R26.2 Difficulty in walking, not elsewhere classified; J45.909 Unspecified asthma, uncomplicated; I25.10 Atherosclerotic heart disease of native coronary artery without angina pectoris; I11.0 Hypertensive heart disease with heart failure; I50.9 Heart failure, unspecified; E78.5 Hyperlipidemia, unspecified; I48.91 Unspecified atrial fibrillation; I25.2 Old myocardial infarction; J44.9 Chronic obstructive pulmonary disease, unspecified; M19.90 Unspecified osteoarthritis, unspecified site; F17.210 Nicotine dependence, cigarettes, uncomplicated; Z86.73 Personal history of transient ischemic attack (TIA), and cerebral infarction without residual deficits; Z95.810 Presence of automatic (implantable) cardiac defibrillator; Z79.899 Other long term (current) drug therapy; Z79.01 Long term (current) use of anticoagulants; Z79.82 Long term (current) use of aspirin
CPT/HCPCS: 73610; 78315; 80048; 82533; 83735; 83880; 84550; 85025; 85610; 85652; 85730; 86140; 93970; 97162; 99285; A9503; G0378; G8987; G8988; J1650

== ENCOUNTER 2017-09-20 18:01 | Inpatient (IN) | payer MEDICARE, MEDICAID ==
[~2017-09-20] VITALS: Ht 160 cm; Wt 82.9 kg
[~2017-09-20 18:01] MED LIST changes: +COLC1TAB15 PO
[2017-09-20 18:08] VITALS: BP 296/159; PULSE 95; RESP 24; O2SAT 98
[2017-09-20] MEDS ORDERED: FURO40TA PO (18:21)
[2017-09-20] MEDS ORDERED: ISOS60TA PO (18:21)
--- NOTE | 2017-09-20 18:29 | PD ---
HPI Chief Complaint: GI Complaint Time Seen by Provider: 18:28 Travel History International Travel<30 days: No Contact w/Intl Traveler<30days: No Traveled to known affect area: No History of Present Illness HPI 67-year-old female with history of HTN, CHF, CAD, CVA, implanted AICD on Xarelto presents to the ED for evaluation of 12 hour history of nausea and vomiting. The patient endorses headache earlier today for which she took 2 BC powders but states that she does not have a headache on presentation. She denies fever, chills, cough, shortness of breath, palpitations, abdominal pain, dysuria, back pain. Patient is somewhat of a poor historian. Primary care is Dr. Mata. [facility] Past Medical History Hx Anticoagulant Therapy: Yes (XERALTO) Arthritis: Yes Asthma: Yes Blood Disorders: No Anxiety: No Depression: No Heart Rhythm Problems: Yes Cancer: No Cardiovascular Problems: Yes High Cholesterol: No Chemotherapy: No Chest Pain: No Congestive Heart Failure: Yes COPD: No Cerebrovascular Accident: Yes Coronary Artery Disease: Yes Diabetes: No Diminished Hearing: No Endocrine: No Genitourinary: No Headaches: Yes Hypertension: Yes Immune Disorder: No Kidney Stones: No Musculoskeletal: Yes Neurologic: Yes Psychiatric: No Reproductive: No Respiratory: Yes Immunizations Current: Yes Migraines: No Radiation Therapy: No Renal Failure: No Seizures: No Sleep Apnea: No Thyroid Disease: No Ulcer: No Influenza Vaccination: No (unknown) Menopausal: Yes : 4 Para: 3 Miscarriage: 1 Tubal Ligation: Yes Past Surgical History Abdominal Surgery: No AICD: Yes Arteriovenous Shunt: No Cardiac Surgery: Yes Ear Surgery: No Endocrine Surgery: No Eye Surgery: No Gynecologic Surgery: Yes Insulin Pump: No Joint Replacement: No Oral Surgery: No Pacemaker: Yes Thoracic Surgery: No Other Surgery: Yes (R ankle surgery, tubal ligation) Social History Alcohol Use: No Tobacco Use: No Substance Use: No Allergies-Medications (Allergen,Severity, Reaction): Coded Allergies: MRI PRECAUTION (Verified Adverse Reaction, Severe, NONCOMPATIBLE PACER BIOTRONIX ITREVIA [id number] 01/30/17 LRS, 09/20/17) MODEL 347018 Reported Meds & Prescriptions Reported Meds & Active Scripts Active Klor-Con 10 (Potassium Chloride) 10 Meq Tab 30 Meq PO Q12HR Colchicine 0.6 Mg Tab 0.6 Mg PO BID Use 1 tablet twice a day for 7 days then 1 tablet daily, hold if diarrhea Hydrocodone-Acetaminophen 5-325 mg Tab 1 Tab PO Q6H PRN Aspirin EC (Aspirin) 81 Mg Tabdr 81 Mg PO DAILY 30 Days Proair Hfa 8.5 GM Inh (Albuterol Sulfate) 90 Mcg/Act Aer 1 Puff INH Q4H PRN 108 mcg/actuation Symbicort Inh (Budesonide/Formoterol Fumarate) 80-4.5 Mcg/Act Aero 2 Puff INH Q12HR Simvastatin 40 Mg Tab 40 Mg PO HS Xarelto (Rivaroxaban) 15 Mg Tab 15 Mg PO DAILY Coreg (Carvedilol) 6.25 Mg Tab 12.5 Mg PO Q12HR Nifedipine ER 24 HR (Nifedipine) 60 Mg Tab 60 Mg PO DAILY Lisinopril 10 Mg Tab 20 Mg PO DAILY Reported Furosemide 40 Mg Tab 40 Mg PO DAILY Isosorbide Mononitrate ER (Isosorbide Mononitrate) 60 Mg Tab 60 Mg PO DAILY Review of Systems Except as stated in HPI: all other systems reviewed are Neg Physical Exam Narrative GENERAL: Well-nourished, well-developed black female, alert, oriented. SKIN: Focused skin assessment warm/dry. HEAD: Normocephalic. EYES: No scleral icterus. No injection or drainage. NECK: Supple, trachea midline. No JVD or lymphadenopathy. CARDIOVASCULAR: Regular rate and rhythm without murmurs, gallops, or rubs. RESPIRATORY: Breath sounds clear and equal bilaterally. No accessory muscle use. GASTROINTESTINAL: Abdomen soft, nondistended, active bowel sounds, mild tenderness diffusely. MUSCULOSKELETAL: No cyanosis, or edema. NEUROLOGICAL: Awake and alert. Cranial nerves II through XII intact. Motor and sensory grossly within normal limits. Five out of 5 muscle strength in all muscle groups. Normal speech. BACK: Nontender without obvious deformity. No CVA tenderness. Data Data Last Documented VS Vital Signs Date Time Temp Pulse Resp B/P (MAP) Pulse Ox O2 Delivery O2 Flow Rate FiO2 09/20/17 21:02 75 18 224/114 (150) 94 Room Air Orders Orders Vascular Access Team Consult/P PRN (09/20/17 18:23) Vascular Poc Ultrasound (09/20/17 ) Complete Blood Count With Diff (09/20/17 18:24) Comprehensive Metabolic Panel (09/20/17 18:24) Prothrombin Time / Inr (Pt) (09/20/17 18:24) Act Partial Throm Time (Ptt) (09/20/17 18:24) Ecg Monitoring (09/20/17 18:24) Iv Access Insert/Monitor (09/20/17 18:24) Oximetry (09/20/17 18:24) Sodium Chloride 0.9% Flush (Ns Flush) (09/20/17 18:30) Ondansetron Inj (Zofran Inj) (09/20/17 18:30) Urinalysis - C+S If Indicated (09/20/17 18:24) Lipase (09/20/17 18:24) Ct Brain W/O Iv Contrast(Rout) (09/20/17 ) Enalaprilat Inj (Vasotec Inj) (09/20/17 18:45) Us Abdomen Gallbladder (09/20/17 ) Nifedipine Sr (Procardia Xl) (09/20/17 19:45) Admit Order (Ed Use Only) (09/20/17 21:12) Vital Signs (Adult) Q4H (09/20/17 21:11) Activity Oob With Assistance (09/20/17 21:11) Intake + Output CHOCO.QSHIFT (09/20/17 21:11) Diet Heart Healthy (09/21/17 Breakfast) Sodium Chloride 0.9% Flush (Ns Flush) (09/20/17 21:15) Sodium Chloride 0.9% Flush (Ns Flush) (09/21/17 09:00) Comprehensive Metabolic Panel (09/21/17 06:00) Complete Blood Count With Diff (09/21/17 06:00) Case Management Consult (09/20/17 21:11) Scd Bilateral/Knee High CHOCO.BID (09/20/17 21:11) Naloxone Inj (Narcan Inj) (09/20/17 21:15) Magnesium Hydroxide Liq (Milk Of Magnesi (09/20/17 21:15) Sennosides (Senokot) (09/20/17 21:15) Bisacodyl Supp (Dulcolax Supp) (09/20/17 21:15) Lactulose Liq (Lactulose Liq) (09/20/17 21:15) Inpatient Certification (09/20/17 ) Labs Laboratory Tests Test 09/20/17 18:38 09/20/17 19:37 09/20/17 20:17 Blood Urea Nitrogen 18 MG/DL Creatinine 1.17 MG/DL Random Glucose 119 MG/DL Total Protein 8.9 GM/DL Albumin 4.2 GM/DL Calcium Level 9.8 MG/DL Alkaline Phosphatase 78 U/L Aspartate Amino Transf (AST/SGOT) 36 U/L Alanine Aminotransferase (ALT/SGPT) 15 U/L Total Bilirubin 0.3 MG/DL Sodium Level 139 MEQ/L Potassium Level 4.5 MEQ/L Chloride Level 105 MEQ/L Carbon Dioxide Level 23.9 MEQ/L Anion Gap 10 MEQ/L Estimat Glomerular Filtration Rate 56 ML/MIN Lipase 46 U/L White Blood Count 6.3 TH/MM3 Red Blood Count 4.43 MIL/MM3 Hemoglobin 12.6 GM/DL Hematocrit 37.5 % Mean Corpuscular Volume 84.5 FL Mean Corpuscular Hemoglobin 28.3 PG Mean Corpuscular Hemoglobin Concent 33.5 % Red Cell Distribution Width 16.2 % Platelet Count 195 TH/MM3 Mean Platelet Volume 9.9 FL Neutrophils (%) (Auto) 73.9 % Lymphocytes (%) (Auto) 19.0 % Monocytes (%) (Auto) 4.0 % Eosinophils (%) (Auto) 2.3 % Basophils (%) (Auto) 0.8 % Neutrophils # (Auto) 4.6 TH/MM3 Lymphocytes # (Auto) 1.2 TH/MM3 Monocytes # (Auto) 0.3 TH/MM3 Eosinophils # (Auto) 0.1 TH/MM3 Basophils # (Auto) 0.1 TH/MM3 CBC Comment DIFF FINAL Differential Comment Prothrombin Time 10.8 SEC Prothromb Time International Ratio 1.0 RATIO Activated Partial Thromboplast Time 26.8 SEC MDM Medical Decision Making Medical Screen Exam Complete: Yes Emergency Medical Condition: Yes Differential Diagnosis Hypertensive urgency versus gastroenteritis versus cholecystitis versus dehydration versus metabolic strength versus other Narrative Course 67-year-old female with history of HTN, CHF, CAD, CVA, implanted AICD on Xarelto presents to the ED for evaluation of 12 hour history of nausea and vomiting. The patient endorses headache earlier today for which she took 2 BC powders but states that she does not have a headache on presentation. She denies fever, chills, cough, shortness of breath, palpitations, abdominal pain, dysuria, back pain. Patient is somewhat of a poor historian. Primary care is Dr. Mata. BP to 96/159 on presentation. IV was established. Patient was administered 1.25 of Vasotec and 4 mg Zofran. CBC: Unremarkable Coags: INR 1.0. CMP: BUN 18, creatinine 1.17. Glucose 119. Lipase [address] no acute findings. US GB: No acute findings. Contracted gallbladder. No biliary ductal dilatation. Patient's hypertensions persisted on repeat check. She was administered 60 mg nifedipine. Current BP 206/120. I discussed the patient with Dr. Márquez who recommends admission for BP control. The patient is agreeable with this plan. Dr. Nicole agrees to accept the patient to the medicine service. Please see medicine nose for disposition. Yecenia Cantu Sep 20, 2017 18:29
[2017-09-20] MEDS ORDERED: SODIUM CHLORIDE 0.9% FLUSH 10 ML FLUSH IVF PRN (18:30)
[2017-09-20] MEDS ORDERED: ONDANSETRON HCL 4 MG/2 ML VIAL IVP ONE (18:30)
[2017-09-20] MEDS ORDERED: ENALAPRILAT 1.25 MG/ML VIAL IV PUSH ONE (18:45)
[2017-09-20 18:48] VITALS: BP 213/111; PULSE 84; RESP 22; O2SAT 97
--- NOTE | 2017-09-20 19:23 | RADRPT ---
EXAM DATE/TIME: 09/20/2017 19:04 [facility] COMPARISON: CT BRAIN W/O CONTRAST, May 05, 2017, 10:00. INDICATIONS : Hypertensive headache. RADIATION DOSE: 34.02 CTDIvol (mGy) MEDICAL HISTORY : Cerebrovascular disease. Congestive heart failure. Hypertension. SURGICAL HISTORY : Tubal ligation. ENCOUNTER: Initial ACUITY: 1 day PAIN SCALE: 5/10 LOCATION: cranial TECHNIQUE: Multiple contiguous axial images were obtained of the head. Using automated exposure control and adj ustment of the mA and/or kV according to patient size, radiation dose was kept as low as reasonably a chievable to obtain optimal diagnostic quality images. DICOM format image data is available electro nically for review and comparison. FINDINGS: CEREBRUM: The ventricles are normal for age. No evidence of midline shift, mass lesion, hemorrhage or acute in farction. No extra-axial fluid collections are seen. POSTERIOR FOSSA: The cerebellum and brainstem are intact. The 4th ventricle is midline. The cerebellopontine angle i s unremarkable. EXTRACRANIAL: The visualized portion of the orbits is intact. SKULL: The calvaria is intact. No evidence of skull fracture. CONCLUSION: 1. No acute findings. Chronic white matter ischemic changes similar to April. Odilon Lechuga MD on September 20, 2017 at 19:21 Board Certified Radiologist. This report was verified electronically.
[2017-09-20 19:26] LABS: ALT (GPT) 15 U/L (10-53)
[2017-09-20 19:29] LABS: ALKALINE PHOSPHATASE 78 U/L (45-117); ANION GAP 10 MEQ/L (5-15); AST (GOT) 36 U/L (15-37); BICARBONATE 23.9 MEQ/L (21.0-32.0); BLOOD UREA NITROGEN 18 MG/DL (7-18); CHLORIDE 105 MEQ/L (98-107); GLOMERULAR FILTRATION RATE 56 ML/MIN (>89); POTASSIUM 4.5 MEQ/L (3.5-5.1); SODIUM (NA) 139 MEQ/L (136-145); TOTAL BILIRUBIN ADULT 0.3 MG/DL (0.2-1.0)
[2017-09-20 19:34] VITALS: BP 228/137; PULSE 19; PULSE 72; RESP 18; O2SAT 95
[2017-09-20] MEDS ORDERED: NIFEdipine 60 MG SUSTAINED RELEASE TAB PO ONE (19:45)
[2017-09-20 20:02] LABS: AUTOMATED NEUTROPHIL # 4.6 TH/MM3 (1.8-7.7); BASOPHIL # 0.1 TH/MM3 (0-0.2); BASOPHIL % 0.8 % (0.0-2.0); EOSINOPHIL # 0.1 TH/MM3 (0-0.4); EOSINOPHIL % 2.3 % (0.0-4.0); HEMATOCRIT 37.5 % (35.0-46.0); HEMO FLAGS DIFF FINAL; LYMPHOCYTE # 1.2 TH/MM3 (1.0-4.8); MEAN CELL VOLUME 84.5 FL (80.0-100.0); MEAN CORPUSCULAR HEMOGLOBIN 28.3 PG (27.0-34.0); MEAN CORPUSCULAR HGB CONC 33.5 % (32.0-36.0); NEUT % 73.9 % (16.0-70.0); PLATELET COUNT 195 TH/MM3 (150-450); RED BLOOD COUNT 4.43 MIL/MM3 (4.00-5.30); RED CELL DISTRIBUTION WIDTH 16.2 % (11.6-17.2); WHITE BLOOD COUNT 6.3 TH/MM3 (4.0-11.0)
--- NOTE | 2017-09-20 20:50 | RADRPT ---
EXAM DATE/TIME: 09/20/2017 20:20 [facility] COMPARISON: No previous studies available for comparison. INDICATIONS : Nausea and vomiting. MEDICAL HISTORY : Congestive heart failure. Hypertension. Cerebrovascular accident. Myocardial infarction.Anticoagu lant therapy. Asthma. Arthritis. SURGICAL HISTORY : Tubal ligation. Pacemaker. Internal defibrillator. ENCOUNTER: Initial ACUITY: 1 day PAIN SCORE: 0/10 LOCATION: Right upper quadrant MEASUREMENTS: LIVER: 15.4 cm length COMMON DUCT: 5 mm RIGHT KIDNEY: 11.2 x 5.0 x 4.1 cm FINDINGS: LIVER: Normal echotexture without focal lesion or ductal dilatation. COMMON DUCT: No intraluminal mass or stone visualized. GALLBLADDER: Contracted and not well visualized. PANCREAS: The visualized portions are within normal limits. RIGHT KIDNEY: No evidence of hydronephrosis, stone, or mass. CONCLUSION: 1. No acute findings. Contracted gallbladder. No biliary ductal dilatation. Odilon Lechuga MD on September 20, 2017 at 20:47 Board Certified Radiologist. This report was verified electronically.
[2017-09-20 21:02] VITALS: BP 224/114; PULSE 75; RESP 18; O2SAT 94
[2017-09-20 21:03] LABS: APTT (PATIENT) 26.8 SEC (24.3-30.1); PROTHROMBIN TIME - PATIENT 10.8 SEC (9.8-11.6)
--- NOTE | 2017-09-20 21:11 | PD ---
Data Data Last Documented VS Vital Signs Date Time Temp Pulse Resp B/P (MAP) Pulse Ox O2 Delivery O2 Flow Rate FiO2 09/20/17 21:02 75 18 224/114 (150) 94 Room Air Orders Orders Vascular Access Team Consult/P PRN (09/20/17 18:23) Vascular Poc Ultrasound (09/20/17 ) Complete Blood Count With Diff (09/20/17 18:24) Comprehensive Metabolic Panel (09/20/17 18:24) Prothrombin Time / Inr (Pt) (09/20/17 18:24) Act Partial Throm Time (Ptt) (09/20/17 18:24) Ecg Monitoring (09/20/17 18:24) Iv Access Insert/Monitor (09/20/17 18:24) Oximetry (09/20/17 18:24) Sodium Chloride 0.9% Flush (Ns Flush) (09/20/17 18:30) Ondansetron Inj (Zofran Inj) (09/20/17 18:30) Urinalysis - C+S If Indicated (09/20/17 18:24) Lipase (09/20/17 18:24) Ct Brain W/O Iv Contrast(Rout) (09/20/17 ) Enalaprilat Inj (Vasotec Inj) (09/20/17 18:45) Us Abdomen Gallbladder (09/20/17 ) Nifedipine Sr (Procardia Xl) (09/20/17 19:45) Labs Laboratory Tests Test 09/20/17 18:38 09/20/17 19:37 09/20/17 20:17 Blood Urea Nitrogen 18 MG/DL Creatinine 1.17 MG/DL Random Glucose 119 MG/DL Total Protein 8.9 GM/DL Albumin 4.2 GM/DL Calcium Level 9.8 MG/DL Alkaline Phosphatase 78 U/L Aspartate Amino Transf (AST/SGOT) 36 U/L Alanine Aminotransferase (ALT/SGPT) 15 U/L Total Bilirubin 0.3 MG/DL Sodium Level 139 MEQ/L Potassium Level 4.5 MEQ/L Chloride Level 105 MEQ/L Carbon Dioxide Level 23.9 MEQ/L Anion Gap 10 MEQ/L Estimat Glomerular Filtration Rate 56 ML/MIN Lipase 46 U/L White Blood Count 6.3 TH/MM3 Red Blood Count 4.43 MIL/MM3 Hemoglobin 12.6 GM/DL Hematocrit 37.5 % Mean Corpuscular Volume 84.5 FL Mean Corpuscular Hemoglobin 28.3 PG Mean Corpuscular Hemoglobin Concent 33.5 % Red Cell Distribution Width 16.2 % Platelet Count 195 TH/MM3 Mean Platelet Volume 9.9 FL Neutrophils (%) (Auto) 73.9 % Lymphocytes (%) (Auto) 19.0 % Monocytes (%) (Auto) 4.0 % Eosinophils (%) (Auto) 2.3 % Basophils (%) (Auto) 0.8 % Neutrophils # (Auto) 4.6 TH/MM3 Lymphocytes # (Auto) 1.2 TH/MM3 Monocytes # (Auto) 0.3 TH/MM3 Eosinophils # (Auto) 0.1 TH/MM3 Basophils # (Auto) 0.1 TH/MM3 CBC Comment DIFF FINAL Differential Comment Prothrombin Time 10.8 SEC Prothromb Time International Ratio 1.0 RATIO Activated Partial Thromboplast Time 26.8 SEC MDM Medical Record Reviewed: Yes Supervised Visit with JENNIFFER: Yes Narrative Course The history, exam, and medical decision-making in the associated mid-level provider note were completed with my assistance. I reviewed and agree with the findings presented. I attest that I had a [id number] encounter with the patient on the same day, and personally performed and documented my assessment and findings in the medical record. *My assessment and Findings: 67-year-old woman presents emergency Department with nausea vomiting, some headache. She is on home blood pressure medicines and took them all this morning. She did not take any medicines this evening. She has no abdominal pain. She's had nausea and vomiting throughout the day today. She looks a little bit ill. She has a benign abdominal exam. Blood pressure is markedly elevated. Given IV Vasotec and some home medications with improvement in the vomiting but still with significant blood pressure elevation. We'll plan on admission for blood pressure control and monitoring. Sorin Márquez MD Sep 20, 2017 21:11
[2017-09-20] MEDS ORDERED: SODIUM CHLORIDE 0.9% FLUSH 10 ML FLUSH IV FLUSH PRN (21:15)
[2017-09-20] MEDS ORDERED: BISACODYL 10 MG SUPP RECTAL PRN (21:15)
[2017-09-20] MEDS ORDERED: ALBUTEROL SULFATE 90 MCG/ACT HFA 8 GM INHALER INH PRN (21:15)
[2017-09-20] MEDS ORDERED: LACTULOSE SYRUP 20 GM/30 ML CUP PO PRN (21:15)
[2017-09-20] MEDS ORDERED: SENNOSIDES 8.6 MG TAB PO PRN (21:15)
[2017-09-20] MEDS ORDERED: NALOXONE HCL 0.4 MG/ML AMP IV PUSH PRN (21:15)
[2017-09-20] MEDS ORDERED: MAGNESIUM HYDROXIDE SUSP 30 ML CUP PO PRN (21:15)
--- NOTE | 2017-09-20 21:27 | HHI.HP ---
HPI Service [facility] Primary Care Physician Alex Mata MD Admission Diagnosis hypertension Diagnoses: Chief Complaint: nausea, vomiting and weakness Travel History International Travel<30 Days: No Contact w/Intl Traveler <30 Da: No Traveled to Known Affected Are: No History of Present Illness Written by SUNG Banerjee acting as scribe for Dr. Washington] on 09/20/17 at 21:19. 67 y/o female with a history of HTN, COPD, CVA, HLD, Afib with ablation, CKD presented to the ED with complaints of nausea, vomiting and weakness. She is a poor historian when discussing history. She states she was in the chair and tried to get up but she was to weak. She states at home she was having nausea and vomiting, but states it is better now. Denies any chest pain, sob, dizziness or headaches. She states she took all her meds today that her daughter gave her and doesn't think she vomited them up. She lives at home with her daughter, and daughter is not present for questioning. She denies any recent medication change, and up until today she has felt ok. Review of Systems Except as stated in HPI: all other systems reviewed are Neg Past Family Social History Past Medical History COPD CVA History of atrial flutter / atrial fibrillation and previous ablation Nonischemic cardiomyopathy, last echo in January 2017 -EF 35-40%, diffuse hypokinesis HTN CKD HLD Non compliance Admitted in January to ICU for janelle. failure requiring BIPAP, CVA with right sided weakness, CHF Past Surgical History AICD placement. tubal ligation. pin placement in the right ankle. Reported Medications Reported Meds & Active Scripts Active Klor-Con 10 (Potassium Chloride) 10 Meq Tab 30 Meq PO Q12HR Colchicine 0.6 Mg Tab 0.6 Mg PO BID Use 1 tablet twice a day for 7 days then 1 tablet daily, hold if diarrhea Hydrocodone-Acetaminophen 5-325 mg Tab 1 Tab PO Q6H PRN Aspirin EC (Aspirin) 81 Mg Tabdr 81 Mg PO DAILY 30 Days Proair Hfa 8.5 GM Inh (Albuterol Sulfate) 90 Mcg/Act Aer 1 Puff INH Q4H PRN 108 mcg/actuation Symbicort Inh (Budesonide/Formoterol Fumarate) 80-4.5 Mcg/Act Aero 2 Puff INH Q12HR Simvastatin 40 Mg Tab 40 Mg PO HS Xarelto (Rivaroxaban) 15 Mg Tab 15 Mg PO DAILY Coreg (Carvedilol) 6.25 Mg Tab 12.5 Mg PO Q12HR Nifedipine ER 24 HR (Nifedipine) 60 Mg Tab 60 Mg PO DAILY Lisinopril 10 Mg Tab 20 Mg PO DAILY Reported Furosemide 40 Mg Tab 40 Mg PO DAILY Isosorbide Mononitrate ER (Isosorbide Mononitrate) 60 Mg Tab 60 Mg PO DAILY Allergies: Coded Allergies: MRI PRECAUTION (Verified Adverse Reaction, Severe, NONCOMPATIBLE PACER WAY SystemsIA [id number] 01/30/17 LRS, 09/20/17) MODEL [id number] Active Ordered Medications Current Medications Medications (Trade) Dose Ordered Sig/Dajuan Route Start Time Stop Time Status Last Admin (NS Flush) 2 ml UNSCH PRN IV FLUSH 09/20/17 21:15 (NS Flush) 2 ml BID IV FLUSH 09/21/17 09:00 (Narcan Inj) 0.4 mg UNSCH PRN IV PUSH 09/20/17 21:15 (Milk Of Magnesia Liq) 30 ml Q12H PRN PO 09/20/17 21:15 (Senokot) 17.2 mg Q12H PRN PO 09/20/17 21:15 (Dulcolax Supp) 10 mg DAILY PRN RECTAL 09/20/17 21:15 (Lactulose Liq) 30 ml DAILY PRN PO 09/20/17 21:15 (Proair Hfa Inh) 1 puff Q4H PRN INH 09/20/17 21:15 (Ecotrin Ec) 81 mg DAILY PO 09/21/17 09:00 (Symbicort 80-4.5 Mcg Inh) 2 puff Q12HR INH 09/21/17 09:00 (Coreg) 12.5 mg Q12HR PO 09/20/17 21:15 09/20/17 21:32 (Lasix) 40 mg DAILY PO 09/21/17 09:00 (Imdur) 60 mg DAILY@0700 PO 09/21/17 07:00 (Prinivil) 20 mg DAILY PO 09/21/17 09:00 (Procardia Xl) 60 mg DAILY PO 09/21/17 09:00 (Xarelto) 15 mg DAILY PO 09/21/17 09:00 (Pravachol) 80 mg HS PO 09/21/17 21:00 Family History Patient states she does not remember her family history Social History Patient denies any tobacco, alcohol or illicit drug use. Physical Exam Vital Signs Vital Signs Date Time Temp Pulse Resp B/P (MAP) Pulse Ox O2 Delivery O2 Flow Rate FiO2 09/20/17 21:02 75 18 224/114 (150) 94 Room Air 09/20/17 19:34 72 18 228/137 (167) 95 Room Air 09/20/17 19:09 (145) Room Air 09/20/17 18:48 84 22 213/111 (145) 97 Room Air 09/20/17 18:08 95 24 296/159 (204) 98 Physical Exam GENERAL: This is a well-nourished, well-developed patient, in no apparent distress. SKIN: No rashes, ecchymoses or lesions. Cool and dry. HEAD: Atraumatic. Normocephalic. EYES: Pupils equal round and reactive. ENT: Nose without bleeding, purulent drainage or septal hematoma. Airway patent. NECK: Trachea midline. No JVD or lymphadenopathy. Supple, nontender, no meningeal signs. CARDIOVASCULAR: Regular rate and rhythm without murmurs, gallops, or rubs. RESPIRATORY: Clear to auscultation. Breath sounds equal bilaterally. No wheezes , rales, or rhonchi. GASTROINTESTINAL: Abdomen soft, non-tender, nondistended. MUSCULOSKELETAL: Extremities without clubbing, cyanosis, or edema.No calf tenderness. NEUROLOGICAL: Awake and alert. Chronic Right sided weakness, 4/5 muscle strength , DTR R 3+, L 2+ . Slow speech. Laboratory Laboratory Tests Test 09/20/17 18:38 09/20/17 19:37 09/20/17 20:17 Blood Urea Nitrogen 18 Creatinine 1.17 Random Glucose 119 Total Protein 8.9 Albumin 4.2 Calcium Level 9.8 Alkaline Phosphatase 78 Aspartate Amino Transf (AST/SGOT) 36 Alanine Aminotransferase (ALT/SGPT) 15 Total Bilirubin 0.3 Sodium Level 139 Potassium Level 4.5 Chloride Level 105 Carbon Dioxide Level 23.9 Anion Gap 10 Estimat Glomerular Filtration Rate 56 Lipase 46 White Blood Count 6.3 Red Blood Count 4.43 Hemoglobin 12.6 Hematocrit 37.5 Mean Corpuscular Volume 84.5 Mean Corpuscular Hemoglobin 28.3 Mean Corpuscular Hemoglobin Concent 33.5 Red Cell Distribution Width 16.2 Platelet Count 195 Mean Platelet Volume 9.9 Neutrophils (%) (Auto) 73.9 Lymphocytes (%) (Auto) 19.0 Monocytes (%) (Auto) 4.0 Eosinophils (%) (Auto) 2.3 Basophils (%) (Auto) 0.8 Neutrophils # (Auto) 4.6 Lymphocytes # (Auto) 1.2 Monocytes # (Auto) 0.3 Eosinophils # (Auto) 0.1 Basophils # (Auto) 0.1 CBC Comment DIFF FINAL Differential Comment Prothrombin Time 10.8 Prothromb Time International Ratio 1.0 Activated Partial Thromboplast Time 26.8 Result Diagram: 09/20/17 1937 09/20/17 1838 Imaging Last Impressions Head CT 09/20/17 0000 Signed Impressions: Service Date/Time: Wednesday, September 20, 2017 19:04 - CONCLUSION: 1. No acute findings. Chronic white matter ischemic changes similar to April. Odilon Lechuga MD Gall Bladder Ultrasound 09/20/17 0000 Signed Impressions: Service Date/Time: Wednesday, September 20, 2017 20:20 - CONCLUSION: 1. No acute findings. Contracted gallbladder. No biliary ductal dilatation. MD Corinna Church VTE Risk Assessment Caprini VTE Risk Assessment: Mod/High Risk (score >= 2) Caprini Risk Assessment Model Point Value = 1 Point Value = 2 Point Value = 3 Point Value = 5 Age 41-60 Minor surgery BMI > 25 kg/m2 Swollen legs Varicose veins or History of unexplained or recurrent spontaneous Oral contraceptives or hormone replacement Sepsis (< 1 month) Serious lung disease, including pneumonia (< 1 month) Abnormal pulmonary function Acute myocardial infarction Congestive heart failure (< 1 month) History of inflammatory bowel disease Medical patient at bed rest Age 61-74 Arthroscopic surgery Major open surgery (> 45 min) Laparoscopic surgery (> 45 min) Malignancy Confined to bed (> 72 hours) Immobilizing plaster cast Central venous access Age >= 75 History of VTE Family history of VTE Factor V Leiden Prothrombin [id number] Lupus anticoagulant Anticardiolipin antibodies Elevated serum homocysteine Heparin-induced thrombocytopenia Other congenital or acquired thrombophilia Stroke (< 1 month) Elective arthroplasty Hip, pelvis, or leg fracture Acute spinal cord injury (< 1 month) Prophylaxis Regimen Total Risk Factor Score Risk Level Prophylaxis Regimen 0-1 Low Early ambulation 2 Moderate Order ONE of the following: *Sequential Compression Device (SCD) *Heparin 5000 units SQ BID 3-4 Higher Order ONE of the following medications: *Heparin 5000 units SQ TID *Enoxaparin/Lovenox 40 mg SQ daily (WT < 150 kg, CrCl > 30 mL/min) *Enoxaparin/Lovenox 30 mg SQ daily (WT < 150 kg, CrCl > 10-29 mL/min) *Enoxaparin/Lovenox 30 mg SQ BID (WT < 150 kg, CrCl > 30 mL/min) AND/OR *Sequential Compression Device (SCD) 5 or more Highest Order ONE of the following medications: *Heparin 5000 units SQ TID (Preferred with Epidurals) *Enoxaparin/Lovenox 40 mg SQ daily (WT < 150 kg, CrCl > 30 mL/min) *Enoxaparin/Lovenox 30 mg SQ daily (WT < 150 kg, CrCl > 10-29 mL/min) *Enoxaparin/Lovenox 30 mg SQ BID (WT < 150 kg, CrCl > 30 mL/min) AND *Sequential Compression Device (SCD) Assessment and Plan Problem List: (1) Nausea & vomiting ICD Code: R11.2 - Nausea with vomiting, unspecified Status: Acute (2) Hypertensive emergency ICD Code: I16.1 - Hypertensive emergency Status: Acute Assessment and Plan 67 y/o female with a history of HTN, COPD, CVA, Afib with ablation, CKD presented to the ED with complaints of nausea, vomiting and weakness. Hypertensive emergency, BP 296/159 on admission, unsure if patient missed any medications today -Resume home medications, night doses given in ED -Monitor vitals closer in [facility] -Will order PRNs if needed Nausea and vomiting secondary to HTN, resolving Gallbladder US reviewed and shows no acute findings, contracted gallbladder. -Antiemetics as needed -Diet as tolerated Afib, chronic, controlled -Resume home medications, monitor tele DVT prophylaxis: Ismael Discussed Condition With Patient and ER physician Physician Certification 2 Midnight Certification Type: Admission for Inpatient Services Order for Inpatient Services The services are ordered in accordance with Medicare regulations or non- Medicare payer requirements, as applicable. In the case of services not specified as inpatient-only, they are appropriately provided as inpatient services in accordance with the 2-midnight benchmark. Estimated LOS (days): 2 days is the estimated time the patient will need to remain in the hospital, assuming treatment plan goals are met and no additional complications. Post-Hospital Plan: Not yet determined Notes: This note was transcribed by annie Bardales. I, Dr. Tj Nicole personally performed the history, physical exam, and medical decision making; and confirmed the accuracy of the information in the transcribed note. Authenticated by Dr. Tj Nicole on 09/20/17 at 23:17. Maddi Bardales Sep 20, 2017 21:27 Tj Nicole MD Sep 20, 2017 23:17
[2017-09-20] MEDS ORDERED: ISOSORBIDE MONONITRATE 60 MG TAB PO ONE (21:30)
[2017-09-20] MEDS: CARVEDILOL 12.5 MG TAB PO SCH (21:32)
[2017-09-20 22:13] VITALS: BP 216/122; PULSE 75; RESP 20; O2SAT 95
[2017-09-20 23:47] VITALS: BP 190/111; PULSE 82; RESP 20; O2SAT 94
[2017-09-21] VITALS (16 sets, daily range): BP systolic 138–180; BP diastolic 76–110; PULSE 66–88; RESP 14–22; TEMP 97.7–98.4; O2SAT 91–100
[2017-09-21] MEDS: niCARdipine INJ 25 MG in SODIUM CHLOR 0.9% 250 ML INJ 240 ML IV PRN ×2 (00:37→06:39)
[2017-09-21 06:37] LABS: AUTOMATED NEUTROPHIL # 4.5 TH/MM3 (1.8-7.7); BASOPHIL % 0.6 % (0.0-2.0); EOSINOPHIL # 0.1 TH/MM3 (0-0.4); EOSINOPHIL % 1.3 % (0.0-4.0); HEMATOCRIT 38.6 % (35.0-46.0); LYMPH % 25.2 % (9.0-44.0); LYMPHOCYTE # 1.8 TH/MM3 (1.0-4.8); MEAN CELL VOLUME 84.5 FL (80.0-100.0); MEAN CORPUSCULAR HEMOGLOBIN 28.7 PG (27.0-34.0); MONO % 7.8 % (0.0-8.0); NEUT % 65.1 % (16.0-70.0); PLATELET COUNT 171 TH/MM3 (150-450); RED BLOOD COUNT 4.57 MIL/MM3 (4.00-5.30); RED CELL DISTRIBUTION WIDTH 16.6 % (11.6-17.2)
[2017-09-21] MEDS: ISOSORBIDE MONONITRATE 60 MG TAB PO SCH (06:38)
[2017-09-21 06:44] LABS: HEMO FLAGS AUTO DIFF
[2017-09-21 06:57] LABS: ALKALINE PHOSPHATASE 76 U/L (45-117); ALT (GPT) 12 U/L (10-53); ANION GAP 7 MEQ/L (5-15); AST (GOT) 11 U/L (15-37); BICARBONATE 24.7 MEQ/L (21.0-32.0); BLOOD UREA NITROGEN 19 MG/DL (7-18); CHLORIDE 108 MEQ/L (98-107); GLOMERULAR FILTRATION RATE 56 ML/MIN (>89); POTASSIUM 3.6 MEQ/L (3.5-5.1); SODIUM (NA) 140 MEQ/L (136-145); TOTAL BILIRUBIN ADULT 0.4 MG/DL (0.2-1.0)
[2017-09-21 08:25] LABS: OVALOCYTES 1+ (NORMAL); PLATELET ESTIMATE SMEAR NORMAL (NORMAL); PLATELET MORPHOLOGY ENLARGED (NORMAL); SCAN/DIFF AUTO DIFF CONFIRMED
[2017-09-21] MEDS: ASPIRIN EC 81 MG TABEC PO SCH (09:52)
[2017-09-21] MEDS: CARVEDILOL 12.5 MG TAB PO SCH ×2 (09:52→21:48)
[2017-09-21] MEDS: NIFEdipine 60 MG SUSTAINED RELEASE TAB PO SCH (09:52)
[2017-09-21] MEDS: RIVAROXABAN 15 MG TAB PO SCH (09:52)
[2017-09-21] MEDS: SODIUM CHLORIDE 0.9% FLUSH 10 ML FLUSH IV FLUSH SCH ×2 (09:52→21:49)
[2017-09-21] MEDS: FUROSEMIDE 40 MG TAB PO SCH (09:53)
[2017-09-21] MEDS: LISINOPRIL 10 MG TAB PO SCH (09:53)
--- NOTE | 2017-09-21 10:56 | HHI.PR ---
Subjective Remarks Off Cardene drip. Patient reports feeling weak overall. No other issues. Objective Vitals Vital Signs Date Time Temp Pulse Resp B/P (MAP) Pulse Ox O2 Delivery O2 Flow Rate FiO2 09/21/17 08:00 97.7 73 14 140/81 (100) 95 09/21/17 08:00 73 09/21/17 06:39 72 142/86 09/21/17 06:00 73 09/21/17 04:00 74 09/21/17 04:00 97.8 74 15 143/80 (101) 91 09/21/17 03:00 73 09/21/17 02:16 98.4 79 20 146/88 (107) 100 09/21/17 01:53 09/21/17 01:42 85 20 146/92 (110) 95 Room Air 09/21/17 01:25 75 20 156/96 (116) 95 Room Air 09/21/17 01:11 88 20 152/91 (111) 96 Room Air 09/21/17 00:56 88 20 138/78 (98) 94 Room Air 09/21/17 00:56 84 20 138/78 (98) 94 Room Air 09/21/17 00:37 86 182/110 09/21/17 00:26 69 20 180/110 (133) 94 Room Air 09/20/17 23:47 82 20 190/111 (137) 94 Room Air 09/20/17 22:13 75 20 216/122 (153) 95 Room Air 09/20/17 21:02 75 18 224/114 (150) 94 Room Air 09/20/17 19:34 72 18 228/137 (167) 95 Room Air 09/20/17 19:09 (145) Room Air 09/20/17 18:48 84 22 213/111 (145) 97 Room Air 09/20/17 18:08 95 24 296/159 (204) 98 I/O 09/20/17 09/20/17 09/20/17 09/21/17 09/21/17 09/21/17 07:00 15:00 23:00 07:00 15:00 23:00 Intake Total 549.00 ml Balance 549.00 ml Intake Oral 240 ml IV Total 309.00 ml # Voids 1 # Bowel Movements 0 Result Diagram: 09/21/17 0609/21/17 0600 Objective Remarks GENERAL: No acute distress CARDIOVASCULAR: Regular rate and rhythm. RESPIRATORY: No accessory muscle use. Clear to auscultation. Breath sounds equal bilaterally. GASTROINTESTINAL: Abdomen soft, non-tender, nondistended. Hepatic and splenic margins not palpable. MUSCULOSKELETAL: Extremities without clubbing, cyanosis, or edema. No obvious deformities. NEUROLOGICAL: Awake and alert. Normal speech. Generally weak. PSYCHIATRIC: Appropriate mood and affect; insight and judgment normal. A/P Problem List: (1) Nausea & vomiting ICD Code: R11.2 - Nausea with vomiting, unspecified Status: Acute (2) Hypertensive emergency ICD Code: I16.1 - Hypertensive emergency Status: Acute Assessment and Plan 67 y/o female with a history of HTN, COPD, CVA, Afib with ablation, CKD presented to the ED with complaints of nausea, vomiting and weakness. Patient presented with Hypertensive emergency Hypertensive emergency, BP 296/159 on admission, ? med compliance. She states her daughter normally gives her the medications. -Off Cardene drip. Continue home dose Lasix, Lisinopril, Procardia, Coreg - Monitor BP Nausea and vomiting secondary to HTN, resolved Gallbladder US shows no acute findings, contracted gallbladder. -Antiemetics as needed -Diet as tolerated Afib, chronic, controlled -Continue home dose Metoprolol, Xarelto DVT prophylaxis:On Xarelto Discharge Planning Transfer to floor Consult PT. May need SNF Anurag Akhtar MD Sep 21, 2017 10:56
[2017-09-21] MEDS: BUDESONIDE-FORMOTEROL 80/4.5 MCG INHALER INH SCH ×2 (11:36→21:48)
[2017-09-21] MEDS: PRAVASTATIN SOD 40 MG TAB PO SCH (21:48)
[2017-09-22] VITALS: BP 169/89; PULSE 74; RESP 16; TEMP 98.7; O2SAT 95
[2017-09-22 04:00] VITALS: BP 143/70; PULSE 80; RESP 16; TEMP 98.6; O2SAT 94
[2017-09-22] MEDS: ISOSORBIDE MONONITRATE 60 MG TAB PO SCH (06:24)
[2017-09-22 08:00] VITALS: BP 132/71; PULSE 62; PULSE 70; RESP 20; TEMP 98.4; O2SAT 96
[2017-09-22] MEDS: LISINOPRIL 10 MG TAB PO SCH (08:17)
[2017-09-22] MEDS: FUROSEMIDE 40 MG TAB PO SCH (08:17)
[2017-09-22] MEDS: CARVEDILOL 12.5 MG TAB PO SCH ×2 (08:17→21:05)
[2017-09-22] MEDS: BUDESONIDE-FORMOTEROL 80/4.5 MCG INHALER INH SCH ×2 (08:17→21:06)
[2017-09-22] MEDS: NIFEdipine 60 MG SUSTAINED RELEASE TAB PO SCH (08:17)
[2017-09-22] MEDS: RIVAROXABAN 15 MG TAB PO SCH (08:17)
[2017-09-22] MEDS: ASPIRIN EC 81 MG TABEC PO SCH (08:17)
[2017-09-22] MEDS: SODIUM CHLORIDE 0.9% FLUSH 10 ML FLUSH IV FLUSH SCH ×2 (08:18→21:05)
[2017-09-22] MEDS ORDERED: XARE15TA PO (08:35)
--- NOTE | 2017-09-22 08:53 | HHI.PR ---
Subjective Remarks Patient reports still feeling very weak today. No chest pain or shortness of breath. Blood pressure acceptable. Objective Vitals Vital Signs Date Time Temp Pulse Resp B/P (MAP) Pulse Ox O2 Delivery O2 Flow Rate FiO2 09/22/17 07:44 Room Air 09/22/17 04:00 98.6 80 16 143/70 (94) 94 09/22/17 00:00 98.7 74 16 169/89 (115) 95 09/21/17 20:00 73 09/21/17 20:00 Room Air 09/21/17 20:00 98.2 80 18 161/82 (108) 94 09/21/17 18:00 98.4 66 18 154/76 (102) 92 09/21/17 16:00 79 09/21/17 16:00 98.4 79 22 141/83 (102) 98 09/21/17 14:00 69 09/21/17 12:00 69 09/21/17 12:00 98.4 69 21 150/86 (107) 95 09/21/17 10:00 76 I/O 09/21/17 09/21/17 09/21/17 09/22/17 09/22/17 09/22/17 07:00 15:00 23:00 07:00 15:00 23:00 Intake Total 549.00 ml Output Total 400 ml 500 ml Balance 549.00 ml -400 ml -500 ml Intake Oral 240 ml IV Total 309.00 ml Output Urine Total 400 ml 500 ml # Voids 1 # Bowel Movements 0 2 Result Diagram: 09/21/17 0600 09/21/17 0600 Objective Remarks GENERAL: No acute distress CARDIOVASCULAR: Regular rate and rhythm. RESPIRATORY: No accessory muscle use. Clear to auscultation. Breath sounds equal bilaterally. GASTROINTESTINAL: Abdomen soft, non-tender, nondistended. Hepatic and splenic margins not palpable. MUSCULOSKELETAL: Extremities without clubbing, cyanosis, or edema. No obvious deformities. NEUROLOGICAL: Awake and alert. Normal speech. Generally weak. PSYCHIATRIC: Appropriate mood and affect; insight and judgment normal. A/P Problem List: (1) Nausea & vomiting ICD Code: R11.2 - Nausea with vomiting, unspecified Status: Acute (2) Hypertensive emergency ICD Code: I16.1 - Hypertensive emergency Status: Acute Assessment and Plan 67 y/o female with a history of HTN, COPD, CVA, Afib with ablation, CKD presented to the ED with complaints of nausea, vomiting and weakness. Patient presented with Hypertensive emergency Hypertensive emergency, BP 296/159 on admission, ? med compliance. She states her daughter normally gives her the medications. I attempted to call the patient's daughter today, no answer. -Status post Cardene drip. Continue home dose Lasix, Lisinopril, Procardia, Coreg - Monitor BP Nausea and vomiting secondary to HTN, resolved Gallbladder US shows no acute findings, contracted gallbladder. -Antiemetics as needed -Diet as tolerated Physical deconditioning: PT to evaluate the patient. Likely will need fpc facility placement for rehabilitation. Afib, chronic, controlled -Continue home dose Metoprolol, Xarelto DVT prophylaxis:On Xarelto Discharge Planning Likely DC to SNF Anurag Akhtar MD Sep 22, 2017 08:53
[2017-09-22 12:00] VITALS: BP 154/89; PULSE 78; RESP 20; TEMP 98.3; O2SAT 95
[2017-09-22 16:00] VITALS: BP 148/85; PULSE 83; RESP 20; TEMP 98.3; O2SAT 96
[2017-09-22 20:00] VITALS: BP 149/90; PULSE 73; PULSE 81; PULSE 84; RESP 19; TEMP 98.3; O2SAT 97
[2017-09-22] MEDS: PRAVASTATIN SOD 40 MG TAB PO SCH (21:05)
[2017-09-23] VITALS: BP 158/76; PULSE 85; RESP 21; TEMP 97.4; O2SAT 95
[2017-09-23 04:00] VITALS: BP 163/92; PULSE 78; RESP 18; TEMP 98; O2SAT 98
[2017-09-23] MEDS ORDERED: cloNIDine HCL 0.1 MG TAB PO ONE (04:00)
[2017-09-23] MEDS: ISOSORBIDE MONONITRATE 60 MG TAB PO SCH (06:06)
[2017-09-23] MEDS ORDERED: cloNIDine HCL 0.1 MG TAB PO PRN (08:00)
[2017-09-23] MEDS ORDERED: hydrALAZINE HCL 20 MG/ML VIAL IV PUSH PRN (08:00)
[2017-09-23 08:06] VITALS: BP_SYST 150; BP_SYST 171; BP_DIAS 94; PULSE 85; RESP 18; TEMP 97.5; O2SAT 96
[2017-09-23] MEDS ORDERED: CARV12.5 PO (08:06)
[2017-09-23] MEDS ORDERED: BACTOIN EACH NARE (08:06)
[2017-09-23] MEDS ORDERED: LISI10TA3 PO (08:06)
--- NOTE | 2017-09-23 08:07 | HHI.FF ---
Face to Face Verification Diagnosis: (1) Hypertensive urgency (2) Nausea & vomiting Physical Therapy Order: Evaluate and Treat, Improve ambulation, Strength and gait training Home Health Nursing Order: Medical education Signs/symptoms of disease process Medication education-adverse effect Nursing assessment with vital signs I have seen patient Mai Farmer on 09/23/17. My clinical findings support the need for the requested home health care services because: Deconditioned w/ increased weakness I certify that my clinical findings support that this patient is homebound because: Unsafe to leave home unassisted Crow Khan MD Sep 23, 2017 08:07
--- NOTE | 2017-09-23 08:07 | HHI.DCPOC ---
Discharge Care Plan Diagnosis: (1) Nausea & vomiting (2) Hypertensive urgency Your Health Problems Are: Difficulty with ADL Exercise Tolerance Goals to Promote Your Health * To prevent worsening of your condition and complications * To maintain your health at the optimal level Directions to Meet Your Goals Take your medications as prescribed Follow your dietary instruction Follow activity as directed Keep your appointments as scheduled Take your immunizations and boosters as scheduled If your symptoms worsen call your PCP, if no PCP go to Urgent Care Center or Emergency Room Smoking is Dangerous to Your Health. Avoid second hand smoke Call the 24-hour hour crisis hotline for domestic abuse at Crow Khan MD Sep 23, 2017 08:07
[2017-09-23] MEDS ORDERED: LISINOPRIL 10 MG TAB PO SCH (09:00)
[2017-09-23] MEDS ORDERED: MUPIROCIN 2% OINT 1 APPLIC/GM SYR EACH NARE SCH (09:00)
[2017-09-23] MEDS ORDERED: CARVEDILOL 12.5 MG TAB PO SCH (09:00)
[2017-09-23] MEDS: NIFEdipine 60 MG SUSTAINED RELEASE TAB PO SCH (09:41)
[2017-09-23] MEDS: BUDESONIDE-FORMOTEROL 80/4.5 MCG INHALER INH SCH (09:41)
[2017-09-23] MEDS: FUROSEMIDE 40 MG TAB PO SCH (09:41)
[2017-09-23] MEDS: RIVAROXABAN 15 MG TAB PO SCH (09:42)
[2017-09-23] MEDS: ASPIRIN EC 81 MG TABEC PO SCH (09:42)
[2017-09-23] MEDS: SODIUM CHLORIDE 0.9% FLUSH 10 ML FLUSH IV FLUSH SCH (09:43)
[2017-09-23 11:04] VITALS: PULSE 85
--- NOTE | 2017-09-23 12:17 | HHI.DS ---
Discharge Summary Admission Date Sep 20, 2017 at 21:14 Discharge Date: Sep 23, 2017 Admitting Diagnosis hypertension (1) Nausea & vomiting ICD Code: R11.2 - Nausea with vomiting, unspecified Diagnosis: Principal Status: Acute (2) Hypertensive emergency ICD Code: I16.1 - Hypertensive emergency Status: Acute Procedures none Brief History - From Admission Written by SUNG Banerjee acting as scribe for Dr. Washington] on 09/20/17 at 21:19. 67 y/o female with a history of HTN, COPD, CVA, HLD, Afib with ablation, CKD presented to the ED with complaints of nausea, vomiting and weakness. She is a poor historian when discussing history. She states she was in the chair and tried to get up but she was to weak. She states at home she was having nausea and vomiting, but states it is better now. Denies any chest pain, sob, dizziness or headaches. She states she took all her meds today that her daughter gave her and doesn't think she vomited them up. She lives at home with her daughter, and daughter is not present for questioning. She denies any recent medication change, and up until today she has felt ok. CBC/BMP: 09/21/17 0600 09/21/17 0600 Significant Findings Laboratory Tests Test 09/20/17 18:38 09/20/17 19:37 09/20/17 20:17 09/21/17 02:20 Creatinine 1.17 MG/DL (0.50-1.00) Random Glucose 119 MG/DL (74-106) Total Protein 8.9 GM/DL (6.4-8.2) Estimat Glomerular Filtration Rate 56 ML/MIN (>89) Lipase 46 U/L (73-393) Neutrophils (%) (Auto) 73.9 % (16.0-70.0) Test 09/21/17 06:00 Platelet Morphology Comment ENLARGED (NORMAL) Ovalocytes 1+ (NORMAL) Blood Urea Nitrogen 19 MG/DL (7-18) Creatinine 1.17 MG/DL (0.50-1.00) Aspartate Amino Transf (AST/SGOT) 11 U/L (15-37) Chloride Level 108 MEQ/L (98-107) Estimat Glomerular Filtration Rate 56 ML/MIN (>89) Imaging Last Impressions Head CT 09/20/17 0000 Signed Impressions: Service Date/Time: Wednesday, September 20, 2017 19:04 - CONCLUSION: 1. No acute findings. Chronic white matter ischemic changes similar to April. Odilon Lechuga MD Gall Bladder Ultrasound 09/20/17 0000 Signed Impressions: Service Date/Time: Wednesday, September 20, 2017 20:20 - CONCLUSION: 1. No acute findings. Contracted gallbladder. No biliary ductal dilatation. Odilon Lechuga MD PE at Discharge GENERAL: No acute distress CARDIOVASCULAR: Regular rate and rhythm. RESPIRATORY: No accessory muscle use. Clear to auscultation. Breath sounds equal bilaterally. GASTROINTESTINAL: Abdomen soft, non-tender, nondistended. Hepatic and splenic margins not palpable. MUSCULOSKELETAL: Extremities without clubbing, cyanosis, or edema. No obvious deformities. NEUROLOGICAL: Awake and alert. Normal speech. Generally weak. PSYCHIATRIC: Appropriate mood and affect; insight and judgment normal. Hospital Course 67 y/o female with a history of HTN, COPD, CVA, Afib with ablation, CKD presented to the ED with complaints of nausea, vomiting and weakness. Patient presented with Hypertensive emergency Hypertensive emergency, BP 296/159 on admission, ? med compliance. She states her daughter normally gives her the medications. Improved but will increase Coreg and lisinopril for better BP control. Discussed with daughter regarding med changes Nausea and vomiting secondary to HTN, improved. Head CT without acute findings. Consumed diet 100% Gallbladder US shows no acute findings, contracted gallbladder. Physical deconditioning: PT recommended home health care Afib, chronic, controlled -Continue home dose Metoprolol, Xarelto DVT prophylaxis:On Xarelto Pt Condition on Discharge: Stable Discharge Disposition: Discharge to SNF Discharge Time: > 30 minutes Discharge Instructions DIET: Follow Instructions for: Heart Healthy Diet Activities you can perform: Regular-No Restrictions Activities to Avoid: Driving Follow up Referrals: PCP Follow-up - 1 Week New Medications: Carvedilol (Coreg) 12.5 Mg Tab 25 MG PO Q12HR for Blood Pressure Management, #60 TAB Lisinopril (Lisinopril) 10 Mg Tab 20 MG PO BID for Blood Pressure Management, #60 TAB Mupirocin Nasal Oint (Bactroban Nasal Oint) 2% Oint 1 APPLIC EACH NARE BID for Infection, #1 TUBE use for 7 days only Single-use tubes. Continued Medications: Albuterol 8.5 GM Inh (Proair Hfa 8.5 GM Inh) 90 Mcg/Act Aer 1 PUFF INH Q4H PRN for SHORTNESS OF BREATH, #1 INHALER 1 Refill 108 mcg/actuation Aspirin DR (Aspirin EC) 81 Mg Tabdr 81 MG PO DAILY for cva for 30 Days, TAB 0 Refills Budesonide-Formoterol Inh (Symbicort Inh) 80-4.5 Mcg/Act Aero 2 PUFF INH Q12HR for Asthma Management, #1 INHALER 1 Refill Colchicine (Colchicine) 0.6 Mg Tab 0.6 MG PO BID for gout, #60 TAB Use 1 tablet twice a day for 7 days then 1 tablet daily, hold if diarrhea Furosemide (Furosemide) 40 Mg Tab 40 MG PO DAILY, #30 TAB 0 Refills Isosorbide Mononitrate ER (Isosorbide Mononitrate ER) 60 Mg Tab 60 MG PO DAILY for Prevent Chest Pain, #30 TAB 0 Refills Nifedipine ER 24 HR (Nifedipine ER 24 HR) 60 Mg Tab 60 MG PO DAILY for Blood Pressure Management, #30 TAB 1 Refill Potassium Chloride ER (Klor-Con 10) 10 Meq Tab 30 MEQ PO Q12HR for low potassium, #60 TAB Rivaroxaban (Xarelto) 15 Mg Tab 15 MG PO DAILY for Blood Clot Prevention, #30 TAB 1 Refill (This prescription has been renewed) Simvastatin (Simvastatin) 40 Mg Tab 40 MG PO HS for Cholesterol Management, #30 TAB 1 Refill Discontinued Medications: Carvedilol (Coreg) 6.25 Mg Tab 12.5 MG PO Q12HR for Blood Pressure Management, #60 TAB 1 Refill Hydrocodone-Acetaminophen (Hydrocodone-Acetaminophen) 5-325 mg Tab 1 TAB PO Q6H PRN for pain 5 to 10, #30 TAB Lisinopril (Lisinopril) 10 Mg Tab 20 MG PO DAILY for Blood Pressure Management, #30 TAB 1 Refill Crow Khan MD Sep 23, 2017 12:17
[2017-09-23 12:26] VITALS: BP 116/77; PULSE 83; RESP 18; TEMP 97.7; O2SAT 96
== END 2017-09-23 12:40 | disposition home health service (06) | DRG 305 ==
LOC: NEPE 18:01 → NEDA 21:14 → OBSVTOIN 21:14 → NEDH 09-21 01:32 → HIMN 09-21 02:10 → N04B 09-21 18:05
PROVIDERS: ADMIT Internal Medicine; ATTEND Internal Medicine
DX: I16.1 Hypertensive emergency (principal); I42.9 Cardiomyopathy, unspecified; I50.9 Heart failure, unspecified; I69.351 Hemiplegia and hemiparesis following cerebral infarction affecting right dominant side; I48.2 Chronic atrial fibrillation; Z79.82 Long term (current) use of aspirin; Z79.02 Long term (current) use of antithrombotics/antiplatelets; J44.9 Chronic obstructive pulmonary disease, unspecified; I12.9 Hypertensive chronic kidney disease with stage 1 through stage 4 chronic kidney disease, or unspecified chronic kidney disease; N18.9 Chronic kidney disease, unspecified; R11.2 Nausea with vomiting, unspecified; E78.5 Hyperlipidemia, unspecified; Z95.810 Presence of automatic (implantable) cardiac defibrillator
CPT/HCPCS: 70450; 76705; 76937; 80053; 83690; 85025; 85610; 85730; 87641; J2405; J7050

== ENCOUNTER 2017-10-03 13:34 | Inpatient (IN) | payer MEDICARE, MEDICAID ==
[~2017-10-03] VITALS: Ht 152.4 cm; Wt 79.4 kg
[2017-10-03] VITALS (8 sets, daily range): BP systolic 168–266; BP diastolic 83–176; PULSE 67–86; RESP 16–23; TEMP 98.4–98.5; O2SAT 97–99
[~2017-10-03 13:34] MED LIST changes: -ASPI81TA11 PO; +ASPI81TA23 PO; +BACTOIN EACH NARE; +CARV12.5 PO; -CARV6.25 PO; -FURO20TA PO; +FURO40TA PO; -HYDR-3516 PO; +ISOS60TA PO; +KLOR10TA PO; -POTA-243 PO
--- NOTE | 2017-10-03 16:01 | PD ---
HPI Chief Complaint: Hypertension Time Seen by Provider: 16:00 Travel History International Travel<30 days: No Contact w/Intl Traveler<30days: No Traveled to known affect area: No History of Present Illness HPI 67 YO F with PMH of HTN, CAD, CHF, CVA, A. fib, status post ablation, on Xarelto presents to the ED via EMS for evaluation of hypertension. The patient denies any somatic complaints on presentation. She denies headache, dizziness, fever, chills, chest pain, shortness of breath, abdominal pain, nausea, vomiting , dysuria, weakness of the extremities. She states that she had physical therapy at home today and they were concerned about her blood pressure which prompted her visit to the ED. The patient is helped with her daily medications by her daughter. She states that she has been compliant with her antihypertensives today. She is followed by Dr. Kraus. [facility] Past Medical History Hx Anticoagulant Therapy: Yes (XERALTO) Arthritis: Yes Asthma: Yes Blood Disorders: No Anxiety: No Depression: No Heart Rhythm Problems: Yes Cancer: No Cardiovascular Problems: Yes High Cholesterol: No Chemotherapy: No Chest Pain: No Congestive Heart Failure: Yes COPD: No Cerebrovascular Accident: Yes Coronary Artery Disease: Yes Diabetes: No Diminished Hearing: No Endocrine: No Genitourinary: No Headaches: Yes Hypertension: Yes Immune Disorder: No Kidney Stones: No Musculoskeletal: Yes Neurologic: Yes Psychiatric: No Reproductive: No Respiratory: Yes Immunizations Current: Yes Migraines: No Radiation Therapy: No Renal Failure: No Seizures: No Sleep Apnea: No Thyroid Disease: No Ulcer: No Menopausal: Yes : 4 Para: 3 Miscarriage: 1 Tubal Ligation: Yes Past Surgical History Abdominal Surgery: No AICD: Yes Arteriovenous Shunt: No Cardiac Surgery: Yes Ear Surgery: No Endocrine Surgery: No Eye Surgery: No Gynecologic Surgery: Yes Insulin Pump: No Joint Replacement: No Oral Surgery: No Pacemaker: Yes Thoracic Surgery: No Other Surgery: Yes (R ankle surgery, tubal ligation) Social History Alcohol Use: No Tobacco Use: No Substance Use: No Allergies-Medications (Allergen,Severity, Reaction): Coded Allergies: MRI PRECAUTION (Verified Adverse Reaction, Severe, NONCOMPATIBLE PACER BIOTRONIX ITREVIA 7VR-TDX 01/30/17 LRS, 10/03/17) MODEL [id number] Reported Meds & Prescriptions Reported Meds & Active Scripts Active Lisinopril 10 Mg Tab 20 Mg PO BID Coreg (Carvedilol) 12.5 Mg Tab 25 Mg PO Q12HR Bactroban Nasal Oint (Mupirocin Nasal Oint) 2% Oint 1 Applic EACH NARE BID use for 7 days only Single-use tubes. Xarelto (Rivaroxaban) 15 Mg Tab 15 Mg PO DAILY Klor-Con 10 (Potassium Chloride) 10 Meq Tab 30 Meq PO Q12HR Colchicine 0.6 Mg Tab 0.6 Mg PO BID Use 1 tablet twice a day for 7 days then 1 tablet daily, hold if diarrhea Aspirin EC (Aspirin) 81 Mg Tabdr 81 Mg PO DAILY 30 Days Simvastatin 40 Mg Tab 40 Mg PO HS Nifedipine ER 24 HR (Nifedipine) 60 Mg Tab 60 Mg PO DAILY Reported [symbicort puffer] Unknown Dose INH BID Furosemide 40 Mg Tab 40 Mg PO DAILY Isosorbide Mononitrate ER (Isosorbide Mononitrate) 60 Mg Tab 60 Mg PO DAILY Review of Systems Except as stated in HPI: all other systems reviewed are Neg Physical Exam Narrative GENERAL: Well-nourished, well-developed pleasant black female in no acute distress. SKIN: Focused skin assessment warm/dry. HEAD: Normocephalic. EYES: No scleral icterus. No injection or drainage. NECK: Supple, trachea midline. No JVD or lymphadenopathy. CARDIOVASCULAR: Irregularly irregular rate and rhythm without murmurs, gallops, or rubs. RESPIRATORY: Breath sounds clear and equal bilaterally. No accessory muscle use. GASTROINTESTINAL: Abdomen soft, non-tender, nondistended. Active bowel sounds. MUSCULOSKELETAL: No cyanosis, or edema. Moves extremities spontaneously. BACK: Nontender without obvious deformity. No CVA tenderness. Data Data Last Documented VS Vital Signs Date Time Temp Pulse Resp B/P (MAP) Pulse Ox O2 Delivery O2 Flow Rate FiO2 10/03/17 17:15 70 18 260/141 (180) 97 Room Air 10/03/17 13:44 98.4 Orders Orders Enalaprilat Inj (Vasotec Inj) (10/03/17 16:15) Iv Access Insert/Monitor (10/03/17 16:12) Complete Blood Count With Diff (10/03/17 16:12) Comprehensive Metabolic Panel (10/03/17 16:12) Urinalysis - C+S If Indicated (10/03/17 16:12) Ecg Monitoring (10/03/17 16:12) Oximetry (10/03/17 16:12) Sodium Chloride 0.9% Flush (Ns Flush) (10/03/17 16:15) Vascular Access Team Consult/P PRN (10/03/17 17:43) Vascular Poc Ultrasound (10/03/17 ) Enalaprilat Inj (Vasotec Inj) (10/03/17 18:00) Nicardipine Inj (Cardene Inj) (10/03/17 18:15) Admit Order (Ed Use Only) (10/03/17 18:06) Labs Laboratory Tests Test 10/03/17 16:15 10/03/17 16:25 Urine Color LIGHT-YELLOW Urine Turbidity HAZY Urine pH 6.0 Urine Specific [place] 1.006 Urine Protein TRACE mg/dL Urine Glucose (UA) NEG mg/dL Urine Ketones NEG mg/dL Urine Occult Blood NEG Urine Nitrite NEG Urine Bilirubin NEG Urine Urobilinogen LESS THAN 2.0 MG/DL Urine Leukocyte Esterase MOD Urine RBC 3 /hpf Urine WBC 5 /hpf Urine Squamous Epithelial Cells 4 /hpf Urine Amorphous Sediment RARE Urine Bacteria OCC /hpf Urine Mucus FEW /lpf Microscopic Urinalysis Comment CULT NOT INDICATED White Blood Count 6.1 TH/MM3 Red Blood Count 4.32 MIL/MM3 Hemoglobin 12.0 GM/DL Hematocrit 36.5 % Mean Corpuscular Volume 84.4 FL Mean Corpuscular Hemoglobin 27.8 PG Mean Corpuscular Hemoglobin Concent 32.9 % Red Cell Distribution Width 15.8 % Platelet Count 229 TH/MM3 Mean Platelet Volume 9.9 FL Neutrophils (%) (Auto) 57.1 % Lymphocytes (%) (Auto) 29.8 % Monocytes (%) (Auto) 7.2 % Eosinophils (%) (Auto) 5.0 % Basophils (%) (Auto) 0.9 % Neutrophils # (Auto) 3.5 TH/MM3 Lymphocytes # (Auto) 1.8 TH/MM3 Monocytes # (Auto) 0.4 TH/MM3 Eosinophils # (Auto) 0.3 TH/MM3 Basophils # (Auto) 0.1 TH/MM3 CBC Comment DIFF FINAL Differential Comment Blood Urea Nitrogen 10 MG/DL Creatinine 1.01 MG/DL Random Glucose 74 MG/DL Total Protein 5.9 GM/DL Albumin 2.9 GM/DL Calcium Level 7.4 MG/DL Alkaline Phosphatase 75 U/L Aspartate Amino Transf (AST/SGOT) 7 U/L Alanine Aminotransferase (ALT/SGPT) 9 U/L Total Bilirubin 0.2 MG/DL Sodium Level 145 MEQ/L Potassium Level 3.0 MEQ/L Chloride Level 112 MEQ/L Carbon Dioxide Level 24.1 MEQ/L Anion Gap 9 MEQ/L Estimat Glomerular Filtration Rate 67 ML/MIN Protein Corrected Calcium 8.1 MG/DL MDM Medical Decision Making Medical Screen Exam Complete: Yes Emergency Medical Condition: Yes Differential Diagnosis persistent hypertension versus noncompliance versus hypertensive urgency versus renal failure versus other Narrative Course 67 YO F with PMH of HTN, CAD, CHF, CVA, A. fib, s/p ablation, on Xarelto presents to the ED via EMS for evaluation of hypertension. The patient denies any somatic complaints on presentation. She denies headache, dizziness, fever, chills, chest pain, shortness of breath, abdominal pain, nausea, vomiting, dysuria, weakness of the extremities. She states that she had physical therapy at home today and they were concerned about her blood pressure which prompted her visit to the ED. The patient is helped with her daily medications by her daughter. She is followed by Dr. Kraus. Vitals reviewed. Physical exam reveals a pleasant, slightly confused white female in no acute distress. She is a pretty poor historian. The patient is known to me and this is her baseline. No focal neuro deficits. Irregularly irregular rate without appreciable M/R/G. Chest CTAB. Abdomen soft, nontender. No CVA tenderness. No lower extremity edema. During evaluation in the emergency room blood pressures range from 237/176 --- 266/134. The patient administered 2 doses of Vasotec with no improvement of symptoms. The nurse made several attempts to call the patient's daughter and were unsuccessful in contacting her. Vas access consult was placed and Cardene drip initiated. Patient was admitted to the hospital in late August, discharged 09/23. Renal artery stenosis was discovered at that time, patient has not followed up. Dr. Correa spoke with Dr. Vergara who agrees to accept the patient to the ICU. Please see medicine notes for disposition. Yecenia Cantu Oct 03, 2017 16:01
[2017-10-03] MEDS ORDERED: FORMOTEROL INH (16:04)
[2017-10-03] MEDS ORDERED: BUDESONIDE INH (16:04)
[2017-10-03] MEDS ORDERED: ENALAPRILAT 1.25 MG/ML VIAL IV PUSH ONE (16:15)
[2017-10-03] MEDS ORDERED: SODIUM CHLORIDE 0.9% FLUSH 10 ML FLUSH IV FLUSH PRN ×2 (16:15→19:45)
[2017-10-03 17:13] LABS: AUTOMATED NEUTROPHIL # 3.5 TH/MM3 (1.8-7.7); BASOPHIL # 0.1 TH/MM3 (0-0.2); BASOPHIL % 0.9 % (0.0-2.0); EOSINOPHIL # 0.3 TH/MM3 (0-0.4); HEMATOCRIT 36.5 % (35.0-46.0); HEMO FLAGS DIFF FINAL; LYMPH % 29.8 % (9.0-44.0); LYMPHOCYTE # 1.8 TH/MM3 (1.0-4.8); MEAN CELL VOLUME 84.4 FL (80.0-100.0); MEAN CORPUSCULAR HEMOGLOBIN 27.8 PG (27.0-34.0); MEAN CORPUSCULAR HGB CONC 32.9 % (32.0-36.0); MONO % 7.2 % (0.0-8.0); NEUT % 57.1 % (16.0-70.0); PLATELET COUNT 229 TH/MM3 (150-450); RED BLOOD COUNT 4.32 MIL/MM3 (4.00-5.30); RED CELL DISTRIBUTION WIDTH 15.8 % (11.6-17.2); WHITE BLOOD COUNT 6.1 TH/MM3 (4.0-11.0)
[2017-10-03 17:19] LABS: BACTERIA, URINE OCC /hpf; BLOOD, URINE NEG (NEG); COMMENT (UR) CULT NOT INDICATED; CULTURE IF INDICATED CULT NOT INDICATED; GLUCOSE,URINE NEG (NEG); KETONE, URINE NEG (NEG); MUCUS URINE FEW /lpf (OCC); NITRITE,URINE NEG (NEG); SQUAMOUS EPITHELIAL CELL URINE 4 /hpf (0-5); URINE COLOR LIGHT-YELLOW (YELLW/STRAW)
[2017-10-03 17:39] LABS: BICARBONATE 24.1 MEQ/L (21.0-32.0); CALCIUM-PROTEIN CORRECTED 8.1 MG/DL (8.5-10.1); TOTAL BILIRUBIN ADULT 0.2 MG/DL (0.2-1.0)
[2017-10-03] MEDS ORDERED: niCARdipine INJ 25 MG in SODIUM CHLOR 0.9% 250 ML INJ 240 ML IV PRN ×2 (17:45→19:15)
[2017-10-03] MEDS ORDERED: ENALAPRILAT 2.5 MG/2 ML VIAL IV PUSH ONE (18:00)
[2017-10-03] MEDS ORDERED: niCARdipine INJ 25 MG in SODIUM CHLOR 0.9% 250 ML INJ 240 ML IV ONE (18:15)
[2017-10-03] MEDS ORDERED: LABETALOL HCL 100 MG/20 ML VIAL IV PUSH PRN (19:15)
[2017-10-03] MEDS ORDERED: POTASSIUM CHLORIDE 20 MEQ CONTROLLED RELEASE TAB PO ONE (19:15)
--- NOTE | 2017-10-03 19:28 | HHI.HP ---
HPI Service Critical Care Medicine Primary Care Physician Alex Mata MD Admission Diagnosis persistent hypertension Diagnosis: Travel History International Travel<30 Days: No Contact w/Intl Traveler <30 Da: No Traveled to Known Affected Are: No History of Present Illness 67-year-old right-hand dominant female with past medical history of hypertension, nonischemic cardiomyopathy with chronic systolic heart failure ejection fraction 35-40%, ICD, atrial fibrillation status post ablation on chronic anticoagulation with Xarelto, prior stroke with residual aphasia, CKD stage III and renal artery stenosis. She has her history of refractory hypertension with multiple admissions for this. She had home physical therapy today and was noted to be severely hypertensive so she was sent to the ED where initial blood pressure was 237/176 with mean arterial pressure of 196. She is asymptomatic, specifically denying chest pain, shortness of breath, visual changes. She does state she had a mild headache earlier that is resolved. She is not able to answer certain orientation questions or provide much medical history but her daughter says that her mental status is at baseline and that "she doesn't understand what the issue is because her mom was feeling great today". She has previously had issues with medical non adherence and during her last admission her daughter said she would take over administration. Her daughter states she took all of her morning medications today. She does state that she does not take Coreg as prescribed because of the expense related to this. Patient was also diagnosed previously with right renal artery stenosis and Dr. Katz has previously recommended outpatient intervention and followup during prior consultation. Patient's daughter states she has followed up with Dr. Katz but patient has not undergone intervention for JOSLYN. Nicardipine drip has been initiated per ED Past Family Social History Allergies: Coded Allergies: MRI PRECAUTION (Verified Adverse Reaction, Severe, NONCOMPATIBLE PACER BIOTRONIX ITREVIA 7VR-TDX 01/30/17 LRS, 10/03/17) MODEL [id number] Past Medical History Hypertension Hyperlipidemia Chronic systolic heart failure secondary to Nonischemic cardiomyopathy with ejection fraction 35-40%, diffuse hypokinesis on Echo 01/28/17 Stroke Atrial fibrillation status post ablation 03/22/16 Chronic anticoagulation with Xarelto Chronic kidney disease stage III Bilateral renal artery stenosis COPD Past Surgical History Ablation for atrial fibrillation 03/22/16 Defibrillator placement BTL ORIF R ankle Reported Medications Xarelto 15 mill grams by mouth daily Simvastatin 40 mg by mouth daily at bedtime Isosorbide 60 g by mouth daily Coreg 25 mg by mouth every 12 hours (daughter states she is actually not compliant with this) Nifedipine ER 60 mill grams by mouth daily Lisinopril 20 mg by mouth twice a day Aspirin 81 mill grams by mouth daily Potassium chloride 30 mEq by mouth every 12 hours Lasix 40 mg by mouth daily Colchicine 0.6 mg by mouth twice a day Symbicort Family History Father - estranged; medical history unknown Mother during childbirth Social History She is a former smoker. She was not able to provide further details of her smoking history No alcohol or illicit drug use Her daughter lives with her She uses a wheelchair and walker Physical Exam Vital Signs Vital Signs Date Time Temp Pulse Resp B/P (MAP) Pulse Ox O2 Delivery O2 Flow Rate FiO2 10/03/17 19:16 79 262/126 10/03/17 18:11 82 20 266/134 (178) 97 Room Air 10/03/17 17:15 70 18 260/141 (180) 97 Room Air 10/03/17 16:07 67 18 254/128 (170) 98 Room Air 10/03/17 13:44 98.4 77 16 237/176 (196) 97 Room Air Physical Exam GENERAL: Well-nourished, well-developed overweight, pleasant female who is sitting up in ED stretcher. SKIN: Warm and dry, well-perfused HEAD: Atraumatic. Normocephalic. EYES: Pupils equal and round. No scleral icterus. No injection or drainage. ENT: No nasal bleeding or discharge. Mucous membranes pink and moist. NECK: Trachea midline. No JVD. CARDIOVASCULAR: Regular rate and rhythm, sinus rhythm on the monitor with rate in the 70s. No murmurs rubs or gallops. RESPIRATORY: No accessory muscle use. Clear to auscultation. Breath sounds equal bilaterally. Breathing come up with on room air. GASTROINTESTINAL: Abdomen soft, non-tender, nondistended. MUSCULOSKELETAL: Extremities without clubbing, cyanosis, or edema. NEUROLOGICAL: Awake and alert. No obvious cranial nerve deficits. Motor grossly within normal limits. No pronator drift. Five out of 5 muscle strength in the arms and legs. Sensation intact. Oriented to [facility] , self. Not oriented to year Laboratory Laboratory Tests Test 10/03/17 16:15 10/03/17 16:25 Urine Color LIGHT-YELLOW Urine Turbidity HAZY Urine pH 6.0 Urine Specific [place] 1.006 Urine Protein TRACE Urine Glucose (UA) NEG Urine Ketones NEG Urine Occult Blood NEG Urine Nitrite NEG Urine Bilirubin NEG Urine Urobilinogen LESS THAN 2.0 Urine Leukocyte Esterase MOD Urine RBC 3 Urine WBC 5 Urine Squamous Epithelial Cells 4 Urine Amorphous Sediment RARE Urine Bacteria OCC Urine Mucus FEW Microscopic Urinalysis Comment CULT NOT INDICATED White Blood Count 6.1 Red Blood Count 4.32 Hemoglobin 12.0 Hematocrit 36.5 Mean Corpuscular Volume 84.4 Mean Corpuscular Hemoglobin 27.8 Mean Corpuscular Hemoglobin Concent 32.9 Red Cell Distribution Width 15.8 Platelet Count 229 Mean Platelet Volume 9.9 Neutrophils (%) (Auto) 57.1 Lymphocytes (%) (Auto) 29.8 Monocytes (%) (Auto) 7.2 Eosinophils (%) (Auto) 5.0 Basophils (%) (Auto) 0.9 Neutrophils # (Auto) 3.5 Lymphocytes # (Auto) 1.8 Monocytes # (Auto) 0.4 Eosinophils # (Auto) 0.3 Basophils # (Auto) 0.1 CBC Comment DIFF FINAL Differential Comment Blood Urea Nitrogen 10 Creatinine 1.01 Random Glucose 74 Total Protein 5.9 Albumin 2.9 Calcium Level 7.4 Alkaline Phosphatase 75 Aspartate Amino Transf (AST/SGOT) 7 Alanine Aminotransferase (ALT/SGPT) 9 Total Bilirubin 0.2 Sodium Level 145 Potassium Level 3.0 Chloride Level 112 Carbon Dioxide Level 24.1 Anion Gap 9 Estimat Glomerular Filtration Rate 67 Protein Corrected Calcium 8.1 Result Diagram: 10/03/17 1625 10/03/171624 Caprini VTE Risk Assessment Caprini VTE Risk Assessment: Mod/High Risk (score >= 2) Caprini Risk Assessment Model Point Value = 1 Point Value = 2 Point Value = 3 Point Value = 5 Age 41-60 Minor surgery BMI > 25 kg/m2 Swollen legs Varicose veins or History of unexplained or recurrent spontaneous Oral contraceptives or hormone replacement Sepsis (< 1 month) Serious lung disease, including pneumonia (< 1 month) Abnormal pulmonary function Acute myocardial infarction Congestive heart failure (< 1 month) History of inflammatory bowel disease Medical patient at bed rest Age 61-74 Arthroscopic surgery Major open surgery (> 45 min) Laparoscopic surgery (> 45 min) Malignancy Confined to bed (> 72 hours) Immobilizing plaster cast Central venous access Age >= 75 History of VTE Family history of VTE Factor V Leiden Prothrombin [id number] Lupus anticoagulant Anticardiolipin antibodies Elevated serum homocysteine Heparin-induced thrombocytopenia Other congenital or acquired thrombophilia Stroke (< 1 month) Elective arthroplasty Hip, pelvis, or leg fracture Acute spinal cord injury (< 1 month) Prophylaxis Regimen Total Risk Factor Score Risk Level Prophylaxis Regimen 0-1 Low Early ambulation 2 Moderate Order ONE of the following: *Sequential Compression Device (SCD) *Heparin 5000 units SQ BID 3-4 Higher Order ONE of the following medications: *Heparin 5000 units SQ TID *Enoxaparin/Lovenox 40 mg SQ daily (WT < 150 kg, CrCl > 30 mL/min) *Enoxaparin/Lovenox 30 mg SQ daily (WT < 150 kg, CrCl > 10-29 mL/min) *Enoxaparin/Lovenox 30 mg SQ BID (WT < 150 kg, CrCl > 30 mL/min) AND/OR *Sequential Compression Device (SCD) 5 or more Highest Order ONE of the following medications: *Heparin 5000 units SQ TID (Preferred with Epidurals) *Enoxaparin/Lovenox 40 mg SQ daily (WT < 150 kg, CrCl > 30 mL/min) *Enoxaparin/Lovenox 30 mg SQ daily (WT < 150 kg, CrCl > 10-29 mL/min) *Enoxaparin/Lovenox 30 mg SQ BID (WT < 150 kg, CrCl > 30 mL/min) AND *Sequential Compression Device (SCD) Assessment and Plan Problem List: (1) Hypertensive urgency ICD Code: I10 - Hypertensive urgency Status: Acute (2) Renal artery stenosis ICD Code: I70.1 - Atherosclerosis of renal artery Status: Chronic (3) CKD (chronic kidney disease) stage 3, GFR 30-59 ml/min ICD Code: N18.3 - Chronic kidney disease, stage 3 (moderate) Status: Chronic (4) History of CVA (cerebrovascular accident) ICD Code: Z86.73 - Personal history of transient ischemic attack (TIA), and cerebral infarction without residual deficits Status: Chronic (5) COPD (chronic obstructive pulmonary disease) ICD Code: J44.9 - Chronic obstructive pulmonary disease, unspecified Status: Chronic (6) Physical deconditioning ICD Code: R53.81 - Disuse syndrome Status: Chronic (7) Chronic systolic heart failure ICD Code: I50.22 - Chronic systolic (congestive) heart failure Status: Chronic (8) ICD (implantable cardioverter-defibrillator), single, in situ ICD Code: Z95.810 - Presence of automatic (implantable) cardiac defibrillator Status: Chronic Assessment and Plan NEURO: History of stroke with residual aphasia Probable underlying mild dementia Patient is at baseline mental status per discussion with her daughter and with ED providers who know her. Followup CT brain On ASA and Xarelto. RESP: COPD Prior history of tobacco abuse On room air Continue symbicort bid. CV/NEPHRO: Chronic systolic heart failure with ejection fraction 35-40% on echo 01/28/17 Atrial fibrillation status post ablation 02/29/16 Dr. Hogan Defibrillator Malignant HTN/ ''Hypertensive Urgency" Renal artery stenosis CKD stage III Denies CP/SOB. CXR . EKG with NSR 78, LVH. No acute changes. Followup cardiac markers. Tonight will target 20-25% reduction in MAP with hydralazine/labetalol PRN ( MAP target 125-135). Nicardipine if needed. Neurochecks during BP lowering. Continue lisinopril 20 mg by mouth twice a day, nifedipine 60 mg by mouth daily , isosorbide ER 60 mg by mouth daily. Patient apparently nonadherent to Coreg due to expense. Appears labetalol should be more affordable, initiated Labetalol 200 bid and holding Coreg. Apparently Medicaid is pending. CT angio 05/11/17 - High grade stenosis of Right renal artery amenable to endovascular repair. Proximal occlusion of left renal artery, L kidney atrophic. Dr. Katz recommended outpatient R renal angioplasty during prior consultation 04/2017 appears this was not pursued per discussion with daughter though she states compliance with nephrology f/u. She has scheduled appt with Dr. Katz , will consult for recommendations regarding pursuing angiogram now. PRevious w/u with cortisol 7.4, renin and aldosterone elevation may be secondary to renovascular disease. GI: Heart healthy diet ID: Monitor for signs and symptoms of infection HEME: Chronic anticoagulation with Xarelto Continue Xarelto ENDO: Euglycemic PROPH: On xarelto which will provide DVT prophylaxis. Protonix 40 mg by mouth daily for stress ulcer prophylaxis. ACCESS: Peripheral IV Daughter and patient have been updated. Consult hospitalist to assume care 10/04. PT consult Level III H&P Iraida Vergara MD Oct 03, 2017 19:28
[2017-10-03] MEDS ORDERED: SENNOSIDES 8.6 MG TAB PO PRN (19:45)
[2017-10-03] MEDS ORDERED: MISCELLANEOUS NURSING INFORMATION XX SCH (19:45)
[2017-10-03] MEDS ORDERED: LACTULOSE SYRUP 20 GM/30 ML CUP PO PRN (19:45)
[2017-10-03] MEDS ORDERED: BISACODYL 10 MG SUPP RECTAL PRN (19:45)
[2017-10-03] MEDS ORDERED: CHLORHEXIDINE GLUCONATE 2 % 1 PACK (2 CLOTHS) TOP PRN (19:45)
[2017-10-03] MEDS ORDERED: MAGNESIUM HYDROXIDE SUSP 30 ML CUP PO PRN (19:45)
[2017-10-03] MEDS ORDERED: ONDANSETRON HCL 4 MG/2 ML VIAL IV PUSH PRN (19:45)
[2017-10-03] MEDS ORDERED: RESP: ALBUTEROL 2.5 MG/3 ML NEB (PRN) INH (19:45)
--- NOTE | 2017-10-03 20:29 | RADRPT ---
EXAM DATE/TIME: 10/03/2017 20:01 [facility] COMPARISON: CHEST SINGLE AP, May 05, 2017, 9:56. INDICATIONS : Hypertension. MEDICAL HISTORY : Hypertension. Cerebrovascular disease. Congestive heart failure. Hypertension SURGICAL HISTORY : Tubal ligation. ENCOUNTER: Subsequent ACUITY: 1 day PAIN SCORE: 0/10 LOCATION: Bilateral chest FINDINGS: A single portable frontal view the chest shows cardiomegaly with cephalization of flow within the pul monary vessels. A subtle parenchymal opacity seen within the right midlung. No effusions. Pacing mary ann ce overlies the left chest. CONCLUSION: 1. Cardiomegaly with pulmonary vascular engorgement. 2. Right midlung parenchymal consolidation could relate to atypical pulmonary edema. An infectious in filtrate could have a similar appearance. Supa Shankar Jr., MD on October 03, 2017 at 20:27 Board Certified Radiologist. This report was verified electronically.
[2017-10-03] MEDS: MUPIROCIN 2% OINT 1 APPLIC/GM SYR EACH NARE SCH (20:34)
[2017-10-03] MEDS: LABETALOL HCL 200 MG TAB PO SCH (20:35)
[2017-10-03] MEDS: SODIUM CHLORIDE 0.9% FLUSH 10 ML FLUSH IV FLUSH SCH (20:35)
[2017-10-03] MEDS: POTASSIUM CHLORIDE 10 MEQ CONTROLLED RELEASE TAB PO SCH (20:36)
[2017-10-03] MEDS: DOCUSATE SODIUM 50 MG/SENNA 8.6 MG TAB PO SCH (20:36)
[2017-10-03] MEDS: LISINOPRIL 10 MG TAB PO SCH (20:37)
[2017-10-03] MEDS: PRAVASTATIN SOD 80 MG TAB PO SCH (20:37)
[2017-10-03] MEDS ORDERED: NON-FORMULARY DRUG (Simvastatin 40 MG) PO SCH (21:00)
[2017-10-03] MEDS ORDERED: CARVEDILOL 12.5 MG TAB PO SCH (21:00)
[2017-10-03] MEDS: COLCHICINE 0.6 MG TAB PO SCH (21:31)
[2017-10-03] MEDS: BUDESONIDE-FORMOTEROL 80/4.5 MCG INHALER INH SCH (21:32)
--- NOTE | 2017-10-03 22:06 | RADRPT ---
EXAM DATE/TIME: 10/03/2017 21:43 [facility] COMPARISON: CT BRAIN W/O CONTRAST, September 20, 2017, 19:04. INDICATIONS : Hypertension RADIATION DOSE: 56.35 CTDIvol (mGy) MEDICAL HISTORY : Cardiovascular disease. Cerebrovascular disease. Congestive heart failure.hypertension SURGICAL HISTORY : Pacemaker. Tubal ligation. ENCOUNTER: Initial ACUITY: 1 day PAIN SCALE: 2/10 LOCATION: cranial TECHNIQUE: Multiple contiguous axial images were obtained of the head. Using automated exposure control and adj ustment of the mA and/or kV according to patient size, radiation dose was kept as low as reasonably a chievable to obtain optimal diagnostic quality images. DICOM format image data is available electro nically for review and comparison. FINDINGS: CEREBRUM: Extensive periventricular low attenuation change involving both cerebral hemispheres. Small chronic l acunar infarction involving the left gale radiata and left thalamus. The ventricles are normal for age. No evidence of midline shift, mass lesion, hemorrhage or acute infarction. No extra-axial flui d collections are seen. POSTERIOR FOSSA: The cerebellum and brainstem are intact. The 4th ventricle is midline. The cerebellopontine angle i s unremarkable. EXTRACRANIAL: The visualized portion of the orbits is intact. SKULL: The calvaria is intact. No evidence of skull fracture. CONCLUSION: 1. No acute intracranial abnormality. 2. Chronic small vessel ischemic change. Supa Shankar Jr., MD on October 03, 2017 at 22:02 Board Certified Radiologist. This report was verified electronically.
[2017-10-03] MEDS: CHLORHEXIDINE GLUCONATE 2 % 1 PACK (2 CLOTHS) TOP SCH (22:27)
[2017-10-03] MEDS: niCARdipine INJ 25 MG in SODIUM CHLOR 0.9% 250 ML INJ 240 ML IV PRN (23:45)
[2017-10-04] VITALS (16 sets, daily range): BP systolic 140–171; BP diastolic 67–89; PULSE 67–94; RESP 14–18; TEMP 97.7–98.8; O2SAT 97–100
[2017-10-04] MEDS ORDERED: FUROSEMIDE 20 MG/2 ML VIAL IV PUSH ONE (01:00)
[2017-10-04] MEDS ORDERED: POTASSIUM CHLORIDE 20 MEQ CONTROLLED RELEASE TAB PO ONE (01:00)
[2017-10-04] MEDS: hydrALAZINE HCL 20 MG/ML VIAL IV PUSH PRN ×2 (01:01→05:01)
[2017-10-04] MEDS: niCARdipine INJ 25 MG in SODIUM CHLOR 0.9% 250 ML INJ 240 ML IV PRN (03:21)
[2017-10-04 05:12] LABS: AUTOMATED NEUTROPHIL # 5.9 TH/MM3 (1.8-7.7); BASOPHIL # 0.1 TH/MM3 (0-0.2); BASOPHIL % 0.9 % (0.0-2.0); EOSINOPHIL # 0.2 TH/MM3 (0-0.4); EOSINOPHIL % 2.2 % (0.0-4.0); HEMATOCRIT 40.8 % (35.0-46.0); HEMO FLAGS DIFF FINAL; LYMPH % 21.3 % (9.0-44.0); LYMPHOCYTE # 1.8 TH/MM3 (1.0-4.8); MEAN CELL VOLUME 84.8 FL (80.0-100.0); MEAN CORPUSCULAR HGB CONC 33.1 % (32.0-36.0); MONO % 5.6 % (0.0-8.0); PLATELET COUNT 220 TH/MM3 (150-450); RED BLOOD COUNT 4.82 MIL/MM3 (4.00-5.30); RED CELL DISTRIBUTION WIDTH 15.6 % (11.6-17.2); WHITE BLOOD COUNT 8.5 TH/MM3 (4.0-11.0)
[2017-10-04 05:49] LABS: ALKALINE PHOSPHATASE 107 U/L (45-117); ALT (GPT) 12 U/L (10-53); ANION GAP 9 MEQ/L (5-15); AST (GOT) 9 U/L (15-37); BICARBONATE 24.8 MEQ/L (21.0-32.0); BLOOD UREA NITROGEN 13 MG/DL (7-18); CHLORIDE 108 MEQ/L (98-107); GLOMERULAR FILTRATION RATE 56 ML/MIN (>89); POTASSIUM 3.9 MEQ/L (3.5-5.1); SODIUM (NA) 142 MEQ/L (136-145); TOTAL BILIRUBIN ADULT 0.4 MG/DL (0.2-1.0)
[2017-10-04] MEDS: LABETALOL HCL 200 MG TAB PO SCH ×2 (08:32→20:02)
[2017-10-04] MEDS: FUROSEMIDE 40 MG TAB PO SCH (08:32)
[2017-10-04] MEDS: LISINOPRIL 10 MG TAB PO SCH ×2 (08:33→19:54)
[2017-10-04] MEDS: PANTOPRAZOLE SOD 40 MG DELAYED RELEASE TAB PO SCH (08:33)
[2017-10-04] MEDS: ASPIRIN EC 81 MG TABEC PO SCH (08:33)
[2017-10-04] MEDS: COLCHICINE 0.6 MG TAB PO SCH ×2 (08:33→19:56)
[2017-10-04] MEDS: POTASSIUM CHLORIDE 10 MEQ CONTROLLED RELEASE TAB PO SCH (08:33)
[2017-10-04] MEDS: ISOSORBIDE MONONITRATE 60 MG TAB PO SCH (08:33)
[2017-10-04] MEDS: RIVAROXABAN 15 MG TAB PO SCH (08:33)
[2017-10-04] MEDS: NIFEdipine 60 MG SUSTAINED RELEASE TAB PO SCH (08:33)
[2017-10-04] MEDS: SODIUM CHLORIDE 0.9% FLUSH 10 ML FLUSH IV FLUSH SCH ×2 (08:34→20:06)
[2017-10-04] MEDS: DOCUSATE SODIUM 50 MG/SENNA 8.6 MG TAB PO SCH ×2 (08:34→19:55)
[2017-10-04] MEDS: MUPIROCIN 2% OINT 1 APPLIC/GM SYR EACH NARE SCH ×2 (08:56→21:00)
[2017-10-04] MEDS: BUDESONIDE-FORMOTEROL 80/4.5 MCG INHALER INH SCH ×2 (09:00→21:00)
--- NOTE | 2017-10-04 13:52 | MB ---
cc: JACOBO MELENDREZ MD DATE OF CONSULTATION: 10/04/2017 REASON FOR CONSULTATION Chronic kidney disease and elevated blood pressure. HISTORY OF PRESENT ILLNESS This is a 67-year-old female with past medical history of hypertension, chronic kidney disease, history of acute kidney injury, history of hypokalemia, who was admitted to the hospital with persistent hypertension. I was called to see the patient because of very high blood pressure. She was seen by me when she was here in April, at that time her creatinine was high and it was around 1.5-1.6 but it improved close to 1.1-1.2 which is probably her baseline. The patient also off and on has low potassium when she was here last time she had a <<1:27>> level which was slightly elevated 33 and <<1:41>> level was 15 which is also slightly elevated. The patient had ultrasound of the kidneys done during last admission and it shows that her left kidney is smaller in size and during her last admission when I saw her, her blood pressure was also high but it was not as high as it is now and she came with a systolic around 260 and diastolic of 140. The patient had some headache at that time. There is no history of dizziness. She denies not taking her medication and she is saying that she has been taking her medications regularly. There is no history of nausea or vomiting. No shortness breath. No chest pain. PAST MEDICAL HISTORY 1. Hypertension 2. Hyperlipidemia 3. Ischemic cardiomyopathy with low ejection fraction. 4. Atrial fibrillation 5. Mild chronic kidney disease. 6. Renal artery stenosis. 7. Chronic obstructive pulmonary disease. PAST SURGICAL HISTORY 1. Ablation for atrial fibrillation 2. Defibrillator placement 3. Open reduction, internal fixation of right ankle. REVIEW OF SYSTEMS The patient denies any history of fever. She has had when her blood pressure was high and now she is feeling better, there is no chest pain, no nausea and vomiting, No shortness of breath. The patient claims to be taking her medications regularly. Her blood pressure now it is better. No abdominal pain. No history of diarrhea. SOCIAL HISTORY The patient is a past history of smoking. No history of heavy alcoholism. FAMILY HISTORY: Family history noncontributory. ALLERGIES She has no allergies. MEDICATIONS Currently she is on following medications 4. Colchicine 0.6 mg b.i.d. 5. Lisinopril 20 mg b.i.d. 6. Alice-Colace 1 tablet b.i.d. 7. Aspirin 81 mg daily. 8. Lasix 40 mg once a day. 9. Imdur 60 mg once a day. 10. Nifedipine 60 mg daily 11. Xarelto 15 mg once a day. 12. Protonix 40 mg once a day. 13. Pravachol 80 mg q.h.s. 14. Potassium chloride 30 mEq q. 12-hour, 15. Trandate 200 mg q.12 h. 16. Symbicort inhaler. 17. Labetalol p.r.n. 18. Zofran p.r.n. 19. Hydralazine p.r.n. 20. Nicardipine she is weaned off. PHYSICAL EXAMINATION: VITAL SIGNS: Her last blood pressure is 165/78 temperature 98.7, oxygen saturation is 100% on room air. HEAD, EYES, EARS, NOSE, AND THROAT: Pupils are mid constricted. Nonicteric sclera, conjunctiva pale. NECK: Supple. Jugular venous distention is not elevated. LUNGS: The patient has bilateral good air entry with occasional wheezing. HEART: S1, S2, regular rhythm. ABDOMEN: Abdomen is distended, soft lax. There is no tenderness. Bowel sounds positive. EXTREMITIES: There is mild edema in the legs. INVESTIGATIONS: Sodium 142. Potassium 3.9, chloride 108, bicarb 24.8, BUN 13, creatinine 1.1. Calcium is 9.2, phosphorus 3.0. Magnesium 2.0, total bilirubin is 0.40, AST nine, ALT is 12, total protein is 8.5 with. Albumin of 4.0, INR is 1.0. Urinalysis showing trace protein. IMAGING STUDIES The patient has CT scan of the brain done which shows that there is no acute intracranial abnormality except chronic, mitral vascular disease. Chest x-ray Was done which shows cardiomegaly with some increased vascular congestion, possible right mid lung consolidation or pulmonary edema. The patient had a CT angiogram done before which shows occlusion of the left renal artery, oximetry with an atrophic left kidney very high grade stenosis on the right renal artery atherosclerotic disease with patchy disease in the external iliac and circulation bilaterally. ASSESSMENT/PLAN 1. Hypertension uncontrolled. 2. History of renal artery stenosis. 3. Mild chronic kidney disease. 4. Hypokalemia. 5. High renal aldosterone level. 6. Ischemic heart disease and cardiomyopathy. 7. Congestive heart failure. 8. The patient has atrophic left kidney and the right she has a renal artery stenosis. She was supposed to follow up with me after the discharge and the plan was to get the angiogram and possible angioplasty as an outpatient but seems like she did not come for follow-up and now she ended up again with very high blood pressure. She will benefit from angiogram and possible angioplasty. This probably can be done early next week. The CT scan she had did not show any enlargement of adrenal gland, but since she has high aldosterone level she will also benefit from spironolactone, so I will put her on a spironolactone. She is on potassium supplement and I will reduce this to once per day just to make sure she does not develop hyperkalemia. Thank you for the consultation and over the weekend Dr. Rossi will follow the patient and I will follow the patient on Saturday. MD VAUGHN Torrez/ra /11:36 AM /12:11 PM
--- NOTE | 2017-10-04 16:57 | HHI.PR ---
Subjective Remarks 67-year-old right-hand dominant female with past medical history of hypertension, nonischemic cardiomyopathy with chronic systolic heart failure ejection fraction 35-40%, ICD, atrial fibrillation status post ablation on chronic anticoagulation with Xarelto, prior stroke with residual aphasia, CKD stage III and renal artery stenosis. She has her history of refractory hypertension with multiple admissions for this. She had home physical therapy today and was noted to be severely hypertensive so she was sent to the ED where initial blood pressure was 237/176 with mean arterial pressure of 196. She is asymptomatic, specifically denying chest pain, shortness of breath, visual changes. She does state she had a mild headache earlier that is resolved. She is not able to answer certain orientation questions or provide much medical history but her daughter says that her mental status is at baseline and that "she doesn't understand what the issue is because her mom was feeling great today". She has previously had issues with medical non adherence and during her last admission her daughter said she would take over administration. Her daughter states she took all of her morning medications today. She does state that she does not take Coreg as prescribed because of the expense related to this. Patient was also diagnosed previously with right renal artery stenosis and Dr. Katz has previously recommended outpatient intervention and followup during prior consultation. Patient's daughter states she has followed up with Dr. Katz but patient has not undergone intervention for JOSLYN. Nicardipine drip has been initiated per ED 10-04 BLOOD PRESSURE MEDS HAVE BEEN ADJUSTED AGAIN WAS ON CARDENE DRIP AND HAS BEEN WEANED OFF WILL ADJUST MEDICATIONS NO SOB, NO CHEST PAIN DW RN AND PT TRANSFER OUT OF ICU Objective Vitals Vital Signs Date Time Temp Pulse Resp B/P (MAP) Pulse Ox O2 Delivery O2 Flow Rate FiO2 10/04/17 16:00 67 10/04/17 16:00 98.0 67 15 141/81 (101) 100 10/04/17 14:00 68 10/04/17 12:00 68 10/04/17 12:00 97.8 68 15 143/70 (94) 99 10/04/17 10:00 77 10/04/17 08:10 100 21 10/04/17 08:00 78 10/04/17 08:00 98.7 78 14 165/78 (107) 100 10/04/17 06:00 98.5 81 17 144/67 (92) 97 10/04/17 05:00 98.4 85 18 140/67 (91) 98 10/04/17 04:00 98.6 77 18 162/75 (104) 99 10/04/17 03:21 81 161/87 10/04/17 03:00 98.8 79 18 161/87 (111) 99 10/04/17 02:00 98.5 83 17 153/81 (105) 99 10/04/17 01:00 98.6 76 16 160/81 (107) 99 10/04/17 00:26 100 10/04/17 00:00 98.4 76 17 170/82 (111) 99 10/03/17 23:46 175/131 10/03/17 23:45 72 151/81 10/03/17 23:00 98.5 74 16 191/84 (119) 99 10/03/17 22:15 85 19 98 10/03/17 22:10 86 23 173/95 (121) 98 10/03/17 22:09 98.4 80 20 168/83 (111) 99 10/03/17 19:40 10/03/17 19:16 79 262/126 10/03/17 18:11 82 20 266/134 (178) 97 Room Air 10/03/17 17:15 70 18 260/141 (180) 97 Room Air I/O 10/03/17 10/03/17 10/03/17 10/04/17 10/04/17 10/04/17 07:00 15:00 23:00 07:00 15:00 23:00 Intake Total 850 ml Balance 850 ml Intake Oral 400 ml IV Total 450 ml # Voids 2 # Bowel Movements 0 Result Diagram: 10/04/172 10/04/17441 Other Results Laboratory Tests Test 10/03/17 16:15 10/03/17 16:25 10/03/17 19:45 10/04/17 00:40 Urine Color LIGHT-YELLOW Urine Turbidity HAZY Urine pH 6.0 Urine Specific [place] 1.006 Urine Protein TRACE mg/dL Urine Glucose (UA) NEG mg/dL Urine Ketones NEG mg/dL Urine Occult Blood NEG Urine Nitrite NEG Urine Bilirubin NEG Urine Urobilinogen LESS THAN 2.0 MG/DL Urine Leukocyte Esterase MOD Urine RBC 3 /hpf Urine WBC 5 /hpf Urine Squamous Epithelial Cells 4 /hpf Urine Amorphous Sediment RARE Urine Bacteria OCC /hpf Urine Mucus FEW /lpf Microscopic Urinalysis Comment CULT NOT INDICATED White Blood Count 6.1 TH/MM3 Red Blood Count 4.32 MIL/MM3 Hemoglobin 12.0 GM/DL Hematocrit 36.5 % Mean Corpuscular Volume 84.4 FL Mean Corpuscular Hemoglobin 27.8 PG Mean Corpuscular Hemoglobin Concent 32.9 % Red Cell Distribution Width 15.8 % Platelet Count 229 TH/MM3 Mean Platelet Volume 9.9 FL Neutrophils (%) (Auto) 57.1 % Lymphocytes (%) (Auto) 29.8 % Monocytes (%) (Auto) 7.2 % Eosinophils (%) (Auto) 5.0 % Basophils (%) (Auto) 0.9 % Neutrophils # (Auto) 3.5 TH/MM3 Lymphocytes # (Auto) 1.8 TH/MM3 Monocytes # (Auto) 0.4 TH/MM3 Eosinophils # (Auto) 0.3 TH/MM3 Basophils # (Auto) 0.1 TH/MM3 CBC Comment DIFF FINAL Differential Comment Blood Urea Nitrogen 10 MG/DL Creatinine 1.01 MG/DL Random Glucose 74 MG/DL Total Protein 5.9 GM/DL Albumin 2.9 GM/DL Calcium Level 7.4 MG/DL Alkaline Phosphatase 75 U/L Aspartate Amino Transf (AST/SGOT) 7 U/L Alanine Aminotransferase (ALT/SGPT) 9 U/L Total Bilirubin 0.2 MG/DL Sodium Level 145 MEQ/L Potassium Level 3.0 MEQ/L Chloride Level 112 MEQ/L Carbon Dioxide Level 24.1 MEQ/L Anion Gap 9 MEQ/L Estimat Glomerular Filtration Rate 67 ML/MIN Protein Corrected Calcium 8.1 MG/DL Troponin I 0.02 NG/ML 0.02 NG/ML Nasal Screen MRSA (PCR) MRSA NOT DETECTED Test 10/04/17 04:42 White Blood Count 8.5 TH/MM3 Red Blood Count 4.82 MIL/MM3 Hemoglobin 13.5 GM/DL Hematocrit 40.8 % Mean Corpuscular Volume 84.8 FL Mean Corpuscular Hemoglobin 28.0 PG Mean Corpuscular Hemoglobin Concent 33.1 % Red Cell Distribution Width 15.6 % Platelet Count 220 TH/MM3 Mean Platelet Volume 9.8 FL Neutrophils (%) (Auto) 70.0 % Lymphocytes (%) (Auto) 21.3 % Monocytes (%) (Auto) 5.6 % Eosinophils (%) (Auto) 2.2 % Basophils (%) (Auto) 0.9 % Neutrophils # (Auto) 5.9 TH/MM3 Lymphocytes # (Auto) 1.8 TH/MM3 Monocytes # (Auto) 0.5 TH/MM3 Eosinophils # (Auto) 0.2 TH/MM3 Basophils # (Auto) 0.1 TH/MM3 CBC Comment DIFF FINAL Differential Comment Blood Urea Nitrogen 13 MG/DL Creatinine 1.17 MG/DL Random Glucose 92 MG/DL Total Protein 8.5 GM/DL Albumin 4.0 GM/DL Calcium Level 9.2 MG/DL Phosphorus Level 3.0 MG/DL Magnesium Level 2.0 MG/DL Alkaline Phosphatase 107 U/L Aspartate Amino Transf (AST/SGOT) 9 U/L Alanine Aminotransferase (ALT/SGPT) 12 U/L Total Bilirubin 0.4 MG/DL Sodium Level 142 MEQ/L Potassium Level 3.9 MEQ/L Chloride Level 108 MEQ/L Carbon Dioxide Level 24.8 MEQ/L Anion Gap 9 MEQ/L Estimat Glomerular Filtration Rate 56 ML/MIN Troponin I 0.02 NG/ML Imaging Last Impressions Head CT 10/03/172107 Signed Impressions: Service Date/Time: September 21:43 - CONCLUSION: 1. No acute intracranial abnormality. 2. Chronic small vessel ischemic change. Supa Shankar Jr., MD Chest X-Ray 10/03/17 0000 Signed Impressions: Service Date/Time: September 20:01 - CONCLUSION: 1. Cardiomegaly with pulmonary vascular engorgement. 2. Right midlung parenchymal consolidation could relate to atypical pulmonary edema. An infectious infiltrate could have a similar appearance. Supa Shankar Jr., MD Objective Remarks GENERAL: AWAKE ALERT ORIENTED TALKATIVE AND COOPERATIVE SKIN: Warm and dry.NO RASHES HEAD: Atraumatic. Normocephalic. EYES: Pupils equal and round. No scleral icterus. No injection or drainage. EOMI ENT: No nasal bleeding or discharge. Mucous membranes pink and moist. TONGUE MIDLINE NECK: Trachea midline. No JVD. SUPPLE CARDIOVASCULAR: Regular rate and rhythm. S1, S2, NO S3, OR S4 STEPHANIE RESPIRATORY: No accessory muscle use. Clear to auscultation. Breath sounds equal bilaterally. GASTROINTESTINAL: Abdomen soft, non-tender, nondistended. Hepatic and splenic margins not palpable. MUSCULOSKELETAL: Extremities without clubbing, cyanosis, or edema. No obvious deformities. NEUROLOGICAL: Awake and alert. No obvious cranial nerve deficits. Motor grossly within normal limits. 4 out of 5 muscle strength in the arms and legs. Normal speech. PSYCHIATRIC: Appropriate mood and affect; insight and judgment normal. Medications and IVs Current Medications Enalaprilat (Vasotec Inj) 1.25 mg ONCE ONCE IV PUSH Last administered on 16:31; Start 10/03/17 at 16:15; Stop 10/03/17 at 16:16; Status DC Sodium Chloride (NS Flush) 2 ml UNSCH PRN IV FLUSH FLUSH AFTER USING IV ACCESS ; Start 10/03/17 at 16:15; Stop 10/03/17 at 19:55; Status DC Nicardipine HCl 25 mg/Sodium Chloride 250 ml @ 50 mls/hr TITRATE PRN IV Blood pressure management; Start 10/03/17 at 17:45; Status Cancel Enalaprilat (Vasotec Inj) 2.5 mg ONCE ONCE IV PUSH Last administered on 18:05; Start 10/03/17 at 18:00; Stop 10/03/17 at 18:01; Status DC Nicardipine HCl 25 mg/Sodium Chloride 250 ml @ 0 mls/hr TITRATE ONCE IV Last administered on 10/03/17 19:16; Start 10/03/17 at 18:15; Stop 10/03/17 at 18:16 ; Status DC Potassium Chloride (KCl) 20 meq ONCE ONCE PO Last administered on 10/03/17 20 :35; Start 10/03/17 at 19:15; Stop 10/03/17 at 19:16; Status DC Nicardipine HCl 25 mg/Sodium Chloride 250 ml @ 50 mls/hr TITRATE PRN IV Blood pressure management; Start 10/03/17 at 19:15; Stop 10/03/17 at 19:42; Status DC Labetalol HCl (Trandate Inj) 10 mg Q4H PRN IV PUSH MAP >125 Last administered on 10/04/17 03:08; Start 10/03/17 at 19:15 Aspirin (Ecotrin Ec) 81 mg DAILY PO Last administered on 10/04/17 08:33; Start 10/04/17 at 09:00 Carvedilol (Coreg) 25 mg Q12HR PO ; Start 10/03/17 at 21:00; Stop 10/03/17 at 21 :00; Status DC Colchicine (Colchicine) 0.6 mg BID PO Last administered on 10/04/17 08:33; Start 10/03/17 at 21:00 Furosemide (Lasix) 40 mg DAILY PO Last administered on 10/04/17 08:32; Start 10/04/17 at 09:00 Isosorbide Mononitrate (Imdur) 60 mg DAILY PO Last administered on 10/04/17 08:33; Start 10/04/17 at 09:00 Lisinopril (Prinivil) 20 mg BID PO Last administered on 10/04/17 08:33; Start 10/03/17 at 21:00 Mupirocin (Bactroban Nasal 2% Oint) 1 applic BID EACH NARE Last administered on 10/03/17 20:34; Start 10/03/17 at 21:00 Nifedipine (Procardia Xl) 60 mg DAILY PO Last administered on 10/04/17 08:33 ; Start 10/04/17 at 09:00 Potassium Chloride (KCl) 30 meq Q12HR PO Last administered on 10/04/17 08:33 ; Start 10/03/17 at 21:00; Stop 10/04/17 at 11:41; Status DC Rivaroxaban (Xarelto) 15 mg DAILY PO Last administered on 10/04/17 08:33; Start 10/04/17 at 09:00 Non-Formulary Medication 40 mg HS PO ; Start 10/03/17 at 21:00; Status UNV Sodium Chloride (NS Flush) 2 ml UNSCH PRN IV FLUSH FLUSH AFTER USING IV ACCESS ; Start 10/03/17 at 19:45 Sodium Chloride (NS Flush) 2 ml BID IV FLUSH Last administered on 10/04/17 08 :34; Start 10/03/17 at 21:00 Acetaminophen (Tylenol) 650 mg Q6H PRN PO PAIN 1-10 AND/OR FEVER >101F; Start 10/03/17 at 19:45 Pantoprazole Sodium (Protonix) 40 mg DAILY PO Last administered on 10/04/17 08:33; Start 10/04/17 at 09:00 Ondansetron HCl (Zofran Inj) 4 mg Q6H PRN IV PUSH NAUSEA OR VOMITING; Start at 19:45 Albuterol Sulfate (Albuterol Neb) 2.5 mg Q2HR NEB PRN INH SOB/WHEEZING; Start 10/03/17 at 19:45 Miscellaneous Information 1 Q361D XX ; Start 10/03/17 at 19:45 Chlorhexidine Gluconate (Chlorhexidine 2% Cloth) 3 pack Taper DAILY@04 TOP Last administered on 10/03/17 22:27; Start 10/04/17 at 04:00; Stop 09/30/18 at 03:59 Chlorhexidine Gluconate (Chlorhexidine 2% Cloth) 3 pack UNSCH PRN TOP HYGIENIC CARE; Start 10/03/17 at 19:45 Senna/Docusate Sodium (Alice-Colace) 1 tab BID PO Last administered on 20:36; Start 10/03/17 at 21:00 Magnesium Hydroxide (Milk Of Magnesia Liq) 30 ml Q12H PRN PO Mild constipation ; Start 10/03/17 at 19:45 Sennosides (Senokot) 17.2 mg Q12H PRN PO Moderate constipation; Start 10/03/17 at 19:45 Bisacodyl (Dulcolax Supp) 10 mg DAILY PRN RECTAL SEVERE CONSITIPATION; Start 10/03/17 at 19:45 Lactulose (Lactulose Liq) 30 ml DAILY PRN PO SEVERE CONSITIPATION; Start at 19:45 Hydralazine HCl (Apresoline Inj) 10 mg Q4H PRN IV PUSH MAP >125 Last administered on 10/04/17 05:01; Start 10/03/17 at 19:45 Nicardipine HCl 25 mg/Sodium Chloride 250 ml @ 50 mls/hr TITRATE PRN IV Blood pressure management Last administered on 10/04/17 03:21; Start 10/03/17 at 19: 45 Labetalol HCl (Trandate) 200 mg Q12HR PO Last administered on 10/04/17 08:32 ; Start 10/03/17 at 21:00 Pravastatin Sodium (Pravachol) 80 mg HS PO Last administered on 10/03/17 20:37 ; Start 10/03/17 at 21:00 Budesonide/ Formoterol Fumarate (Symbicort 80-4.5 Mcg Inh) 1 puff Q12HR INH Last administered on 10/03/17 21:32; Start 10/03/17 at 21:00 Furosemide (Lasix Inj) 20 mg ONCE ONCE IV PUSH Last administered on 01:11; Start 10/04/17 at 01:00; Stop 10/04/17 at 01:01; Status DC Potassium Chloride (KCl) 20 meq ONCE ONCE PO Last administered on 10/04/17 01:11; Start 10/04/17 at 01:00; Stop 10/04/17 at 01:01; Status DC Potassium Chloride (KCl) 30 meq DAILY PO ; Start 10/05/17 at 09:00 Spironolactone (Aldactone) 25 mg BID@09,18 PO ; Start 10/04/17 at 18:00 Urinary Catheter: No Vascular Central Line Catheter: No A/P Problem List: (1) ICD (implantable cardioverter-defibrillator), single, in situ ICD Code: Z95.810 - Presence of automatic (implantable) cardiac defibrillator Status: Chronic (2) Hypertensive urgency ICD Code: I10 - Hypertensive urgency Status: Acute (3) History of CVA (cerebrovascular accident) ICD Code: Z86.73 - Personal history of transient ischemic attack (TIA), and cerebral infarction without residual deficits Status: Chronic (4) Physical deconditioning ICD Code: R53.81 - Disuse syndrome Status: Chronic (5) CKD (chronic kidney disease) stage 3, GFR 30-59 ml/min ICD Code: N18.3 - Chronic kidney disease, stage 3 (moderate) Status: Chronic (6) Chronic systolic heart failure ICD Code: I50.22 - Chronic systolic (congestive) heart failure Status: Chronic (7) Renal artery stenosis ICD Code: I70.1 - Atherosclerosis of renal artery Status: Chronic (8) COPD (chronic obstructive pulmonary disease) ICD Code: J44.9 - Chronic obstructive pulmonary disease, unspecified Status: Chronic (9) Nausea & vomiting ICD Code: R11.2 - Nausea with vomiting, unspecified Status: Acute (10) Hypertensive emergency ICD Code: I16.1 - Hypertensive emergency Status: Acute Assessment and Plan Assessment and Plan NEURO: History of stroke with residual aphasia Probable underlying mild dementia Patient is at baseline mental status per discussion with her daughter and with ED providers who know her. Followup CT brain On ASA and Xarelto. RESP: COPD Prior history of tobacco abuse On room air Continue symbicort bid. CV/NEPHRO: Chronic systolic heart failure with ejection fraction 35-40% on echo 01/28/17 Atrial fibrillation status post ablation 02/29/16 Dr. Hogan Defibrillator Malignant HTN/ ''Hypertensive Urgency" Renal artery stenosis CKD stage III Denies CP/SOB. CXR . EKG with NSR 78, LVH. No acute changes. Followup cardiac markers. Tonight will target 20-25% reduction in MAP with hydralazine/labetalol PRN ( MAP target 125-135). Nicardipine if needed. Neurochecks during BP lowering. Continue lisinopril 20 mg by mouth twice a day, nifedipine 60 mg by mouth daily , isosorbide ER 60 mg by mouth daily. Patient apparently nonadherent to Coreg due to expense. Appears labetalol should be more affordable, initiated Labetalol 200 bid and holding Coreg. Apparently Medicaid is pending. CT angio 05/11/17 - High grade stenosis of Right renal artery amenable to endovascular repair. Proximal occlusion of left renal artery, L kidney atrophic. Dr. Katz recommended outpatient R renal angioplasty during prior consultation 04/2017 appears this was not pursued per discussion with daughter though she states compliance with nephrology f/u. She has scheduled appt with Dr. Katz , will consult for recommendations regarding pursuing angiogram now. PRevious w/u with cortisol 7.4, renin and aldosterone elevation may be secondary to renovascular disease. GI: Heart healthy diet ID: Monitor for signs and symptoms of infection HEME: Chronic anticoagulation with Xarelto Continue Xarelto ENDO: Euglycemic PROPH: On xarelto which will provide DVT prophylaxis. Protonix 40 mg by mouth daily for stress ulcer prophylaxis. ACCESS: Peripheral IV Daughter and patient have been updated. TRANSFER OUT OF ICU DW RN AND PT MEDS ADJUSTED SWITCH HYDRALAZINE AND LABETALOL TO PRNS PT consult Discharge Planning PT, OT, CM MOVE OUT OF ICU En Scott DO Oct 04, 2017 16:57
[2017-10-04] MEDS: SPIRONOLACTONE 25 MG TAB PO SCH (17:46)
--- NOTE | 2017-10-04 18:02 | EKG ---
Date Performed: 10/04/2017 Time Performed: 07:26:52 PTAGE: 67 years EKG: Sinus rhythm LEFT VENTRICULAR HYPERTROPHY AND ST-T CHANGE ABNORMAL ECG PREVIOUS TRACING : 10/03/2017 20.41 DOCTOR: Carla Hogan Interpretating Date/Time 10/04/2017 17:58:51
--- NOTE | 2017-10-04 18:11 | EKG ---
Date Performed: 10/03/2017 Time Performed: 20:41:20 PTAGE: 67 years EKG: Sinus rhythm LEFT VENTRICULAR HYPERTROPHY AND ST-T CHANGE ABNORMAL ECG PREVIOUS TRACING : 05/05/2017 09.34 DOCTOR: Carla Hogan Interpretating Date/Time 10/04/2017 18:09:44
[2017-10-04] MEDS: PRAVASTATIN SOD 80 MG TAB PO SCH (19:55)
[2017-10-04] MEDS: ACETAMINOPHEN 325 MG TAB PO PRN (19:59)
[2017-10-04 23:37] LABS: MRSA PCR POSITIVE (NEGATIVE); STAPH AUREUS PCR POSITIVE (NEGATIVE)
[2017-10-05] VITALS: BP 156/90; PULSE 80; RESP 16; TEMP 97.9; O2SAT 96
[2017-10-05 04:00] VITALS: BP 172/93; PULSE 82; RESP 17; TEMP 97.9; O2SAT 97
[2017-10-05] MEDS: CHLORHEXIDINE GLUCONATE 2 % 1 PACK (2 CLOTHS) TOP SCH (04:00)
[2017-10-05 07:13] LABS: AUTOMATED NEUTROPHIL # 3.2 TH/MM3 (1.8-7.7); BASOPHIL % 0.6 % (0.0-2.0); EOSINOPHIL # 0.3 TH/MM3 (0-0.4); EOSINOPHIL % 4.1 % (0.0-4.0); HEMATOCRIT 36.4 % (35.0-46.0); HEMO FLAGS DIFF FINAL; LYMPH % 34.6 % (9.0-44.0); LYMPHOCYTE # 2.1 TH/MM3 (1.0-4.8); MEAN CELL VOLUME 85.2 FL (80.0-100.0); MEAN CORPUSCULAR HEMOGLOBIN 28.3 PG (27.0-34.0); MEAN CORPUSCULAR HGB CONC 33.2 % (32.0-36.0); MONO % 7.5 % (0.0-8.0); NEUT % 53.2 % (16.0-70.0); PLATELET COUNT 219 TH/MM3 (150-450); RED BLOOD COUNT 4.27 MIL/MM3 (4.00-5.30); RED CELL DISTRIBUTION WIDTH 15.6 % (11.6-17.2); WHITE BLOOD COUNT 6.1 TH/MM3 (4.0-11.0)
[2017-10-05 07:39] LABS: ALKALINE PHOSPHATASE 86 U/L (45-117); ALT (GPT) 9 U/L (10-53); ANION GAP 8 MEQ/L (5-15); AST (GOT) 13 U/L (15-37); BICARBONATE 23.6 MEQ/L (21.0-32.0); BLOOD UREA NITROGEN 14 MG/DL (7-18); CHLORIDE 110 MEQ/L (98-107); FREE T4 1.02 NG/DL (0.76-1.46); GLOMERULAR FILTRATION RATE 57 ML/MIN (>89); MAGNESIUM 2.1 MG/DL (1.5-2.5); POTASSIUM 3.8 MEQ/L (3.5-5.1); SODIUM (NA) 142 MEQ/L (136-145); TOTAL BILIRUBIN ADULT 0.4 MG/DL (0.2-1.0)
[2017-10-05 08:00] VITALS: BP 171/91; PULSE 75; RESP 18; TEMP 96.5; O2SAT 98
[2017-10-05] MEDS: MUPIROCIN 2% OINT 1 APPLIC/GM SYR EACH NARE SCH ×2 (09:54→23:17)
[2017-10-05] MEDS: LISINOPRIL 10 MG TAB PO SCH ×2 (09:55→23:13)
[2017-10-05] MEDS: COLCHICINE 0.6 MG TAB PO SCH ×2 (09:55→23:14)
[2017-10-05] MEDS: NIFEdipine 60 MG SUSTAINED RELEASE TAB PO SCH (09:55)
[2017-10-05] MEDS: PANTOPRAZOLE SOD 40 MG DELAYED RELEASE TAB PO SCH (09:55)
[2017-10-05] MEDS: RIVAROXABAN 15 MG TAB PO SCH (09:56)
[2017-10-05] MEDS: ASPIRIN EC 81 MG TABEC PO SCH (09:56)
[2017-10-05] MEDS: LABETALOL HCL 200 MG TAB PO SCH ×2 (09:56→23:15)
[2017-10-05] MEDS: ISOSORBIDE MONONITRATE 60 MG TAB PO SCH (09:56)
[2017-10-05] MEDS: POTASSIUM CHLORIDE 10 MEQ CONTROLLED RELEASE TAB PO SCH (09:57)
[2017-10-05] MEDS: FUROSEMIDE 40 MG TAB PO SCH (09:57)
[2017-10-05] MEDS: DOCUSATE SODIUM 50 MG/SENNA 8.6 MG TAB PO SCH ×2 (09:57→23:13)
[2017-10-05] MEDS: SODIUM CHLORIDE 0.9% FLUSH 10 ML FLUSH IV FLUSH SCH ×2 (09:58→23:15)
[2017-10-05] MEDS: SPIRONOLACTONE 25 MG TAB PO SCH ×2 (09:58→18:10)
[2017-10-05] MEDS: BUDESONIDE-FORMOTEROL 80/4.5 MCG INHALER INH SCH ×2 (11:02→23:16)
[2017-10-05] MEDS ORDERED: PRAZOSIN HCL 1 MG CAP PO ONE (14:00)
--- NOTE | 2017-10-05 14:02 | HHI.NPPN ---
Subjective History of Present Illness patient with Uncontrolled Hypertension and CKD Review of Systems General Constitutional: Fatigue Objective Data Data Vital Signs Date Time Temp Pulse Resp B/P (MAP) Pulse Ox O2 Delivery O2 Flow Rate FiO2 10/05/17 08:00 96.5 75 18 171/91 (117) 98 10/05/17 04:00 97.9 82 17 172/93 (119) 97 10/05/17 00:00 97.9 80 16 156/90 (112) 96 10/04/17 19:05 97.7 82 18 171/89 (116) 97 10/04/17 18:40 Room Air 10/04/17 18:00 94 10/04/17 16:00 67 10/04/17 16:00 98.0 67 15 141/81 (101) 100 10/04/17 14:00 68 -: 10/05/17 0517 10/05/17 0517 Physical Exam General Appearance: Well Developed, Well Nourished Neck Neck Exam: Neck Supple Pulmonary Resp Exam: Clear Bilaterally, Breath Sounds Equal Cardiology CV Exam: Regular, Normal Sinus Rhythm Gastrointestinal/Abdomen GI Exam: Soft, Non-Tender, Bowel Sounds Present Integumentary Skin Exam: Clear Extremeties Extremities Exam: No Edema Neurologic Neuro Exam: Alert, Awake, Oriented Assessment/Plan Problem List: (1) Hypertensive urgency ICD Codes: I10 - Hypertensive urgency Status: Acute Plan: BP labile 171/91 Minipress added continue with Lasix/Aldactone Nifedipine Labetalol for BP control Hx of CVA Suspected JOSLYN follow up with Dr. Katz (2) CKD (chronic kidney disease) stage 3, GFR 30-59 ml/min ICD Codes: N18.3 - Chronic kidney disease, stage 3 (moderate) Status: Chronic (3) History of CVA (cerebrovascular accident) ICD Codes: Z86.73 - Personal history of transient ischemic attack (TIA), and cerebral infarction without residual deficits Status: Chronic Josephine Rossi MD Oct 05, 2017 14:02
[2017-10-05 16:00] VITALS: BP 159/88; PULSE 77; RESP 18; TEMP 97.6; O2SAT 99
--- NOTE | 2017-10-05 18:00 | HHI.PR ---
Subjective Remarks c/o right thigh pain bp elevated Objective Vitals Vital Signs Date Time Temp Pulse Resp B/P (MAP) Pulse Ox O2 Delivery O2 Flow Rate FiO2 10/05/17 16:00 97.6 77 18 159/88 (111) 99 10/05/17 15:29 Room Air 21 10/05/17 08:00 96.5 75 18 171/91 (117) 98 10/05/17 04:00 97.9 82 17 172/93 (119) 97 10/05/17 00:00 97.9 80 16 156/90 (112) 96 10/04/17 19:05 97.7 82 18 171/89 (116) 97 10/04/17 18:40 Room Air I/O 10/04/17 10/04/17 10/04/17 10/05/17 10/05/17 10/05/17 07:00 15:00 23:00 07:00 15:00 23:00 Intake Total 850 ml 1420 ml 240 ml 420 ml Balance 850 ml 1420 ml 240 ml 420 ml Intake Oral 400 ml 1420 ml 240 ml 420 ml IV Total 450 ml # Voids 2 5 1 5 # Bowel Movements 0 0 1 Result Diagram: 10/05/17 0517 10/05/17 0517 Imaging Last Impressions Head CT 10/03/178 Signed Impressions: Service Date/Time: September 21:43 - CONCLUSION: 1. No acute intracranial abnormality. 2. Chronic small vessel ischemic change. Supa Shankar Jr., MD Chest X-Ray 10/03/17 0000 Signed Impressions: Service Date/Time: September 20:01 - CONCLUSION: 1. Cardiomegaly with pulmonary vascular engorgement. 2. Right midlung parenchymal consolidation could relate to atypical pulmonary edema. An infectious infiltrate could have a similar appearance. Supa Shankar Jr., MD Objective Remarks AAOx3 nad S1S2 RRR, no MRG Clear lungs BL Abdomen soft, nt, tenderness to palpation of right thigh but no edema Medications and IVs Current Medications Medications (Trade) Dose Ordered Sig/Dajuan Route Start Time Stop Time Status Last Admin (Ecotrin Ec) 81 mg DAILY PO 10/04/17 09:00 10/05/17 09:56 (Colchicine) 0.6 mg BID PO 10/03/17 21:00 10/05/17 09:55 (Lasix) 40 mg DAILY PO 10/04/17 09:00 10/05/17 09:57 (Imdur) 60 mg DAILY PO 10/04/17 09:00 10/05/17 09:56 (Prinivil) 20 mg BID PO 10/03/17 21:00 10/05/17 09:55 (Bactroban Nasal 2% Oint) 1 applic BID EACH NARE 10/03/17 21:00 10/05/17 09:54 (Procardia Xl) 60 mg DAILY PO 10/04/17 09:00 10/05/17 09:55 (NS Flush) 2 ml UNSCH PRN IV FLUSH 10/03/17 19:45 (NS Flush) 2 ml BID IV FLUSH 10/03/17 21:00 10/05/17 09:58 (Tylenol) 650 mg Q6H PRN PO 10/03/17 19:45 10/04/17 19:59 (Protonix) 40 mg DAILY PO 10/04/17 09:00 10/05/17 09:55 (Zofran Inj) 4 mg Q6H PRN IV PUSH 10/03/17 19:45 (Albuterol Neb) 2.5 mg Q2HR NEB PRN INH 10/03/17 19:45 Miscellaneous Information 1 Q361D XX 10/03/17 19:45 (Chlorhexidine 2% Cloth) 3 pack Taper DAILY@04 TOP 10/04/17 04:00 09/30/18 03:59 10/03/17 22:27 (Chlorhexidine 2% Cloth) 3 pack UNSCH PRN TOP 10/03/17 19:45 (Alice-Colace) 1 tab BID PO 10/03/17 21:00 10/05/17 09:57 (Milk Of Magnesia Liq) 30 ml Q12H PRN PO 10/03/17 19:45 (Senokot) 17.2 mg Q12H PRN PO 10/03/17 19:45 (Dulcolax Supp) 10 mg DAILY PRN RECTAL 10/03/17 19:45 (Lactulose Liq) 30 ml DAILY PRN PO 10/03/17 19:45 (Trandate) 200 mg Q12HR PO 10/03/17 21:00 10/05/17 09:56 (Pravachol) 80 mg HS PO 10/03/17 21:00 10/04/17 19:55 (Symbicort 80-4.5 Mcg Inh) 1 puff Q12HR INH 10/03/17 21:00 10/05/17 11:02 (KCl) 30 meq DAILY PO 10/05/17 09:00 10/05/17 09:57 (Aldactone) 25 mg BID@,18 PO 10/04/17 18:00 10/05/17 18:10 (Minipress) 1 mg Q12HR PO 10/05/17 21:00 A/P Problem List: (1) ICD (implantable cardioverter-defibrillator), single, in situ ICD Code: Z95.810 - Presence of automatic (implantable) cardiac defibrillator Status: Chronic (2) Hypertensive urgency ICD Code: I10 - Hypertensive urgency Status: Acute (3) History of CVA (cerebrovascular accident) ICD Code: Z86.73 - Personal history of transient ischemic attack (TIA), and cerebral infarction without residual deficits Status: Chronic (4) Physical deconditioning ICD Code: R53.81 - Disuse syndrome Status: Chronic (5) CKD (chronic kidney disease) stage 3, GFR 30-59 ml/min ICD Code: N18.3 - Chronic kidney disease, stage 3 (moderate) Status: Chronic (6) Chronic systolic heart failure ICD Code: I50.22 - Chronic systolic (congestive) heart failure Status: Chronic (7) Renal artery stenosis ICD Code: I70.1 - Atherosclerosis of renal artery Status: Chronic (8) COPD (chronic obstructive pulmonary disease) ICD Code: J44.9 - Chronic obstructive pulmonary disease, unspecified Status: Chronic (9) Nausea & vomiting ICD Code: R11.2 - Nausea with vomiting, unspecified Status: Acute (10) Hypertensive emergency ICD Code: I16.1 - Hypertensive emergency Status: Acute Assessment and Plan NEURO: History of stroke with residual aphasia Probable underlying mild dementia Patient is at baseline mental status per discussion with her daughter and with ED providers who know her. Followup CT brain On ASA and Xarelto. RESP: COPD Prior history of tobacco abuse On room air Continue symbicort bid. CV/NEPHRO: Chronic systolic heart failure with ejection fraction 35-40% on echo 01/28/17 Atrial fibrillation status post ablation 02/29/16 Dr. Hogan Defibrillator Malignant HTN/ ''Hypertensive Urgency" Renal artery stenosis CKD stage III Denies CP/SOB. CXR . EKG with NSR 78, LVH. No acute changes. Followup cardiac markers. Tonight will target 20-25% reduction in MAP with hydralazine/labetalol PRN ( MAP target 125-135). Nicardipine if needed. Neurochecks during BP lowering. Continue lisinopril 20 mg by mouth twice a day, nifedipine 60 mg by mouth daily , isosorbide ER 60 mg by mouth daily. Patient apparently nonadherent to Coreg due to expense. Appears labetalol should be more affordable, initiated Labetalol 200 bid and holding Coreg. Apparently Medicaid is pending. CT angio 05/11/17 - High grade stenosis of Right renal artery amenable to endovascular repair. Proximal occlusion of left renal artery, L kidney atrophic. Dr. Katz recommended outpatient R renal angioplasty during prior consultation 04/2017 appears this was not pursued per discussion with daughter though she states compliance with nephrology f/u. She has scheduled appt with Dr. Katz , will consult for recommendations regarding pursuing angiogram now. PRevious w/u with cortisol 7.4, renin and aldosterone elevation may be secondary to renovascular disease. 10/05/17 Bp still elevated. Prazosin started by nephrology. GI: Heart healthy diet ID: Monitor for signs and symptoms of infection HEME: Chronic anticoagulation with Xarelto Continue Xarelto ENDO: Euglycemic 10/05/17 Right thigh pain: Will check venous doppler. PROPH: On xarelto which will provide DVT prophylaxis. Protonix 40 mg by mouth daily for stress ulcer prophylaxis. ACCESS: Peripheral IV Gideon Hill MD Oct 05, 2017 18:00
--- NOTE | 2017-10-05 20:24 | RADRPT ---
EXAM DATE/TIME: 10/05/2017 19:52 [facility] COMPARISON: No previous studies available for comparison. INDICATIONS : Right leg pain. MEDICAL HISTORY : Stroke. Myocardial infarction. Congestive heart failure. Headache. Coronary artery disease. Antico agulant therapy. Hypertension. Asthma. Dyspnea. Arthritis. MRSA. SURGICAL HISTORY : Pacemaker. Tubal ligation. Right ankle surgery. ENCOUNTER: Subsequent ACUITY: 1 day PAIN SCORE: 3/10 LOCATION: Right leg. TECHNIQUE: Venous ultrasound of the leg was performed from the inguinal ligament to the proximal calf. Real-denise e, color Doppler and spectral tracing, compression and augmentation techniques were used. FINDINGS: There is normal compressibility of the deep venous system from the inguinal region to the proximal ca lf. No echogenic clot is seen in the lumen of the common femoral, femoral, popliteal, and posterior tibial veins. There is a normal response of the venous system to proximal and distal augmentation an d respiration. CONCLUSION: No DVT is identified within the right lower extremity. Nelson Huff MD on October 05, 2017 at 20:22 Board Certified Radiologist. This report was verified electronically.
[2017-10-05 20:30] VITALS: BP 158/92; PULSE 74; RESP 17; TEMP 98.2; O2SAT 98
[2017-10-05] MEDS: PRAZOSIN HCL 1 MG CAP PO SCH (23:12)
[2017-10-05] MEDS: PRAVASTATIN SOD 80 MG TAB PO SCH (23:14)
[2017-10-06] VITALS (7 sets, daily range): BP systolic 140–175; BP diastolic 74–101; PULSE 64–83; RESP 17–18; TEMP 96.7–97.9; O2SAT 98–99
[2017-10-06] MEDS: CHLORHEXIDINE GLUCONATE 2 % 1 PACK (2 CLOTHS) TOP SCH (04:00)
[2017-10-06] MEDS: LABETALOL HCL 200 MG TAB PO SCH (07:57)
[2017-10-06] MEDS: PANTOPRAZOLE SOD 40 MG DELAYED RELEASE TAB PO SCH (07:57)
[2017-10-06] MEDS: PRAZOSIN HCL 1 MG CAP PO SCH ×2 (07:58→23:58)
[2017-10-06] MEDS: ASPIRIN EC 81 MG TABEC PO SCH (07:58)
[2017-10-06] MEDS: NIFEdipine 60 MG SUSTAINED RELEASE TAB PO SCH (07:58)
[2017-10-06] MEDS: POTASSIUM CHLORIDE 10 MEQ CONTROLLED RELEASE TAB PO SCH (07:58)
[2017-10-06] MEDS: LISINOPRIL 10 MG TAB PO SCH ×2 (07:59→23:57)
[2017-10-06] MEDS: FUROSEMIDE 40 MG TAB PO SCH (07:59)
[2017-10-06] MEDS: SPIRONOLACTONE 25 MG TAB PO SCH ×2 (07:59→16:17)
[2017-10-06] MEDS: ISOSORBIDE MONONITRATE 60 MG TAB PO SCH (08:00)
[2017-10-06] MEDS: DOCUSATE SODIUM 50 MG/SENNA 8.6 MG TAB PO SCH ×2 (08:00→23:58)
[2017-10-06] MEDS: SODIUM CHLORIDE 0.9% FLUSH 10 ML FLUSH IV FLUSH SCH ×2 (08:00→21:00)
[2017-10-06] MEDS: COLCHICINE 0.6 MG TAB PO SCH ×2 (08:00→23:58)
[2017-10-06] MEDS: BUDESONIDE-FORMOTEROL 80/4.5 MCG INHALER INH SCH ×2 (08:01→23:59)
[2017-10-06 10:03] LABS: HEMOGLOBIN A1a 0.7 %; HEMOGLOBIN A1b 1.8 %; HEMOGLOBIN Ao 84.2 %; HEMOGLOBIN LA1C 2.3 %
[2017-10-06] MEDS: MUPIROCIN 2% OINT 1 APPLIC/GM SYR EACH NARE SCH ×2 (11:25→23:57)
[2017-10-06 12:16] LABS: BICARBONATE 25.4 MEQ/L (21.0-32.0); POTASSIUM 4.1 MEQ/L (3.5-5.1)
--- NOTE | 2017-10-06 12:53 | HHI.PR ---
Subjective Remarks denies cp/sob bp better Objective Vitals Vital Signs Date Time Temp Pulse Resp B/P (MAP) Pulse Ox O2 Delivery O2 Flow Rate FiO2 10/06/17 08:00 97.3 83 17 144/101 (115) 99 10/06/17 00:30 97.9 71 17 149/74 (99) 98 10/05/17 20:30 98.2 74 17 158/92 (114) 98 10/05/17 16:00 97.6 77 18 159/88 (111) 99 10/05/17 15:29 Room Air 21 I/O 10/05/17 10/05/17 10/05/17 10/06/17 10/06/17 10/06/17 07:00 15:00 23:00 07:00 15:00 23:00 Intake Total 240 ml 420 ml 480 ml 240 ml Balance 240 ml 420 ml 480 ml 240 ml Intake Oral 240 ml 420 ml 480 ml 240 ml # Voids 1 5 2 2 # Bowel Movements 1 0 0 Result Diagram: 10/05/17 0517 10/06/17 1016 Imaging Last Impressions Lower Extremity Ultrasound 10/05/17 0000 Signed Impressions: Service Date/Time: Thursday, October 05, 2017 19:52 - CONCLUSION: No DVT is identified within the right lower extremity. Nelson Huff MD Head CT 10/03/172107 Signed Impressions: Service Date/Time: September 21:43 - CONCLUSION: 1. No acute intracranial abnormality. 2. Chronic small vessel ischemic change. Supa Shankar Jr., MD Chest X-Ray 10/03/17 0000 Signed Impressions: Service Date/Time: September 20:01 - CONCLUSION: 1. Cardiomegaly with pulmonary vascular engorgement. 2. Right midlung parenchymal consolidation could relate to atypical pulmonary edema. An infectious infiltrate could have a similar appearance. Supa Shankar Jr., MD Objective Remarks AAOx3 nad S1S2 RRR, no MRG Clear lungs BL Abdomen soft, nt, tenderness to palpation of right thigh but no edema Medications and IVs Current Medications Medications (Trade) Dose Ordered Sig/Dajuan Route Start Time Stop Time Status Last Admin (Ecotrin Ec) 81 mg DAILY PO 10/04/17 09:00 10/06/17 07:58 (Colchicine) 0.6 mg BID PO 10/03/17 21:00 10/06/17 08:00 (Lasix) 40 mg DAILY PO 10/04/17 09:00 10/06/17 07:59 (Imdur) 60 mg DAILY PO 10/04/17 09:00 10/06/17 08:00 (Prinivil) 20 mg BID PO 10/03/17 21:00 10/06/17 07:59 (Bactroban Nasal 2% Oint) 1 applic BID EACH NARE 10/03/17 21:00 10/06/17 11:25 (Procardia Xl) 60 mg DAILY PO 10/04/17 09:00 10/06/17 07:58 (NS Flush) 2 ml UNSCH PRN IV FLUSH 10/03/17 19:45 (NS Flush) 2 ml BID IV FLUSH 10/03/17 21:00 10/06/17 08:00 (Tylenol) 650 mg Q6H PRN PO 10/03/17 19:45 10/04/17 19:59 (Protonix) 40 mg DAILY PO 10/04/17 09:00 10/06/17 07:57 (Zofran Inj) 4 mg Q6H PRN IV PUSH 10/03/17 19:45 (Albuterol Neb) 2.5 mg Q2HR NEB PRN INH 10/03/17 19:45 Miscellaneous Information 1 Q361D XX 10/03/17 19:45 (Chlorhexidine 2% Cloth) 3 pack Taper DAILY@04 TOP 10/04/17 04:00 09/30/18 03:59 10/03/17 22:27 (Chlorhexidine 2% Cloth) 3 pack UNSCH PRN TOP 10/03/17 19:45 (Alice-Colace) 1 tab BID PO 10/03/17 21:00 10/06/17 08:00 (Milk Of Magnesia Liq) 30 ml Q12H PRN PO 10/03/17 19:45 (Senokot) 17.2 mg Q12H PRN PO 10/03/17 19:45 (Dulcolax Supp) 10 mg DAILY PRN RECTAL 10/03/17 19:45 (Lactulose Liq) 30 ml DAILY PRN PO 10/03/17 19:45 (Trandate) 200 mg Q12HR PO 10/03/17 21:00 10/06/17 07:57 (Pravachol) 80 mg HS PO 10/03/17 21:00 10/05/17 23:14 (Symbicort 80-4.5 Mcg Inh) 1 puff Q12HR INH 10/03/17 21:00 10/06/17 08:01 (KCl) 30 meq DAILY PO 10/05/17 09:00 10/06/17 07:58 (Aldactone) 25 mg BID@,18 PO 10/04/17 18:00 10/06/17 07:59 (Minipress) 1 mg Q12HR PO 10/05/17 21:00 10/06/17 07:58 A/P Problem List: (1) ICD (implantable cardioverter-defibrillator), single, in situ ICD Code: Z95.810 - Presence of automatic (implantable) cardiac defibrillator Status: Chronic (2) History of CVA (cerebrovascular accident) ICD Code: Z86.73 - Personal history of transient ischemic attack (TIA), and cerebral infarction without residual deficits Status: Chronic (3) Physical deconditioning ICD Code: R53.81 - Disuse syndrome Status: Chronic (4) CKD (chronic kidney disease) stage 3, GFR 30-59 ml/min ICD Code: N18.3 - Chronic kidney disease, stage 3 (moderate) Status: Chronic (5) Chronic systolic heart failure ICD Code: I50.22 - Chronic systolic (congestive) heart failure Status: Chronic (6) Renal artery stenosis ICD Code: I70.1 - Atherosclerosis of renal artery Status: Chronic (7) COPD (chronic obstructive pulmonary disease) ICD Code: J44.9 - Chronic obstructive pulmonary disease, unspecified Status: Chronic (8) Nausea & vomiting ICD Code: R11.2 - Nausea with vomiting, unspecified Status: Resolved (9) Hypertensive emergency ICD Code: I16.1 - Hypertensive emergency Status: Resolved Assessment and Plan History of stroke with residual aphasia Probable underlying mild dementia Patient is at baseline mental status per discussion with her daughter and with ED providers who know her. On ASA and Xarelto. Head CT did not show any acute intracranial abnormality. There are chronic small ischemic change reported. COPD Prior history of tobacco abuse On room air Continue symbicort bid. seems stable. CV/NEPHRO: Chronic systolic heart failure with ejection fraction 35-40% on echo 01/28/17 Atrial fibrillation status post ablation 02/29/16 Dr. Hogan Defibrillator Malignant HTN/ ''Hypertensive Urgency" Renal artery stenosis CKD stage III Denies CP/SOB. CXR . EKG with NSR 78, LVH. No acute changes. Followup cardiac markers. Tonight will target 20-25% reduction in MAP with hydralazine/labetalol PRN ( MAP target 125-135). Nicardipine if needed. Neurochecks during BP lowering. Continue lisinopril 20 mg by mouth twice a day, nifedipine 60 mg by mouth daily , isosorbide ER 60 mg by mouth daily. Patient apparently nonadherent to Coreg due to expense. Appears labetalol should be more affordable, initiated Labetalol 200 bid and holding Coreg. Apparently Medicaid is pending. CT angio 05/11/17 - High grade stenosis of Right renal artery amenable to endovascular repair. Proximal occlusion of left renal artery, L kidney atrophic. Dr. Katz recommended outpatient R renal angioplasty during prior consultation 04/2017 appears this was not pursued per discussion with daughter though she states compliance with nephrology f/u. She has scheduled appt with Dr. Katz , will consult for recommendations regarding pursuing angiogram now. PRevious w/u with cortisol 7.4, renin and aldosterone elevation may be secondary to renovascular disease. 10/05/17 Bp still elevated. Prazosin started by nephrology. 10/06/17 For renal artery angiogram/angioplasty in am. Creatinine trending up to 1.2, I will hold diuretics for now. BP control improving. Continue current antihypertensive medications which include labetalol 200 mg by mouth every 12 hours, lisinopril 20 g by mouth twice a day, nifedipine 60 minutes by mouth daily, prazosin 1 mg by mouth every 12 hours. GI: Heart healthy diet ID: Monitor for signs and symptoms of infection HEME: Chronic anticoagulation with Xarelto Continue Xarelto ENDO: Euglycemic 10/05/17 Right thigh pain: Will check venous doppler. 10/06/17 right venous Doppler ruled out DVT. PROPH: On xarelto which will provide DVT prophylaxis. Protonix 40 mg by mouth daily for stress ulcer prophylaxis. ACCESS: Peripheral IV Discharge Planning The patient for renal artery angiogram in a.m. Will need nephrology clearance. Gideon Hill MD 12, 2017 12:53
--- NOTE | 2017-10-06 17:02 | HHI.NPPN ---
Subjective History of Present Illness patient with Uncontrolled Hypertension and CKD Review of Systems General Constitutional: Fatigue Objective Data Data Vital Signs Date Time Temp Pulse Resp B/P (MAP) Pulse Ox O2 Delivery O2 Flow Rate FiO2 10/06/17 16:17 97.8 70 18 175/101 (125) 98 10/06/17 12:00 97.5 64 17 140/87 (104) 99 10/06/17 08:00 97.3 83 17 144/101 (115) 99 10/06/17 00:30 97.9 71 17 149/74 (99) 98 10/05/17 20:30 98.2 74 17 158/92 (114) 98 -: 10/05/17 0517 10/06/17 1016 Physical Exam General Appearance: Well Developed, Well Nourished Neck Neck Exam: Neck Supple Pulmonary Resp Exam: Clear Bilaterally, Breath Sounds Equal Cardiology CV Exam: Regular, Normal Sinus Rhythm Gastrointestinal/Abdomen GI Exam: Soft, Non-Tender, Bowel Sounds Present Integumentary Skin Exam: Clear Extremeties Extremities Exam: No Edema Neurologic Neuro Exam: Alert, Awake, Oriented Assessment/Plan Problem List: (1) Hypertensive urgency ICD Codes: I10 - Hypertensive urgency Status: Acute Plan: BP better with Minipress continue with Lasix/Aldactone Nifedipine Labetalol for BP control Hx of CVA Suspected JOSLYN follow up with Dr. Katz (2) CKD (chronic kidney disease) stage 3, GFR 30-59 ml/min ICD Codes: N18.3 - Chronic kidney disease, stage 3 (moderate) Status: Chronic (3) History of CVA (cerebrovascular accident) ICD Codes: Z86.73 - Personal history of transient ischemic attack (TIA), and cerebral infarction without residual deficits Status: Chronic Josephine Rossi MD Oct 06, 2017 17:02
[2017-10-06] MEDS: PRAVASTATIN SOD 80 MG TAB PO SCH (23:58)
[2017-10-07] VITALS (9 sets, daily range): BP systolic 131–171; BP diastolic 79–104; PULSE 62–84; RESP 16–20; TEMP 96.8–98.6; O2SAT 91–100
[2017-10-07] MEDS: LABETALOL HCL 200 MG TAB PO SCH ×3 (00:02→22:35)
[2017-10-07] MEDS: CHLORHEXIDINE GLUCONATE 2 % 1 PACK (2 CLOTHS) TOP SCH (00:02)
[2017-10-07] MEDS: FUROSEMIDE 40 MG TAB PO SCH (08:39)
[2017-10-07] MEDS: LISINOPRIL 10 MG TAB PO SCH ×2 (08:40→22:35)
[2017-10-07] MEDS: PRAZOSIN HCL 1 MG CAP PO SCH ×2 (08:40→22:35)
[2017-10-07] MEDS: ISOSORBIDE MONONITRATE 60 MG TAB PO SCH (08:41)
[2017-10-07] MEDS: NIFEdipine 60 MG SUSTAINED RELEASE TAB PO SCH (08:41)
[2017-10-07] MEDS: SPIRONOLACTONE 25 MG TAB PO SCH ×2 (08:41→18:00)
[2017-10-07] MEDS: MUPIROCIN 2% OINT 1 APPLIC/GM SYR EACH NARE SCH ×2 (08:46→22:37)
[2017-10-07] MEDS: BUDESONIDE-FORMOTEROL 80/4.5 MCG INHALER INH SCH ×2 (08:46→22:38)
[2017-10-07] MEDS: COLCHICINE 0.6 MG TAB PO SCH ×2 (08:47→22:35)
[2017-10-07] MEDS: SODIUM CHLORIDE 0.9% FLUSH 10 ML FLUSH IV FLUSH SCH ×2 (08:47→22:37)
[2017-10-07] MEDS: ASPIRIN EC 81 MG TABEC PO SCH (08:47)
[2017-10-07] MEDS: POTASSIUM CHLORIDE 10 MEQ CONTROLLED RELEASE TAB PO SCH (08:47)
[2017-10-07] MEDS: DOCUSATE SODIUM 50 MG/SENNA 8.6 MG TAB PO SCH ×2 (08:48→22:34)
[2017-10-07] MEDS: PANTOPRAZOLE SOD 40 MG DELAYED RELEASE TAB PO SCH (08:48)
[2017-10-07 10:39] LABS: PROTHROMBIN TIME - PATIENT 11.1 SEC (9.8-11.6)
[2017-10-07] MEDS ORDERED: MIDAZOLAM HCL 2 MG/2 ML VIAL ONE (12:31)
[2017-10-07] MEDS ORDERED: ceFAZolin 2 GM PREMIX 50 ML ONE (13:41)
[2017-10-07] MEDS ORDERED: HEPARIN SODIUM - IV 10,000 UNITS/10 ML VIAL ONE (14:26)
--- NOTE | 2017-10-07 14:44 | HHI.PR ---
Subjective Remarks deferred entry - patient seen at 11 am Patient denies cp/sob. Denies fevers or chills. bp still elevated but improving Objective Vitals Vital Signs Date Time Temp Pulse Resp B/P (MAP) Pulse Ox O2 Delivery O2 Flow Rate FiO2 10/07/17 11:26 96.9 72 18 155/94 (114) 100 10/07/17 08:00 98.2 83 20 171/90 (117) 98 10/07/17 04:21 97.4 74 18 131/81 (98) 100 10/06/17 20:21 96.7 80 18 155/98 (117) 98 10/06/17 18:33 98 10/06/17 18:06 163/87 (112) 10/06/17 16:17 97.8 70 18 175/101 (125) 98 I/O 10/06/17 10/06/17 10/06/17 10/07/17 10/07/17 10/07/17 07:00 15:00 23:00 07:00 15:00 23:00 Intake Total 240 ml 480 ml 240 ml 0 ml Balance 240 ml 480 ml 240 ml 0 ml Intake Oral 240 ml 480 ml 240 ml 0 ml # Voids 2 3 5 1 # Bowel Movements 0 1 0 0 Result Diagram: 10/05/17 0517 10/06/17 1016 Imaging Last Impressions Lower Extremity Ultrasound 10/05/17 0000 Signed Impressions: Service Date/Time: Thursday, October 05, 2017 19:52 - CONCLUSION: No DVT is identified within the right lower extremity. Nelson Huff MD Head CT 10/03/172107 Signed Impressions: Service Date/Time: September 21:43 - CONCLUSION: 1. No acute intracranial abnormality. 2. Chronic small vessel ischemic change. Supa Shankar Jr., MD Chest X-Ray 10/03/17 0000 Signed Impressions: Service Date/Time: September 20:01 - CONCLUSION: 1. Cardiomegaly with pulmonary vascular engorgement. 2. Right midlung parenchymal consolidation could relate to atypical pulmonary edema. An infectious infiltrate could have a similar appearance. Supa Shankar Jr., MD Objective Remarks AAOx3 nad S1S2 RRR, no MRG Clear lungs BL Abdomen soft, nt, tenderness to palpation of right thigh but no edema Medications and IVs Current Medications Medications (Trade) Dose Ordered Sig/Dajuan Route Start Time Stop Time Status Last Admin (Ecotrin Ec) 81 mg DAILY PO 10/04/17 09:00 10/06/17 07:58 (Colchicine) 0.6 mg BID PO 10/03/17 21:00 10/06/17 23:58 (Lasix) 40 mg DAILY PO 10/04/17 09:00 10/07/17 08:39 (Imdur) 60 mg DAILY PO 10/04/17 09:00 10/07/17 08:41 (Prinivil) 20 mg BID PO 10/03/17 21:00 10/07/17 08:40 (Bactroban Nasal 2% Oint) 1 applic BID EACH NARE 10/03/17 21:00 10/07/17 08:46 (Procardia Xl) 60 mg DAILY PO 10/04/17 09:00 10/07/17 08:41 (NS Flush) 2 ml UNSCH PRN IV FLUSH 10/03/17 19:45 (NS Flush) 2 ml BID IV FLUSH 10/03/17 21:00 10/07/17 08:47 (Tylenol) 650 mg Q6H PRN PO 10/03/17 19:45 10/04/17 19:59 (Protonix) 40 mg DAILY PO 10/04/17 09:00 10/06/17 07:57 (Zofran Inj) 4 mg Q6H PRN IV PUSH 10/03/17 19:45 (Albuterol Neb) 2.5 mg Q2HR NEB PRN INH 10/03/17 19:45 Miscellaneous Information 1 Q361D XX 10/03/17 19:45 (Chlorhexidine 2% Cloth) 3 pack Taper DAILY@04 TOP 10/04/17 04:00 09/30/18 03:59 10/03/17 22:27 (Chlorhexidine 2% Cloth) 3 pack UNSCH PRN TOP 10/03/17 19:45 (Alice-Colace) 1 tab BID PO 10/03/17 21:00 10/06/17 23:58 (Milk Of Magnesia Liq) 30 ml Q12H PRN PO 10/03/17 19:45 (Senokot) 17.2 mg Q12H PRN PO 10/03/17 19:45 (Dulcolax Supp) 10 mg DAILY PRN RECTAL 10/03/17 19:45 (Lactulose Liq) 30 ml DAILY PRN PO 10/03/17 19:45 (Trandate) 200 mg Q12HR PO 10/03/17 21:00 10/07/17 08:39 (Pravachol) 80 mg HS PO 10/03/17 21:00 10/06/17 23:58 (Symbicort 80-4.5 Mcg Inh) 1 puff Q12HR INH 10/03/17 21:00 10/07/17 08:46 (KCl) 30 meq DAILY PO 10/05/17 09:00 10/06/17 07:58 (Aldactone) 25 mg BID@18 PO 10/04/17 18:00 10/07/17 08:41 (Minipress) 1 mg Q12HR PO 10/05/17 21:00 10/07/17 08:40 A/P Problem List: (1) ICD (implantable cardioverter-defibrillator), single, in situ ICD Code: Z95.810 - Presence of automatic (implantable) cardiac defibrillator Status: Chronic (2) History of CVA (cerebrovascular accident) ICD Code: Z86.73 - Personal history of transient ischemic attack (TIA), and cerebral infarction without residual deficits Status: Chronic (3) Physical deconditioning ICD Code: R53.81 - Disuse syndrome Status: Chronic (4) CKD (chronic kidney disease) stage 3, GFR 30-59 ml/min ICD Code: N18.3 - Chronic kidney disease, stage 3 (moderate) Status: Chronic (5) Chronic systolic heart failure ICD Code: I50.22 - Chronic systolic (congestive) heart failure Status: Chronic (6) Renal artery stenosis ICD Code: I70.1 - Atherosclerosis of renal artery Status: Chronic (7) COPD (chronic obstructive pulmonary disease) ICD Code: J44.9 - Chronic obstructive pulmonary disease, unspecified Status: Chronic (8) Nausea & vomiting ICD Code: R11.2 - Nausea with vomiting, unspecified Status: Resolved (9) Hypertensive emergency ICD Code: I16.1 - Hypertensive emergency Status: Resolved Assessment and Plan History of stroke with residual aphasia Probable underlying mild dementia Patient is at baseline mental status per discussion with her daughter and with ED providers who know her. On ASA and Xarelto. Head CT did not show any acute intracranial abnormality. There are chronic small ischemic change reported. COPD Prior history of tobacco abuse On room air Continue symbicort bid. seems stable. CV/NEPHRO: Chronic systolic heart failure with ejection fraction 35-40% on echo 01/28/17 Atrial fibrillation status post ablation 02/29/16 Dr. Hogan Defibrillator Malignant HTN/ ''Hypertensive Urgency" Renal artery stenosis CKD stage III Denies CP/SOB. CXR . EKG with NSR 78, LVH. No acute changes. Followup cardiac markers. Tonight will target 20-25% reduction in MAP with hydralazine/labetalol PRN ( MAP target 125-135). Nicardipine if needed. Neurochecks during BP lowering. Continue lisinopril 20 mg by mouth twice a day, nifedipine 60 mg by mouth daily , isosorbide ER 60 mg by mouth daily. Patient apparently nonadherent to Coreg due to expense. Appears labetalol should be more affordable, initiated Labetalol 200 bid and holding Coreg. Apparently Medicaid is pending. CT angio 05/11/17 - High grade stenosis of Right renal artery amenable to endovascular repair. Proximal occlusion of left renal artery, L kidney atrophic. Dr. Katz recommended outpatient R renal angioplasty during prior consultation 04/2017 appears this was not pursued per discussion with daughter though she states compliance with nephrology f/u. She has scheduled appt with Dr. Katz , will consult for recommendations regarding pursuing angiogram now. PRevious w/u with cortisol 7.4, renin and aldosterone elevation may be secondary to renovascular disease. 10/05/17 Bp still elevated. Prazosin started by nephrology. 10/07/17 For renal artery angiogram/angioplasty today. Creatinine trending up to 1.2, I will hold diuretics for now. BP control improving. Continue current antihypertensive medications which include labetalol 200 mg by mouth every 12 hours, lisinopril 20 g by mouth twice a day, nifedipine 60 minutes by mouth daily, prazosin 1 mg by mouth every 12 hours. GI: Heart healthy diet ID: Monitor for signs and symptoms of infection HEME: Chronic anticoagulation with Xarelto Continue Xarelto ENDO: Euglycemic 10/05/17 Right thigh pain: Will check venous doppler. 10/06/17 right venous Doppler ruled out DVT. PROPH: On xarelto which will provide DVT prophylaxis. Protonix 40 mg by mouth daily for stress ulcer prophylaxis. ACCESS: Peripheral IV Discharge Planning The patient for renal artery angiogram . Will need nephrology clearance. Gideon Hill MD Oct 07, 2017 14:44
[2017-10-07] MEDS ORDERED: IODIXANOL 320 MG/ML 50 ML VIAL (for RAD SPEC) I-ARTERIAL ONE (15:16)
--- NOTE | 2017-10-07 15:58 | PD.RAD ---
Post Procedure Progress Note Pre Procedure Diagnosis: (1) Hypertensive emergency (2) Renal artery stenosis Post Procedure Diagnosis: (1) HTN (hypertension) (2) Renal artery stenosis Procedure Date: Oct 07, 2017 Supervising Radiologist: Will Moses Proceduralist/Assist: Bonita Burns, RT(R)(CV), Eliana Pettit RT(R) Anesthesia: Local, Analgesia, Conscious Sedation Plan of Activity Patient to Unit: ROPU Patient Condition: Good See PACS Report for procedural detail/treatment Vascular-Arterial Procedure Procedure 1 Procedure Site: Right Renal, Abdominal (Left iliac) Procedure(s): Angiogram, Stent Placement (Right renal and left iliac) Access Access Site(s): Left Femoral Artery Closure Site(s): Left vascular closure device (Angioseal) Findings: High grade stenosis right renal artery. Occluded left. 7mm stent with excellent angiographic result. 60-70% stenosis left proximal external iliac post stent and 8mm SUSTAINABLE AGRICULTURE SPECIALIST Will Moses MD Oct 07, 2017 15:58
--- NOTE | 2017-10-07 19:19 | HHI.NPPN ---
Subjective History of Present Illness 67-year-old female with past medical history of hypertension, chronic kidney disease, history of acute kidney injury, history of hypokalemia, who was admitted to the hospital with persistent hypertension. I was called to see the patient because of very high blood pressure and Renal artery stenosis. Additional Remarks Patient is alert, no SOB, eating no headache, not in distress. Review of Systems General Constitutional: Fatigue Respiratory Lungs: SOB Cardiovascular Cardiac: Edema, TRACEY Objective Data Data 10/07/17 10/08/17 19:00 07:00 Intake Total 0 ml Balance 0 ml Intake Oral 0 ml # Voids 2 # Bowel Movements 0 Vital Signs Date Time Temp Pulse Resp B/P (MAP) Pulse Ox O2 Delivery O2 Flow Rate FiO2 10/07/17 16:00 96.8 84 18 147/84 (105) 100 10/07/17 16:00 76 18 160/100 (120) 91 10/07/17 15:30 75 18 161/101 (121) 95 10/07/17 15:15 66 18 167/104 (125) 95 10/07/17 15:00 98.1 65 16 165/102 (123) 95 10/07/17 14:45 62 16 160/98 (118) 91 10/07/17 11:26 96.9 72 18 155/94 (114) 100 10/07/17 08:00 98.2 83 20 171/90 (117) 98 10/07/17 04:21 97.4 74 18 131/81 (98) 100 10/06/17 20:21 96.7 80 18 155/98 (117) 98 -: 10/05/17 0517 10/06/17 1016 Physical Exam General Appearance: Well Nourished, No Acute Distress, Comfortable Neck Neck Exam: Neck Supple Pulmonary Resp Exam: Clear Bilaterally, Breath Sounds Equal Cardiology CV Exam: Regular, Normal Sinus Rhythm Gastrointestinal/Abdomen GI Exam: Soft, Non-Tender, Bowel Sounds Present Integumentary Skin Exam: Clear Extremeties Extremities Exam: No Edema Neurologic Neuro Exam: Alert, Awake, Oriented Assessment/Plan Problem List: (1) Hypertensive urgency ICD Codes: I10 - Hypertensive urgency Status: Acute Plan: BP better with Minipress continue with Lasix/Aldactone Nifedipine Labetalol for BP control Hx of CVA Post angioplasty. BP is still elevated, will follow. (2) CKD (chronic kidney disease) stage 3, GFR 30-59 ml/min ICD Codes: N18.3 - Chronic kidney disease, stage 3 (moderate) Status: Chronic (3) History of CVA (cerebrovascular accident) ICD Codes: Z86.73 - Personal history of transient ischemic attack (TIA), and cerebral infarction without residual deficits Status: Chronic Michael Katz MD Oct 07, 2017 19:19
[2017-10-07] MEDS: PRAVASTATIN SOD 80 MG TAB PO SCH (22:34)
[2017-10-08 00:21] VITALS: BP 137/75; PULSE 74; RESP 17; TEMP 98.9; O2SAT 97
[2017-10-08] MEDS: CHLORHEXIDINE GLUCONATE 2 % 1 PACK (2 CLOTHS) TOP SCH (04:00)
[2017-10-08 04:25] VITALS: BP 124/74; PULSE 76; RESP 17; TEMP 98.5; O2SAT 98
[2017-10-08 08:00] VITALS: BP 167/93; PULSE 85; RESP 16; TEMP 98.9; O2SAT 97
[2017-10-08] MEDS: LISINOPRIL 10 MG TAB PO SCH ×2 (09:42→21:16)
[2017-10-08] MEDS: PRAZOSIN HCL 1 MG CAP PO SCH ×2 (09:42→21:16)
[2017-10-08] MEDS: NIFEdipine 60 MG SUSTAINED RELEASE TAB PO SCH (09:42)
[2017-10-08] MEDS: PANTOPRAZOLE SOD 40 MG DELAYED RELEASE TAB PO SCH (09:42)
[2017-10-08] MEDS: ISOSORBIDE MONONITRATE 60 MG TAB PO SCH (09:42)
[2017-10-08] MEDS: SPIRONOLACTONE 25 MG TAB PO SCH ×2 (09:42→18:00)
[2017-10-08] MEDS: COLCHICINE 0.6 MG TAB PO SCH ×2 (09:42→21:16)
[2017-10-08] MEDS: DOCUSATE SODIUM 50 MG/SENNA 8.6 MG TAB PO SCH ×2 (09:42→21:16)
[2017-10-08] MEDS: LABETALOL HCL 200 MG TAB PO SCH ×2 (09:42→21:15)
[2017-10-08] MEDS: BUDESONIDE-FORMOTEROL 80/4.5 MCG INHALER INH SCH ×2 (09:43→21:15)
[2017-10-08] MEDS: FUROSEMIDE 40 MG TAB PO SCH (09:43)
[2017-10-08] MEDS: SODIUM CHLORIDE 0.9% FLUSH 10 ML FLUSH IV FLUSH SCH ×2 (09:43→21:22)
[2017-10-08] MEDS: POTASSIUM CHLORIDE 10 MEQ CONTROLLED RELEASE TAB PO SCH (09:44)
[2017-10-08] MEDS: MUPIROCIN 2% OINT 1 APPLIC/GM SYR EACH NARE SCH ×2 (09:44→21:16)
[2017-10-08] MEDS: ASPIRIN EC 81 MG TABEC PO SCH (09:50)
[2017-10-08] MEDS: ACETAMINOPHEN 325 MG TAB PO PRN ×2 (09:50→14:11)
[2017-10-08 12:00] VITALS: BP 114/67; PULSE 87; RESP 16; TEMP 97.9; O2SAT 100
[2017-10-08 12:25] LABS: ANION GAP 9 MEQ/L (5-15); AST (GOT) 17 U/L (15-37); BICARBONATE 24.5 MEQ/L (21.0-32.0); BLOOD UREA NITROGEN 17 MG/DL (7-18); CHLORIDE 104 MEQ/L (98-107); GLOMERULAR FILTRATION RATE 45 ML/MIN (>89); POTASSIUM 3.6 MEQ/L (3.5-5.1); SODIUM (NA) 137 MEQ/L (136-145)
[2017-10-08 12:26] LABS: ALT (GPT) 12 U/L (10-53)
[2017-10-08 12:28] LABS: ALKALINE PHOSPHATASE 85 U/L (45-117); TOTAL BILIRUBIN ADULT 0.5 MG/DL (0.2-1.0)
--- NOTE | 2017-10-08 12:59 | RADRPT ---
EXAM DATE/TIME: 10/07/2017 14:01 [place] COMPARISON: No previous studies available for comparison. INDICATIONS : Patient presents with renal artery stenosis in need of angiogram with possible interventions. MEDICAL HISTORY : Hypertension Hyperlipidemia Chronic systolic heart failure secondary to Nonischemic cardiomyopathy with ejection fraction 35-40%, diffuse hypokinesis on Echo 01/28/17 Stroke Atrial fibrillation status post ablation 03/22/16 Chronic anticoagulation with Xarelto Chronic kidney disease stage III Bilateral renal artery stenosis COPD SURGICAL HISTORY : Ablation for atrial fibrillation 03/22/16 Defibrillator placement BTL ORIF R ankle ENCOUNTER: Initial ACUITY: 4-6 days PAIN SCORE: 0/10 LOCATION: N/A FLUORO TIME: 14.3 minutes IMAGE SERIES: 13 ACCESS SITE: Left Femoral artery SEDATION TIME: 75 minutes CONTRAST: 1.) 75 cc Visipaque (iodixanol) MEDICATION(S): 1.) 2 g cefazolin (Ancef) IV 2.) 125 mcg fentanyl (Sublimaze) IV 3.) 2,000 units Heparin IV 4.) 2 mg midazolam (Versed) IV DEVICE(S): 1.) Right renal artery 7mm x 17mm stent (balloon expanding) 2.) Right renal artery 8.0mm x 40mm 75cm [employer]EST [employer] E[employer]MENT OPERATOR balloon 3.) Left external iliac artery 8.0mm x 40mm 75cm FOREST FI[employer] EQUIPMENT OPERATOR balloon 4.) Left external iliac artery 8mm x 30mm stent (self expanding) 5.) Left common femoral artery 6fr Angio-Seal PROCEDURE : 1. Ultrasound-guided puncture of the access site. 2. Angiography of the access site prior to closure device. 3. Conscious sedation with continuous EKG and Oximetry monitoring. 4. Percutaneous closure of the access site. 5. Angiography of the right artery. 6. stent placement, right renal artery. 7. stent placement, left common/external iliac. The risks, benefits and alternatives to the procedure were explained and verbal and written consent w as obtained. The site was prepped in sterile fashion. Full sterile technique was used, including ca p, mask, sterile gloves and gown and a large sterile sheet. Hand hygiene and 2% chlorhexidine and/or betadine/alcohol prep was utilized per protocol for cutaneous antisepsis. Sterile gel and sterile p robe cover were utilized for ultrasound guidance. The skin and subcutaneous tissues were infiltrated with local anesthetic solution. With ultrasound and fluoroscopic guidance the selected artery was punctured and a vascular sheath was placed. Angiography of the common femoral artery was performed for evaluation prior to percutaneous closure device placement. Initially had some difficulty advancing the wire past the junction of the common and external iliac a rteries on the left ear contrast injection showed a short segment dissection with a resulting high gr pedro stenosis. Catheter and wire were manipulated through the stenosis up into the abdominal aorta. A hook catheter was then used to select the origin of the left renal artery. Contrast injection showe d occlusion of the same. The same catheter was used to select the right renal artery. Contrast inject ion confirmed an ultra high grade central stenosis with poststenotic dilatation. The peripheral branc hes of the right renal artery were patent. Wire was advanced out into the arcade of the right renal artery. I could not get the catheter to foll ow. Therefore, the catheter was exchanged for a glide hockey-stick which was advanced out into the ar ravin of the right renal artery. Wire was exchanged for a 035 Dolan over which a 6 Citizen [place] Mohit one sh eath was placed. Contrast injection again demonstrated an ultra high grade central stenosis of the re maining right renal artery. A 7 mm x 17 mm balloon expandable stent was then advanced over the wire a nd across the area of stenosis. Stent was insufflated with an excellent angiographic result. Due to t he poststenotic dilatation, the stent was then over dilated to 8 mm. This appear to significantly imp rove the flow to the right renal artery. The high-grade stenosis/dissection at the junction of the left common and external iliac was then marisol ated with an 8 mm x 3 cm Proteg self-expanding stent which was balloon dilated to 8 mm with an excel lent angiographic result. Hemostasis was obtained with the prescribed medicated closure device. Conscious sedation was perform ed with the prescribed dosages and duration as above in the presence of an independent trained radiol ogy nurse to assist in the monitoring of the patient. EKG and oximetry remained stable throughout e procedure. CONCLUSION: 1. Ultra high grade central stenosis of the remaining right renal artery with a 7 mm stent over dilat ed to 8 mm as detailed above. 2. Left renal artery appears to be chronically occluded. 3. Short segment dissection with a resulting high grade stenosis at the junction of the left common a nd external iliacs successfully treated with a 8 mm x 3 cm self-expanding Proteg stent balloon dilat ed to 8 mm. Will Moses MD on October 08, 2017 at 12:52 Board Certified Radiologist. This report was verified electronically.
--- NOTE | 2017-10-08 13:00 | PD.CAR.PN ---
CVT Progress Note Subjective/Hospital Course: Consult received Full dictation TF J Objective: Vital Signs Date Time Temp Pulse Resp B/P (MAP) Pulse Ox O2 Delivery O2 Flow Rate FiO2 10/08/17 08:00 98.9 85 16 167/93 (117) 97 10/08/17 07:45 Room Air 10/08/17 04:25 98.5 76 17 124/74 (91) 98 10/08/17 00:21 98.9 74 17 137/75 (95) 97 10/07/17 20:26 98.6 81 17 137/79 (98) 100 10/07/17 16:00 96.8 84 18 147/84 (105) 100 10/07/17 16:00 76 18 160/100 (120) 91 10/07/17 15:30 75 18 161/101 (121) 95 10/07/17 15:15 66 18 167/104 (125) 95 10/07/17 15:00 98.1 65 16 165/102 (123) 95 10/07/17 14:45 62 16 160/98 (118) 91 Labs: Laboratory Tests Test 10/08/17 11:30 Blood Urea Nitrogen 17 MG/DL (7-18) Creatinine 1.42 MG/DL (0.50-1.00) Random Glucose 158 MG/DL (74-106) Total Protein 7.6 GM/DL (6.4-8.2) Albumin 3.5 GM/DL (3.4-5.0) Calcium Level 8.7 MG/DL (8.5-10.1) Alkaline Phosphatase 85 U/L (45-117) Aspartate Amino Transf (AST/SGOT) 17 U/L (15-37) Alanine Aminotransferase (ALT/SGPT) 12 U/L (10-53) Total Bilirubin 0.5 MG/DL (0.2-1.0) Sodium Level 137 MEQ/L (136-145) Potassium Level 3.6 MEQ/L (3.5-5.1) Chloride Level 104 MEQ/L (98-107) Carbon Dioxide Level 24.5 MEQ/L (21.0-32.0) Anion Gap 9 MEQ/L (5-15) Estimat Glomerular Filtration Rate 45 ML/MIN (>89) Result Diagram: 10/05/17 0517 10/08/17 1130 Luciana Keys MD Oct 08, 2017 13:00
--- NOTE | 2017-10-08 14:26 | HHI.PR ---
Subjective Remarks bp still labile Denies cp/sob Objective Vitals Vital Signs Date Time Temp Pulse Resp B/P (MAP) Pulse Ox O2 Delivery O2 Flow Rate FiO2 10/08/17 08:00 98.9 85 16 167/93 (117) 97 10/08/17 07:45 Room Air 10/08/17 04:25 98.5 76 17 124/74 (91) 98 10/08/17 00:21 98.9 74 17 137/75 (95) 97 10/07/17 20:26 98.6 81 17 137/79 (98) 100 10/07/17 16:00 96.8 84 18 147/84 (105) 100 10/07/17 16:00 76 18 160/100 (120) 91 10/07/17 15:30 75 18 161/101 (121) 95 10/07/17 15:15 66 18 167/104 (125) 95 10/07/17 15:00 98.1 65 16 165/102 (123) 95 10/07/17 14:45 62 16 160/98 (118) 91 I/O 10/07/17 10/07/17 10/07/17 10/08/17 10/08/17 10/08/17 07:00 15:00 23:00 07:00 15:00 23:00 Intake Total 0 ml 0 ml 240 ml 120 ml Balance 0 ml 0 ml 240 ml 120 ml Intake Oral 0 ml 0 ml 240 ml 120 ml # Voids 1 2 1 3 # Bowel Movements 0 0 0 0 Result Diagram: 10/05/17 0517 10/08/17 1130 Imaging Last Impressions Renal Arteriogram 10/07/17 0000 Signed Impressions: Service Date/Time: Saturday, October 07, 2017 14:01 - CONCLUSION: 1. Ultra high grade central stenosis of the remaining right renal artery with a 7 mm stent over dilated to 8 mm as detailed above. 2. Left renal artery appears to be chronically occluded. 3. Short segment dissection with a resulting high grade stenosis at the junction of the left common and external iliacs successfully treated with a 8 mm x 3 cm self-expanding Proteg stent balloon dilated to 8 mm. Will Moses MD Lower Extremity Ultrasound 10/05/17 0000 Signed Impressions: Service Date/Time: Thursday, October 05, 2017 19:52 - CONCLUSION: No DVT is identified within the right lower extremity. Nelson Huff MD Head CT [id number]/03/[id number] Signed Impressions: Service Date/Time: September 21:43 - CONCLUSION: 1. No acute intracranial abnormality. 2. Chronic small vessel ischemic change. Supa Shankar Jr., MD Chest X-Ray 10/03/17 0000 Signed Impressions: Service Date/Time: September 20:01 - CONCLUSION: 1. Cardiomegaly with pulmonary vascular engorgement. 2. Right midlung parenchymal consolidation could relate to atypical pulmonary edema. An infectious infiltrate could have a similar appearance. Supa Shankar Jr., MD Objective Remarks AAOx3 nad S1S2 RRR, no MRG Clear lungs BL Abdomen soft, nt, tenderness to palpation of right thigh but no edema Medications and IVs Current Medications Medications (Trade) Dose Ordered Sig/Dajuan Route Start Time Stop Time Status Last Admin (Ecotrin Ec) 81 mg DAILY PO 10/04/17 09:00 10/08/17 09:50 (Colchicine) 0.6 mg BID PO 10/03/17 21:00 10/08/17 09:42 (Lasix) 40 mg DAILY PO 10/04/17 09:00 10/08/17 09:43 (Imdur) 60 mg DAILY PO 10/04/17 09:00 10/08/17 09:42 (Prinivil) 20 mg BID PO 10/03/17 21:00 10/08/17 09:42 (Bactroban Nasal 2% Oint) 1 applic BID EACH NARE 10/03/17 21:00 10/08/17 09:44 (Procardia Xl) 60 mg DAILY PO 10/04/17 09:00 10/08/17 09:42 (NS Flush) 2 ml UNSCH PRN IV FLUSH 10/03/17 19:45 (NS Flush) 2 ml BID IV FLUSH 10/03/17 21:00 10/08/17 09:43 (Tylenol) 650 mg Q6H PRN PO 10/03/17 19:45 10/08/17 14:11 (Protonix) 40 mg DAILY PO 10/04/17 09:00 10/08/17 09:42 (Zofran Inj) 4 mg Q6H PRN IV PUSH 10/03/17 19:45 (Albuterol Neb) 2.5 mg Q2HR NEB PRN INH 10/03/17 19:45 Miscellaneous Information 1 Q361D XX 10/03/17 19:45 (Chlorhexidine 2% Cloth) 3 pack Taper DAILY@04 TOP 10/04/17 04:00 09/30/18 03:59 10/03/17 22:27 (Chlorhexidine 2% Cloth) 3 pack UNSCH PRN TOP 10/03/17 19:45 (Alice-Colace) 1 tab BID PO 10/03/17 21:00 10/08/17 09:42 (Milk Of Magnesia Liq) 30 ml Q12H PRN PO 10/03/17 19:45 (Senokot) 17.2 mg Q12H PRN PO 10/03/17 19:45 (Dulcolax Supp) 10 mg DAILY PRN RECTAL 10/03/17 19:45 (Lactulose Liq) 30 ml DAILY PRN PO 10/03/17 19:45 (Trandate) 200 mg Q12HR PO 10/03/17 21:00 10/08/17 09:42 (Pravachol) 80 mg HS PO 10/03/17 21:00 10/07/17 22:34 (Symbicort 80-4.5 Mcg Inh) 1 puff Q12HR INH 10/03/17 21:00 10/08/17 09:43 (KCl) 30 meq DAILY PO 10/05/17 09:00 10/08/17 09:44 (Aldactone) 25 mg BID@,18 PO 10/04/17 18:00 10/08/17 09:42 (Minipress) 1 mg Q12HR PO 10/05/17 21:00 10/08/17 09:42 A/P Problem List: (1) ICD (implantable cardioverter-defibrillator), single, in situ ICD Code: Z95.810 - Presence of automatic (implantable) cardiac defibrillator Status: Chronic (2) History of CVA (cerebrovascular accident) ICD Code: Z86.73 - Personal history of transient ischemic attack (TIA), and cerebral infarction without residual deficits Status: Chronic (3) Physical deconditioning ICD Code: R53.81 - Disuse syndrome Status: Chronic (4) CKD (chronic kidney disease) stage 3, GFR 30-59 ml/min ICD Code: N18.3 - Chronic kidney disease, stage 3 (moderate) Status: Chronic (5) Chronic systolic heart failure ICD Code: I50.22 - Chronic systolic (congestive) heart failure Status: Chronic (6) Renal artery stenosis ICD Code: I70.1 - Atherosclerosis of renal artery Status: Chronic (7) COPD (chronic obstructive pulmonary disease) ICD Code: J44.9 - Chronic obstructive pulmonary disease, unspecified Status: Chronic (8) Nausea & vomiting ICD Code: R11.2 - Nausea with vomiting, unspecified Status: Resolved (9) Hypertensive emergency ICD Code: I16.1 - Hypertensive emergency Status: Resolved Assessment and Plan History of stroke with residual aphasia Probable underlying mild dementia Patient is at baseline mental status per discussion with her daughter and with ED providers who know her. On ASA and Xarelto. Head CT did not show any acute intracranial abnormality. There are chronic small ischemic change reported. COPD Prior history of tobacco abuse On room air Continue symbicort bid. seems stable. CV/NEPHRO: Chronic systolic heart failure with ejection fraction 35-40% on echo 01/28/17 Atrial fibrillation status post ablation 02/29/16 Dr. Hogan Defibrillator Malignant HTN/ ''Hypertensive Urgency" Renal artery stenosis CKD stage III Denies CP/SOB. CXR . EKG with NSR 78, LVH. No acute changes. Followup cardiac markers. Tonight will target 20-25% reduction in MAP with hydralazine/labetalol PRN ( MAP target 125-135). Nicardipine if needed. Neurochecks during BP lowering. Continue lisinopril 20 mg by mouth twice a day, nifedipine 60 mg by mouth daily , isosorbide ER 60 mg by mouth daily. Patient apparently nonadherent to Coreg due to expense. Appears labetalol should be more affordable, initiated Labetalol 200 bid and holding Coreg. Apparently Medicaid is pending. CT angio 05/11/17 - High grade stenosis of Right renal artery amenable to endovascular repair. Proximal occlusion of left renal artery, L kidney atrophic. Dr. Katz recommended outpatient R renal angioplasty during prior consultation 04/2017 appears this was not pursued per discussion with daughter though she states compliance with nephrology f/u. She has scheduled appt with Dr. Katz , will consult for recommendations regarding pursuing angiogram now. PRevious w/u with cortisol 7.4, renin and aldosterone elevation may be secondary to renovascular disease. 10/05/17 Bp still elevated. Prazosin started by nephrology. 10/07/17 For renal artery angiogram/angioplasty today. Creatinine trending up to 1.2, I will hold diuretics for now. 10/08 Creatinine trending up to 1.4 today. Angiogram shows High grade stenosis right renal artery. Occluded left. 7mm stent with excellent angiographic result. 60-70% stenosis left proximal external iliac post stent and 8mm CRAP GAME BOX PERSON. Vascular surgery consulted for weak pulse in extremity. Continue current antihypertensive medications which include labetalol 200 mg by mouth every 12 hours, lisinopril 20 g by mouth twice a day, nifedipine 60 minutes by mouth daily, prazosin 1 mg by mouth every 12 hours. GI: Heart healthy diet ID: Monitor for signs and symptoms of infection HEME: Chronic anticoagulation with Xarelto Continue Xarelto ENDO: Euglycemic 10/05/17 Right thigh pain: Will check venous doppler. 10/06/17 right venous Doppler ruled out DVT. PROPH: On xarelto which will provide DVT prophylaxis. Protonix 40 mg by mouth daily for stress ulcer prophylaxis. ACCESS: Peripheral IV Discharge Planning The patient for renal artery angiogram . Will need nephrology clearance. Gideon Hill MD Oct 08, 2017 14:26
--- NOTE | 2017-10-08 14:49 | MB ---
cc: LUCIANA EVANGELISTA MD DATE OF CONSULTATION: 10/07/2017 REASON FOR CONSULTATION Peripheral vascular disease, stenosis of external iliac artery on the right, coronary artery disease, atrial fibrillation, ischemic renal disease, renal failure. HISTORY OF PRESENT DISEASE This 67-year-old lady with cardiovascular pathology was admitted to the hospital with progressive renal failure and on studies she was noted to have bilateral renal disease with occlusion on one side and severe stenosis on the other side. The patient yesterday underwent balloon angioplasty of the right renal artery and left iliac artery with high-grade stenosis. The patient has been post-op doing well. The question arises about peripheral vascular changes and possible sequela of the procedure, hence the consultation. PAST MEDICAL HISTORY The past medical history is complex and includes: 1. Coronary artery disease. 2. Cardiomyopathy. 3. Stroke. 4. Atrial fibrillation with ablation and chronic therapy with Xarelto. 5. Hypertension. PAST SURGICAL HISTORY 1. Ablation for atrial fibrillation. 2. Defibrillator placement. 3. Right ankle repair. MEDICATIONS Medications found on the record are multiple including Xarelto 15 mg daily. SOCIAL HISTORY The patient does not smoke, does not drink. PHYSICAL EXAMINATION GENERAL: A pleasant 67-year-old lady. HEENT: Normocephalic. No trauma to the head. Pupils are equal and reactive. Extraocular muscles intact. NECK: Bilateral carotid pulses and faint bilateral carotid bruits. CHEST: Bilateral breath sounds decreased over both lung ni consistent with moderate COPD. HEART: Regular rhythm. At this point the patient does not appear to be in atrial fibrillation when I saw her. ABDOMEN: Soft. No rebound or guarding. No masses. EXTREMITIES: The patient has actually bilateral femoral pulses palpable. The site of the arterial entry is nice and clean. There is no pulsation in the area of masses that would indicate pseudoaneurysm or bleed. Doppler'able popliteal pulses and posterior tibial and dorsalis pedis only by Doppler. I do not palpate either one, however, there are no signs of acute vascular deficit. The capillary refill is slightly delayed. The patient has bilateral pretibial and lower extremity edema. NEUROLOGIC: The patient has some degree of aphasia. She is answering simple questions appropriately but I do not believe she has the ability to synchronize speech and connect generally to the questions. This is a result of the patient' stroke. Motor is unchanged and this is described elsewhere. IMPRESSION AND RECOMMENDATIONS I reviewed laboratory and diagnostic procedures. This unfortunate lady underwent yesterday successful left external iliac balloon angioplasty and stent placement as well as right renal artery angioplasty. The patient is doing very well. There is no sign of acute vascular occlusion of either extremity and this is a testament to Dr. Moses's superb work and expertise. At this point I have nothing to offer to the patient. I will continue to follow with you. I thank you very much for the referral. Luciana AUSTIN /2:17 PM /2:31 PM
[2017-10-08 17:06] VITALS: BP 107/76; PULSE 78; RESP 16; TEMP 96.7; O2SAT 96
--- NOTE | 2017-10-08 18:41 | HHI.NPPN ---
Subjective History of Present Illness 67-year-old female with past medical history of hypertension, chronic kidney disease, history of acute kidney injury, history of hypokalemia, who was admitted to the hospital with persistent hypertension. I was called to see the patient because of very high blood pressure and Renal artery stenosis. Additional Remarks Patient is alert, eating well, no headache, feeling better, no SOB. Review of Systems General Constitutional: Fatigue Respiratory Lungs: SOB Cardiovascular Cardiac: Edema, TRACEY Objective Data Data Vital Signs Date Time Temp Pulse Resp B/P (MAP) Pulse Ox O2 Delivery O2 Flow Rate FiO2 10/08/17 17:06 96.7 78 16 107/76 (86) 96 10/08/17 08:00 98.9 85 16 167/93 (117) 97 10/08/17 07:45 Room Air 10/08/17 04:25 98.5 76 17 124/74 (91) 98 10/08/17 00:21 98.9 74 17 137/75 (95) 97 10/07/17 20:26 98.6 81 17 137/79 (98) 100 -: 10/05/17 0517 10/08/17 1130 Physical Exam General Appearance: Well Nourished, No Acute Distress, Comfortable Neck Neck Exam: Neck Supple Pulmonary Resp Exam: Clear Bilaterally, Breath Sounds Equal Cardiology CV Exam: Regular, Normal Sinus Rhythm Gastrointestinal/Abdomen GI Exam: Soft, Non-Tender, Bowel Sounds Present Integumentary Skin Exam: Clear Extremeties Extremities Exam: No Edema Neurologic Neuro Exam: Alert, Awake, Oriented Assessment/Plan Problem List: (1) Hypertensive urgency ICD Codes: I10 - Hypertensive urgency Status: Acute Plan: BP better with Minipress continue with Lasix/Aldactone Nifedipine Labetalol for BP control Hx of CVA Post angioplasty. BP is better, the Creatinine increase to 1.4. Could be related to contrast, give IVF. Follow BMP in AM. (2) CKD (chronic kidney disease) stage 3, GFR 30-59 ml/min ICD Codes: N18.3 - Chronic kidney disease, stage 3 (moderate) Status: Chronic (3) History of CVA (cerebrovascular accident) ICD Codes: Z86.73 - Personal history of transient ischemic attack (TIA), and cerebral infarction without residual deficits Status: Chronic Michael Katz MD Oct 08, 2017 18:41
[2017-10-08 19:38] VITALS: BP 137/77; PULSE 68; RESP 16; TEMP 98; O2SAT 96
[2017-10-08] MEDS: PRAVASTATIN SOD 80 MG TAB PO SCH (21:16)
[2017-10-08] MEDS: SODIUM CHLOR 0.45% 1000 ML INJ 1,000 ML IV SCH (21:41)
[2017-10-09 00:27] VITALS: BP_SYST 100; BP_SYST 134; BP_DIAS 59; BP_DIAS 75; PULSE 77; PULSE 82; RESP 16; TEMP 97.8; TEMP 98.2; O2SAT 97; O2SAT 98
[2017-10-09] MEDS: CHLORHEXIDINE GLUCONATE 2 % 1 PACK (2 CLOTHS) TOP SCH (04:00)
[2017-10-09 04:25] VITALS: BP 144/80; PULSE 76; RESP 16; TEMP 98.7; O2SAT 98
[2017-10-09 08:00] VITALS: BP 144/85; PULSE 92; RESP 18; TEMP 97.7; O2SAT 97
[2017-10-09] MEDS: SODIUM CHLORIDE 0.9% FLUSH 10 ML FLUSH IV FLUSH SCH ×2 (09:00→22:46)
[2017-10-09 09:10] LABS: BICARBONATE 22.4 MEQ/L (21.0-32.0); POTASSIUM 3.9 MEQ/L (3.5-5.1)
[2017-10-09] MEDS: POTASSIUM CHLORIDE 10 MEQ CONTROLLED RELEASE TAB PO SCH (09:58)
[2017-10-09] MEDS: NIFEdipine 60 MG SUSTAINED RELEASE TAB PO SCH (09:58)
[2017-10-09] MEDS: ISOSORBIDE MONONITRATE 60 MG TAB PO SCH (09:58)
[2017-10-09] MEDS: LISINOPRIL 10 MG TAB PO SCH ×2 (09:58→23:43)
[2017-10-09] MEDS: DOCUSATE SODIUM 50 MG/SENNA 8.6 MG TAB PO SCH ×2 (09:58→23:43)
[2017-10-09] MEDS: LABETALOL HCL 200 MG TAB PO SCH ×2 (09:59→23:42)
[2017-10-09] MEDS: PANTOPRAZOLE SOD 40 MG DELAYED RELEASE TAB PO SCH (09:59)
[2017-10-09] MEDS: ASPIRIN EC 81 MG TABEC PO SCH (09:59)
[2017-10-09] MEDS: MUPIROCIN 2% OINT 1 APPLIC/GM SYR EACH NARE SCH ×2 (09:59→22:46)
[2017-10-09] MEDS: SPIRONOLACTONE 25 MG TAB PO SCH ×2 (09:59→18:19)
[2017-10-09] MEDS: COLCHICINE 0.6 MG TAB PO SCH (09:59)
[2017-10-09] MEDS: FUROSEMIDE 40 MG TAB PO SCH (09:59)
[2017-10-09] MEDS: PRAZOSIN HCL 1 MG CAP PO SCH ×2 (09:59→23:43)
[2017-10-09] MEDS: BUDESONIDE-FORMOTEROL 80/4.5 MCG INHALER INH SCH ×2 (10:00→23:43)
--- NOTE | 2017-10-09 10:43 | PD.CAR.PN ---
CVT Progress Note Subjective/Hospital Course: Consult received Full dictation TF J 10/09/17 Groin puncture site clean and dry no sign of hematoma or pseudoaneurysm Distal flow intact Nothing to add to care at this time Will sign off Objective: Vital Signs Date Time Temp Pulse Resp B/P (MAP) Pulse Ox O2 Delivery O2 Flow Rate FiO2 10/09/17 08:00 97.7 92 18 144/85 (104) 97 10/09/17 04:25 98.7 76 16 144/80 (101) 98 10/09/17 00:27 98.2 82 16 134/75 (94) 97 10/08/17 19:38 98.0 68 16 137/77 (97) 96 10/08/17 17:06 96.7 78 16 107/76 (86) 96 10/08/17 12:00 97.9 87 16 114/67 (83) 100 Labs: Laboratory Tests Test 10/09/17 07:13 Blood Urea Nitrogen 16 MG/DL (7-18) Creatinine 1.31 MG/DL (0.50-1.00) Random Glucose 82 MG/DL (74-106) Calcium Level 9.0 MG/DL (8.5-10.1) Sodium Level 138 MEQ/L (136-145) Potassium Level 3.9 MEQ/L (3.5-5.1) Chloride Level 106 MEQ/L (98-107) Carbon Dioxide Level 22.4 MEQ/L (21.0-32.0) Anion Gap 10 MEQ/L (5-15) Estimat Glomerular Filtration Rate 49 ML/MIN (>89) Result Diagram: 10/05/17 0517 10/09/17 0713 Luciana Keys MD Oct 09, 2017 10:43
[2017-10-09 12:00] VITALS: BP 120/68; PULSE 79; RESP 18; TEMP 97.9; O2SAT 99
[2017-10-09 16:00] VITALS: BP 134/83; PULSE 82; RESP 18; TEMP 97.8; O2SAT 99
--- NOTE | 2017-10-09 17:37 | HHI.NPPN ---
Subjective History of Present Illness 67-year-old female with past medical history of hypertension, chronic kidney disease, history of acute kidney injury, history of hypokalemia, who was admitted to the hospital with persistent hypertension. I was called to see the patient because of very high blood pressure and Renal artery stenosis. Additional Remarks Patient is alert, feeling better, no SOB. Review of Systems General Constitutional: Fatigue Respiratory Lungs: SOB Cardiovascular Cardiac: Edema, TRACEY Objective Data Data 10/09/17 10/10/17 19:00 07:00 Intake Total 480 ml Balance 480 ml Intake Oral 480 ml # Voids 3 # Bowel Movements 0 Vital Signs Date Time Temp Pulse Resp B/P (MAP) Pulse Ox O2 Delivery O2 Flow Rate FiO2 10/09/17 16:00 97.8 82 18 134/83 (100) 99 10/09/17 12:00 97.9 79 18 120/68 (85) 99 10/09/17 08:00 97.7 92 18 144/85 (104) 97 10/09/17 04:25 98.7 76 16 144/80 (101) 98 10/09/17 00:27 98.2 82 16 134/75 (94) 97 10/08/17 19:38 98.0 68 16 137/77 (97) 96 -: 10/05/17 0517 10/09/17 0713 Physical Exam General Appearance: Well Nourished, No Acute Distress, Comfortable Neck Neck Exam: Neck Supple Pulmonary Resp Exam: Clear Bilaterally, Breath Sounds Equal Cardiology CV Exam: Regular, Normal Sinus Rhythm Gastrointestinal/Abdomen GI Exam: Soft, Non-Tender, Bowel Sounds Present Integumentary Skin Exam: Clear Extremeties Extremities Exam: No Edema Neurologic Neuro Exam: Alert, Awake, Oriented Assessment/Plan Problem List: (1) Hypertensive urgency ICD Codes: I10 - Hypertensive urgency Status: Acute Plan: BP better with Minipress continue with Lasix/Aldactone Nifedipine Labetalol for BP control Hx of CVA Post angioplasty. BP is better, the Creatinine is now 1.3, slightly better. Encourage oral intake. Can be discharged from Nephrology with out patient follow up. (2) CKD (chronic kidney disease) stage 3, GFR 30-59 ml/min ICD Codes: N18.3 - Chronic kidney disease, stage 3 (moderate) Status: Chronic (3) History of CVA (cerebrovascular accident) ICD Codes: Z86.73 - Personal history of transient ischemic attack (TIA), and cerebral infarction without residual deficits Status: Chronic Michael Katz MD Oct 09, 2017 17:37
--- NOTE | 2017-10-09 17:43 | HHI.PR ---
Subjective Remarks denies cp/sob afebrile Bp now stable. Objective Vitals Vital Signs Date Time Temp Pulse Resp B/P (MAP) Pulse Ox O2 Delivery O2 Flow Rate FiO2 10/09/17 16:00 97.8 82 18 134/83 (100) 99 10/09/17 12:00 97.9 79 18 120/68 (85) 99 10/09/17 08:00 97.7 92 18 144/85 (104) 97 10/09/17 04:25 98.7 76 16 144/80 (101) 98 10/09/17 00:27 98.2 82 16 134/75 (94) 97 10/08/17 19:38 98.0 68 16 137/77 (97) 96 I/O 10/08/17 10/08/17 10/08/17 10/09/17 10/09/17 10/09/17 07:00 15:00 23:00 07:00 15:00 23:00 Intake Total 120 ml 240 ml 632 ml 480 ml Balance 120 ml 240 ml 632 ml 480 ml Intake Oral 120 ml 240 ml 120 ml 480 ml IV Total 512 ml # Voids 3 2 2 3 # Bowel Movements 0 0 0 0 Result Diagram: 10/05/17 0517 10/09/17 0713 Imaging Last Impressions Renal Arteriogram 10/07/17 0000 Signed Impressions: Service Date/Time: Saturday, October 07, 2017 14:01 - CONCLUSION: 1. Ultra high grade central stenosis of the remaining right renal artery with a 7 mm stent over dilated to 8 mm as detailed above. 2. Left renal artery appears to be chronically occluded. 3. Short segment dissection with a resulting high grade stenosis at the junction of the left common and external iliacs successfully treated with a 8 mm x 3 cm self-expanding Proteg stent balloon dilated to 8 mm. Will Moses MD Lower Extremity Ultrasound 10/05/17 0000 Signed Impressions: Service Date/Time: Thursday, October 05, 2017 19:52 - CONCLUSION: No DVT is identified within the right lower extremity. Nelson Huff MD Head CT 10/03/172107 Signed Impressions: Service Date/Time: September 21:43 - CONCLUSION: 1. No acute intracranial abnormality. 2. Chronic small vessel ischemic change. Supa Shankar Jr., MD Chest X-Ray 10/03/17 0000 Signed Impressions: Service Date/Time: September 20:01 - CONCLUSION: 1. Cardiomegaly with pulmonary vascular engorgement. 2. Right midlung parenchymal consolidation could relate to atypical pulmonary edema. An infectious infiltrate could have a similar appearance. Supa Shankar Jr., MD Objective Remarks AAOx3 nad S1S2 RRR, no MRG Clear lungs BL Abdomen soft, nt, tenderness to palpation of right thigh but no edema Medications and IVs Current Medications Medications (Trade) Dose Ordered Sig/Dajuan Route Start Time Stop Time Status Last Admin (Ecotrin Ec) 81 mg DAILY PO 10/04/17 09:00 10/09/17 09:59 (Colchicine) 0.6 mg BID PO 10/03/17 21:00 10/09/17 09:59 (Lasix) 40 mg DAILY PO 10/04/17 09:00 10/09/17 09:59 (Imdur) 60 mg DAILY PO 10/04/17 09:00 10/09/17 09:58 (Prinivil) 20 mg BID PO 10/03/17 21:00 10/09/17 09:58 (Bactroban Nasal 2% Oint) 1 applic BID EACH NARE 10/03/17 21:00 10/09/17 09:59 (Procardia Xl) 60 mg DAILY PO 10/04/17 09:00 10/09/17 09:58 (NS Flush) 2 ml UNSCH PRN IV FLUSH 10/03/17 19:45 (NS Flush) 2 ml BID IV FLUSH 10/03/17 21:00 10/08/17 21:22 (Tylenol) 650 mg Q6H PRN PO 10/03/17 19:45 10/08/17 14:11 (Protonix) 40 mg DAILY PO 10/04/17 09:00 10/09/17 09:59 (Zofran Inj) 4 mg Q6H PRN IV PUSH 10/03/17 19:45 (Albuterol Neb) 2.5 mg Q2HR NEB PRN INH 10/03/17 19:45 Miscellaneous Information 1 Q361D XX 10/03/17 19:45 (Chlorhexidine 2% Cloth) Taper DAILY@04 TOP 10/04/17 04:00 09/30/18 03:59 10/03/17 22:27 (Chlorhexidine 2% Cloth) 3 pack UNSCH PRN TOP 10/03/17 19:45 (Alice-Colace) 1 tab BID PO 10/03/17 21:00 10/09/17 09:58 (Milk Of Magnesia Liq) 30 ml Q12H PRN PO 10/03/17 19:45 (Senokot) 17.2 mg Q12H PRN PO 10/03/17 19:45 (Dulcolax Supp) 10 mg DAILY PRN RECTAL 10/03/17 19:45 (Lactulose Liq) 30 ml DAILY PRN PO 10/03/17 19:45 (Trandate) 200 mg Q12HR PO 10/03/17 21:00 10/09/17 09:59 (Pravachol) 80 mg HS PO 10/03/17 21:00 10/08/17 21:16 (Symbicort 80-4.5 Mcg Inh) 1 puff Q12HR INH 10/03/17 21:00 10/09/17 10:00 (KCl) 30 meq DAILY PO 10/05/17 09:00 10/09/17 09:58 (Aldactone) 25 mg BID@09,18 PO 10/04/17 18:00 10/09/17 09:59 (Minipress) 1 mg Q12HR PO 10/05/17 21:00 10/09/17 09:59 Sodium Chloride 1,000 ml @ 84 mls/hr [id number] IV 10/08/17 18:45 10/08/17 21:41 A/P Problem List: (1) ICD (implantable cardioverter-defibrillator), single, in situ ICD Code: Z95.810 - Presence of automatic (implantable) cardiac defibrillator Status: Chronic (2) History of CVA (cerebrovascular accident) ICD Code: Z86.73 - Personal history of transient ischemic attack (TIA), and cerebral infarction without residual deficits Status: Chronic (3) Physical deconditioning ICD Code: R53.81 - Disuse syndrome Status: Chronic (4) CKD (chronic kidney disease) stage 3, GFR 30-59 ml/min ICD Code: N18.3 - Chronic kidney disease, stage 3 (moderate) Status: Chronic (5) Chronic systolic heart failure ICD Code: I50.22 - Chronic systolic (congestive) heart failure Status: Chronic (6) Renal artery stenosis ICD Code: I70.1 - Atherosclerosis of renal artery Status: Chronic (7) COPD (chronic obstructive pulmonary disease) ICD Code: J44.9 - Chronic obstructive pulmonary disease, unspecified Status: Chronic (8) Nausea & vomiting ICD Code: R11.2 - Nausea with vomiting, unspecified Status: Resolved (9) Hypertensive emergency ICD Code: I16.1 - Hypertensive emergency Status: Resolved Assessment and Plan History of stroke with residual aphasia Probable underlying mild dementia Patient is at baseline mental status per discussion with her daughter and with ED providers who know her. On ASA and Xarelto. Head CT did not show any acute intracranial abnormality. There are chronic small ischemic change reported. COPD Prior history of tobacco abuse On room air Continue symbicort bid. seems stable. CV/NEPHRO: Chronic systolic heart failure with ejection fraction 35-40% on echo 01/28/17 Atrial fibrillation status post ablation 02/29/16 Dr. Hogan Defibrillator Malignant HTN/ ''Hypertensive Urgency" Renal artery stenosis CKD stage III Denies CP/SOB. CXR . EKG with NSR 78, LVH. No acute changes. Followup cardiac markers. Tonight will target 20-25% reduction in MAP with hydralazine/labetalol PRN ( MAP target 125-135). Nicardipine if needed. Neurochecks during BP lowering. Continue lisinopril 20 mg by mouth twice a day, nifedipine 60 mg by mouth daily , isosorbide ER 60 mg by mouth daily. Patient apparently nonadherent to Coreg due to expense. Appears labetalol should be more affordable, initiated Labetalol 200 bid and holding Coreg. Apparently Medicaid is pending. CT angio 05/11/17 - High grade stenosis of Right renal artery amenable to endovascular repair. Proximal occlusion of left renal artery, L kidney atrophic. Dr. Katz recommended outpatient R renal angioplasty during prior consultation 04/2017 appears this was not pursued per discussion with daughter though she states compliance with nephrology f/u. She has scheduled appt with Dr. Katz , will consult for recommendations regarding pursuing angiogram now. PRevious w/u with cortisol 7.4, renin and aldosterone elevation may be secondary to renovascular disease. 10/05/17 Bp still elevated. Prazosin started by nephrology. 10/07/17 For renal artery angiogram/angioplasty today. Creatinine trending up to 1.2, I will hold diuretics for now. 10/08 Creatinine trending up to 1.4 today. Angiogram shows High grade stenosis right renal artery. Occluded left. 7mm stent with excellent angiographic result. 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 Vascular surgery consulted for weak pulse in extremity. Continue current antihypertensive medications which include labetalol 200 mg by mouth every 12 hours, lisinopril 20 g by mouth twice a day, nifedipine 60 minutes by mouth daily, prazosin 1 mg by mouth every 12 hours. 10/09 BP much improved. Patient has been cleared by nephrology. Will DC home in am. GI: Heart healthy diet ID: Monitor for signs and symptoms of infection HEME: Chronic anticoagulation with Xarelto Continue Xarelto ENDO: Euglycemic 10/05/17 Right thigh pain: Will check venous doppler. 10/06/17 right venous Doppler ruled out DVT. PROPH: On xarelto which will provide DVT prophylaxis. Protonix 40 mg by mouth daily for stress ulcer prophylaxis. ACCESS: Peripheral IV Discharge Planning DC in am. Gideon Hill MD Oct 09, 2017 17:43
[2017-10-09 21:10] VITALS: BP 138/83; PULSE 79; RESP 18; TEMP 98.6; O2SAT 98
[2017-10-09] MEDS: SODIUM CHLOR 0.45% 1000 ML INJ 1,000 ML IV SCH (23:40)
[2017-10-09] MEDS: PRAVASTATIN SOD 80 MG TAB PO SCH (23:42)
[2017-10-10] MEDS: COLCHICINE 0.6 MG TAB PO SCH ×2 (00:31→10:58)
[2017-10-10] MEDS: ACETAMINOPHEN 325 MG TAB PO PRN (00:36)
[2017-10-10 01:45] VITALS: BP 143/82; PULSE 83; RESP 18; TEMP 98.7; O2SAT 98
[2017-10-10] MEDS: CHLORHEXIDINE GLUCONATE 2 % 1 PACK (2 CLOTHS) TOP SCH (03:41)
[2017-10-10 06:24] VITALS: BP 123/64; PULSE 60; RESP 18; TEMP 98; O2SAT 95
[2017-10-10] MEDS: SODIUM CHLOR 0.45% 1000 ML INJ 1,000 ML IV SCH (06:30)
[2017-10-10] MEDS: MUPIROCIN 2% OINT 1 APPLIC/GM SYR EACH NARE SCH (09:00)
[2017-10-10] MEDS: SODIUM CHLORIDE 0.9% FLUSH 10 ML FLUSH IV FLUSH SCH (09:00)
[2017-10-10 09:59] VITALS: BP 120/75; PULSE 76; RESP 17; TEMP 97.4; O2SAT 98
--- NOTE | 2017-10-10 10:49 | HHI.DS ---
Discharge Summary Admission Date Oct 03, 2017 at 18:07 Discharge Date: Oct 10, 2017 Admitting Diagnosis persistent hypertension (1) ICD (implantable cardioverter-defibrillator), single, in situ ICD Code: Z95.810 - Presence of automatic (implantable) cardiac defibrillator Status: Chronic (2) History of CVA (cerebrovascular accident) ICD Code: Z86.73 - Personal history of transient ischemic attack (TIA), and cerebral infarction without residual deficits Status: Chronic (3) Physical deconditioning ICD Code: R53.81 - Disuse syndrome Status: Chronic (4) CKD (chronic kidney disease) stage 3, GFR 30-59 ml/min ICD Code: N18.3 - Chronic kidney disease, stage 3 (moderate) Status: Chronic (5) Chronic systolic heart failure ICD Code: I50.22 - Chronic systolic (congestive) heart failure Status: Chronic (6) Renal artery stenosis ICD Code: I70.1 - Atherosclerosis of renal artery Status: Chronic (7) COPD (chronic obstructive pulmonary disease) ICD Code: J44.9 - Chronic obstructive pulmonary disease, unspecified Status: Chronic (8) Nausea & vomiting ICD Code: R11.2 - Nausea with vomiting, unspecified Status: Resolved (9) Hypertensive emergency ICD Code: I16.1 - Hypertensive emergency Status: Resolved Procedures By ALEX Moses : Procedure Site: Right Renal, Abdominal (Left iliac) Procedure(s): Angiogram, Stent Placement (Right renal and left iliac) Brief History - From Admission 67-year-old right-hand dominant female with past medical history of hypertension, nonischemic cardiomyopathy with chronic systolic heart failure ejection fraction 35-40%, ICD, atrial fibrillation status post ablation on chronic anticoagulation with Xarelto, prior stroke with residual aphasia, CKD stage III and renal artery stenosis. She has her history of refractory hypertension with multiple admissions for this. She had home physical therapy today and was noted to be severely hypertensive so she was sent to the ED where initial blood pressure was 237/176 with mean arterial pressure of 196. She is asymptomatic, specifically denying chest pain, shortness of breath, visual changes. She does state she had a mild headache earlier that is resolved. She is not able to answer certain orientation questions or provide much medical history but her daughter says that her mental status is at baseline and that "she doesn't understand what the issue is because her mom was feeling great today". She has previously had issues with medical non adherence and during her last admission her daughter said she would take over administration. Her daughter states she took all of her morning medications today. She does state that she does not take Coreg as prescribed because of the expense related to this. Patient was also diagnosed previously with right renal artery stenosis and Dr. Katz has previously recommended outpatient intervention and followup during prior consultation. Patient's daughter states she has followed up with Dr. Katz but patient has not undergone intervention for JOSLYN. Nicardipine drip has been initiated per ED CBC/BMP: 10/09/17 0713 Significant Findings Laboratory Tests Test 10/08/17 11:30 10/09/17 07:13 Creatinine 1.42 MG/DL (0.50-1.00) 1.31 MG/DL (0.50-1.00) Random Glucose 158 MG/DL (74-106) Estimat Glomerular Filtration Rate 45 ML/MIN (>89) 49 ML/MIN (>89) Imaging Last Impressions Renal Arteriogram 10/07/17 0000 Signed Impressions: Service Date/Time: Saturday, October 07, 2017 14:01 - CONCLUSION: 1. Ultra high grade central stenosis of the remaining right renal artery with a 7 mm stent over dilated to 8 mm as detailed above. 2. Left renal artery appears to be chronically occluded. 3. Short segment dissection with a resulting high grade stenosis at the junction of the left common and external iliacs successfully treated with a 8 mm x 3 cm self-expanding Proteg stent balloon dilated to 8 mm. Will Moses MD Lower Extremity Ultrasound 10/05/17 0000 Signed Impressions: Service Date/Time: Thursday, October 05, 2017 19:52 - CONCLUSION: No DVT is identified within the right lower extremity. Nelson Huff MD Head CT 10/03/172107 Signed Impressions: Service Date/Time: September 21:43 - CONCLUSION: 1. No acute intracranial abnormality. 2. Chronic small vessel ischemic change. Supa Shankar Jr., MD Chest X-Ray 10/03/17 0000 Signed Impressions: Service Date/Time: September 20:01 - CONCLUSION: 1. Cardiomegaly with pulmonary vascular engorgement. 2. Right midlung parenchymal consolidation could relate to atypical pulmonary edema. An infectious infiltrate could have a similar appearance. Supa Shankar Jr., MD PE at Discharge AAOx3 nad S1S2 RRR, no MRG Clear lungs BL Abdomen soft, nt, tenderness to palpation of right thigh but no edema Pt update on day of discharge Feels good, no pain . Denies any sob, chest pain abd pain. Wants to go home today Hospital Course History of stroke with residual aphasia Probable underlying mild dementia Patient is at baseline mental status per discussion with her daughter and with ED providers who know her. On ASA and Xarelto. Head CT did not show any acute intracranial abnormality. There are chronic small ischemic change reported. COPD Prior history of tobacco abuse On room air Continue symbicort bid. seems stable. CV/NEPHRO: Chronic systolic heart failure with ejection fraction 35-40% on echo 01/28/17 Atrial fibrillation status post ablation 02/29/16 Dr. Hogan Defibrillator Malignant HTN/ ''Hypertensive Urgency" Renal artery stenosis CKD stage III Denies CP/SOB. CXR . EKG with NSR 78, LVH. No acute changes. Followup cardiac markers. Tonight will target 20-25% reduction in MAP with hydralazine/labetalol PRN ( MAP target 125-135). Nicardipine if needed. Neurochecks during BP lowering. Continue lisinopril 20 mg by mouth twice a day, nifedipine 60 mg by mouth daily , isosorbide ER 60 mg by mouth daily. Patient apparently nonadherent to Coreg due to expense. Appears labetalol should be more affordable, initiated Labetalol 200 bid and holding Coreg. Apparently Medicaid is pending. CT angio 05/11/17 - High grade stenosis of Right renal artery amenable to endovascular repair. Proximal occlusion of left renal artery, L kidney atrophic. Dr. Katz recommended outpatient R renal angioplasty during prior consultation 04/2017 appears this was not pursued per discussion with daughter though she states compliance with nephrology f/u. She has scheduled appt with Dr. Katz , will consult for recommendations regarding pursuing angiogram now. PRevious w/u with cortisol 7.4, renin and aldosterone elevation may be secondary to renovascular disease. 11/11/17 Bp still elevated. Prazosin started by nephrology. 10/07/17 For renal artery angiogram/angioplasty today. Creatinine trending up to 1.2, I will hold diuretics for now. 10/08 Creatinine trending up to 1.4 today. Angiogram shows High grade stenosis right renal artery. Occluded left. 7mm stent with excellent angiographic result. 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 Vascular surgery consulted for weak pulse in extremity. Continue current antihypertensive medications which include labetalol 200 mg by mouth every 12 hours, lisinopril 20 g by mouth twice a day, nifedipine 60 minutes by mouth daily, prazosin 1 mg by mouth every 12 hours. 10/09 BP much improved. Patient has been cleared by nephrology. Will DC home in am. GI: Heart healthy diet ID: Monitor for signs and symptoms of infection HEME: Chronic anticoagulation with Xarelto Continue Xarelto ENDO: Euglycemic 10/05/17 Right thigh pain: Will check venous doppler. 10/06/17 right venous Doppler ruled out DVT. PROPH: On xarelto which will provide DVT prophylaxis. Protonix 40 mg by mouth daily for stress ulcer prophylaxis. ACCESS: Peripheral IV Discharge Planning DC home in stable condition to follow up as OP with PCP and consultants. Pt Condition on Discharge: Stable Discharge Disposition: Disch w/ Home Health Serv Discharge Time: > 30 minutes Discharge Instructions DIET: Follow Instructions for: Heart Healthy Diet Follow up Referrals: Cardiology - 1 Week Nephrology - 1 Week with Michael Katz MD PCP Follow-up - 2-3 Days New Medications: Labetalol (Labetalol) 200 Mg Tab 200 MG PO Q12HR for Blood Pressure Management, #60 TAB Pantoprazole (Pantoprazole) 40 Mg Tab 40 MG PO DAILY for gi, #30 TAB Sennosides-Docusate Sodium (Gnp Senna Plus 8.6-50 mg) 8.6 Mg-50 Mg Tab 1 TAB PO BID for Constipation, #60 TAB Spironolactone (Aldactone) 25 Mg Tab 25 MG PO BID@09,18 for Blood Pressure Management, #30 TAB Continued Medications: Aspirin DR (Aspirin EC) 81 Mg Tabdr 81 MG PO DAILY for cva for 30 Days, TAB 0 Refills Colchicine (Colchicine) 0.6 Mg Tab 0.6 MG PO BID for gout, #60 TAB Use 1 tablet twice a day for 7 days then 1 tablet daily, hold if diarrhea Furosemide (Furosemide) 40 Mg Tab 40 MG PO DAILY, #30 TAB 0 Refills Isosorbide Mononitrate ER (Isosorbide Mononitrate ER) 60 Mg Tab 60 MG PO DAILY for Prevent Chest Pain, #30 TAB 0 Refills Lisinopril (Lisinopril) 10 Mg Tab 20 MG PO BID for Blood Pressure Management, #60 TAB Mupirocin Nasal Oint (Bactroban Nasal Oint) 2% Oint 1 APPLIC EACH NARE BID for Infection, #1 TUBE use for 7 days only Single-use tubes. Nifedipine ER 24 HR (Nifedipine ER 24 HR) 60 Mg Tab 60 MG PO DAILY for Blood Pressure Management, #30 TAB 1 Refill Potassium Chloride ER (Klor-Con 10) 10 Meq Tab 30 MEQ PO Q12HR for low potassium, #60 TAB Rivaroxaban (Xarelto) 15 Mg Tab 15 MG PO DAILY for Blood Clot Prevention, #30 TAB 1 Refill Simvastatin (Simvastatin) 40 Mg Tab 40 MG PO HS for Cholesterol Management, #30 TAB 1 Refill [symbicort puffer] () Unknown Dose INH BID Discontinued Medications: Carvedilol (Coreg) 12.5 Mg Tab 25 MG PO Q12HR for Blood Pressure Management, #60 TAB Twyla Hawthorne MD Oct 10, 2017 10:49
--- NOTE | 2017-10-10 10:51 | HHI.FF ---
Face to Face Verification Diagnosis: (1) Acute dyspnea (2) NSTEMI (non-ST elevated myocardial infarction) (3) Atrial fibrillation with RVR (4) Atrial flutter (5) Encephalopathy acute (6) COPD exacerbation (7) Acute cardiogenic pulmonary edema (8) History of CVA with residual deficit (9) HTN (hypertension) (10) Physical deconditioning Physical Therapy Order: Evaluate and Treat Home Health Nursing Order: Medical education Signs/symptoms of disease process Medication education-adverse effect Nursing assessment with vital signs I have seen patient Mai Farmer on 10/10/17. My clinical findings support the need for the requested home health care services because: Ltd mobility - disease progression Patient has SOB I certify that my clinical findings support that this patient is homebound because: Post-op weakness Twyla Hawthorne MD Oct 10, 2017 10:51
[2017-10-10] MEDS ORDERED: PANT40TA3 PO (10:53)
[2017-10-10] MEDS ORDERED: PERI PO (10:53)
[2017-10-10] MEDS ORDERED: LABE200T2 PO (10:53)
[2017-10-10] MEDS ORDERED: SPIR25 PO (10:53)
[2017-10-10] MEDS: LABETALOL HCL 200 MG TAB PO SCH (10:57)
[2017-10-10] MEDS: ISOSORBIDE MONONITRATE 60 MG TAB PO SCH (10:57)
[2017-10-10] MEDS: FUROSEMIDE 40 MG TAB PO SCH (10:57)
[2017-10-10] MEDS: ASPIRIN EC 81 MG TABEC PO SCH (10:58)
[2017-10-10] MEDS: DOCUSATE SODIUM 50 MG/SENNA 8.6 MG TAB PO SCH (10:58)
[2017-10-10] MEDS: NIFEdipine 60 MG SUSTAINED RELEASE TAB PO SCH (11:03)
[2017-10-10] MEDS: PANTOPRAZOLE SOD 40 MG DELAYED RELEASE TAB PO SCH (11:03)
[2017-10-10] MEDS: PRAZOSIN HCL 1 MG CAP PO SCH (11:04)
[2017-10-10] MEDS: POTASSIUM CHLORIDE 10 MEQ CONTROLLED RELEASE TAB PO SCH (11:04)
[2017-10-10] MEDS: LISINOPRIL 10 MG TAB PO SCH (11:04)
[2017-10-10] MEDS: SPIRONOLACTONE 25 MG TAB PO SCH (11:04)
[2017-10-10] MEDS: BUDESONIDE-FORMOTEROL 80/4.5 MCG INHALER INH SCH (11:05)
[2017-10-10 13:00] VITALS: BP 116/69; PULSE 84; RESP 18; TEMP 97.7; O2SAT 97
== END 2017-10-10 14:44 | disposition home health service (06) | DRG 253 ==
LOC: NEPC 13:34 → NEDA 18:07 → HIME 19:25 → N06A 10-04 18:32 → N05A 10-09 18:47 → UNDODISIN 10-09 19:00
PROVIDERS: ADMIT Hospitalist; ATTEND Hospitalist
PROC: 04793DZ Dilation of Right Renal Artery with Intraluminal Device, Percutaneous Approach (ICD-10-PCS; principal; 2017-10-07)
PROC: 047J3DZ Dilation of Left External Iliac Artery with Intraluminal Device, Percutaneous Approach (ICD-10-PCS; 2017-10-07)
DX: I16.1 Hypertensive emergency (principal); I50.22 Chronic systolic (congestive) heart failure; F03.90 Unspecified dementia, unspecified severity, without behavioral disturbance, psychotic disturbance, mood disturbance, and anxiety; I13.0 Hypertensive heart and chronic kidney disease with heart failure and stage 1 through stage 4 chronic kidney disease, or unspecified chronic kidney disease; I70.1 Atherosclerosis of renal artery; J44.9 Chronic obstructive pulmonary disease, unspecified; N18.3 Chronic kidney disease, stage 3 (moderate); I69.320 Aphasia following cerebral infarction; I25.10 Atherosclerotic heart disease of native coronary artery without angina pectoris; I25.5 Ischemic cardiomyopathy; E78.5 Hyperlipidemia, unspecified; Z79.01 Long term (current) use of anticoagulants; Z87.891 Personal history of nicotine dependence; Z95.810 Presence of automatic (implantable) cardiac defibrillator; E87.6 Hypokalemia; I70.8 Atherosclerosis of other arteries; I73.9 Peripheral vascular disease, unspecified; R11.2 Nausea with vomiting, unspecified
CPT/HCPCS: 36252; 37221; 37236; 37237; 70450; 71010; 76937; 80048; 80053; 81001; 83036; 83735; 84100; 84439; 84443; 84484; 85025; 85610; 85730; 87640; 87641; 93005; 93971; 96374; 96376; 99152; 99153; C1725; C1760; C1769; C1876; C1887; C1894; J0360; J0690; J1644; J1940; J2250; J3010; J7050; Q9967

== ENCOUNTER 2017-10-11 18:51 | Emergency (ER) | payer MEDICARE, MEDICAID ==
[~2017-10-11] VITALS: Ht 154.9 cm; Wt 96.0 kg
[~2017-10-11 18:51] MED LIST changes: -ALBUAER3 INH; +BUDESONIDE INH; -CARV12.5 PO; +FORMOTEROL INH; +LABE200T2 PO; +PANT40TA3 PO; +PERI PO; +SPIR25 PO; -SYMB80AE INH
[2017-10-11 19:07] VITALS: TEMP 98.8
[2017-10-11 19:09] VITALS: BP 250/115; PULSE 88; RESP 16; TEMP 98.8; O2SAT 99
--- NOTE | 2017-10-11 20:54 | PD ---
HPI Chief Complaint: Hypertension Time Seen by Provider: 20:48 Travel History International Travel<30 days: No Contact w/Intl Traveler<30days: No Traveled to known affect area: No History of Present Illness HPI 67-year-old female with PMH of hypertension and noncompliance with her medications presents to the ED for evaluation of hypertension. Patient was discharged from the hospital yesterday and provided a prescription for her antihypertensives. She states that by the time she got to the store the pharmacy was closed and she has been unable to take her medications. She denies headache, dizziness, change in changes, chest pain, palpitations, abdominal pain, dysuria, back pain, weakness of the extremities. PFSH Past Medical History Hx Anticoagulant Therapy: Yes (XERALTO) Arthritis: Yes Asthma: Yes Blood Disorders: No Anxiety: No Depression: No Heart Rhythm Problems: Yes Cancer: No Cardiovascular Problems: Yes High Cholesterol: No Chemotherapy: No Chest Pain: No Congestive Heart Failure: Yes COPD: No Cerebrovascular Accident: Yes Coronary Artery Disease: Yes Diabetes: No Diminished Hearing: No Endocrine: No Genitourinary: No Headaches: Yes Hypertension: Yes Immune Disorder: No Kidney Stones: No Musculoskeletal: Yes Neurologic: Yes Psychiatric: No Reproductive: No Respiratory: Yes Immunizations Current: Yes Migraines: No Radiation Therapy: No Renal Failure: No Seizures: No Sleep Apnea: No Thyroid Disease: No Ulcer: No Menopausal: Yes : 4 Para: 3 Miscarriage: 1 Tubal Ligation: Yes Past Surgical History Abdominal Surgery: No AICD: Yes Arteriovenous Shunt: No Cardiac Surgery: Yes Ear Surgery: No Endocrine Surgery: No Eye Surgery: No Gynecologic Surgery: Yes Insulin Pump: No Joint Replacement: No Oral Surgery: No Pacemaker: Yes Thoracic Surgery: No Other Surgery: Yes (R ankle surgery, tubal ligation) Social History Alcohol Use: No Tobacco Use: No Substance Use: No Allergies-Medications (Allergen,Severity, Reaction): Coded Allergies: MRI PRECAUTION (Verified Adverse Reaction, Severe, NONCOMPATIBLE PACER BIOTRONIX ITREVIA [id number] 01/30/17 LRS, 10/11/17) MODEL [id number] Reported Meds & Prescriptions Reported Meds & Active Scripts Active Labetalol (Labetalol HCl) 200 Mg Tab 200 Mg PO Q12HR Aldactone (Spironolactone) 25 Mg Tab 25 Mg PO BID@ Gnp Senna Plus 8.6-50 mg (Sennosides-Docusate Sodium) 8.6 Mg-50 Mg Tab 1 Tab PO BID Pantoprazole (Pantoprazole Sodium) 40 Mg Tab 40 Mg PO DAILY Lisinopril 10 Mg Tab 20 Mg PO BID Bactroban Nasal Oint (Mupirocin Nasal Oint) 2% Oint 1 Applic EACH NARE BID use for 7 days only Single-use tubes. Xarelto (Rivaroxaban) 15 Mg Tab 15 Mg PO DAILY Klor-Con 10 (Potassium Chloride) 10 Meq Tab 30 Meq PO Q12HR Colchicine 0.6 Mg Tab 0.6 Mg PO BID Use 1 tablet twice a day for 7 days then 1 tablet daily, hold if diarrhea Aspirin EC (Aspirin) 81 Mg Tabdr 81 Mg PO DAILY 30 Days Simvastatin 40 Mg Tab 40 Mg PO HS Nifedipine ER 24 HR (Nifedipine) 60 Mg Tab 60 Mg PO DAILY Reported [symbicort puffer] Unknown Dose INH BID Furosemide 40 Mg Tab 40 Mg PO DAILY Isosorbide Mononitrate ER (Isosorbide Mononitrate) 60 Mg Tab 60 Mg PO DAILY Review of Systems Except as stated in HPI: all other systems reviewed are Neg Physical Exam Narrative GENERAL: Well-nourished, well-developed pleasant black female in no acute distress.. SKIN: Focused skin assessment warm/dry. HEAD: Normocephalic. EYES: No scleral icterus. No injection or drainage. NECK: Supple, trachea midline. No JVD or lymphadenopathy. CARDIOVASCULAR: Regular rate and rhythm without murmurs, gallops, or rubs. RESPIRATORY: Breath sounds clear and equal bilaterally. No accessory muscle use. GASTROINTESTINAL: Abdomen soft, non-tender, nondistended. MUSCULOSKELETAL: No cyanosis, or edema. BACK: Nontender without obvious deformity. No CVA tenderness. Data Data Last Documented VS Vital Signs Date Time Temp Pulse Resp B/P (MAP) Pulse Ox O2 Delivery O2 Flow Rate FiO2 10/11/17 22:27 10/11/17 21:13 86 16 100 10/11/17 21:13 Room Air 10/11/17 19:09 98.8 Orders Orders Labetalol Inj (Trandate Inj) (10/11/17 21:00) Iv Access Insert/Monitor (10/11/17 20:54) Oximetry (10/11/17 20:54) Ecg Monitoring (10/11/17 20:54) Electrocardiogram (10/11/17 21:40) Sodium Chloride 0.9% Flush (Ns Flush) (10/11/17 21:45) Labetalol (Trandate) (10/11/17 22:00) Electrocardiogram (10/11/17 ) Labetalol (Trandate) (10/11/17 22:30) MDM Medical Decision Making Medical Screen Exam Complete: Yes Emergency Medical Condition: Yes Differential Diagnosis Noncompliance versus hypertension versus less likely ACS versus less likely CVA versus other Narrative Course 67-year-old female with PMH of hypertension and noncompliance with her medications presents to the ED for evaluation of hypertension. Patient was seen in the emergency room yesterday and provided a prescription for her antihypertensives. She states that by the time she got to the store the pharmacy was closed and she has been unable to take her medications. She denies headache, dizziness, change in changes, chest pain, palpitations, abdominal pain, dysuria, back pain, weakness of the extremities. BP 250/115 on presentation. Physical exam reveals a pleasant female in no acute distress. No focal neuro deficits. No appreciable M/R/G. IV was established. Patient was administered 20 mg labetalol. BP and 179/89 on recheck. Patient was administered 100 mg labetalol by mouth and a 2nd dose of 100mg Labetalol just prior to discharge. She is instructed to fill her medications tomorrow morning and resume them as prescribed, follow up with her primary care provider. She indicated understanding instructions and agreeable care plan. She is stable and discharged home. EKG: Rate 76, sinus rhythm. LVH. No acute ST changes. Reviewed by Dr. Adam. Diagnosis Primary Impression: Hypertension Qualified Codes: I10 - Essential (primary) hypertension Additional Impression: Noncompliance Referrals: Primary Care Physician Patient Instructions: Chronic Hypertension (ED), General Instructions Additional Instructions: Fill your prescriptions tomorrow morning as soon as possible and resume your at home medication regimen. Follow-up with your primary care provider. Return to the ED for any urgent or emergent medical condition. Disposition: 01 DISCHARGE HOME Condition: Stable Yecenia Cantu Oct 11, 2017 20:54
[2017-10-11] MEDS ORDERED: LABETALOL HCL 100 MG/20 ML VIAL IV PUSH ONE (21:00)
[2017-10-11 21:13] VITALS: BP 178/89; PULSE 86; RESP 16; O2SAT 100
[2017-10-11 21:45] VITALS: BP 180/97
[2017-10-11] MEDS ORDERED: SODIUM CHLORIDE 0.9% FLUSH 10 ML FLUSH IVF PRN (21:45)
[2017-10-11] MEDS ORDERED: LABETALOL HCL 100 MG TAB PO ONE ×2 (22:00→22:30)
--- NOTE | 2017-10-12 16:03 | EKG ---
Date Performed: 10/11/2017 Time Performed: 22:44:56 PTAGE: 67 years EKG: Sinus rhythm LEFT VENTRICULAR HYPERTROPHY AND ST-T CHANGE Compared to prior tracing no significant change ABNORMA L ECG PREVIOUS TRACING : 10/04/2017 07.26 DOCTOR: Freddy Almanzar Interpretating Date/Time 10/12/2017 16:01:55
== END 2017-10-11 23:10 | disposition home or self-care (01) ==
LOC: NEPC 18:51
DX: I11.0 Hypertensive heart disease with heart failure (principal); I50.9 Heart failure, unspecified; I25.10 Atherosclerotic heart disease of native coronary artery without angina pectoris; Z91.14 Patient's other noncompliance with medication regimen
CPT/HCPCS: 93005; 96374

== ENCOUNTER 2018-10-27 11:09 | Inpatient (IN) ==
[2018-10-27] MEDS ORDERED: Adenosine Inj 6 MG/2 ML Syringe IV.PUSH ONE (11:14)
[2018-10-27] MEDS ORDERED: Midazolam Inj 5 MG/ML 1 ML Vial ONE (11:17)
[2018-10-27] MEDS ORDERED: dilTIAZem Inj 125 MG in Sodium Chlor 0.9% Inj 100 ML IV.CONT PRN (11:26)
[2018-10-27 11:44] LABS: Baso % (Auto) 0.5 % (0.0-2.0); Eos # (Auto) 0.4 th/mm3 (0.0-0.4); Eos % (Auto) 4.9 % (0.0-4.0); Hematocrit 41.1 % (35.0-46.0); Hemoglobin 13.7 gm/dL (11.6-15.3); Lymph # (Auto) 2.4 th/mm3 (1.0-4.8); Lymph % (Auto) 31.3 % (9.0-44.0); Mean Corpuscular HGB Conc 33.3 % (32.0-36.0); Mean Corpuscular Hemoglobin 27.2 pg (27.0-34.0); Mean Corpuscular Volume 81.8 fL (80.0-100.0); Mean Platelet Volume 10.1 fL (7.0-11.0); Mono # (Auto) 0.8 th/mm3 (0.0-0.9); Mono % (Auto) 10.4 % (0.0-8.0); Neut # (Auto) 4.1 th/mm3 (1.8-7.7); Neut % (Auto) 52.9 % (16.0-70.0); Platelet Count 235 th/mm3 (150-450); Red Blood Count 5.03 mil/mm3 (4.00-5.30); White Blood Count 7.7 th/mm3 (4.0-11.0)
[2018-10-27] MEDS ORDERED: Metoprolol Inj 5 MG/5 ML Vial IV.PUSH ONE ×3 (11:45→12:44)
[2018-10-27 12:01] LABS: Activated Partial Thrombo Time 46.2 sec (23.4-31.7); INR 1.4 Ratio; Prothrombin Time 13.7 sec (9.8-11.6)
[2018-10-27 12:10] LABS: Alanine Aminotransferase 14 U/L (10-53); Albumin 3.6 g/dL (3.4-5.0); Anion Gap 11 meq/L (5-15); Aspartate Aminotransferase 20 U/L (15-37); Blood Urea Nitrogen 12 mg/dL (7-18); Calcium 8.8 mg/dL (8.5-10.1); Carbon Dioxide 22.9 meq/L (21.0-32.0); Chloride 106 meq/L (98-107); Glomerular Filtration Rate 52 mL/min (>89); Glucose,Random 161 mg/dL (74-106); Sodium 140 meq/L (136-145)
[2018-10-27 12:15] LABS: Alkaline Phosphatase 104 U/L (45-117); Creatine Kinase 128 U/L (26-192); Thyroid Stimulating Hormone 0.094 uIU/mL (0.358-3.740); Total Protein 8.4 g/dL (6.4-8.2); Troponin I 0.02 ng/mL (0.02-0.05)
[2018-10-27 12:18] LABS: Potassium 2.9 meq/L (3.5-5.1)
[2018-10-27] MEDS ORDERED: Potassium Chlor 20 mEq Premix 20 MEQ/100 ML PIGGYBACK IV.SIG ONE (12:18)
[2018-10-27 12:32] LABS: Creatine Kinase MB 1.4 ng/mL (0.5-3.6)
--- NOTE | 2018-10-27 12:39 | XR ---
EXAM DATE: 10/27/2018 12:34 PM EST AGE/SEX: 68 years / Female INDICATIONS: Chest pain. CLINICAL DATA: This is the patient's initial encounter. Patient reports that signs and symptoms have been present for 1 day and indicates a pain score of 6/10. MEDICAL/SURGICAL HISTORY: Stroke. Myocardial infarction. Congestive heart failure. Headache, CAD. Pacemaker. Tubal ligation. Right ankle surgery. [place] [facility] [place]. . FINDINGS: There is prominence of pulmonary vasculature bilaterally characteristic of pulmonary venous congestio n. Stable mild infiltrate in the right perihilar area. These findings are stable compared to the prio r study. The heart size is enlarged but stable. No significant pleural effusions. There is a pacemake r overlying the left chest. The bony structures are stable. No significant changes compared to the pr ior study. CONCLUSION: 1. Stable pulmonary venous congestion. 2. Stable mild infiltrate in the right perihilar area. 3. Stable cardiomegaly. Electronically signed by: Tyson Bustamante MD 10/27/2018 12:38 PM EST
--- NOTE | 2018-10-27 12:47 | ED ---
HPI General Chief complaint: Arrhythmia / Palpitations Stated complaint: Cardiac Time Seen by Provider: 10/27/18 11:26 Source: patient and EMS Mode of arrival: EMS Limitations: no limitations History of Present Illness HPI narrative: Patient is a 68-year-old female who comes in complaining of palpitations, shortness of breath and her defibrillator firing. Started today, her defibrillator has fired several times prior to EMS arrival and several times with EMS. 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 She says her symptoms started today. She does complain of some dizziness and pain to her left arm. Severity is moderate. Related Data Home Medications Medication Instructions Recorded Confirmed alendronate 70 mg PO QWEEK 10/27/18 10/27/18 furosemide [Lasix] 40 mg PO DAILY 10/27/18 10/27/18 hydralazine 50 mg PO BID 10/27/18 10/27/18 isosorbide dinitrate 60 mg PO TID 10/27/18 10/27/18 rivaroxaban [Xarelto] 15 mg PO DAILY NEB 10/27/18 10/27/18 simvastatin [Zocor] 40 mg PO QPM 10/27/18 10/27/18 Allergies Allergy/AdvReac Type Severity Reaction Status Date / Time No Known Allergies Allergy Verified 10/27/18 11:31 Review of Systems ROS: all other systems reviewed are negative Constitutional Denies chills and Denies fever(s) ENT Reports dizziness Cardiovascular Reports palpitations Respiratory Reports dyspnea Gastrointestinal Denies nausea and Denies vomiting Musculoskeletal Denies myalgias and Denies arthralgias Integumentary/Breasts Denies sores and Denies wounds Neurologic Denies focal weakness and Denies numbness PMFSH Medical History Medical History A-fib (Acute) Asthma (Acute) HBP (high blood pressure) (Acute) Pacemaker (Acute) Surgical History Surgical History H/O tubal ligation (Acute) History of ankle surgery (Acute) Social History Social History Substance History: No History of Abuse Second Hand Smoke Exposure: No Smoking Status: Former smoker Tobacco Type: Cigarettes How Often Do You Have a Drink Containing Alcohol: Never Recent Travel in [facility] within the Last 8 Weeks: No Recent Out of Country Travel within the Last 8 Weeks: No Immunization History Tetanus Immunization: >5 Years Exam Narrative Exam Narrative: GENERAL: Awake and alert, in moderate distress due to defibrillator firing. SKIN: Focused skin assessment warm/dry. HEAD: Atraumatic. Normocephalic. EYES: Pupils equal and round. No scleral icterus. No injection or drainage. ENT: Mucous membranes pink and moist. NECK: Trachea midline. No JVD. CARDIOVASCULAR: Tachycardia. no murmur appreciated. RESPIRATORY: No accessory muscle use. Clear to auscultation. Breath sounds equal bilaterally. GASTROINTESTINAL: Abdomen soft, non-tender, nondistended. MUSCULOSKELETAL: No obvious deformities. No clubbing. No cyanosis. No edema. NEUROLOGICAL: Awake and alert. No obvious cranial nerve deficits. Motor grossly within normal limits. Normal speech. PSYCHIATRIC: Appropriate mood and affect; insight and judgment normal. Course Initial Documented Vital Signs Temperature 97.8 F 10/27/18 11:18 Pulse Rate 168 H 10/27/18 11:18 Respiratory Rate 20 10/27/18 11:18 Blood Pressure 169/107 H 10/27/18 11:18 Pulse Oximetry 96 10/27/18 11:18 Last Documented Vital Signs Temperature 97.7 F 10/27/18 13:16 Pulse Rate 89 10/27/18 13:16 Respiratory Rate 18 10/27/18 13:16 Blood Pressure 180/87 H 10/27/18 13:16 Pulse Oximetry 99 10/27/18 13:16 Critical Care Time Critical Care Time: Yes Total Critical Care Time: 50 Attestation: Aggregate critical care time was 50 minutes. Time to perform other separately billable procedures was not included in the critical care time. My time did not include minutes spent treating any other patients simultaneously or on activities that did not directly contribute to the patient's treatment. The services I provided to this patient were to treat and/or prevent clinically significant deterioration that could result in: serious illness or I provided critical care services requiring my management, as noted below: Chart data review, documentation time, medication orders and management, vital sign assessments/reviewing monitor data, ordering and reviewing lab tests, ordering and interpreting/reviewing x-rays and diagnostic studies, care of the patient and discussion of the patient with the admitting physicians. Medical Decision Making MDM Narrative Medical decision making narrative: Patient is a 68 year old female who comes in due to tachycardia and fibrillator firing. On arrival, she is tachycardic in the 160s-200 range. When her pulse gets over 200, her defibrillator delivered a shock. I witnessed this several times while she was here. IV established, labs sent. Patient given Versed 2 mg. She was first administered Cardizem with little result. Given metoprolol, 2.5 mg x4 doses with control of her rate. Labs concerning for hypokalemia, this was replaced. Dr. Sherman of cardiology consulted. Patient will be admitted for further management. Medical Screen Exam Complete: Yes Emergency Medical Condition: Yes Differential Diagnosis Differential Diagnosis: electrolyte abnormalities vs dehydration vs ACS vs afib with RVR Medical Records Medical records reviewed: Yes I reviewed the patient's medical records. Lab Data Lab results reviewed: Yes I reviewed the patient's lab results. Result diagrams: 10/27/18 11:30 10/27/18 11:30 Lab Results 10/27/18 10/27/18 10/27/18 Range/Units 11:30 11:30 11:30 WBC 7.7 (4.0-11.0) th/mm3 RBC 5.03 (4.00-5.30) mil/mm3 Hgb 13.7 (11.6-15.3) gm/dL Hct 41.1 (35.0-46.0) % MCV 81.8 (80.0-100.0) fL MCH 27.2 (27.0-34.0) pg MCHC 33.3 (32.0-36.0) % RDW 15.0 (11.6-17.2) % Plt Count 235 (150-450) th/mm3 MPV 10.1 (7.0-11.0) fL Neut % (Auto) 52.9 (16.0-70.0) % Lymph % (Auto) 31.3 (9.0-44.0) % Sargent % (Auto) 10.4 H (0.0-8.0) % Eos % (Auto) 4.9 H (0.0-4.0) % Baso % (Auto) 0.5 (0.0-2.0) % Neut # (Auto) 4.1 (1.8-7.7) th/mm3 Lymph # (Auto) 2.4 (1.0-4.8) th/mm3 Sargent # (Auto) 0.8 (0.0-0.9) th/mm3 Eos # (Auto) 0.4 (0.0-0.4) th/mm3 Baso # (Auto) 0.0 (0.0-0.2) th/mm3 WBC Differential . Differential Comment Auto diff final PT 13.7 H (9.8-11.6) sec INR 1.4 Ratio APTT 46.2 H (23.4-31.7) sec Sodium 140 (136-145) meq/L Potassium 2.9 L* (3.5-5.1) meq/L Chloride 106 (98-107) meq/L Carbon Dioxide 22.9 (21.0-32.0) meq/L Anion Gap 11 (5-15) meq/L BUN 12 (7-18) mg/dL Creatinine 1.24 H (0.50-1.00) mg/dL Estimated GFR 52 L (>89) mL/min Random Glucose 161 H (74-106) mg/dL Calcium 8.8 (8.5-10.1) mg/dL Total Bilirubin 0.4 (0.2-1.0) mg/dL AST 20 (15-37) U/L ALT 14 (10-53) U/L Alkaline Phosphatase 104 (45-117) U/L Total Creatine Kinase 128 (26-192) U/L CK-MB (CK-2) 1.4 (0.5-3.6) ng/mL Troponin I 0.02 (0.02-0.05) ng/mL Total Protein 8.4 H (6.4-8.2) g/dL Albumin 3.6 (3.4-5.0) g/dL TSH 0.094 L (0.358-3.740) uIU/mL Imaging Data Radiologist's impression: Chest X-Ray 10/27/18 11:27 CONCLUSION: 1. Stable pulmonary venous congestion. 2. Stable mild infiltrate in the right perihilar area. 3. Stable cardiomegaly. ECG Data EKG Prior to Arrival: No Attestation: I personally reviewed and interpreted this ECG as follows: Interpretation: Original ECG at 11:14 shows A fib at a rate of 166 ECG at 11:24 shows Aflutter at a rate of 148 ECG at 11:25 shows sinus tachycardia with frequent PVCs at a rate of 120 ECG at 11:55 show afib at a rate of 91 Discharge Plan Discharge Disposition Patient Disposition: ED Admit(ED Internal Use Only) Discharge Condition Condition: Stable Discharge Order Discharge Orders: ED Use Only Admit Order (Routine); Ordered 10/27/18 Ordered By: Jacqueline Sims Discharge Details Diagnosis: Atrial fibrillation with RVR, Acute hypokalemia Physicians Team ED Provider: Jacqueline Sims Primary Care Provider: UNKNOWN, Attending Provider: Antionette Aguillon Other Providers: [place] Sherman Discharge Interventions Interventions: Vital Signs Last Done: 10/27/18 12:34 Status ED Status: Admitted Patient
--- NOTE | 2018-10-27 13:07 | P.HPFP ---
History of Present Illness Primary Care Physician: UNKNOWN <Antionette Aguillon - 10/28/18 11:54> UNKNOWN <Erica Becerra - 10/27/18 13:07> History of Present Illness: 68 year old female presents to the hospital because her pacemaker kept alarming. It started today, unsure of what time it started alarming. She was just resting in her house this morning and the alarm went off. She went out and got her son and her son called an ambulance. She denies any CP during this event. She got the pacemaker 4-5 years ago and it has alarmed once before about 2-3 years ago. She came to [place] and does not remember what happened during that event. She has been taking her medications daily. She does not remember her PCP or [employer] name. Her daughter helps with her medicines and helps with her doctors appointment. She has had a productive cough that started yesterday. It is whitish and thick in color. She denies any fevers or chills. Denies any SOB, Ab pain, problems with urination or defecation. Denies any sick contacts. PMH: HBP, [place] (before pacemaker) PSH: Foot surgery A: KNDA Meds: Reconciled. FH: Son has asthma. SH: Lives with son and grandson in a house. Smoked 1ppd for 20 years but quit 10 years ago. Used to drink beer, no longer drinks. Denies any street drugs. NO recent travel. Got the flu shot Code Status: Full Code. Daughter helps with medical decisions: Gillian Farmer <Erica Becerra - 10/27/18 17:08> - Diagnosis (1) Afib (2) Low TSH level (3) Hypokalemia (4) CKD (chronic kidney disease) (5) Cough (6) Hyperglycemia (7) DVT prophylaxis (8) Nutrition, metabolism, and development symptoms <Antionette Aguillon - 10/28/18 11:54> (1) Afib (2) Low TSH level (3) Hypokalemia (4) CKD (chronic kidney disease) (5) Cough (6) Hyperglycemia (7) DVT prophylaxis (8) Nutrition, metabolism, and development symptoms <Erica Becerra - 10/27/18 17:16> Inpatient Certification: I certify that the inpatient services were ordered in accordance with Medicare regulations governing the order. This includes certification that hospital inpatient services are reasonable and necessary and in the case of services not specified as inpatient-only under 42 CFR 419.22(n), that they are appropriately provided as inpatient services in accordance to with the 2-midnight benchmark under 43 CFR 412.3(e) <Antionette Aguillon John - 10/28/18 11:54> I certify that the inpatient services were ordered in accordance with Medicare regulations governing the order. This includes certification that hospital inpatient services are reasonable and necessary and in the case of services not specified as inpatient-only under 42 CFR 419.22(n), that they are appropriately provided as inpatient services in accordance to with the 2-midnight benchmark under 43 CFR 412.3(e) <Erica Becerra - 10/27/18 13:07> PMFSH - History History Provided By: Patient <Erica Becerra - 10/27/18 13:07> - Medical History Medical History: Medical History (Last Reviewed 10/27/18 @ 14:48 by Jacqueline Sims MD) A-fib Asthma HBP (high blood pressure) Pacemaker <PalAntionette R - 10/28/18 11:54> Medical History (Last Reviewed 10/27/18 @ 14:48 by Jacqueline Sims MD) A-fib Asthma HBP (high blood pressure) Pacemaker <Erica Becerra - 10/27/18 16:54> - Surgical History Surgical History: Surgical History (Last Reviewed 10/27/18 @ 14:48 by Jacqueline Sims MD) H/O tubal ligation History of ankle surgery <Antionette Aguillon - 10/28/18 11:54> Surgical History (Last Reviewed 10/27/18 @ 14:48 by Jacqueline Sims MD) H/O tubal ligation History of ankle surgery <Erica Becerra - 10/27/18 16:54> - Tobacco History Second Hand Smoke Exposure: No <Erica Becerra - 10/27/18 13:07> Tobacco Use In Past 30 Days: No <Erica Becerra - 10/27/18 13:07> Smoking Status: Former smoker <Erica Becerra - 10/27/18 13:07> Tobacco Type: Cigarettes <Erica Becerra - 10/27/18 13:07> - Alcohol History How Often Do You Have a Drink Containing Alcohol: Never <Erica Becerra - 02/09 13:07> - Substance Use History Substance History: No History of Abuse <Erica Becerra - 10/27/18 13:07> - Travel History Recent Travel in the [facility] Within the Last 8 Weeks: No <Erica Becerra - 13:07> Recent Travel Out of the Country Within the Last 8 Weeks: No <Erica Becerra - 10/27/18 13:07> - Immunization History Tetanus Immunization: >5 Years <Erica Becerra - 10/27/18 13:07> Medications and Allergies Allergies Allergy/AdvReac Type Severity Reaction Status Date / Time No Known Allergies Allergy Verified 10/27/18 11:31 <Antionette Aguillon - 10/28/18 11:54> Home Medications Medication Instructions Recorded Confirmed Type alendronate 70 mg PO QWEEK 10/27/18 10/27/18 History furosemide [Lasix] 40 mg PO DAILY 10/27/18 10/27/18 History hydralazine 50 mg PO BID 10/27/18 10/27/18 History isosorbide dinitrate 60 mg PO TID 10/27/18 10/27/18 History rivaroxaban [Xarelto] 15 mg PO DAILY NEB 10/27/18 10/27/18 History simvastatin [Zocor] 40 mg PO QPM 10/27/18 10/27/18 History <Antionette Aguillon - 10/28/18 11:54> Active Medications: Active Medications Acetaminophen (Tylenol) 650 mg PO Q4H PRN PRN Reason: Temp > 100.4 Al Hydroxide/Mg Hydroxide (Milk Of Magnesia Liq) 30 ml PO Q12H PRN PRN Reason: Mild Constipation Amlodipine Besylate (Norvasc) 10 mg PO DAILY GEOVANNY Last Admin: 10/28/18 08:14 Dose: 10 mg Bisacodyl (Dulcolax Supp) 10 mg RECTAL DAILY PRN PRN Reason: SEVERE CONSITIPATION Enalapril Maleate (Vasotec) 20 mg PO BID [facility] Last Admin: 10/28/18 09:26 Dose: 20 mg Guaifenesin (Mucinex Er) 600 mg PO BID [facility] Last Admin: 10/28/18 08:15 Dose: 600 mg Hydralazine HCl (Apresoline) 50 mg PO BID [facility] Last Admin: 10/28/18 08:15 Dose: 50 mg Amiodarone HCl 450 mg/ (Dextrose) 250 mls @ 33.33 mls/hr IV.CONT TITRATE PRN; Protocol PRN Reason: Per Protocol Stop: 10/29/18 14:59 Last Admin: 10/27/18 14:51 Dose: 1 mg/min, 33.33 mls/hr Lactulose (Lactulose Liq) 30 ml PO DAILY PRN PRN Reason: SEVERE CONSITIPATION Metoprolol Tartrate (Lopressor) 100 mg PO BID [facility] Ondansetron HCl (Zofran Inj) 4 mg IV.PUSH Q6H PRN PRN Reason: NAUSEA OR VOMITING Pravastatin Sodium (Pravachol) 80 mg PO QPM [facility] Last Admin: 10/27/18 17:06 Dose: 80 mg Rivaroxaban (Xarelto) 20 mg PO DAILY [facility] Last Admin: 10/28/18 08:15 Dose: 20 mg Senna/Docusate Sodium (Alice-Colace) 1 tab PO BID [facility] Last Admin: 10/28/18 08:16 Dose: 1 tab Sennosides (Senokot) 17.2 mg PO Q12H PRN PRN Reason: Moderate Constipation Sodium Chloride (Ns Flush) 2 ml IV.FLUSH UNSCH PRN PRN Reason: FLUSH AFTER USING IV ACCESS Last Admin: 10/27/18 11:20 Dose: 2 ml Sodium Chloride (Ns Flush) 2 ml IV.FLUSH BID [facility] Last Admin: 10/28/18 08:16 Dose: 2 ml Sodium Chloride (Ns Flush) 2 ml IV.FLUSH PRN PRN PRN Reason: FLUSH AFTER USING IV ACCESS <Antionette Aguillon - 10/28/18 11:54> Active Medications Diltiazem HCl 125 mg/ Sodium (Chloride) 125 mls @ 5 mls/hr IV.CONT TITRATE PRN ; Protocol PRN Reason: Per Protocol Last Admin: 10/27/18 11:46 Dose: 5 mg/hr, 5 mls/hr Potassium Chloride (Kcl 20 Meq Premix Inj) 20 meq in 100 mls @ 50 mls/hr IV.SIG ONCE ONE Stop: 10/27/18 14:17 Last Admin: 10/27/18 12:29 Dose: 50 mls/hr Sodium Chloride (Ns Flush) 2 ml IV.FLUSH UNSCH PRN PRN Reason: FLUSH AFTER USING IV ACCESS Last Admin: 10/27/18 11:20 Dose: 2 ml <Erica Becerra - 10/27/18 13:07> Exam Vital signs: Vital Signs 10/27/18 11:55 10/27/18 12:07 10/27/18 12:27 Temperature 97.9 F Pulse Rate 112 H 90 91 H Respiratory Rate 18 17 17 Blood Pressure 188/89 H 183/86 H 188/93 H Pulse Oximetry 99 98 100 10/27/18 12:34 10/27/18 13:16 10/27/18 15:25 Temperature 97.7 F 98.1 F Pulse Rate 97 H 89 97 H Respiratory Rate 20 18 23 Blood Pressure 178/93 H 180/87 H 210/101 H Pulse Oximetry 97 99 95 10/27/18 16:00 10/27/18 16:05 10/27/18 17:00 Temperature 98.6 F 97.9 F Pulse Rate 93 H 93 H 90 Respiratory Rate 18 18 Blood Pressure 197/124 H 183/100 H Pulse Oximetry 100 98 10/27/18 17:05 10/27/18 17:31 10/27/18 17:56 Temperature Pulse Rate Respiratory Rate Blood Pressure 192/111 H 204/116 H 200/116 H Pulse Oximetry 10/27/18 18:00 10/27/18 18:35 10/27/18 19:00 Temperature Pulse Rate 83 72 Respiratory Rate Blood Pressure 189/111 H Pulse Oximetry 10/27/18 20:00 10/27/18 21:00 10/27/18 22:00 Temperature 98.8 F Pulse Rate 70 76 76 Respiratory Rate 20 Blood Pressure 178/109 H Pulse Oximetry 99 10/27/18 23:00 10/28/18 00:00 10/28/18 01:00 Temperature 98.0 F Pulse Rate 72 90 70 Respiratory Rate 16 Blood Pressure 167/94 H Pulse Oximetry 98 10/28/18 02:00 10/28/18 03:00 10/28/18 04:00 Temperature 98.0 F Pulse Rate 70 70 70 Respiratory Rate 16 Blood Pressure 152/103 H Pulse Oximetry 98 10/28/18 05:00 10/28/18 06:00 10/28/18 07:00 Temperature 98.6 F Pulse Rate 76 66 74 Respiratory Rate 16 Blood Pressure 209/119 H Pulse Oximetry 97 10/28/18 08:00 10/28/18 09:00 10/28/18 10:00 Temperature Pulse Rate 78 72 62 Respiratory Rate Blood Pressure Pulse Oximetry 97 10/28/18 10:45 10/28/18 11:00 Temperature 98.7 F Pulse Rate 68 Respiratory Rate 16 Blood Pressure 156/86 H Pulse Oximetry 97 95 Intake & Output 10/27/18 10/28/18 10/28/18 18:59 06:59 18:59 Intake Total 685 / 685 240 / 240 Output Total 25 / 25 200 / 200 Balance 660 / 660 40 / 40 Weight 90.718 kg 90.6 kg Intake: IV 205 / 205 Cardizem Inj 125 MG In NS Inj 5 / 5 100 ML @ 5 MG/HR 5 mls/hr IV. CONT TITRATE PRN Rx#:[id number] Cordarone Inj 150 MG In D5W Inj 100 / 100 97 ML @ 600 mls/hr IV.SIG ONCE ONE Rx#:[id number] KCl 20 mEq Premix Inj 20 meq In 100 / 100 100 ml @ 50 mls/hr IV.SIG ONCE ONE Rx#:[id number] Oral 480 / 480 240 / 240 Output: Urine 25 / 25 200 / 200 Other: # Voids 1 Date of Last Bowel Movement 10/28/18 <Antionette Aguillon R - 10/28/18 11:54> Vital Signs 10/27/18 11:18 10/27/18 11:19 10/27/18 11:27 Temperature 97.8 F 97.8 F Pulse Rate 168 H 168 H 130 H Respiratory Rate 20 20 Blood Pressure 169/107 H 159/72 H Pulse Oximetry 96 99 95 10/27/18 11:50 10/27/18 11:55 10/27/18 12:07 Temperature 97.9 F Pulse Rate 108 H 112 H 90 Respiratory Rate 20 18 17 Blood Pressure 171/100 H 188/89 H 183/86 H Pulse Oximetry 98 99 98 10/27/18 12:27 10/27/18 12:34 Temperature Pulse Rate 91 H 97 H Respiratory Rate 17 20 Blood Pressure 188/93 H 178/93 H Pulse Oximetry 100 97 Intake & Output 10/26/18 10/27/18 10/27/18 18:59 06:59 18:59 Weight 90.718 kg <Erica Becerra - 10/27/18 13:07> Narrative: GENERAL: Well appearing female, laying comfortably on nasal cannula, in no acute distress SKIN: Warm and dry. HEAD: Normocephalic. EYES: No scleral icterus. No injection or drainage. NECK: Supple, trachea midline. No JVD or lymphadenopathy. CARDIOVASCULAR: Regular rate and rhythm without murmurs, gallops, or rubs. RESPIRATORY: Diffuse crackles auscultated bilaterally. Prominent crackles heard in the right lower lobe. Good air movement bilaterally. No wheezes. No accessory muscle use. GASTROINTESTINAL: Abdomen soft, non-tender, nondistended. MUSCULOSKELETAL: No cyanosis, or edema. BACK: Nontender without obvious deformity. No CVA tenderness. <NicolevaleriAnthony ledbetterErica - 10/27/18 16:54> Results - Labs Result diagrams: 10/28/18 05:02 10/28/18 05:02 <Antionette Aguillon - 10/28/18 11:54> Abnormal lab results 10/27/18 10/27/18 10/27/18 Range/Units 11:30 11:30 14:38 MCV (80.0-100.0) fL [place] % (Auto) (0.0-8.0) % PT 13.7 H (9.8-11.6) sec APTT 46.2 H (23.4-31.7) sec Potassium 2.9 L* (3.5-5.1) meq/L Chloride (98-107) meq/L Creatinine 1.24 H (0.50-1.00) mg/dL Estimated GFR 52 L (>89) mL/min Random Glucose 161 H (74-106) mg/dL AST (15-37) U/L Troponin I 0.09 H (0.02-0.05) ng/mL Total Protein 8.4 H (6.4-8.2) g/dL TSH 0.094 L (0.358-3.740) uIU/mL Free T4 1.69 H (0.76-1.46) ng/dL Urine Clarity (Clear) Urine Protein (Neg-Trace) mg/dL Urine Occult Blood (Negative) Urine Bacteria (None) /hpf Urine Mucus (Occasional) /lpf 10/27/18 10/27/18 10/28/18 Range/Units 18:15 20:40 05:02 MCV 79.8 L (80.0-100.0) fL [place] % (Auto) 10.5 H (0.0-8.0) % PT (9.8-11.6) sec APTT (23.4-31.7) sec Potassium 3.2 L (3.5-5.1) meq/L Chloride (98-107) meq/L Creatinine (0.50-1.00) mg/dL Estimated GFR (>89) mL/min Random Glucose (74-106) mg/dL AST (15-37) U/L Troponin I 0.21 H D (0.02-0.05) ng/mL Total Protein (6.4-8.2) g/dL TSH (0.358-3.740) uIU/mL Free T4 (0.76-1.46) ng/dL Urine Clarity Cloudy H (Clear) Urine Protein 100 H (Neg-Trace) mg/dL Urine Occult Blood Small H (Negative) Urine Bacteria Rare H (None) /hpf Urine Mucus Few H (Occasional) /lpf 10/28/18 Range/Units 05:02 MCV (80.0-100.0) fL [place] % (Auto) (0.0-8.0) % PT (9.8-11.6) sec APTT (23.4-31.7) sec Potassium 3.1 L (3.5-5.1) meq/L Chloride 108 H (98-107) meq/L Creatinine 1.20 H (0.50-1.00) mg/dL Estimated GFR 54 L (>89) mL/min Random Glucose (74-106) mg/dL AST 43 H (15-37) U/L Troponin I (0.02-0.05) ng/mL Total Protein (6.4-8.2) g/dL TSH (0.358-3.740) uIU/mL Free T4 (0.76-1.46) ng/dL Urine Clarity (Clear) Urine Protein (Neg-Trace) mg/dL Urine Occult Blood (Negative) Urine Bacteria (None) /hpf Urine Mucus (Occasional) /lpf Short CBC 10/28/18 Range/Units 05:02 WBC 6.9 (4.0-11.0) th/mm3 Hgb 12.7 (11.6-15.3) gm/dL Hct 37.6 (35.0-46.0) % Plt Count 231 (150-450) th/mm3 BMP 10/27/18 10/27/18 10/28/18 11:30 20:40 05:02 Sodium 140 139 Potassium 2.9 L* 3.2 L 3.1 L Chloride 106 108 H Carbon Dioxide 22.9 24.9 BUN 12 11 Creatinine 1.24 H 1.20 H Calcium 8.8 8.9 Cardiac Enzymes 10/27/18 10/27/18 10/27/18 Range/Units 11:30 14:38 20:40 Total Creatine Kinase 128 (26-192) U/L CK-MB (CK-2) 1.4 (0.5-3.6) ng/mL Troponin I 0.02 0.09 H 0.21 H D (0.02-0.05) ng/mL Liver Function 10/27/18 10/28/18 Range/Units 11:30 05:02 Total Bilirubin 0.4 0.6 (0.2-1.0) mg/dL AST 20 43 H (15-37) U/L ALT 14 19 (10-53) U/L Alkaline Phosphatase 104 95 (45-117) U/L Albumin 3.6 3.5 (3.4-5.0) g/dL Urine 10/27/18 Range/Units 18:15 Urine Color Yellow (Yellw/Straw) Urine Clarity Cloudy H (Clear) Urine pH 6.0 (5.0-8.5) Ur Specific [place]ound 1.011 (1.002-1.035) Urine Protein 100 H (Neg-Trace) mg/dL Urine Glucose (UA) Negative (Negative) mg/dL <Vandemark,Antionette John - 10/28/18 11:54> Abnormal lab results 10/27/18 10/27/18 10/27/18 Range/Units 11:30 11:30 11:30 [place] % (Auto) 10.4 H (0.0-8.0) % Eos % (Auto) 4.9 H (0.0-4.0) % PT 13.7 H (9.8-11.6) sec APTT 46.2 H (23.4-31.7) sec Potassium 2.9 L* (3.5-5.1) meq/L Creatinine 1.24 H (0.50-1.00) mg/dL Estimated GFR 52 L (>89) mL/min Random Glucose 161 H (74-106) mg/dL Total Protein 8.4 H (6.4-8.2) g/dL TSH 0.094 L (0.358-3.740) uIU/mL Short CBC 10/27/18 Range/Units 11:30 WBC 7.7 (4.0-11.0) th/mm3 Hgb 13.7 (11.6-15.3) gm/dL Hct 41.1 (35.0-46.0) % Plt Count 235 (150-450) th/mm3 BMP 10/27/18 11:30 Sodium 140 Potassium 2.9 L* Chloride 106 Carbon Dioxide 22.9 BUN 12 Creatinine 1.24 H Calcium 8.8 Cardiac Enzymes 10/27/18 Range/Units 11:30 Total Creatine Kinase 128 (26-192) U/L CK-MB (CK-2) 1.4 (0.5-3.6) ng/mL Troponin I 0.02 (0.02-0.05) ng/mL Liver Function 10/27/18 Range/Units 11:30 Total Bilirubin 0.4 (0.2-1.0) mg/dL AST 20 (15-37) U/L ALT 14 (10-53) U/L Alkaline Phosphatase 104 (45-117) U/L Albumin 3.6 (3.4-5.0) g/dL <Erica Becerra - 10/27/18 13:07> - Imaging Impressions Chest X-Ray 10/27/18 00:00 CONCLUSION: Underinflated examination with stable mild bibasilar airspace opacity and right midlung zone opacity. Chest X-Ray 10/27/18 11:27 CONCLUSION: 1. Stable pulmonary venous congestion. 2. Stable mild infiltrate in the right perihilar area. 3. Stable cardiomegaly. <Antionette Aguillon - 10/28/18 11:54> Impressions Chest X-Ray 10/27/18 11:27 CONCLUSION: 1. Stable pulmonary venous congestion. 2. Stable mild infiltrate in the right perihilar area. 3. Stable cardiomegaly. <Erica Becerra - 10/27/18 13:07> Caprini VTE Risk Assessment Caprini VTE Risk Assessment: Moderate/High Risk (score >= 2) <Erica Becerra - 10/27/18 17:08> Caprini Risk Assessment Model: Point Value = 1 Point Value = 2 Point Value = 3 Point Value = 5 Age 41-60 Minor surgery BMI > 25 kg/m2 Swollen legs Varicose veins or History of unexplained or recurrent spontaneous Oral contraceptives or hormone replacement Sepsis (< 1 month) Serious lung disease, including pneumonia (< 1 month) Abnormal pulmonary function Acute myocardial infarction Congestive heart failure (< 1 month) History of inflammatory bowel disease Medical patient at bed rest Age 61-74 Arthroscopic surgery Major open surgery (> 45 min) Laparoscopic surgery (> 45 min) Malignancy Confined to bed (> 72 hours) Immobilizing plaster cast Central venous access Age >= 75 History of VTE Family history of VTE Factor V Leiden Prothrombin [id number] Lupus anticoagulant Anticardiolipin antibodies Elevated serum homocysteine Heparin-induced thrombocytopenia Other congenital or acquired thrombophilia Stroke (< 1 month) Elective arthroplasty Hip, pelvis, or leg fracture Acute spinal cord injury (< 1 month) <Antionette Aguillon - 10/28/18 11:54> Point Value = 1 Point Value = 2 Point Value = 3 Point Value = 5 Age 41-60 Minor surgery BMI > 25 kg/m2 Swollen legs Varicose veins or History of unexplained or recurrent spontaneous Oral contraceptives or hormone replacement Sepsis (< 1 month) Serious lung disease, including pneumonia (< 1 month) Abnormal pulmonary function Acute myocardial infarction Congestive heart failure (< 1 month) History of inflammatory bowel disease Medical patient at bed rest Age 61-74 Arthroscopic surgery Major open surgery (> 45 min) Laparoscopic surgery (> 45 min) Malignancy Confined to bed (> 72 hours) Immobilizing plaster cast Central venous access Age >= 75 History of VTE Family history of VTE Factor V Leiden Prothrombin [id number] Lupus anticoagulant Anticardiolipin antibodies Elevated serum homocysteine Heparin-induced thrombocytopenia Other congenital or acquired thrombophilia Stroke (< 1 month) Elective arthroplasty Hip, pelvis, or leg fracture Acute spinal cord injury (< 1 month) <Erica Becerra - 10/27/18 17:08> Prophylaxis Regimen: Total Risk Factor Score Risk Level Prophylaxis Regimen 0-1 Low Early ambulation 2 Moderate Order ONE of the following: *Sequential Compression Device (SCD) *Heparin 5000 units SQ BID 3-4 Higher Order ONE of the following medications: *Heparin 5000 units SQ TID *Enoxaparin/Lovenox 40 mg SQ daily (WT < 150 kg, CrCl > 30 mL/min) *Enoxaparin/Lovenox 30 mg SQ daily (WT < 150 kg, CrCl > 10-29 mL/min) *Enoxaparin/Lovenox 30 mg SQ BID (WT < 150 kg, CrCl > 30 mL/min) AND/OR *Sequential Compression Device (SCD) 5 or more Highest Order ONE of the following medications: *Heparin 5000 units SQ TID (Preferred with Epidurals) *Enoxaparin/Lovenox 40 mg SQ daily (WT < 150 kg, CrCl > 30 mL/min) *Enoxaparin/Lovenox 30 mg SQ daily (WT < 150 kg, CrCl > 10-29 mL/min) *Enoxaparin/Lovenox 30 mg SQ BID (WT < 150 kg, CrCl > 30 mL/min) AND *Sequential Compression Device (SCD) <Antionette Aguillon - 10/28/18 11:54> Total Risk Factor Score Risk Level Prophylaxis Regimen 0-1 Low Early ambulation 2 Moderate Order ONE of the following: *Sequential Compression Device (SCD) *Heparin 5000 units SQ BID 3-4 Higher Order ONE of the following medications: *Heparin 5000 units SQ TID *Enoxaparin/Lovenox 40 mg SQ daily (WT < 150 kg, CrCl > 30 mL/min) *Enoxaparin/Lovenox 30 mg SQ daily (WT < 150 kg, CrCl > 10-29 mL/min) *Enoxaparin/Lovenox 30 mg SQ BID (WT < 150 kg, CrCl > 30 mL/min) AND/OR *Sequential Compression Device (SCD) 5 or more Highest Order ONE of the following medications: *Heparin 5000 units SQ TID (Preferred with Epidurals) *Enoxaparin/Lovenox 40 mg SQ daily (WT < 150 kg, CrCl > 30 mL/min) *Enoxaparin/Lovenox 30 mg SQ daily (WT < 150 kg, CrCl > 10-29 mL/min) *Enoxaparin/Lovenox 30 mg SQ BID (WT < 150 kg, CrCl > 30 mL/min) AND *Sequential Compression Device (SCD) <Erica Becerra - 10/27/18 13:07> Assessment and Plan - Assessment (1) Afib Code(s): I48.91 - Unspecified atrial fibrillation Status: Acute (2) Low TSH level Code(s): R79.89 - Other specified abnormal findings of blood chemistry Status : Acute (3) Hypokalemia Code(s): E87.6 - Hypokalemia Status: Acute (4) CKD (chronic kidney disease) Code(s): N18.9 - Chronic kidney disease, unspecified Status: Acute (5) Cough Code(s): R05 - Cough Status: Acute (6) Hyperglycemia Code(s): R73.9 - Hyperglycemia, unspecified Status: Acute (7) DVT prophylaxis Status: Acute (8) Nutrition, metabolism, and development symptoms Code(s): R63.8 - Other symptoms and signs concerning food and fluid intake Status: Acute <Antionette Aguillon - 10/28/18 11:54> (1) Afib Code(s): I48.91 - Unspecified atrial fibrillation Status: Acute Plan: Patient with a history of A. fib status post pacemaker placement 4-5 years ago presents with pacemaker alarming and patient in acute A.fib with an elevated heart rate at 166. Patient was asymptomatic and denied any chest pain. Given 7.5 mg IV metoprolol in the ED, Versed 2 mg, 20 mg IV diltiazem, 6 mg adenosine and placed on diltiazem drip which seemed to stabilize A. fib. Chest x-ray showed stable pulmonary venous congestion, stable cardiomegaly and a mild infiltrate in the right perihilar area. Cardiology Consulted: switched from diltiazem to amiodarone drip Low TSH. Could possibly contribute to Afib. Free T4/T3 ordered. Follow up. Continue home hydralazine. Hold isosorbide dinitrate. Hold Lasix. Continue home Xarelto and Simvastatin. UA ordered to rule out UTI. Follow Up. (2) Low TSH level Code(s): R79.89 - Other specified abnormal findings of blood chemistry Status : Acute Plan: TSH low at 0.094 Free T4 /T3 ordered follow-up. (3) Hypokalemia Code(s): E87.6 - Hypokalemia Status: Acute Plan: Patient found to be hypokalemic at 2.9 on admission. 60 MEq's of potassium chloride given in the ED. Trend potassium. Follow-up. (4) CKD (chronic kidney disease) Code(s): N18.9 - Chronic kidney disease, unspecified Status: Acute Plan: Creatinine of 1.24 on admission Compared to previous study seems to be at baseline. Continue to monitor (5) Cough Code(s): R05 - Cough Status: Acute Plan: Patient has 1 day cough of productive thick mucus. Increased crackles heard at the right lower lung bases. Mucinex added. Repeat PA and Lat chest x-ray ordered (6) Hyperglycemia Code(s): R73.9 - Hyperglycemia, unspecified Status: Acute Plan: Hyperglycemic at 161 on admission. No past medical history of diabetes. We will continue to monitor and consider low dose sliding scale of insulin. (7) DVT prophylaxis Status: Acute Plan: Continue home Xarelto. PT ordered. (8) Nutrition, metabolism, and development symptoms Code(s): R63.8 - Other symptoms and signs concerning food and fluid intake Status: Acute Plan: Fluids: Encourage p.o. intake Electrolytes: Hypokalemic, repeat K in 6 hours. Nutrition: Cardiac diet. Code: Full Code. <Erica Becerra - 10/27/18 17:16> - Assessment and Plan 68-year-old female with a past medical history of A. fib status post pacemaker placement 4-5 years ago presents with pacemaker alarming and pulse in the 180s. Was in A. fib on admission, given multiple doses of metoprolol, adenosine, Versed and was placed on a diltiazem drip which regulated her rate and rhythm. Patient was found to be hypokalemic at 2.4 and was replaced with 60 M EQ's of potassium chloride. Cardiology was consulted for evaluation of the pacemaker and atrial fibrillation. She was also found to have a low TSH which is being evaluated with a free T3-T4. Patient also complained of a 1 day productive cough of yellowish sputum. Physical exam was pertinent for crackles at the right lower lung base. Repeat chest x-ray was ordered. <Erica Becerra - 10/27/18 16:54> - Attending Attestation Patient seen and examined in the ED with the resident team. Agree with the assessment and plan as written above. Patient with underlying memory loss, poor historian. Will attempt to get in contact with family member to make sure we have all the information we need. <Antionette Aguillon - 10/28/18 11:54>
[2018-10-27] MEDS ORDERED: Bisacodyl 10 MG Supp RECTAL PRN (13:16)
[2018-10-27] MEDS ORDERED: Acetaminophen 325 MG Tablet PO PRN (13:16)
[2018-10-27] MEDS ORDERED: Amiodarone Inj 150 MG in Dextrose 5% in Water Inj 97 ML IV.SIG ONE ×2 (14:30)
--- NOTE | 2018-10-27 14:57 | ECG ---
Date Performed: 10/27/2018 Time Performed: 11:55:21 PTAGE: 68 years EKG: Baseline artifact present POSSIBLE ATRIAL FIBRILLATION VOLTAGE CRITERIA FOR LVH NONSPECIFIC ST & T-WAVE ABNORMALITY ABNORMAL ECG Compared to prior electrocardiogram, It is difficult to compare rhythm. Either there is no significant change or possible atrial fibrillation is now present. PREVIOUS TRACING : 10/27/2018 11.25 DOCTOR: Harish Fowler Interpretating Date/Time 10/27/2018 14:56:46
--- NOTE | 2018-10-27 15:00 | ECG ---
Date Performed: 10/27/2018 Time Performed: 11:25:54 PTAGE: 68 years EKG: SINUS TACHYCARDIA WITH FREQUENT SUPRAVENTRICULAR PREMATURE COMPLEXES LEFT VENTRICULAR HYPER TROPHY AND ST-T CHANGE ABNORMAL ECG Compared to prior electrocardiogram, Rate has decreased although prior rhythm is unclear. PREVIOUS TRACING : 10/27/2018 11.24 DOCTOR: Harish Fowler Interpretating Date/Time 10/27/2018 14:59:02
--- NOTE | 2018-10-27 15:01 | ECG ---
Date Performed: 10/27/2018 Time Performed: 11:24:40 PTAGE: 68 years EKG: ATRIAL FLUTTER/TACHYCARDIA WITH RAPID VENTRICULAR RESPONSE LEFT VENTRICULAR HYPERTROPHY AND ST-T CHANGE ABNORMAL ECG No significant change from prior electrocardiogram. PREVIOUS TRACING : 10/27/2018 11.14 DOCTOR: Harish Fowler Interpretating Date/Time 10/27/2018 14:59:40
--- NOTE | 2018-10-27 15:01 | ECG ---
Date Performed: 10/27/2018 Time Performed: 11:14:38 PTAGE: 68 years EKG: PROBABLE ATRIAL FLUTTER/TACHYCARDIA WITH RAPID VENTRICULAR RESPONSE LEFT VENTRICULAR HYPERT ROPHY AND ST-T CHANGE ABNORMAL ECG Compared to prior electrocardiogram, Rate has increased and atrial arrhythmia is present PREVIOUS TRACING : 10/11/2017 22.44 DOCTOR: Harish Fowler Interpretating Date/Time 10/27/2018 15:00:24
--- NOTE | 2018-10-27 15:10 | MB ---
cc: Chico Sherman MD DATE: 10/27/2018 REASON FOR CONSULTATION: AICD shocks, atrial fibrillation. HISTORY OF PRESENT ILLNESS: The patient is a 68-year-old female with a history of paroxysmal atrial fibrillation, status post ablation 03/22/2016, history of nonischemic cardiomyopathy, CVA, hypertension, AICD implant, who came to the hospital after a number of AICD shocks today. She was found to be in atrial fibrillation with a rapid ventricular response. The patient notes rapid palpitations today, but cannot recall any other episodes of palpitations recently. Today, she also felt moderately lightheaded prior to the shocks without loss of consciousness. She denies chest pain, shortness of breath, pedal edema, paroxysmal nocturnal dyspnea. The patient reports compliance with her medications. PAST SURGICAL HISTORY: 1. Tubal ligation. 2. Ankle surgery. 3. AICD implant. PAST MEDICAL HISTORY: 1. Paroxysmal atrial fibrillation, status post ablation 03/22/2016. 2. Nonischemic cardiomyopathy, diagnosed approximately 08/2015, at which time her ejection fraction was 30-35% and cardiac catheterization 08/26/15 showed normal coronary arteries. Her ejection fraction was 35-40% on an echo 01/28/2017. 3. History of cerebrovascular accident about 8 years ago. 4. Hypertension. 5. Single chamber [employer] AICD implant 08/29/2015. CARDIAC MEDICATIONS AT HOME: 1. Hydralazine 50 mg b.i.d. 2. Zocor 40 mg at bedtime. 3. Isosorbide mononitrate 60 mg t.i.d. 4. Furosemide 40 mg daily. 5. Xarelto 15 mg daily. ALLERGIES: NO KNOWN DRUG ALLERGIES. FAMILY HISTORY: Noncontributory. SOCIAL HISTORY: The patient is a former smoker. She denies alcohol abuse. REVIEW OF SYSTEMS: As in the history of present illness, otherwise negative or noncontributory. She also denies headache, abdominal pain, melena, dyspepsia, bright red blood per rectum, fevers. PHYSICAL EXAMINATION: VITAL SIGNS: Her blood pressure 178/93 with a pulse of 97, respirations 20. GENERAL: She is a well-developed, well-nourished female in no acute distress. HEENT: Jugular venous pressure is normal. Carotid pulses are 2+ bilaterally and without bruits. CHEST: Reveals clear lungs ni. CARDIAC: She has a regular rhythm and rate without S3, S4, or murmur. ABDOMEN: She has a soft, obese, nontender abdomen. Bowel sounds are present. There is no definite hepatosplenomegaly. EXTREMITIES: Reveals no clubbing, cyanosis or edema. DIAGNOSTIC DATA: Chest x-ray shows no acute disease. LABORATORY DATA: EKG shows atrial fibrillation, left ventricular hypertrophy with repolarization abnormalities. Chest x-ray shows no acute disease. LABORATORY DATA: Includes normal CBC. Potassium 2.9, BUN 12, creatinine 1.24. CK 128, troponin 0.02. IMPRESSION: Multiple AICD shocks probably due to atrial fibrillation with a rapid ventricular response in a 68-year-old female with a history of nonischemic cardiomyopathy, paroxysmal atrial fibrillation, status post ablation 2015, CVA, hypertension, AICD implant 08/29/2015. At this time, she is back in sinus rhythm after the multiple shocks. There is no definite evidence for acute coronary syndrome. Her coronary arteries on cardiac catheterization about 3 years ago were reportedly normal. There is also no definite evidence for acute congestive heart failure. Interrogation of her AICD by the retail service representative is pending. RECOMMENDATIONS: 1. Stop isosorbide as there is no definitive indication for an oral nitrate. 2. Replete her potassium. 3. Beta gypsy and PRABHA inhibitor therapy. 4. Continue Xarelto, although would increase the dosage to 20 mg a day. 5. Await interrogation of her AICD by the [employer] retail service representative. 6. Initiate intravenous Amiodarone, stop intravenous Cardizem. MD ELHAM Hugo/vidal , 01:45 PM , 01:56 PM [place]
--- NOTE | 2018-10-27 15:53 | XR ---
EXAM DATE: 10/27/2018 3:27 PM EST AGE/SEX: 68 years / Female INDICATIONS: . Shortness of breath. CLINICAL DATA: This is the patient's subsequent encounter. Patient reports that signs and symptoms h ave been present for 1 day and indicates a pain score of 6/10. MEDICAL/SURGICAL HISTORY: Stroke. Myocardial infarction. Congestive heart failure. Pacemaker. Tubal ligation. Right ankle surgery. COMPARISON: [facility] [place], CHEST 1V SINGLE AP, 10/27/2018. . FINDINGS: AP and lateral views of the chest demonstrate a normal-sized cardiac silhouette. EKG lines overlie th e patient and left chest wall cardiac pacing device/AICD is present. Lungs are underinflated and ther e is mild bibasilar opacity. No pneumothorax or pleural effusion is identified. Bones demonstrate no acute finding. CONCLUSION: Underinflated examination with stable mild bibasilar airspace opacity and right midlung zone opacity. Electronically signed by: Nelson Huff MD 10/27/2018 3:51 PM EST
[2018-10-27 16:23] LABS: Free T4 (Free Thyroxine) 1.69 ng/dL (0.76-1.46); Triiodothyronine (T3) Free 3.3 pg/mL (2.18-3.98); Troponin I 0.09 ng/mL (0.02-0.05)
[2018-10-27] MEDS ORDERED: hydrALAZINE HCl Inj 20 MG/ML Vial IV.PUSH PRN (16:27)
[2018-10-27] MEDS: amLODIPine 10 MG Tablet PO SCH (17:55)
[2018-10-27] MEDS ORDERED: Metoprolol Tartrate 50 MG Tablet PO ONE (18:00)
[2018-10-27] MEDS ORDERED: Metoprolol Tartrate 50 MG Tablet PO SCH (18:00)
[2018-10-27] MEDS ORDERED: Isosorbide Mononitrate 60 MG ER 24HR Tablet (Imdur) PO SCH (18:00)
[2018-10-27 18:58] LABS: Bacteria,Urine Rare /hpf; Bilirubin,Urine Negative (Negative); Clarity,Urine Cloudy (Clear); Color,Urine Yellow (Yellw/Straw); Glucose,Urine (UA) Negative (Negative); Leukocyte Esterase,Urine Negative (Negative); Mucus,Urine Few /lpf (Occasional); Nitrite,Urine Negative (Negative); Specific Gravity,Urine 1.011 (1.002-1.035); Squamous Epithelial Cell,Urine 7 /hpf (0-5); Urobilinogen,Urine 4 or Greater mg/dL (Less than 2)
[2018-10-27] MEDS: hydrALAZINE 50 MG Tablet PO SCH (20:05)
[2018-10-27] MEDS: guaiFENesin 600 MG ER Tablet PO SCH (20:05)
[2018-10-27] MEDS: Senna/Docusate Sodium 8.6/50 MG Tablet PO SCH (20:07)
[2018-10-27 21:19] LABS: Potassium 3.2 meq/L (3.5-5.1)
[2018-10-27 21:28] LABS: Troponin I 0.21 ng/mL (0.02-0.05)
[2018-10-28 05:27] LABS: Baso # (Auto) 0.1 th/mm3 (0.0-0.2); Baso % (Auto) 1.3 % (0.0-2.0); Eos # (Auto) 0.2 th/mm3 (0.0-0.4); Eos % (Auto) 2.2 % (0.0-4.0); Hematocrit 37.6 % (35.0-46.0); Hemoglobin 12.7 gm/dL (11.6-15.3); Lymph # (Auto) 1.9 th/mm3 (1.0-4.8); Lymph % (Auto) 27.1 % (9.0-44.0); Mean Corpuscular HGB Conc 33.9 % (32.0-36.0); Mean Corpuscular Hemoglobin 27.1 pg (27.0-34.0); Mean Corpuscular Volume 79.8 fL (80.0-100.0); Mean Platelet Volume 9.9 fL (7.0-11.0); Mono # (Auto) 0.7 th/mm3 (0.0-0.9); Mono % (Auto) 10.5 % (0.0-8.0); Neut # (Auto) 4.1 th/mm3 (1.8-7.7); Neut % (Auto) 58.9 % (16.0-70.0); Platelet Count 231 th/mm3 (150-450); Red Blood Count 4.71 mil/mm3 (4.00-5.30); White Blood Count 6.9 th/mm3 (4.0-11.0)
[2018-10-28 05:50] LABS: Alanine Aminotransferase 19 U/L (10-53); Albumin 3.5 g/dL (3.4-5.0); Anion Gap 6 meq/L (5-15); Aspartate Aminotransferase 43 U/L (15-37); Blood Urea Nitrogen 11 mg/dL (7-18); Calcium 8.9 mg/dL (8.5-10.1); Carbon Dioxide 24.9 meq/L (21.0-32.0); Chloride 108 meq/L (98-107); Glomerular Filtration Rate 54 mL/min (>89); Glucose,Random 101 mg/dL (74-106); Potassium 3.1 meq/L (3.5-5.1); Sodium 139 meq/L (136-145)
[2018-10-28 05:56] LABS: Alkaline Phosphatase 95 U/L (45-117); Total Protein 7.8 g/dL (6.4-8.2)
[2018-10-28] MEDS: amLODIPine 10 MG Tablet PO SCH (08:14)
[2018-10-28] MEDS: hydrALAZINE 50 MG Tablet PO SCH ×2 (08:15→22:00)
[2018-10-28] MEDS: Rivaroxaban 15 MG Tablet PO SCH (08:15)
[2018-10-28] MEDS: guaiFENesin 600 MG ER Tablet PO SCH ×2 (08:15→22:01)
[2018-10-28] MEDS: Senna/Docusate Sodium 8.6/50 MG Tablet PO SCH ×2 (08:16→22:01)
--- NOTE | 2018-10-28 08:22 | P.PNCA ---
Subjective Interval history: Denies dyspnea, CP, dizziness, palpitations. Slept very well. No nausea. Medications and Allergies Active Medications: Active Medications Acetaminophen (Tylenol) 650 mg PO Q4H PRN PRN Reason: Temp > 100.4 Al Hydroxide/Mg Hydroxide (Milk Of Magnesia Liq) 30 ml PO Q12H PRN PRN Reason: Mild Constipation Amlodipine Besylate (Norvasc) 10 mg PO DAILY [facility] Last Admin: 10/27/18 17:55 Dose: 10 mg Bisacodyl (Dulcolax Supp) 10 mg RECTAL DAILY PRN PRN Reason: SEVERE CONSITIPATION Enalapril Maleate (Vasotec) 10 mg PO BID [facility] Last Admin: 10/27/18 20:05 Dose: 10 mg Guaifenesin (Mucinex Er) 600 mg PO BID [facility] Last Admin: 10/27/18 20:05 Dose: 600 mg Hydralazine HCl (Apresoline) 50 mg PO BID [facility] Last Admin: 10/27/18 20:05 Dose: 50 mg Amiodarone HCl 450 mg/ (Dextrose) 250 mls @ 33.33 mls/hr IV.CONT TITRATE PRN; Protocol PRN Reason: Per Protocol Stop: 10/29/18 14:59 Last Admin: 10/27/18 14:51 Dose: 1 mg/min, 33.33 mls/hr Lactulose (Lactulose Liq) 30 ml PO DAILY PRN PRN Reason: SEVERE CONSITIPATION Metoprolol Tartrate (Lopressor) 100 mg PO TID [facility] Ondansetron HCl (Zofran Inj) 4 mg IV.PUSH Q6H PRN PRN Reason: NAUSEA OR VOMITING Pravastatin Sodium (Pravachol) 80 mg PO QPM [facility] Last Admin: 10/27/18 17:06 Dose: 80 mg Rivaroxaban (Xarelto) 20 mg PO DAILY [facility] Senna/Docusate Sodium (Alice-Colace) 1 tab PO BID [facility] Last Admin: 10/27/18 20:07 Dose: Not Given Sennosides (Senokot) 17.2 mg PO Q12H PRN PRN Reason: Moderate Constipation Sodium Chloride (Ns Flush) 2 ml IV.FLUSH UNSCH PRN PRN Reason: FLUSH AFTER USING IV ACCESS Last Admin: 10/27/18 11:20 Dose: 2 ml Sodium Chloride (Ns Flush) 2 ml IV.FLUSH BID GEOVANNY Last Admin: 10/27/18 20:07 Dose: 2 ml Sodium Chloride (Ns Flush) 2 ml IV.FLUSH PRN PRN PRN Reason: FLUSH AFTER USING IV ACCESS Allergies Allergy/AdvReac Type Severity Reaction Status Date / Time No Known Allergies Allergy Verified 10/27/18 11:31 Home Medications Medication Instructions Recorded Confirmed Type alendronate 70 mg PO QWEEK 10/27/18 10/27/18 History furosemide [Lasix] 40 mg PO DAILY 10/27/18 10/27/18 History hydralazine 50 mg PO BID 10/27/18 10/27/18 History isosorbide dinitrate 60 mg PO TID 10/27/18 10/27/18 History rivaroxaban [Xarelto] 15 mg PO DAILY NEB 10/27/18 10/27/18 History simvastatin [Zocor] 40 mg PO QPM 10/27/18 10/27/18 History Physical Exam Vital signs: Vital Signs 10/27/18 11:18 10/27/18 11:19 10/27/18 11:27 Temperature 97.8 F 97.8 F Pulse Rate 168 H 168 H 130 H Respiratory Rate 20 20 Blood Pressure 169/107 H 159/72 H Pulse Oximetry 96 99 95 10/27/18 11:50 10/27/18 11:55 10/27/18 12:07 Temperature 97.9 F Pulse Rate 108 H 112 H 90 Respiratory Rate 20 18 17 Blood Pressure 171/100 H 188/89 H 183/86 H Pulse Oximetry 98 99 98 10/27/18 12:27 10/27/18 12:34 10/27/18 13:16 Temperature 97.7 F Pulse Rate 91 H 97 H 89 Respiratory Rate 17 20 18 Blood Pressure 188/93 H 178/93 H 180/87 H Pulse Oximetry 100 97 99 10/27/18 15:25 10/27/18 16:00 10/27/18 16:05 Temperature 98.1 F 98.6 F 97.9 F Pulse Rate 97 H 93 H 93 H Respiratory Rate 23 18 18 Blood Pressure 210/101 H 197/124 H 183/100 H Pulse Oximetry 95 100 98 10/27/18 17:00 10/27/18 17:05 10/27/18 17:31 Temperature Pulse Rate 90 Respiratory Rate Blood Pressure 192/111 H 204/116 H Pulse Oximetry 10/27/18 17:56 10/27/18 18:00 10/27/18 18:35 Temperature Pulse Rate 83 Respiratory Rate Blood Pressure 200/116 H 189/111 H Pulse Oximetry 10/27/18 19:00 10/27/18 20:00 10/27/18 21:00 Temperature 98.8 F Pulse Rate 72 70 76 Respiratory Rate 20 Blood Pressure 178/109 H Pulse Oximetry 99 10/27/18 22:00 10/27/18 23:00 10/28/18 00:00 Temperature 98.0 F Pulse Rate 76 72 90 Respiratory Rate 16 Blood Pressure 167/94 H Pulse Oximetry 98 10/28/18 01:00 10/28/18 02:00 10/28/18 03:00 Temperature Pulse Rate 70 70 70 Respiratory Rate Blood Pressure Pulse Oximetry 10/28/18 04:00 10/28/18 05:00 10/28/18 06:00 Temperature 98.0 F Pulse Rate 70 76 66 Respiratory Rate 16 Blood Pressure 152/103 H Pulse Oximetry 98 Intake & Output 10/27/18 10/28/18 10/28/18 18:59 06:59 18:59 Intake Total 685 / 685 240 / 240 Output Total 25 / 25 200 / 200 Balance 660 / 660 40 / 40 Weight 90.718 kg 90.6 kg Intake: IV 205 / 205 Cardizem Inj 125 MG In NS Inj 5 / 5 100 ML @ 5 MG/HR 5 mls/hr IV. CONT TITRATE PRN Rx#:[id number] Cordarone Inj 150 MG In D5W Inj 100 / 100 97 ML @ 600 mls/hr IV.SIG ONCE ONE Rx#:[id number] KCl 20 mEq Premix Inj 20 meq In 100 / 100 100 ml @ 50 mls/hr IV.SIG ONCE ONE Rx#:[id number] Oral 480 / 480 240 / 240 Output: Urine 25 / 25 200 / 200 Other: # Voids 1 - Constitutional no acute distress - Routine Neck Exam Absent: JVD - Routine Respiratory Exam Present: decreased breath sounds - Routine Cardiovascular Exam Present: RRR, S1, S2. Absent: murmur, gallop - Routine Abdominal Exam Present: soft, normoactive bowel sounds. Absent: tenderness, organomegaly - Routine Extremities Exam Absent: cyanosis, clubbing, edema Results 10/28/18 05:02 10/28/18 05:02 Cardiac Enzymes 10/27/18 10/27/18 10/27/18 Range/Units 11:30 14:38 20:40 AST 20 (15-37) U/L CK-MB (CK-2) 1.4 (0.5-3.6) ng/mL Troponin I 0.02 0.09 H 0.21 H D (0.02-0.05) ng/mL 10/28/18 Range/Units 05:02 AST 43 H (15-37) U/L CK-MB (CK-2) (0.5-3.6) ng/mL Troponin I (0.02-0.05) ng/mL Coagulation 10/27/18 Range/Units 11:30 PT 13.7 H (9.8-11.6) sec APTT 46.2 H (23.4-31.7) sec CBC 10/27/18 10/28/18 Range/Units 11:30 05:02 WBC 7.7 6.9 (4.0-11.0) th/mm3 RBC 5.03 4.71 (4.00-5.30) mil/mm3 Hgb 13.7 12.7 (11.6-15.3) gm/dL Hct 41.1 37.6 (35.0-46.0) % Plt Count 235 231 (150-450) th/mm3 Neut # (Auto) 4.1 4.1 (1.8-7.7) th/mm3 Lymph # (Auto) 2.4 1.9 (1.0-4.8) th/mm3 [place] # (Auto) 0.8 0.7 (0.0-0.9) th/mm3 Eos # (Auto) 0.4 0.2 (0.0-0.4) th/mm3 Baso # (Auto) 0.0 0.1 (0.0-0.2) th/mm3 Comprehensive Metabolic Panel 10/27/18 10/27/18 10/28/18 Range/Units 11:30 20:40 05:02 Sodium 140 139 (136-145) meq/L Potassium 2.9 L* 3.2 L 3.1 L (3.5-5.1) meq/L Chloride 106 108 H (98-107) meq/L Carbon Dioxide 22.9 24.9 (21.0-32.0) meq/L BUN 12 11 (7-18) mg/dL Creatinine 1.24 H 1.20 H (0.50-1.00) mg/dL Calcium 8.8 8.9 (8.5-10.1) mg/dL AST 20 43 H (15-37) U/L ALT 14 19 (10-53) U/L Alkaline Phosphatase 104 95 (45-117) U/L Total Protein 8.4 H 7.8 D (6.4-8.2) g/dL Albumin 3.6 3.5 (3.4-5.0) g/dL Intake and Output 10/27/18 10/28/18 10/28/18 22:59 06:59 14:59 Intake Total 580 / 580 240 / 240 Output Total 25 / 25 200 / 200 Balance 555 / 555 40 / 40 Intake: IV 100 / 100 Cordarone Inj 150 MG In D5W Inj 100 / 100 97 ML @ 600 mls/hr IV.SIG ONCE ONE Rx#:[id number] Oral 480 / 480 240 / 240 Output: Urine 25 / 25 200 / 200 Other: # Voids 1 Weight 90.6 kg - Imaging and Cardiology Imaging: Impressions Chest X-Ray 10/27/18 00:00 CONCLUSION: Underinflated examination with stable mild bibasilar airspace opacity and right midlung zone opacity. Chest X-Ray 10/27/18 11:27 CONCLUSION: 1. Stable pulmonary venous congestion. 2. Stable mild infiltrate in the right perihilar area. 3. Stable cardiomegaly. Assessment and Plan - Assessment (1) ICD (implantable cardioverter-defibrillator) discharge Code(s): Z45.02 - Encounter for adjustment and management of automatic implantable cardiac defibrillator Status: Acute Plan: Stable overnight on IV Amiodarone. Appears shocks were due to atrial fib with rapid rates. Recommend continue IV Amiodarone 24 more hours then change to 200 mg po qd. (2) Paroxysmal atrial fibrillation Code(s): I48.0 - Paroxysmal atrial fibrillation Status: Acute Plan: Prior history of ablation. Remains in NSR post ICD shocks. Recommend continue IV Amiodarone 24 more hours, continue Xarelto at 20 mg qd dosing. (3) Nonischemic cardiomyopathy Code(s): I42.8 - Other cardiomyopathies Status: Chronic Plan: Overall compensated. No acute CHF. Continue beta gypsy, PRABHA-I. REC mcfp better/strict BP control. (4) Hypertension Code(s): I10 - Essential (primary) hypertension Status: Chronic Plan: Suboptimal BP control on multi-drug regimen. Recommend increase enalapril dosing, consider adding clonidine. - Plan Code Status: full code Discussed Condition With: patient (4) Hypertension Qualifiers: Hypertension type: essential hypertension Qualified Code(s): I10 - Essential (primary) hypertension
[2018-10-28] MEDS ORDERED: Metoprolol Tartrate 100 MG Tablet PO SCH (09:00)
[2018-10-28] MEDS ORDERED: Rivaroxaban 15 MG Tablet PO SCH (09:00)
--- NOTE | 2018-10-28 11:37 | P.PNFP ---
Subjective Interval history: No acute events overnight. Patient states that her defibrillator did not go off overnight and she denies any chest pain since admission. She denies any shortness of breath, abdominal pain, bloody bowel movements. She has no questions at this time. She has continued to be hypertensive up to 199/103. Denies any headache or vision changes. Heart rate has been well controlled since admission <Real Hill B - 10/28/18 16:34> Results - Labs Result diagrams: 10/29/18 05:21 10/29/18 05:21 <Antionette Aguillon - 10/29/18 08:51> Abnormal lab results 10/29/18 10/29/18 Range/Units 05:21 05:21 Neut % (Auto) 79.8 H (16.0-70.0) % Potassium 2.8 L* (3.5-5.1) meq/L Creatinine 1.09 H (0.50-1.00) mg/dL Estimated GFR 61 L (>89) mL/min Random Glucose 114 H (74-106) mg/dL Calcium 8.4 L (8.5-10.1) mg/dL TSH 0.055 L (0.358-3.740) uIU/mL Free T4 1.67 H (0.76-1.46) ng/dL Short CBC 10/29/18 Range/Units 05:21 WBC 9.2 (4.0-11.0) th/mm3 Hgb 12.5 (11.6-15.3) gm/dL Hct 37.2 (35.0-46.0) % Plt Count 222 (150-450) th/mm3 [facility] 10/29/18 05:21 Sodium 139 Potassium 2.8 L* Chloride 105 Carbon Dioxide 24.5 BUN 9 Creatinine 1.09 H Calcium 8.4 L <Antionette Aguillon - 10/29/18 08:51> Abnormal lab results 10/27/18 10/27/18 10/27/18 Range/Units 11:30 11:30 11:30 MCV (80.0-100.0) fL [place] % (Auto) 10.4 H (0.0-8.0) % Eos % (Auto) 4.9 H (0.0-4.0) % PT 13.7 H (9.8-11.6) sec APTT 46.2 H (23.4-31.7) sec Potassium 2.9 L* (3.5-5.1) meq/L Chloride (98-107) meq/L Creatinine 1.24 H (0.50-1.00) mg/dL Estimated GFR 52 L (>89) mL/min Random Glucose 161 H (74-106) mg/dL AST (15-37) U/L Troponin I (0.02-0.05) ng/mL Total Protein 8.4 H (6.4-8.2) g/dL TSH 0.094 L (0.358-3.740) uIU/mL Free T4 (0.76-1.46) ng/dL Urine Clarity (Clear) Urine Protein (Neg-Trace) mg/dL Urine Occult Blood (Negative) Urine Bacteria (None) /hpf Urine Mucus (Occasional) /lpf 10/27/18 10/27/18 10/27/18 Range/Units 14:38 18:15 20:40 MCV (80.0-100.0) fL [place] % (Auto) (0.0-8.0) % Eos % (Auto) (0.0-4.0) % PT (9.8-11.6) sec APTT (23.4-31.7) sec Potassium 3.2 L (3.5-5.1) meq/L Chloride (98-107) meq/L Creatinine (0.50-1.00) mg/dL Estimated GFR (>89) mL/min Random Glucose (74-106) mg/dL AST (15-37) U/L Troponin I 0.09 H 0.21 H D (0.02-0.05) ng/mL Total Protein (6.4-8.2) g/dL TSH (0.358-3.740) uIU/mL Free T4 1.69 H (0.76-1.46) ng/dL Urine Clarity Cloudy H (Clear) Urine Protein 100 H (Neg-Trace) mg/dL Urine Occult Blood Small H (Negative) Urine Bacteria Rare H (None) /hpf Urine Mucus Few H (Occasional) /lpf 10/28/18 10/28/18 Range/Units 05:02 05:02 MCV 79.8 L (80.0-100.0) fL [place] % (Auto) 10.5 H (0.0-8.0) % Eos % (Auto) (0.0-4.0) % PT (9.8-11.6) sec APTT (23.4-31.7) sec Potassium 3.1 L (3.5-5.1) meq/L Chloride 108 H (98-107) meq/L Creatinine 1.20 H (0.50-1.00) mg/dL Estimated GFR 54 L (>89) mL/min Random Glucose (74-106) mg/dL AST 43 H (15-37) U/L Troponin I (0.02-0.05) ng/mL Total Protein (6.4-8.2) g/dL TSH (0.358-3.740) uIU/mL Free T4 (0.76-1.46) ng/dL Urine Clarity (Clear) Urine Protein (Neg-Trace) mg/dL Urine Occult Blood (Negative) Urine Bacteria (None) /hpf Urine Mucus (Occasional) /lpf Short CBC 10/27/18 10/28/18 Range/Units 11:30 05:02 WBC 7.7 6.9 (4.0-11.0) th/mm3 Hgb 13.7 12.7 (11.6-15.3) gm/dL Hct 41.1 37.6 (35.0-46.0) % Plt Count 235 231 (150-450) th/mm3 BMP 10/27/18 10/27/18 10/28/18 11:30 20:40 05:02 Sodium 140 139 Potassium 2.9 L* 3.2 L 3.1 L Chloride 106 108 H Carbon Dioxide 22.9 24.9 BUN 12 11 Creatinine 1.24 H 1.20 H Calcium 8.8 8.9 Cardiac Enzymes 10/27/18 10/27/18 10/27/18 Range/Units 11:30 14:38 20:40 Total Creatine Kinase 128 (26-192) U/L CK-MB (CK-2) 1.4 (0.5-3.6) ng/mL Troponin I 0.02 0.09 H 0.21 H D (0.02-0.05) ng/mL Liver Function 10/27/18 10/28/18 Range/Units 11:30 05:02 Total Bilirubin 0.4 0.6 (0.2-1.0) mg/dL AST 20 43 H (15-37) U/L ALT 14 19 (10-53) U/L Alkaline Phosphatase 104 95 (45-117) U/L Albumin 3.6 3.5 (3.4-5.0) g/dL Urine 10/27/18 Range/Units 18:15 Urine Color Yellow (Yellw/Straw) Urine Clarity Cloudy H (Clear) Urine pH 6.0 (5.0-8.5) Ur Specific [place] 1.011 (1.002-1.035) Urine Protein 100 H (Neg-Trace) mg/dL Urine Glucose (UA) Negative (Negative) mg/dL <Real Hill - 10/28/18 11:37> - Imaging Impressions Chest X-Ray 10/27/18 00:00 CONCLUSION: Underinflated examination with stable mild bibasilar airspace opacity and right midlung zone opacity. Chest X-Ray 10/27/18 11:27 CONCLUSION: 1. Stable pulmonary venous congestion. 2. Stable mild infiltrate in the right perihilar area. 3. Stable cardiomegaly. <Real Hill - 10/28/18 11:37> Physical Exam Vital signs: Vital Signs 10/28/18 09:00 10/28/18 10:00 10/28/18 10:45 Temperature Pulse Rate 72 62 Respiratory Rate Blood Pressure Pulse Oximetry 97 10/28/18 11:00 10/28/18 12:00 10/28/18 13:00 Temperature 98.7 F Pulse Rate 68 62 64 Respiratory Rate 16 Blood Pressure 156/86 H Pulse Oximetry 95 10/28/18 14:00 10/28/18 15:00 10/28/18 16:00 Temperature 99.3 F Pulse Rate 70 76 72 Respiratory Rate 16 Blood Pressure 199/103 H 193/108 H Pulse Oximetry 95 10/28/18 17:00 10/28/18 18:00 10/28/18 19:00 Temperature 98.1 F Pulse Rate 76 68 72 Respiratory Rate 16 Blood Pressure 160/97 H Pulse Oximetry 94 L 10/28/18 20:00 10/28/18 21:00 10/28/18 22:00 Temperature Pulse Rate 72 72 74 Respiratory Rate Blood Pressure Pulse Oximetry 97 10/28/18 23:00 10/29/18 00:00 10/29/18 00:25 Temperature 99.5 F Pulse Rate 69 62 Respiratory Rate 18 Blood Pressure 188/94 H 159/91 H Pulse Oximetry 96 10/29/18 01:00 10/29/18 02:00 10/29/18 03:00 Temperature 98.8 F Pulse Rate 71 74 73 Respiratory Rate 16 Blood Pressure 188/105 H Pulse Oximetry 94 L 10/29/18 04:00 10/29/18 05:00 10/29/18 06:00 Temperature Pulse Rate 62 70 70 Respiratory Rate Blood Pressure Pulse Oximetry 10/29/18 07:00 Temperature 98.8 F Pulse Rate 85 Respiratory Rate 22 Blood Pressure 209/110 H Pulse Oximetry 96 Intake & Output 10/28/18 10/29/18 10/29/18 18:59 06:59 18:59 Intake Total 600 / 600 240 / 240 Output Total 700 / 700 475 / 475 Balance -100 / -100 -235 / -235 Weight 89.6 kg Intake: Oral 600 / 600 240 / 240 Output: Urine 700 / 700 475 / 475 Other: Date of Last Bowel Movement 10/28/18 10/28/18 # Bowel Movements 1 <Antionette Aguillon R - 10/29/18 08:51> Vital Signs 10/27/18 11:50 10/27/18 11:55 10/27/18 12:07 Temperature 97.9 F Pulse Rate 108 H 112 H 90 Respiratory Rate 20 18 17 Blood Pressure 171/100 H 188/89 H 183/86 H Pulse Oximetry 98 99 98 10/27/18 12:27 10/27/18 12:34 10/27/18 13:16 Temperature 97.7 F Pulse Rate 91 H 97 H 89 Respiratory Rate 17 20 18 Blood Pressure 188/93 H 178/93 H 180/87 H Pulse Oximetry 100 97 99 10/27/18 15:25 10/27/18 16:00 10/27/18 16:05 Temperature 98.1 F 98.6 F 97.9 F Pulse Rate 97 H 93 H 93 H Respiratory Rate 23 18 18 Blood Pressure 210/101 H 197/124 H 183/100 H Pulse Oximetry 95 100 98 10/27/18 17:00 10/27/18 17:05 10/27/18 17:31 Temperature Pulse Rate 90 Respiratory Rate Blood Pressure 192/111 H 204/116 H Pulse Oximetry 10/27/18 17:56 10/27/18 18:00 10/27/18 18:35 Temperature Pulse Rate 83 Respiratory Rate Blood Pressure 200/116 H 189/111 H Pulse Oximetry 10/27/18 19:00 10/27/18 20:00 10/27/18 21:00 Temperature 98.8 F Pulse Rate 72 70 76 Respiratory Rate 20 Blood Pressure 178/109 H Pulse Oximetry 99 10/27/18 22:00 10/27/18 23:00 10/28/18 00:00 Temperature 98.0 F Pulse Rate 76 72 90 Respiratory Rate 16 Blood Pressure 167/94 H Pulse Oximetry 98 10/28/18 01:00 10/28/18 02:00 10/28/18 03:00 Temperature Pulse Rate 70 70 70 Respiratory Rate Blood Pressure Pulse Oximetry 10/28/18 04:00 10/28/18 05:00 10/28/18 06:00 Temperature 98.0 F Pulse Rate 70 76 66 Respiratory Rate 16 Blood Pressure 152/103 H Pulse Oximetry 98 10/28/18 07:00 10/28/18 08:00 10/28/18 09:00 Temperature 98.6 F Pulse Rate 74 78 72 Respiratory Rate 16 Blood Pressure 209/119 H Pulse Oximetry 97 97 10/28/18 10:00 10/28/18 10:45 10/28/18 11:00 Temperature 98.7 F Pulse Rate 62 68 Respiratory Rate 16 Blood Pressure 156/86 H Pulse Oximetry 97 95 Intake & Output 10/27/18 10/28/18 10/28/18 18:59 06:59 18:59 Intake Total 685 / 685 240 / 240 Output Total 25 / 25 200 / 200 Balance 660 / 660 40 / 40 Weight 90.718 kg 90.6 kg Intake: IV 205 / 205 Cardizem Inj 125 MG In NS Inj 5 / 5 100 ML @ 5 MG/HR 5 mls/hr IV. CONT TITRATE PRN Rx#:[id number] Cordarone Inj 150 MG In D5W Inj 100 / 100 97 ML @ 600 mls/hr IV.SIG ONCE ONE Rx#:[id number] KCl 20 mEq Premix Inj 20 meq In 100 / 100 100 ml @ 50 mls/hr IV.SIG ONCE ONE Rx#:[id number] Oral 480 / 480 240 / 240 Output: Urine 25 / 25 200 / 200 Other: # Voids 1 Date of Last Bowel Movement 10/28/18 <Real Hill - 10/28/18 11:37> Narrative: GENERAL: Well appearing female, laying comfortably on nasal cannula, in no acute distress SKIN: Warm and dry. HEAD: Normocephalic. EYES: No scleral icterus. No injection or drainage. NECK: Supple, trachea midline. No JVD or lymphadenopathy. CARDIOVASCULAR: Regular rate and rhythm with a rate in the 70s without murmurs, gallops, or rubs. RESPIRATORY: Basilar crackles auscultated bilaterally -improved from prior exam. Good air movement bilaterally. No wheezes. No accessory muscle use. GASTROINTESTINAL: Abdomen soft, non-tender, nondistended. MUSCULOSKELETAL: No cyanosis, or edema. BACK: Nontender without obvious deformity. No CVA tenderness. <Real Hill - 10/28/18 16:34> Assessment and Plan - Assessment (1) Afib Code(s): I48.91 - Unspecified atrial fibrillation Status: Acute (2) Hypertension Code(s): I10 - Essential (primary) hypertension Status: Acute (3) Low TSH level Code(s): R79.89 - Other specified abnormal findings of blood chemistry Status : Acute (4) Hypokalemia Code(s): E87.6 - Hypokalemia Status: Acute (5) CKD (chronic kidney disease) Code(s): N18.9 - Chronic kidney disease, unspecified Status: Acute (6) Cough Code(s): R05 - Cough Status: Acute (7) Hyperglycemia Code(s): R73.9 - Hyperglycemia, unspecified Status: Acute (8) DVT prophylaxis Status: Acute (9) Nutrition, metabolism, and development symptoms Code(s): R63.8 - Other symptoms and signs concerning food and fluid intake Status: Acute <Antionette Aguillon - 10/29/18 08:51> (1) Afib Code(s): I48.91 - Unspecified atrial fibrillation Status: Acute Plan: Patient with a history of A. fib status post pacemaker placement 4-5 years ago presents with pacemaker alarming and patient in acute A.fib with an elevated heart rate at 166. Patient was asymptomatic and denied any chest pain. Given 7.5 mg IV metoprolol in the ED, Versed 2 mg, 20 mg IV diltiazem, 6 mg adenosine and placed on diltiazem drip which seemed to stabilize A. fib. Chest x-ray showed stable pulmonary venous congestion, stable cardiomegaly and a mild infiltrate in the right perihilar area. Cardiology Consulted: switched from diltiazem to amiodarone drip and currently well-controlled Low TSH. Could possibly contribute to Afib. Free T4/T3 ordered. Follow up. Continue hydralazine, metoprolol. Cardiology recommending increasing Xarelto to 20 mg p.o. daily (2) Hypertension Code(s): I10 - Essential (primary) hypertension Status: Acute Plan: Patient has been significantly hypertensive since admission Takes hydralazine 50 mg p.o. twice daily at home Metoprolol 100 mg p.o. twice daily was added by cardiology, amlodipine 10 mg p.o. daily was added Patient continued to be significantly hypertensive up to 199/100 Cardiology adding clonidine 0.2 mg p.o. twice daily We will continue to monitor (3) Low TSH level Code(s): R79.89 - Other specified abnormal findings of blood chemistry Status : Acute Plan: TSH low at 0.094 on admission. Free T4 mildly elevated at 1.69, free T3 within normal limits Repeating TSH, free T4 and thyroid antibody panel on 10/29 (4) Hypokalemia Code(s): E87.6 - Hypokalemia Status: Acute Plan: Patient found to be hypokalemic at 2.9 on admission. 60 MEq's of potassium chloride given in the ED. Increased to 3.2, will continue to trend (5) CKD (chronic kidney disease) Code(s): N18.9 - Chronic kidney disease, unspecified Status: Acute Plan: Creatinine of 1.24 on admission Compared to previous study seems to be at baseline. Repeat creatinine was 1.20 on day 1 of hospitalization Continue to monitor (6) Cough Code(s): R05 - Cough Status: Acute Plan: Patient has 1 day cough of productive thick mucus. Increased crackles heard at the right lower lung bases. Mucinex added. Repeat PA and Lat showed stable pulmonary venous congestion (7) Hyperglycemia Code(s): R73.9 - Hyperglycemia, unspecified Status: Acute Plan: Hyperglycemic at 161 on admission. Repeat of 101 on day 1 of hospitalization, will continue to monitor (8) DVT prophylaxis Status: Acute Plan: Increase Xarelto to 20 mg p.o. daily PT ordered. (9) Nutrition, metabolism, and development symptoms Code(s): R63.8 - Other symptoms and signs concerning food and fluid intake Status: Acute Plan: Fluids: Encourage p.o. intake Electrolytes: Hypokalemic on admission, continuing to trend Nutrition: Cardiac diet. Code: Full Code. <Real Hill - 10/28/18 16:21> - Assessment and Plan 68-year-old female with a past medical history of A. fib status post pacemaker placement 4-5 years ago presents with pacemaker alarming and pulse in the 180s. Was in A. fib on admission, given multiple doses of metoprolol, adenosine, Versed and was placed on a diltiazem drip which regulated her rate and rhythm. Patient was found to be hypokalemic at 2.4 and was replaced with 60 M EQ's of potassium chloride. Cardiology was consulted for evaluation of the pacemaker and atrial fibrillation. Patient's weight was controlled on amiodarone drip. Patient continued to be significantly hypertensive multiple medications were added. <Real Hill - 10/28/18 16:34> - Attending Attestation Patient seen and dw the resident team. Agree with the assessment and plan as documented <Antionette Aguillon - 10/29/18 08:51>
[2018-10-28] MEDS ORDERED: hydrALAZINE HCl Inj 20 MG/ML Vial IV.PUSH ONE (18:45)
--- NOTE | 2018-10-28 18:59 | ECHRPT ---
Indication: CARDIOMYOPATHY CONCLUSIONS The left ventricular systolic function is mildly reduced with an estimated ejection fraction in the range of 45- 50%. Severe concentric left ventricular hypertrophy. Doppler parameters are consistent with a pseudonormal left ventricular filling pattern with concomin ant abnormal relaxation and increased filling pressure (grade 2 diastolic dysfunction). Trace mitral valve regurgitation. There is trace tricuspid valve regurgitation. BP: / HR: Rhythm: Sinus MEASUREMENTS (Male / Female) Normal Values Technical Quality:Fair, , Technically difficult st udy 2D ECHO LV Diastolic Diameter PLAX 4.8 cm 4.2 - 5.9 / 3.9 - 5.3 cm LV Systolic Diameter PLAX 3.9 cm IVS Diastolic Thickness 1.7 cm 0.6 - 1.0 / 0.6 - 0.9 cm LVPW Diastolic Thickness 1.7 cm 0.6 - 1.0 / 0.6 - 0.9 cm LV Relative Wall Thickness 0.7 LVOT Diameter 1.9 cm Aortic Root Diameter 2.7 cm LA Systolic Diameter LX 4.1 cm 3.0 - 4.0 / 2.7 - 3.8 cm M-MODE AV Cusp Separation MM 1.5 cm DOPPLER AV Peak Velocity 162.0 cm/s AV Peak Gradient 10.5 mmHg LVOT Peak Velocity 77.7 cm/s LVOT Peak Gradient 2.4 mmHg AV Area Cont Eq pk 1.4 cm Mitral E Point Velocity 102.0 cm/s Mitral A Point Velocity 85.8 cm/s Mitral E to A Ratio 1.2 LV E' Lateral Velocity 7.6 cm/s Mitral E to LV E' Lateral Ratio 13.4 LV E' Septal Velocity 5.2 cm/s Mitral E to LV E' Septal Ratio 19.7 TR Peak Velocity 279.5 cm/s TR Peak Gradient 31.2 mmHg PV Peak Velocity 92.5 cm/s PV Peak Gradient 3.4 mmHg FINDINGS LEFT VENTRICLE Normal left ventricular size. Severe concentric left ventricular hypertrophy. The left ventricular systolic function is mildly reduced with an estimated ejection fraction in the range of 45- 50%. Doppler parameters are consistent with a pseudonormal left ventricular filling pattern with concomin ant abnormal relaxation and increased filling pressure (grade 2 diastolic dysfunction). RIGHT VENTRICLE Normal right ventricular size and systolic function. LEFT ATRIUM The left atrial size is mildly dilated. RIGHT ATRIUM The right atrial size is normal. ATRIAL SEPTUM Normal atrial septal thickness AORTA The aortic root and proximal ascending aorta are normal in size on limited imaging. MITRAL VALVE Calcification of both mitral valve leaflets. Trace mitral valve regurgitation. No mitral valve stenosis. AORTIC VALVE Calcification of the non-coronary cusp. Aortic valve sclerosis is present. No aortic valve stenosis. No aortic valve regurgitation. TRICUSPID VALVE Grossly normal There is trace tricuspid valve regurgitation. The estimated pulmonary arterial pressure is 41 mmHg. PULMONARY VALVE No pulmonary valve regurgitation or stenosis. VESSELS The inferior vena cava is normal in size. PERICARDIUM No pericardial effusion. Jonas Wong DO (Electronically Signed) Final Date:28 October 2018 18:57
[2018-10-28] MEDS: Metoprolol Tartrate 100 MG Tablet PO SCH (22:01)
[2018-10-29 07:05] LABS: Baso % (Auto) 0.5 % (0.0-2.0); Eos # (Auto) 0.1 th/mm3 (0.0-0.4); Eos % (Auto) 1.4 % (0.0-4.0); Hematocrit 37.2 % (35.0-46.0); Hemoglobin 12.5 gm/dL (11.6-15.3); Lymph # (Auto) 1.1 th/mm3 (1.0-4.8); Lymph % (Auto) 12.2 % (9.0-44.0); Mean Corpuscular HGB Conc 33.5 % (32.0-36.0); Mean Corpuscular Hemoglobin 27.9 pg (27.0-34.0); Mean Corpuscular Volume 83.3 fL (80.0-100.0); Mean Platelet Volume 10.3 fL (7.0-11.0); Mono # (Auto) 0.6 th/mm3 (0.0-0.9); Mono % (Auto) 6.1 % (0.0-8.0); Neut # (Auto) 7.4 th/mm3 (1.8-7.7); Neut % (Auto) 79.8 % (16.0-70.0); Platelet Count 222 th/mm3 (150-450); Red Blood Count 4.47 mil/mm3 (4.00-5.30); Red Cell Distribution Width 15.1 % (11.6-17.2); White Blood Count 9.2 th/mm3 (4.0-11.0)
[2018-10-29 07:11] LABS: Calcium 8.4 mg/dL (8.5-10.1); Carbon Dioxide 24.5 meq/L (21.0-32.0); Free T4 (Free Thyroxine) 1.67 ng/dL (0.76-1.46); Thyroid Stimulating Hormone 0.055 uIU/mL (0.358-3.740)
[2018-10-29 07:17] LABS: Potassium 2.8 meq/L (3.5-5.1)
[2018-10-29] MEDS: hydrALAZINE 50 MG Tablet PO SCH (08:10)
[2018-10-29] MEDS: Rivaroxaban 15 MG Tablet PO SCH (08:10)
[2018-10-29] MEDS: amLODIPine 10 MG Tablet PO SCH (08:11)
[2018-10-29] MEDS: Metoprolol Tartrate 100 MG Tablet PO SCH (08:11)
[2018-10-29] MEDS: guaiFENesin 600 MG ER Tablet PO SCH (08:11)
[2018-10-29] MEDS: Senna/Docusate Sodium 8.6/50 MG Tablet PO SCH (08:12)
--- NOTE | 2018-10-29 08:37 | P.PNCA ---
Subjective Interval history: No CP, dizziness, dyspnea, palpitations. Slept very well. Medications and Allergies Active Medications: Active Medications Acetaminophen (Tylenol) 650 mg PO Q4H PRN PRN Reason: Temp > 100.4 Al Hydroxide/Mg Hydroxide (Milk Of Magnesia Liq) 30 ml PO Q12H PRN PRN Reason: Mild Constipation Amlodipine Besylate (Norvasc) 10 mg PO DAILY [facility] Last Admin: 10/29/18 08:11 Dose: 10 mg Bisacodyl (Dulcolax Supp) 10 mg RECTAL DAILY PRN PRN Reason: SEVERE CONSITIPATION Clonidine HCl (Catapres) 0.2 mg PO BID [facility] Last Admin: 10/29/18 08:11 Dose: 0.2 mg Enalapril Maleate (Vasotec) 20 mg PO BID [facility] Last Admin: 10/29/18 08:11 Dose: 20 mg Guaifenesin (Mucinex Er) 600 mg PO BID [facility] Last Admin: 10/29/18 08:11 Dose: 600 mg Hydralazine HCl (Apresoline) 50 mg PO BID [facility] Last Admin: 10/29/18 08:10 Dose: 50 mg Amiodarone HCl 450 mg/ (Dextrose) 250 mls @ 33.33 mls/hr IV.CONT TITRATE PRN; Protocol PRN Reason: Per Protocol Stop: 10/29/18 14:59 Last Admin: 10/28/18 18:06 Dose: 0.5 mg/min, 16.66 mls/hr Lactulose (Lactulose Liq) 30 ml PO DAILY PRN PRN Reason: SEVERE CONSITIPATION Metoprolol Tartrate (Lopressor) 100 mg PO BID [facility] Last Admin: 10/29/18 08:11 Dose: 100 mg Ondansetron HCl (Zofran Inj) 4 mg IV.PUSH Q6H PRN PRN Reason: NAUSEA OR VOMITING Potassium Chloride (K-Dur) 40 meq PO ONCE ONE Stop: 10/29/18 08:29 Pravastatin Sodium (Pravachol) 80 mg PO QPM [facility] Last Admin: 10/28/18 18:45 Dose: 80 mg Rivaroxaban (Xarelto) 20 mg PO DAILY [facility] Last Admin: 10/29/18 08:10 Dose: 20 mg Senna/Docusate Sodium (Alice-Colace) 1 tab PO BID [facility] Last Admin: 10/29/18 08:12 Dose: Not Given Sennosides (Senokot) 17.2 mg PO Q12H PRN PRN Reason: Moderate Constipation Sodium Chloride (Ns Flush) 2 ml IV.FLUSH UNSCH PRN PRN Reason: FLUSH AFTER USING IV ACCESS Last Admin: 10/27/18 11:20 Dose: 2 ml Sodium Chloride (Ns Flush) 2 ml IV.FLUSH BID [facility] Last Admin: 10/29/18 08:11 Dose: 2 ml Sodium Chloride (Ns Flush) 2 ml IV.FLUSH PRN PRN PRN Reason: FLUSH AFTER USING IV ACCESS Allergies Allergy/AdvReac Type Severity Reaction Status Date / Time No Known Allergies Allergy Verified 10/27/18 11:31 Home Medications Medication Instructions Recorded Confirmed Type alendronate 70 mg PO QWEEK 10/27/18 10/27/18 History furosemide [Lasix] 40 mg PO DAILY 10/27/18 10/27/18 History hydralazine 50 mg PO BID 10/27/18 10/27/18 History isosorbide dinitrate 60 mg PO TID 10/27/18 10/27/18 History rivaroxaban [Xarelto] 15 mg PO DAILY NEB 10/27/18 10/27/18 History simvastatin [Zocor] 40 mg PO QPM 10/27/18 10/27/18 History Physical Exam Vital signs: Vital Signs 10/28/18 09:00 10/28/18 10:00 10/28/18 10:45 Temperature Pulse Rate 72 62 Respiratory Rate Blood Pressure Pulse Oximetry 97 10/28/18 11:00 10/28/18 12:00 10/28/18 13:00 Temperature 98.7 F Pulse Rate 68 62 64 Respiratory Rate 16 Blood Pressure 156/86 H Pulse Oximetry 95 10/28/18 14:00 10/28/18 15:00 10/28/18 16:00 Temperature 99.3 F Pulse Rate 70 76 72 Respiratory Rate 16 Blood Pressure 199/103 H 193/108 H Pulse Oximetry 95 10/28/18 17:00 10/28/18 18:00 10/28/18 19:00 Temperature 98.1 F Pulse Rate 76 68 72 Respiratory Rate 16 Blood Pressure 160/97 H Pulse Oximetry 94 L 10/28/18 20:00 10/28/18 21:00 12/04/18 22:00 Temperature Pulse Rate 72 72 74 Respiratory Rate Blood Pressure Pulse Oximetry 97 10/28/18 23:00 10/29/18 00:00 10/29/18 00:25 Temperature 99.5 F Pulse Rate 69 62 Respiratory Rate 18 Blood Pressure 188/94 H 159/91 H Pulse Oximetry 96 10/29/18 01:00 10/29/18 02:00 10/29/18 03:00 Temperature 98.8 F Pulse Rate 71 74 73 Respiratory Rate 16 Blood Pressure 188/105 H Pulse Oximetry 94 L 10/29/18 04:00 10/29/18 05:00 10/29/18 06:00 Temperature Pulse Rate 62 70 70 Respiratory Rate Blood Pressure Pulse Oximetry 10/29/18 07:00 Temperature 98.8 F Pulse Rate 85 Respiratory Rate 22 Blood Pressure 209/110 H Pulse Oximetry 96 Intake & Output 10/28/18 10/29/18 10/29/18 18:59 06:59 18:59 Intake Total 600 / 600 240 / 240 Output Total 700 / 700 475 / 475 Balance -100 / -100 -235 / -235 Weight 89.6 kg Intake: Oral 600 / 600 240 / 240 Output: Urine 700 / 700 475 / 475 Other: Date of Last Bowel Movement 10/28/18 10/28/18 # Bowel Movements 1 - Constitutional no acute distress - Routine Neck Exam Absent: JVD - Routine Respiratory Exam Present: CTA bilaterally - Routine Cardiovascular Exam Present: RRR, S1, S2. Absent: murmur, gallop - Routine Abdominal Exam Present: soft, normoactive bowel sounds. Absent: tenderness, organomegaly - Routine Extremities Exam Absent: cyanosis, clubbing, edema Results 10/29/18 05:21 10/29/18 05:21 Cardiac Enzymes 10/27/18 10/27/18 10/27/18 Range/Units 11:30 14:38 20:40 AST 20 (15-37) U/L CK-MB (CK-2) 1.4 (0.5-3.6) ng/mL Troponin I 0.02 0.09 H 0.21 H D (0.02-0.05) ng/mL 10/28/18 Range/Units 05:02 AST 43 H (15-37) U/L CK-MB (CK-2) (0.5-3.6) ng/mL Troponin I (0.02-0.05) ng/mL Coagulation 10/27/18 Range/Units 11:30 PT 13.7 H (9.8-11.6) sec APTT 46.2 H (23.4-31.7) sec CBC 10/27/18 10/28/18 10/29/18 Range/Units 11:30 05:02 05:21 WBC 7.7 6.9 9.2 (4.0-11.0) th/mm3 RBC 5.03 4.71 4.47 (4.00-5.30) mil/mm3 Hgb 13.7 12.7 12.5 (11.6-15.3) gm/dL Hct 41.1 37.6 37.2 (35.0-46.0) % Plt Count 235 231 222 (150-450) th/mm3 Neut # (Auto) 4.1 4.1 7.4 (1.8-7.7) th/mm3 Lymph # (Auto) 2.4 1.9 1.1 (1.0-4.8) th/mm3 [place] # (Auto) 0.8 0.7 0.6 (0.0-0.9) th/mm3 Eos # (Auto) 0.4 0.2 0.1 (0.0-0.4) th/mm3 Baso # (Auto) 0.0 0.1 0.0 (0.0-0.2) th/mm3 Comprehensive Metabolic Panel 10/27/18 10/27/18 10/28/18 Range/Units 11:30 20:40 05:02 Sodium 140 139 (136-145) meq/L Potassium 2.9 L* 3.2 L 3.1 L (3.5-5.1) meq/L Chloride 106 108 H (98-107) meq/L Carbon Dioxide 22.9 24.9 (21.0-32.0) meq/L BUN 12 11 (7-18) mg/dL Creatinine 1.24 H 1.20 H (0.50-1.00) mg/dL Calcium 8.8 8.9 (8.5-10.1) mg/dL AST 20 43 H (15-37) U/L ALT 14 19 (10-53) U/L Alkaline Phosphatase 104 95 (45-117) U/L Total Protein 8.4 H 7.8 D (6.4-8.2) g/dL Albumin 3.6 3.5 (3.4-5.0) g/dL 10/29/18 Range/Units 05:21 Sodium 139 (136-145) meq/L Potassium 2.8 L* (3.5-5.1) meq/L Chloride 105 (98-107) meq/L Carbon Dioxide 24.5 (21.0-32.0) meq/L BUN 9 (7-18) mg/dL Creatinine 1.09 H (0.50-1.00) mg/dL Calcium 8.4 L (8.5-10.1) mg/dL AST (15-37) U/L ALT (10-53) U/L Alkaline Phosphatase (45-117) U/L Total Protein (6.4-8.2) g/dL Albumin (3.4-5.0) g/dL Intake and Output 10/28/18 10/29/18 10/29/18 22:59 06:59 14:59 Intake Total 600 / 600 240 / 240 Output Total 700 / 700 475 / 475 Balance -100 / -100 -235 / -235 Intake: Oral 600 / 600 240 / 240 Output: Urine 700 / 700 475 / 475 Other: Date of Last Bowel Movement 10/28/18 10/28/18 # Bowel Movements 1 Weight 89.6 kg - Imaging and Cardiology Imaging: Impressions Chest X-Ray 10/27/18 00:00 CONCLUSION: Underinflated examination with stable mild bibasilar airspace opacity and right midlung zone opacity. Chest X-Ray 10/27/18 11:27 CONCLUSION: 1. Stable pulmonary venous congestion. 2. Stable mild infiltrate in the right perihilar area. 3. Stable cardiomegaly. Assessment and Plan - Assessment (1) ICD (implantable cardioverter-defibrillator) discharge Code(s): Z45.02 - Encounter for adjustment and management of automatic implantable cardiac defibrillator Status: Acute Plan: Stable since admission. No further ICD shocks. Appears shocks were due to atrial fib with rapid rates. Recommend change Amiodarone to 200 mg po qd. OK to discharge later today if BP reasonable. (2) Paroxysmal atrial fibrillation Code(s): I48.0 - Paroxysmal atrial fibrillation Status: Acute Plan: Prior history of ablation. Remains in NSR post ICD shocks. Recommend continue change Amiodarone to oral, continue Xarelto at 20 mg qd dosing. (3) Nonischemic cardiomyopathy Code(s): I42.8 - Other cardiomyopathies Status: Chronic Plan: Overall compensated. EF 45-50% by echo, likely reduced to due longstanding poorly controlled hypertension. No acute CHF. Continue beta gypsy, PRABHA-I. REC skilled nursing better/strict BP control. (4) Hypertension Code(s): I10 - Essential (primary) hypertension Status: Chronic Plan: Suboptimal BP control on multi-drug regimen. Recommend increase clonidine to 0.2 mg tid, increase hydralazine to 100 mg tid. Rec close f/u with her PCP. - Plan Code Status: full code Discussed Condition With: patient (4) Hypertension Qualifiers: Hypertension type: essential hypertension Qualified Code(s): I10 - Essential (primary) hypertension
[2018-10-29] MEDS ORDERED: Amiodarone 200 MG Tablet PO SCH (09:00)
--- NOTE | 2018-10-29 10:07 | P.PNFP ---
Subjective Interval history: No acute events overnight. Patient's blood pressure continued to be elevated, however her rate was well controlled on the amiodarone. Patient denied any headache or vision changes, chest pain or shortness of breath, abdominal pain. She states that she feels well and is ready to go home. <Real Hill B - 10/29/18 15:46> Results - Labs Result diagrams: 10/29/18 05:21 10/29/18 05:21 <Antionette Aguillon R - 10/29/18 16:44> Abnormal lab results 10/29/18 10/29/18 Range/Units 05:21 05:21 Neut % (Auto) 79.8 H (16.0-70.0) % Potassium 2.8 L* (3.5-5.1) meq/L Creatinine 1.09 H (0.50-1.00) mg/dL Estimated GFR 61 L (>89) mL/min Random Glucose 114 H (74-106) mg/dL Calcium 8.4 L (8.5-10.1) mg/dL TSH 0.055 L (0.358-3.740) uIU/mL Free T4 1.67 H (0.76-1.46) ng/dL Short CBC 10/29/18 Range/Units 05:21 WBC 9.2 (4.0-11.0) th/mm3 Hgb 12.5 (11.6-15.3) gm/dL Hct 37.2 (35.0-46.0) % Plt Count 222 (150-450) th/mm3 BMP 10/29/18 05:21 Sodium 139 Potassium 2.8 L* Chloride 105 Carbon Dioxide 24.5 BUN 9 Creatinine 1.09 H Calcium 8.4 L <Antionette Aguillon R - 10/29/18 16:44> Abnormal lab results 10/29/18 10/29/18 Range/Units 05:21 05:21 Neut % (Auto) 79.8 H (16.0-70.0) % Potassium 2.8 L* (3.5-5.1) meq/L Creatinine 1.09 H (0.50-1.00) mg/dL Estimated GFR 61 L (>89) mL/min Random Glucose 114 H (74-106) mg/dL Calcium 8.4 L (8.5-10.1) mg/dL TSH 0.055 L (0.358-3.740) uIU/mL Free T4 1.67 H (0.76-1.46) ng/dL Short CBC 10/29/18 Range/Units 05:21 WBC 9.2 (4.0-11.0) th/mm3 Hgb 12.5 (11.6-15.3) gm/dL Hct 37.2 (35.0-46.0) % Plt Count 222 (150-450) th/mm3 BMP 10/29/18 05:21 Sodium 139 Potassium 2.8 L* Chloride 105 Carbon Dioxide 24.5 BUN 9 Creatinine 1.09 H Calcium 8.4 L <Real Hill B - 10/29/18 10:07> Physical Exam Vital signs: Vital Signs 10/28/18 17:00 10/28/18 18:00 10/28/18 19:00 Temperature 98.1 F Pulse Rate 76 68 72 Respiratory Rate 16 Blood Pressure 160/97 H Pulse Oximetry 94 L 10/28/18 20:00 10/28/18 21:00 10/28/18 22:00 Temperature Pulse Rate 72 72 74 Respiratory Rate Blood Pressure Pulse Oximetry 97 10/28/18 23:00 10/29/18 00:00 10/29/18 00:25 Temperature 99.5 F Pulse Rate 69 62 Respiratory Rate 18 Blood Pressure 188/94 H 159/91 H Pulse Oximetry 96 10/29/18 01:00 10/29/18 02:00 10/29/18 03:00 Temperature 98.8 F Pulse Rate 71 74 73 Respiratory Rate 16 Blood Pressure 188/105 H Pulse Oximetry 94 L 10/29/18 04:00 10/29/18 05:00 10/29/18 06:00 Temperature Pulse Rate 62 70 70 Respiratory Rate Blood Pressure Pulse Oximetry 10/29/18 07:00 10/29/18 08:00 10/29/18 09:00 Temperature 98.8 F Pulse Rate 76 82 68 Respiratory Rate 22 Blood Pressure 209/110 H Pulse Oximetry 96 96 10/29/18 10:00 10/29/18 10:06 10/29/18 11:00 Temperature 98.6 F Pulse Rate 64 65 Respiratory Rate 24 Blood Pressure 162/82 H Pulse Oximetry 96 96 10/29/18 12:00 10/29/18 12:34 10/29/18 13:00 Temperature Pulse Rate 66 72 62 Respiratory Rate Blood Pressure 161/84 H Pulse Oximetry 94 L 10/29/18 14:00 10/29/18 14:22 Temperature Pulse Rate 62 Respiratory Rate Blood Pressure 131/81 Pulse Oximetry Intake & Output 10/28/18 10/29/18 10/29/18 18:59 06:59 18:59 Intake Total 600 / 600 240 / 240 225 / 225 Output Total 700 / 700 475 / 475 Balance -100 / -100 -235 / -235 225 / 225 Weight 89.6 kg Intake: IV 225 / 225 Cordarone Inj 450 MG In D5W Inj 225 / 225 241 ML @ 1 MG/MIN 33.33 mls/hr IV.CONT TITRATE PRN Rx#: [id number] Oral 600 / 600 240 / 240 Output: Urine 700 / 700 475 / 475 Other: Date of Last Bowel Movement 10/28/18 10/28/18 # Bowel Movements 1 <Antionette Aguillon - 10/29/18 16:44> Vital Signs 10/28/18 10:45 10/28/18 11:00 10/28/18 12:00 Temperature 98.7 F Pulse Rate 68 62 Respiratory Rate 16 Blood Pressure 156/86 H Pulse Oximetry 97 95 10/28/18 13:00 10/28/18 14:00 10/28/18 15:00 Temperature 99.3 F Pulse Rate 64 70 76 Respiratory Rate 16 Blood Pressure 199/103 H Pulse Oximetry 95 10/28/18 16:00 10/28/18 17:00 10/28/18 18:00 Temperature Pulse Rate 72 76 68 Respiratory Rate Blood Pressure 193/108 H Pulse Oximetry 10/28/18 19:00 10/28/18 20:00 10/28/18 21:00 Temperature 98.1 F Pulse Rate 72 72 72 Respiratory Rate 16 Blood Pressure 160/97 H Pulse Oximetry 94 L 97 10/28/18 22:00 10/28/18 23:00 10/29/18 00:00 Temperature 99.5 F Pulse Rate 74 69 62 Respiratory Rate 18 Blood Pressure 188/94 H Pulse Oximetry 96 10/29/18 00:25 10/29/18 01:00 10/29/18 02:00 Temperature Pulse Rate 71 74 Respiratory Rate Blood Pressure 159/91 H Pulse Oximetry 10/29/18 03:00 10/29/18 04:00 10/29/18 05:00 Temperature 98.8 F Pulse Rate 73 62 70 Respiratory Rate 16 Blood Pressure 188/105 H Pulse Oximetry 94 L 10/29/18 06:00 10/29/18 07:00 10/29/18 10:06 Temperature 98.8 F Pulse Rate 70 76 Respiratory Rate 22 Blood Pressure 209/110 H Pulse Oximetry 96 96 Intake & Output 10/28/18 10/29/18 10/29/18 18:59 06:59 18:59 Intake Total 600 / 600 240 / 240 225 / 225 Output Total 700 / 700 475 / 475 Balance -100 / -100 -235 / -235 225 / 225 Weight 89.6 kg Intake: IV 225 / 225 Cordarone Inj 450 MG In D5W Inj 225 / 225 241 ML @ 1 MG/MIN 33.33 mls/hr IV.CONT TITRATE PRN Rx#: [id number] Oral 600 / 600 240 / 240 Output: Urine 700 / 700 475 / 475 Other: Date of Last Bowel Movement 10/28/18 10/28/18 # Bowel Movements 1 <Real Hill - 10/29/18 10:07> Narrative: GENERAL: Well appearing female, laying comfortably on nasal cannula, in no acute distress SKIN: Warm and dry. HEAD: Normocephalic. EYES: No scleral icterus. No injection or drainage. NECK: Supple, trachea midline. No JVD or lymphadenopathy. CARDIOVASCULAR: Regular rate and rhythm with a rate in the 70s without murmurs, gallops, or rubs. RESPIRATORY: Basilar crackles auscultated bilaterally -improved from prior exam. Good air movement bilaterally. No wheezes. No accessory muscle use. GASTROINTESTINAL: Abdomen soft, non-tender, nondistended. MUSCULOSKELETAL: No cyanosis, or edema. BACK: Nontender without obvious deformity. No CVA tenderness. <Real Hill - 10/29/18 15:46> Assessment and Plan - Assessment (1) Afib Code(s): I48.91 - Unspecified atrial fibrillation Status: Acute (2) Hypertension Code(s): I10 - Essential (primary) hypertension Status: Acute (3) Low TSH level Code(s): R79.89 - Other specified abnormal findings of blood chemistry Status : Acute (4) Hypokalemia Code(s): E87.6 - Hypokalemia Status: Acute (5) CKD (chronic kidney disease) Code(s): N18.9 - Chronic kidney disease, unspecified Status: Acute (6) Cough Code(s): R05 - Cough Status: Acute (7) Hyperglycemia Code(s): R73.9 - Hyperglycemia, unspecified Status: Acute (8) DVT prophylaxis Status: Acute (9) Nutrition, metabolism, and development symptoms Code(s): R63.8 - Other symptoms and signs concerning food and fluid intake Status: Acute <Antionette Aguillon R - 10/29/18 16:44> (1) Afib Code(s): I48.91 - Unspecified atrial fibrillation Status: Acute Plan: Patient with a history of A. fib status post pacemaker placement 4-5 years ago presents with pacemaker alarming and patient in acute A.fib with an elevated heart rate at 166. Patient was asymptomatic and denied any chest pain. Cardiology Consulted: switched from diltiazem to amiodarone drip and currently well-controlled. Transition to p.o. amiodarone on 10/29 Patient safe to discharge per cardiology Patient continues to have low TSH, will need to be followed up by her outpatient PCP Cardiology recommending increasing Xarelto to 20 mg p.o. daily (2) Hypertension Code(s): I10 - Essential (primary) hypertension Status: Acute Plan: Patient has been significantly hypertensive since admission Takes hydralazine 50 mg p.o. twice daily at home Cardiology added metoprolol twice daily, amlodipine daily, clonidine 3 times daily, increased home hydralazine, enalapril Called patient's daughter and discussed that she will be started on several new medications for blood pressure at time of discharge Patient will need very close follow-up and observation/assistance with medications from family as patient has memory issues Blood pressure is 131/80 at time of discharge (3) Low TSH level Code(s): R79.89 - Other specified abnormal findings of blood chemistry Status : Acute Plan: TSH low at 0.094 on admission. Free T4 mildly elevated at 1.69, free T3 within normal limits Repeat TSH, free T4 were basically the same Thyroid antibody panel pending Ordering repeat TSH, free T4 in 1 week at time of discharge and will need follow -up with PCP (4) Hypokalemia Code(s): E87.6 - Hypokalemia Status: Acute Plan: Patient found to be hypokalemic at 2.9 on admission. 60 MEq's of potassium chloride given in the ED. and increase to 3.2 Was again hypokalemic at 2.8 on the morning of 10/29, repleted with 40 mEq of potassium Repeating potassium in 1 week to follow-up with PCP (5) CKD (chronic kidney disease) Code(s): N18.9 - Chronic kidney disease, unspecified Status: Acute Plan: Creatinine of 1.24 on admission Compared to previous study seems to be at baseline. Creatinine remains stable Continue to monitor (6) Cough Code(s): R05 - Cough Status: Acute Plan: Patient has 1 day cough of productive thick mucus. Increased crackles heard at the right lower lung bases. Mucinex added. Repeat PA and Lat showed stable pulmonary venous congestion (7) Hyperglycemia Code(s): R73.9 - Hyperglycemia, unspecified Status: Acute Plan: Hyperglycemic at 161 on admission. Repeat of 101 on day 1 of hospitalization, will continue to monitor (8) DVT prophylaxis Status: Acute Plan: Increase Xarelto to 20 mg p.o. daily PT ordered. (9) Nutrition, metabolism, and development symptoms Code(s): R63.8 - Other symptoms and signs concerning food and fluid intake Status: Acute Plan: Fluids: Encourage p.o. intake Electrolytes: Hypokalemic on admission, continuing to trend Nutrition: Cardiac diet. Code: Full Code. <Real Hill - 10/29/18 15:50> - Assessment and Plan 68-year-old female with a past medical history of A. fib status post pacemaker placement 4-5 years ago presents with pacemaker alarming and pulse in the 180s. Was in A. fib on admission, given multiple doses of metoprolol, adenosine, Versed and was placed on a diltiazem drip which regulated her rate and rhythm. Patient was found to be hypokalemic at 2.4 and was replaced with 60 M EQ's of potassium chloride. Cardiology was consulted for evaluation of the pacemaker and atrial fibrillation. Patient's weight was controlled on amiodarone drip. Patient continued to be significantly hypertensive multiple medications were added. Patient's blood pressure eventually stabilized and patient was transitioned to amiodarone p.o. Patient was cleared by cardiology on the morning of 10/29 and patient was discharged home with close follow-up. <Real Hill - 10/29/18 15:54> - Attending Attestation Patient seen and discussed with the resident team. She is back to her baseline. No complaints. BP well controlled on current regimen. Will need close fu with PCP and cardiology - pt is aware. <Antionette Aguillon - 10/29/18 16:44>
--- NOTE | 2018-10-30 14:14 | P.DS ---
Date of admission: 10/27/18 12:47 Primary care physician: UNKNOWN Brief History from admission: 68 year old female presents to the hospital because her pacemaker kept alarming. It started today, unsure of what time it started alarming. She was just resting in her house this morning and the alarm went off. She went out and got her son and her son called an ambulance. She denies any CP during this event. She got the pacemaker 4-5 years ago and it has alarmed once before about 2-3 years ago. She came to [place] and does not remember what happened during that event. She has been taking her medications daily. She does not remember her PCP or [facility] name. Her daughter helps with her medicines and helps with her doctors appointment. She has had a productive cough that started yesterday. It is whitish and thick in color. She denies any fevers or chills. Denies any SOB, Ab pain, problems with urination or defecation. Denies any sick contacts. PMH: HBP, ME (before pacemaker) PSH: Foot surgery A: KNDA Meds: Reconciled. FH: Son has asthma. SH: Lives with son and grandson in a house. Smoked 1ppd for 20 years but quit 10 years ago. Used to drink beer, no longer drinks. Denies any street drugs. NO recent travel. Got the flu shot Code Status: Full Code. Daughter helps with medical decisions: Gillian Farmer DS: Diagnosis - Discharge Diagnosis (1) Afib Status: Acute (2) Low TSH level Status: Acute (3) Hypokalemia Status: Acute (4) CKD (chronic kidney disease) Status: Acute (5) Cough Status: Acute (6) Hyperglycemia Status: Acute (7) DVT prophylaxis Status: Acute (8) Nutrition, metabolism, and development symptoms Status: Acute DS: Medications - Discharge Medications Prescriptions: amiodarone 200 mg PO DAILY #30 tab amlodipine [Norvasc] 10 mg PO DAILY #30 tab clonidine HCl [Catapres] 0.2 mg PO TID #90 tab enalapril maleate 20 mg PO BID #120 tab hydralazine 100 mg PO TID #90 tab metoprolol tartrate 100 mg PO BID #60 tab potassium chloride 20 meq PO DAILY #30 tab rivaroxaban [Xarelto] 20 mg PO DAILY #30 tab DS: Summary Hospital Course: 68-year-old female with a past medical history of A. fib status post pacemaker placement 4-5 years ago presents with pacemaker alarming and pulse in the 180s. Was in A. fib on admission, given multiple doses of metoprolol, adenosine, Versed and was placed on a diltiazem drip which regulated her rate and rhythm. Patient was found to be hypokalemic at 2.4 and was replaced with 60 M EQ's of potassium chloride. Cardiology was consulted for evaluation of the pacemaker and atrial fibrillation. Patient's rate was controlled on amiodarone drip. Patient continued to be significantly hypertensive and patient was started on metoprolol 100 mg twice daily, amlodipine 10 mg daily, 0.2 mg clonidine 3 times daily, enalapril 20 mg twice daily. Hydralazine was increased to 100 mg 3 times daily. Patient's blood pressure eventually stabilized and patient was transitioned to amiodarone p.o. Patient's TSH was low on admission at 0.094, T4 was mildly elevated at 1.69 free T3 within normal limits. Repeat TSH and T4 were basically same lab values. TPO antibodies still pending upon discharge. Due to patient being on amiodarone drip, concerns for thyroid interaction, repeat TSH and free T4 was ordered for 1 week after discharge and will need to be followed up with PCP. She then became hypokalemic again on 10/29 at 2.8 and was repleted with 40 M EQ's of potassium. Repeat potassium was ordered for 1 week post discharge to be followed up with PCP. Patient was cleared by cardiology on the morning of 10/29 and patient was discharged home with close follow-up. She was discharged home on amiodarone 200 mg p.o. daily, amlodipine 10 mg daily, 0.2 mg clonidine 3 times daily, enalapril 20 mg p.o. twice daily, hydralazine 100 mg p.o. 3 times daily, metoprolol tartrate 100 mg twice daily, potassium chloride 20 M EQ's daily, Xarelto was increased to 20 mg daily. She was told to continue her alendronate, Lasix and simvastatin. She is to follow- up with a BMP, free T4, TSH in 1 week. She is to follow-up with PCP and cardiology in a week. - Time Spent with Patient Total time spent providing and/or coordinating discharge services: Less than 30 minutes - Quality: VTE Deep Vein Thrombosis/Pulmonary Embolism Present on Admission: No Exam Vital signs: Vital Signs 10/29/18 14:22 10/29/18 15:00 Pulse Rate 72 Blood Pressure 131/81 Intake & Output 10/29/18 10/30/18 10/30/18 18:59 06:59 18:59 Intake Total 225 / 225 Balance 225 / 225 Intake: IV 225 / 225 Cordarone Inj 450 MG In D5W Inj 225 / 225 241 ML @ 1 MG/MIN 33.33 mls/hr IV.CONT TITRATE PRN Rx#: [id number] Other: Date of Last Bowel Movement 10/28/18 Narrative: GENERAL: Well appearing female, laying comfortably on nasal cannula, in no acute distress SKIN: Warm and dry. HEAD: Normocephalic. EYES: No scleral icterus. No injection or drainage. NECK: Supple, trachea midline. No JVD or lymphadenopathy. CARDIOVASCULAR: Regular rate and rhythm without murmurs, gallops, or rubs. RESPIRATORY: Diffuse crackles auscultated bilaterally. Prominent crackles heard in the right lower lobe. Good air movement bilaterally. No wheezes. No accessory muscle use. GASTROINTESTINAL: Abdomen soft, non-tender, nondistended. MUSCULOSKELETAL: No cyanosis, or edema. BACK: Nontender without obvious deformity. No CVA tenderness. Results Procedures completed during hospitalization: None - Impressions ITS Impressions Chest X-Ray 10/27/18 11:27 CONCLUSION: 1. Stable pulmonary venous congestion. 2. Stable mild infiltrate in the right perihilar area. 3. Stable cardiomegaly. Discharge Plan - Discharge Disposition Patient Disposition: Discharge Home - Discharge Condition Condition: Stable - Discharge Order Discharge Orders: Discharge Order (Routine); Ordered 10/29/18 Ordered By: [facility] Clear for Discharge (Routine); Ordered 10/29/18 Ordered By: Chico Sherman ED Use Only Admit Order (Routine); Ordered 10/27/18 Ordered By: Jacqueline Sims - Physicians Team Primary Care Provider: UNKNOWN, Attending Provider: Antionette Aguillon Other Providers: Chico Sherman MD
== END 2018-10-29 16:45 | disposition home or self-care (01) ==
LOC: NEPE 11:09 → NEDA 12:47 → HCIS 16:10
PROVIDERS: ADMIT Family Medicine; ATTEND Family Medicine